=== PATIENT | female | born 1995 | race Two or more races ===

== ENCOUNTER 2019-12-04 23:23 | Emergency (ER) | payer OTHER, SELFPAY ==
[2019-12-04 23:42] VITALS: BP 140/97; PULSE 87; RESP 20; TEMP 36.8; O2SAT 100; BMI 32.0
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
[2019-12-05] VITALS (7 sets, daily range): BP systolic 114–131; BP diastolic 64–85; PULSE 74–105; RESP 14–21; TEMP 36.8; O2SAT 99–100
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
[2019-12-05 00:02] LABS: Basophils Percent Auto 0.3 % (0-2); MANUAL DIFF FLAG SCAN; SCAN SMEAR FLAG 1
[2019-12-05 00:04] LABS: Eosinophils Absolute Auto 0.1 X10*3/uL (0.0-0.4); Eosinophils Percent Auto 1.2 % (0-4); Hemoglobin 13.1 g/dl (12.0-16.0); Imm Gran Abs Auto 0.03 X10*3/uL (0.00-0.03); Imm Gran Pct Auto 0.5 % (0.0-0.4); Lymphocytes Absolute Auto 1.6 X10*3/uL (1.2-4.9); Mean Corpuscular HGB Conc 35.4 g/dl (31.0-35.0); Mean Corpuscular Hemoglobin 29.4 pg (27.0-33.0); Mean Corpuscular Volume 83.1 fL (80-98); Monocytes Absolute Auto 0.5 X10*3/uL (0.1-1.2); Monocytes Percent Auto 7.5 % (2-11); Neutrophils Absolute Auto 4.4 X10*3/uL (2.0-8.3); Neutrophils Percent Auto 66.5 % (45-73); Red Blood Count 4.45 X10*6/uL (4.20-5.50); Red Cell Distribution Width 12.1 % (11.0-16.0); White Blood Count 6.6 X10*3/uL (4.8-10.8)
[2019-12-05] MEDS: HYDROmorphone HCl 0.5 MG/0.5 ML SYRINGE 0.25 MG IVPUSH (00:19)
[2019-12-05 00:32] LABS: Ethanol < 10 mg/dL
[2019-12-05 00:34] LABS: PLT ABN DIST 1; Platelet Count 33 X10*3/uL (160-400)
[2019-12-05 00:36] LABS: Alanine Aminotransferase 22 U/L (0-31); Albumin Level 3.7 g/dL (3.5-5.0); Alkaline Phosphatase 52 U/L (39-117); Anion Gap 12 (12-20); Aspartate Amino Transferase 21 U/L (5-31); Bilirubin Total 0.6 mg/dL (0.0-1.0); Blood Urea Nitrogen 20 mg/dL (9-16); Calcium 8.6 mg/dL (8.4-10.2); Carbon Dioxide 20 mmol/L (22-29); Chloride 109 mmol/L (96-108); Creatinine Clr Calc Pharmacy 71.6; Estimated Glomerular Filt Rate > 60; Glucose Random 114 mg/dL (60-115); Lipase 51 U/L (8-78); Potassium 3.2 mmol/l (3.3-5.1); SLIDE REVIEW VERIFIED; Sodium 138 mmol/L (135-145); Total Protein 6.5 g/dL (6.5-8.0)
[2019-12-05] MEDS: iohexoL 350 MG/ML 100 ML INFUS..BTL 85 ML IV (00:36)
[2019-12-05 00:51] LABS: INTERNATIONAL NORM RATIO 1.1 (0.9-1.1); Prothrombin Time 12.9 SEC (10.8-13.0)
[2019-12-05 01:42] LABS: Partial Thromboplastin Time 29.1 SEC (24.1-38.0)
[2019-12-05] MEDS: Lidocaine 4 % Patch ADH..PATCH 1 PATCH TRANSDERMA (04:12)
[2019-12-05] MEDS: Acetaminophen 325 MG TABLET 975 MG PO (04:12)
== END 2019-12-05 04:31 | disposition home or self-care (01) ==
PROVIDERS: Emergency Provider Student in an Organized Health Care Education/Training Program
DX: S90.812A Abrasion, left foot, initial encounter (principal); S90.811A Abrasion, right foot, initial encounter; S80.02XA Contusion of left knee, initial encounter; V43.52XA Car driver injured in collision with other type car in traffic accident, initial encounter; M62.838 Other muscle spasm; C81.90 Hodgkin lymphoma, unspecified, unspecified site; Y93.89 Activity, other specified; Y92.414 Local residential or business street as the place of occurrence of the external cause; Y99.9 Unspecified external cause status; Z86.711 Personal history of pulmonary embolism; Z79.899 Other long term (current) drug therapy
CPT/HCPCS: 36415; 70450; 71260; 72125; 73090; 73564; 73630; 74177; 80053; 80320; 83690; 85025; 85610; 85730; 86850; 86900; 86901; 93005; 96374; 99285; J1170

== ENCOUNTER → 2020-06-25 09:08 | Outpatient (BNVA) | payer OTHER, SELFPAY | PROVIDERS: PCP Physician Assistant; Visit Provider Advanced Practice Midwife ==

== ENCOUNTER 2020-06-26 00:18 | Emergency (ER) | payer OTHER, SELFPAY ==
[2020-06-26 00:29] VITALS: BP 152/99; PULSE 86; RESP 16; TEMP 36.4; O2SAT 99; BMI 30.2
--- NOTE | 2020-06-26 02:42 | ED_ITS ---
HPI - Headache General Chief Complaint: Headache Stated Complaint: Migraine Time Seen by Provider: 06/26/20 02:05 Source: patient Mode of arrival: ambulatory Limitations: no limitations History of Present Illness HPI Narrative: Pain history of migraine with recurrent headaches almost weekly basis complaining of headache this time on the right side started few hours prior to arrival sensitive to light and noise nausea no vomiting no fever no neck pain Related Data Home Medications Medication Instructions Recorded Confirmed apixaban [Eliquis] 1 tab PO BID 12/02/19 12/04/19 prednisone 5 mg PO DAILY 12/02/19 12/04/19 ondansetron 4 mg PO Q6H PRN 12/25/19 12/25/19 Previous Rx's Medication Instructions Recorded [id number]-vjsftvavfilcy-gdis 1 cap PO Q6H PRN #20 cap 06/26/20 [Fioricet] sumatriptan succinate [Imitrex] 50 mg PO Q2H PRN #10 tab 06/26/20 Allergies Allergy/AdvReac Type Severity Reaction Status Date / Time latex [LATEX] Allergy Severe RASH Verified 06/26/20 00:29 Penicillins [PENICILLINS] Allergy Intermediate RASH Verified 06/26/20 00:29 Review of Systems Review of Systems: Yes all other systems are reviewed and are negative [facility] Past Medical History Medical History Chronic ITP (idiopathic thrombocytopenia) Hodgkin lymphoma Pulmonary embolism Family History Family History Unknown Breast cancer Paternal Grandfather Prostate cancer Father HTN (hypertension) Social History Social History Alcohol intake: never Smoking Status: Former smoker Advance Directives: No Advance Directives Information Provided: No Gender identity: female Physical Exam Vital Signs: Vital Signs: Last Vital Signs Temp 97.6 F 06/26/20 00:29 Pulse 86 06/26/20 00:29 Resp 16 06/26/20 00:29 BP 152/99 H 06/26/20 00:29 Pulse Ox 99 06/26/20 00:29 Body Mass Index 30.2 Const: General: comfortable, well developed and acute distress Orientat ion/consciousness: patient oriented x3 HENMT: Other: Photosensitive Head: Yes normal to inspection Ears: hearing grossly normal bilaterally General nose exam: Normal external nose present Mouth: Normal oral and palatal mucosa present Teeth and gingiva: dentition normal Throat: Yes posterior oropharynx normal Eyes: General: appearance normal, both eyes and all related structures Neck: Neck: Yes normal visual inspection, Yes no lymphadenopathy and Yes no meningeal signs Resp: Effort & Inspection: normal respiratory effort Auscultation: clear to auscultation bilaterally Cardio: Rate: regular rate Rhythm: regular rhythm Heart sounds: S1 normal heart sound present and S2 normal heart sound present GI: Inspection: Yes normal to inspection Palpation (GI): Soft to palpation and nontender : General: Yes no CVA tenderness Back/Spine/Pelvis: Back: no CVA tenderness Thoracic/Lumbar Spine: thoracic and lumbar spine normal to inspection Neuro: General: patient oriented x3, no meningeal signs and no focal motor d eficits MDM - Headache MDM Narrative Medical decision making narrative: Patient feeling better after Imitrex and Fioricet will discharge patient home Differential Diagnosis Differential diagnosis: Likely migraine Discharge Plan Discharge Clinical Impression: Migraine Patient Disposition: Home, Self-Care Instructions: Migraine Headache (ED) Additional Instructions: Rest at home. Take medication as prescribed Prescriptions: New wjfqsnnzjm-dngitxxwpikkx-cbqu [Fioricet] 50-300-40 mg capsule 1 cap PO Q6H PRN (Reason: Headache) Qty: 20 RF: 0 sumatriptan succinate [Imitrex] 50 mg tablet 50 mg PO Q2H PRN (Reason: Headache) Qty: 10 RF: 0 No Action Eliquis 5 mg tablet 1 tab PO BID RF: 0 prednisone 5 mg Tablet 5 mg PO DAILY RF: 0 ondansetron 4 mg Film 4 mg PO Q6H PRN (Reason: Nausea) RF: 0
[2020-06-26] MEDS: Butalb/Acetamin/Caff 50/325/40 TABLET 1 TAB PO (03:14)
--- NOTE | 2020-06-26 03:31 | PC.NURSE ---
PT STILL C/O HEADACHE TO FRONTAL PART OF HEAD. MD AWARE AND ORDERED
== END 2020-06-26 05:36 | disposition home or self-care (01) ==
PROVIDERS: Emergency Provider Internal Medicine; PCP Physician Assistant
DX: G43.909 Migraine, unspecified, not intractable, without status migrainosus (principal); Z79.01 Long term (current) use of anticoagulants; Z79.899 Other long term (current) drug therapy
CPT/HCPCS: 96372; 99283; J3030

== ENCOUNTER 2020-07-01 08:28 | Outpatient (REF) | payer OTHER, SELFPAY ==
--- NOTE | ~2020-07-01 | XR_ITS ---
EXAMINATION: XR CHEST CLINICAL INFORMATION: Cough COMPARISON: Previous chest x-ray April [address] November 2019 TECHNIQUE: 2 views of the chest were obtained. FINDINGS: No significant abnormality is noted involving the heart, lungs, mediastinum, bony thorax or soft tissues. XR/XR chest 2V IMPRESSION: Unremarkable examination.
[2020-07-01 10:53] LABS: Alanine Aminotransferase 25 U/L (0-31); Albumin Level 3.8 g/dL (3.5-5.0); Alkaline Phosphatase 64 U/L (39-117); Anion Gap 11 (12-20); Aspartate Amino Transferase 19 U/L (5-31); Bilirubin Total 0.6 mg/dL (0.0-1.0); Blood Urea Nitrogen 15 mg/dL (9-16); Calcium 8.8 mg/dL (8.4-10.2); Carbon Dioxide 26 mmol/L (22-29); Chloride 106 mmol/L (96-108); Estimated Glomerular Filt Rate > 60; Glucose Fasting 72 mg/dL (60-99); Potassium 4.1 mmol/L (3.3-5.1); Sodium 139 mmol/L (135-145); Total Protein 6.8 g/dL (6.5-8.0)
[2020-07-01 11:45] LABS: Estimated Average Glucose 91 mg/dL; Hemoglobin A1c % 4.8 %
[2020-07-01 12:43] LABS: TSH reflex Free T4 1.26 uIU/mL (0.32-4.0)
== END 2020-07-01 08:29 | disposition home or self-care (01) ==
LOC: HO.LAB 08:28
PROVIDERS: PCP Physician Assistant; Visit Provider Physician Assistant
DX: R05 Cough (principal); Z13.1 Encounter for screening for diabetes mellitus; Z13.29 Encounter for screening for other suspected endocrine disorder
CPT/HCPCS: 36415; 71046; 80053; 83036; 84443

== ENCOUNTER → 2020-10-02 11:37 | Outpatient (BNVA) | payer OTHER, SELFPAY | PROVIDERS: PCP Physician Assistant; Visit Provider Advanced Practice Midwife ==

== ENCOUNTER 2020-10-11 16:00 | Emergency (ER) | payer OTHER, SELFPAY ==
[2020-10-11 16:19] VITALS: BP 138/79; PULSE 92; RESP 18; TEMP 36.7; O2SAT 100; BMI 29.9
--- NOTE | 2020-10-11 18:26 | ED.GENADULT ---
HPI - General Adult General Chief complaint: General Medical Stated complaint: Rash Time Seen by Provider: 10/11/20 18:20 Source: patient Mode of arrival: ambulatory Limitations: no limitations History of Present Illness HPI narrative: 25 y/o female presenting with itchy red rash on her hand and face that started yesterday. She reports getting blood work taken and she thinks they used a tape with latex in it. She slept on her right hand and woke up with a red, itchy red patch on her right cheek. It is painful and slightly raised. No fever, chills, SOB or wheezing. No facial or oral swelling. She has a history of similar reactions to latex in the past. MD complaint: allergic reaction Onset (ago): day(s) Location: face, right and upper extremity Radiation: non-radiation Severity: moderate Severity scale (1-10): 6 Quality: burning Pain Consistency: constant Relieving factors: cold therapy Exacerbating factors: none Associated symptoms: denies other symptoms Treatments prior to arrival: none Related Data Home Medications Medication Instructions Recorded Confirmed apixaban 5 mg tablet (Eliquis) 1 tab PO BID 12/02/19 06/29/20 prednisone 5 mg tablet 5 mg PO DAILY 12/02/19 06/29/20 ondansetron 4 mg oral soluble film 4 mg PO Q6H PRN 12/25/19 06/29/20 Previous Rx's Medication Instructions Recorded [id number]-[id number]-bfagckvu 1 cap PO Q6H PRN #20 cap 06/26/20 50 mg-300 mg-40 mg capsule (Fioricet) sumatriptan succinate 50 mg tablet 50 mg PO Q2H PRN #10 tab 06/26/20 (Imitrex) diphenhydramine HCl 25 mg tablet 50 mg PO Q6H PRN #14 tab 10/11/20 (Benadryl Allergy) prednisone 20 mg tablet 40 mg PO DAILY #10 tab 10/11/20 Allergies Allergy/AdvReac Type Severity Reaction Status Date / Time latex [LATEX] Allergy Severe RASH Verified 10/11/20 16:19 Penicillins [PENICILLINS] Allergy Intermediate RASH Verified 10/11/20 16:19 Review of Systems Review of Systems: Constitutional: No Fever, No Chills ENT/Mouth: No sore throat, No Rhinorrhea, No Swallowing Difficulty Eyes: No Eye Pain, No Swelling, No Redness Cardiovascular: No Chest Pain, No SOB Respiratory: No Cough, No Sputum, No Wheezing, No dyspnea Gastrointestinal: No Nausea, No Vomiting, No Diarrhea, No abdominal Pain Musculoskeletal: No joint pain, No Myalgias Skin: No Skin Lesions, + rash Neuro: No Weakness, No Numbness, No Dizziness, No Headache Heme/Lymph: No Bruising, No Lymphadenopathy PMFSH Past Medical History Medical History (Updated 10/11/20 @ 19:07 by JEFFERY Dominique) Chronic ITP (idiopathic thrombocytopenia) Hodgkin lymphoma MDS (myelodysplastic syndrome) Pulmonary embolism Family History Family History Unknown Breast cancer Paternal Grandfather Prostate cancer Father HTN (hypertension) Social History Social History (Updated 06/29/20 @ 13:26 by Michelet Witt PA-C) Alcohol intake: never Advance Directives: No Advance Directives Information Provided: Yes Patient : No Current occupational status: employed Current occupation: [employer] Gender identity: Female Physical Exam Vital Signs: Vital Signs: Last Vital Signs Temp 98.1 F 10/11/20 18:32 Pulse 67 10/11/20 18:32 Resp 16 10/11/20 18:32 BP 121/78 10/11/20 18:32 Pulse Ox 99 10/11/20 18:32 Body Mass Index 29.9 Appearance: Alert. Oriented X3. No acute distress. HEENT: right cheek with large area of erythema and warmth, well demarcated, slightly raised. no oral swelling CVS: Normal heart rate and rhythm. Pulses normal. Respiratory: No respiratory distress. Lungs CTAB. Skin: Skin warm and dry. Normal skin color. Normal skin turgor. No rashes. Extremities: left dorsal hand with red raised lesions along hand and wrist. NV intact distally. Neuro: Oriented X 3. No motor deficit. No sensory deficit. Course Course Course Narrative: 25 y/o female presenting with allergic reaction to latex involving her hand and face. Will treat with benadryl and prednisone. Reevaluation(s) Reevaluation #1: Observed in the ED with no worsening of symptoms. No evidence of angioedema or anaphylaxis. Stable for d/c home with continuation of prednisone and benadryl. Critical Care Time Critical Care Time Critical Care Time: No Discharge Plan Discharge Clinical Impression: Allergic reaction Qualifiers: Encounter type: initial encounter Qualified Code(s): T78.40XA - Allergy, unspecified, initial encounter Patient Disposition: Home, Self-Care Instructions: General Allergic Reaction (ED) Additional Instructions: Take Benadryl 50 mg every 6 hours as needed for rash and itching. Take the prescribed steroid medication starting tomorrow, you were given 1st dose in the ER today. If you develop new or worsening symptoms call 911 or come back to the ER for further evaluation. Prescriptions: New prednisone 20 mg tablet 40 mg PO DAILY Qty: 10 RF: 0 diphenhydramine HCl [Benadryl Allergy] 25 mg tablet 50 mg PO Q6H PRN (Reason: allergic reaction) Qty: 14 RF: 0 No Action cxpvoygnkq-esswichnnpymp-udbe [Fioricet] 50-300-40 mg capsule 1 cap PO Q6H PRN (Reason: Headache) Qty: 20 RF: 0 sumatriptan succinate [Imitrex] 50 mg tablet 50 mg PO Q2H PRN (Reason: Headache) Qty: 10 RF: 0 Eliquis 5 mg tablet 1 tab PO BID RF: 0 prednisone 5 mg Tablet 5 mg PO DAILY RF: 0 ondansetron 4 mg Film 4 mg PO Q6H PRN (Reason: Nausea) RF: 0
[2020-10-11 18:32] VITALS: BP 121/78; PULSE 67; RESP 16; TEMP 36.7; O2SAT 99
[2020-10-11] MEDS: predniSONE 10 MG TABLET 50 MG PO (18:38)
[2020-10-11] MEDS: diphenhydrAMINE HCL 25 MG TABLET 50 MG PO (18:39)
== END 2020-10-11 19:47 | disposition home or self-care (01) ==
PROVIDERS: Emergency Provider Internal Medicine; PCP Physician Assistant
DX: L50.0 Allergic urticaria (principal); Z79.899 Other long term (current) drug therapy
CPT/HCPCS: 99283; 99284; Q0163

== ENCOUNTER 2020-12-15 15:02 | Outpatient (REF) | payer OTHER, SELFPAY ==
[2020-12-16 10:09] LABS: CT PCR NOT DETECTED (Not Detect.); NG PCR NOT DETECTED (Not Detect.)
== END 2020-12-15 15:03 | disposition home or self-care (01) ==
LOC: HO.LAB 15:02
PROVIDERS: PCP Physician Assistant; Visit Provider Advanced Practice Midwife
DX: Z30.432 Encounter for removal of intrauterine contraceptive device (principal); Z20.2 Contact with and (suspected) exposure to infections with a predominantly sexual mode of transmission
CPT/HCPCS: 58301; 87491; 87591

== ENCOUNTER → 2020-12-24 10:29 | Outpatient (BNVA) | payer OTHER, SELFPAY | PROVIDERS: PCP Physician Assistant; Visit Provider Advanced Practice Midwife | DX: Z30.430 Encounter for insertion of intrauterine contraceptive device (principal) | CPT/HCPCS: 58300 ==

== ENCOUNTER → 2021-01-21 09:16 | Outpatient (BNVA) | payer OTHER, SELFPAY | PROVIDERS: PCP Physician Assistant; Visit Provider Advanced Practice Midwife ==

== ENCOUNTER 2021-04-29 14:52 | Outpatient (REF) | payer OTHER, SELFPAY ==
--- NOTE | ~2021-04-29 | XR_ITS ---
EXAMINATION: XR CHEST CLINICAL INFORMATION: Screening for respiratory tuberculosis COMPARISON: None TECHNIQUE: 2 views of the chest were obtained. FINDINGS: No significant abnormality is noted involving the heart, lungs, mediastinum, bony thorax or soft tissues. XR/XR chest 2V IMPRESSION: Unremarkable chest examination.
== END 2021-04-29 14:53 | disposition home or self-care (01) ==
LOC: HO.XRAY 14:52
PROVIDERS: PCP Physician Assistant; Visit Provider Physician Assistant
DX: Z11.1 Encounter for screening for respiratory tuberculosis (principal)
CPT/HCPCS: 71046

== ENCOUNTER 2021-05-04 15:29 | Outpatient (REF) | payer OTHER, SELFPAY ==
[2021-05-05 08:18] LABS: HBS Num1 4.81 mIU/mL (0-7.99); ~Hepatitis B Surface Antibody NONREACTIVE (Nonreactive)
[2021-05-05 21:07] LABS: Rubeola IgG (Measles) >300.00 AU/mL; Varicella IgG Antibody <135.00 index
== END 2021-05-04 15:30 | disposition home or self-care (01) ==
LOC: HO.LAB 15:29
PROVIDERS: PCP Physician Assistant; Visit Provider Physician Assistant
DX: Z01.84 Encounter for antibody response examination (principal); Z13.29 Encounter for screening for other suspected endocrine disorder
CPT/HCPCS: 36415; 84443; 86706; 86735; 86762; 86765; 86787

== ENCOUNTER 2021-06-02 05:56 | Emergency (ER) | payer OTHER, SELFPAY ==
--- NOTE | 2021-06-02 | ECG_ITS ---
Test Reason : sob/chest pain Blood Pressure : / mmHG Vent. Rate : 064 BPM Atrial Rate : 064 BPM P-R Int : 142 ms QRS Dur : 080 ms QT Int : 364 ms P-R-T Axes : 017 057 021 degrees QTc Int : 375 ms Normal sinus rhythm with sinus arrhythmia Normal ECG When compared with ECG of 05-DEC-2019 00:21, Vent. rate has decreased BY 39 BPM QT has shortened Referred By: Generic ED Physician Electronically Signed By:COY VIVEROS MD
--- NOTE | ~2021-06-02 | CT_ITS ---
EXAMINATION: CT ANGIOGRAM OF THE CHEST WITH AND WITHOUT CONTRAST (CT PULMONARY ANGIOGRAM FOR PE) CLINICAL INFORMATION: Reason for Exam CP h/o PE pos D dimer COMPARISON: 07/13/2019 and 12/05/2019 TECHNIQUE: Prior to contrast administration, noncontrast localization images were obtained. Subsequently, multidetector volumetric imaging was performed from the thoracic inlet to below the diaphragms following the administration of 57 mL Omnipaque 350 intravenous contrast. No contrast reaction reported Sagittal, coronal, and MIP oblique sagittal reformatted images were obtained on the CT workstation, uploaded to PACS, and reviewed. This CT examination was performed using dose optimization techniques as appropriate, variously including the following: *Automated exposure control *Adjustment of mA and/or kV according to patient size (this includes techniques or standardized protocols for targeted exams where dose is matched to indication/reason for exam; i.e. extremities or head) *Use of iterative reconstruction technique Total exam dose-length product 257 mGy-cm FINDINGS: QUALITY OF STUDY/CONTRAST BOLUS: Satisfactory. PULMONARY ARTERIES: No central or segmental pulmonary emboli. THORACIC AORTA: No aneurysm or dissection. LUNG: No focal consolidation, nodules or masses. PLEURA: No pleural effusion or pneumothorax. MEDIASTINUM: Normal heart size. No pericardial effusion. No hilar or mediastinal lymphadenopathy. No evidence of septal bowing or right heart strain. CHEST WALL/AXILLA: No axillary or internal mammary lymphadenopathy. OSSEOUS STRUCTURES: No acute or suspicious osseous abnormality. UPPER ABDOMEN: Unremarkable. CT/CT angio chest PE protocol IMPRESSION: No pulmonary embolism. No acute pneumonitis or parenchymal consolidation VTE:
[2021-06-02 06:15] VITALS: BP 126/78; PULSE 74; RESP 28; TEMP 36.7; O2SAT 100; BMI 27.3
[2021-06-02 06:22] LABS: Hematocrit 42.3 % (37.0-47.0); Hemoglobin 14.4 g/dl (12.0-16.0); Mean Corpuscular Hemoglobin 28.5 pg (27.0-33.0); Mean Corpuscular Volume 83.8 fL (80.0-98.0); Mean Platelet Volume 12.8 fL (9.4-12.3); Platelet Count 140 X10*3/uL (160-400); Red Blood Count 5.05 X10*6/uL (4.20-5.50); Red Cell Distribution Width 13.2 % (11.0-16.0); White Blood Count 4.6 X10*3/uL (4.8-10.8)
[2021-06-02 06:37] LABS: COVID-19 Test Negative (Negative); IDNOW Serial# 55D5AD1C
[2021-06-02 06:44] LABS: Alanine Aminotransferase 33 U/L (0-31); Albumin Level 3.7 g/dL (3.5-5.0); Alkaline Phosphatase 66 U/L (39-117); Anion Gap 13 (12-20); Aspartate Amino Transferase 26 U/L (5-31); Bilirubin Total 0.9 mg/dL (0.0-1.0); Blood Urea Nitrogen 19 mg/dL (9-16); Carbon Dioxide 20 mmol/L (22-29); Chloride 109 mmol/L (96-108); Creatinine Clr Calc Pharmacy 70.7; Estimated Glomerular Filt Rate > 60; Glucose Random 87 mg/dL (60-115); Potassium 4.1 mmol/L (3.3-5.1); Sodium 138 mmol/L (135-145); Total Protein 6.8 g/dL (6.5-8.0)
[2021-06-02 06:49] LABS: Influenza A Negative (Negative); Influenza B2 Negative (Negative)
[2021-06-02 06:52] LABS: Troponin-I High Sensitivity < 3.5 ng/L (<3.5-17.0)
--- NOTE | 2021-06-02 06:52 | ED.CHESTPAIN ---
HPI - Chest Pain General Chief Complaint: Chest Pain Stated Complaint: SoB, chest tightness Time Seen by Provider: 06/02/21 06:46 Related Data Allergies Allergy/AdvReac Type Severity Reaction Status Date / Time latex [LATEX] Allergy Severe RASH Verified 04/27/21 13:34 Penicillins [PENICILLINS] Allergy Intermediate RASH Verified 04/27/21 13:34 [facility] Past Medical History Medical History Chronic ITP (idiopathic thrombocytopenia) Hodgkin lymphoma MDS (myelodysplastic syndrome) Pulmonary embolism Family History Family History Unknown Breast cancer Paternal Grandfather Prostate cancer Father HTN (hypertension) Paternal Aunt Breast cancer Social History Social History (System 04/27/21 @ 13:34 by Marisabel Polk) Household Members: Family Housing: House Are you a primary child care nurse to a significant other at home: No Do you presently have visiting nurse or other home services: No Alcohol intake: never Patient Tobacco Use Status: Never used Tobacco e-Cigarette/Vaping Use: Never Used Second Hand Smoke Exposure: No Advance Directives: No Advance Directives Information Provided: Yes service: No Current occupational status: employed Current occupation: [employer] Gender identity: Female Physical Exam Vital Signs: Vital Signs: Last Vital Signs Temp 98.1 F 06/02/21 06:15 Pulse 74 06/02/21 06:15 Resp 28 H 06/02/21 06:15 BP 126/78 06/02/21 06:15 Pulse Ox 100 06/02/21 06:15 BMI result Body Mass Index 27.3 MDM - Chest Pain Lab Data Result diagrams: 06/02/21 06:14 06/02/21 06:14 Labs: Lab Results 06/02/21 06/02/21 06/02/21 Range/Units 06:13 06:13 06:14 WBC 4.6 L (4.8-10.8) X10*3/uL RBC 5.05 (4.20-5.50) X10*6/uL Hgb 14.4 (12.0-16.0) g/dl Hct 42.3 (37.0-47.0) % MCV 83.8 (80.0-98.0) fL MCH 28.5 (27.0-33.0) pg MCHC 34.0 (31.0-35.0) g/dl RDW 13.2 (11.0-16.0) % Plt Count 140 L (160-400) X10*3/uL MPV 12.8 H (9.4-12.3) fL Absolute Nucleated RBC 0.000 (0.0-0.012) X10*3/uL Nucleated RBC % (auto) 0.0 (0.0-0.2) /100WBC Sodium (135-145) mmol/L Potassium (3.3-5.1) mmol/L Chloride (96-108) mmol/L Carbon Dioxide (22-29) mmol/L Anion Gap (12-20) BUN (9-16) mg/dL Creatinine (0.5-1.4) mg/dL Estim Creat Clear Calc Estimated GFR Random Glucose (60-115) mg/dL Calcium (8.4-10.2) mg/dL Total Bilirubin (0.0-1.0) mg/dL AST (5-31) U/L ALT (0-31) U/L Alkaline Phosphatase (39-117) U/L Total Protein (6.5-8.0) g/dL Albumin (3.5-5.0) g/dL COVID-19 ([facility]) Negative (Negative) COVID-19 Clin Com See Note Influenza Type A (MARK) Negative (Negative) Influenza Type B (MARK) Negative (Negative) Influenza A & B Note See Note 06/02/21 Range/Units 06:14 WBC (4.8-10.8) X10*3/uL RBC (4.20-5.50) X10*6/uL Hgb (12.0-16.0) g/dl Hct (37.0-47.0) % MCV (80.0-98.0) fL MCH (27.0-33.0) pg MCHC (31.0-35.0) g/dl RDW (11.0-16.0) % Plt Count (160-400) X10*3/uL MPV (9.4-12.3) fL Absolute Nucleated RBC (0.0-0.012) X10*3/uL Nucleated RBC % (auto) (0.0-0.2) /100WBC Sodium 138 (135-145) mmol/L Potassium 4.1 (3.3-5.1) mmol/L Chloride 109 H (96-108) mmol/L Carbon Dioxide 20 L (22-29) mmol/L Anion Gap 13 (12-20) BUN 19 H (9-16) mg/dL Creatinine 1.02 (0.5-1.4) mg/dL Estim Creat Clear Calc 70.7 Estimated GFR > 60 Random Glucose 87 (60-115) mg/dL Calcium 9.0 (8.4-10.2) mg/dL Total Bilirubin 0.9 (0.0-1.0) mg/dL AST 26 (5-31) U/L ALT 33 H (0-31) U/L Alkaline Phosphatase 66 (39-117) U/L Total Protein 6.8 (6.5-8.0) g/dL Albumin 3.7 (3.5-5.0) g/dL COVID-19 ([facility]) (Negative) COVID-19 Clin Com Influenza Type A (MARK) (Negative) Influenza Type B (MARK) (Negative) Influenza A & B Note
--- NOTE | 2021-06-02 06:53 | ED_ITS ---
HPI - Chest Pain General Chief Complaint: Chest Pain Stated Complaint: SoB, chest tightness Time Seen by Provider: 06/02/21 06:46 Source: patient Limitations: no limitations History of Present Illness HPI narrative: This is a 26-year-old female who woke up around 05:00 o'clock in the morning with left-sided chest pain, shortness of breath, and a few episodes of vomiting. Patient feels somewhat better now. She relates that she previously a few years ago had had a pulmonary embolism when she was on control pills, and had felt similarly. Patient is no longer control pills. She does not use tobacco. She denies any cough or fever. She denies any pain upon taking a deep breath. She denies any pain or swelling in her legs. Does have history of TTP as well as Hodgkin's lymphoma 8 years ago which is in remission Related Data Allergies Allergy/AdvReac Type Severity Reaction Status Date / Time latex [LATEX] Allergy Severe RASH Verified 04/27/21 13:34 Penicillins [PENICILLINS] Allergy Intermediate RASH Verified 04/27/21 13:34 Review of Systems Review of Systems: Yes all other systems are reviewed and are negative Constitutional: Constitutional: Denies fever(s) Eyes: Eyes: Reports no additional eye complaints ENT: Reports system reviewed and no additional complaints, except as documented Cardiovascular: Cardiovascular: Reports as per HPI Respiratory: Respiratory: Reports as per HPI and Denies cough Gastrointestinal: Gastrointestinal: Denies abdominal pain, Reports nausea and Reports vomiting Musculoskeletal: Musculoskeletal: Reports no additional musculoskeletal complaints Integumentary/Breasts: Skin/Breast: Reports system reviewed and no additional complaints, except as docu PMFSH Past Medical History Medical History Chronic ITP (idiopathic thrombocytopenia) Hodgkin lymphoma MDS (myelodysplastic syndrome) Pulmonary embolism Family History Family History Unknown Breast cancer Paternal Grandfather Prostate cancer Father HTN (hypertension) Paternal Aunt Breast cancer Social History Social History (System 04/27/21 @ 13:34 by Marisabel Polk) Household Members: Family Housing: House Are you a primary acute care certified nursing assistant to a significant other at home: No Do you presently have visiting nurse or other home services: No Alcohol intake: never Patient Tobacco Use Status: Never used Tobacco e-Cigarette/Vaping Use: Never Used Second Hand Smoke Exposure: No Advance Directives: No Advance Directives Information Provided: Yes service: No Current occupational status: employed 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 Gender identity: Female Physical Exam Vital Signs: Vital Signs: Last Vital Signs Temp 98.1 F 06/02/21 08:22 Pulse 77 06/02/21 09:51 Resp 16 06/02/21 09:51 BP 117/76 06/02/21 09:51 Pulse Ox 97 06/02/21 09:51 BMI result Body Mass Index 27.3 Const: General: cooperative and no acute distress Nutritional Appearance: average body habitus Orientation/consciousness: oriented to person, oriented to place and oriented to time Limitations: no limitations HEENT: Head: Yes normal to inspection General nose exam: Normal external nose present Throat: Yes posterior oropharynx normal Eyes: General: appearance normal, both eyes and all related structures Resp: Effort & Inspection: normal respiratory effort Auscultation: clear to auscultation bilaterally Cardio: Rate: regular rate Rhythm: regular rhythm Heart sounds: S1 normal heart sound present, S2 normal heart sound present, no gallops, no murmurs and no rubs GI: Palpation (GI): Soft to palpation and nontender Skin: General skin exam: no rashes or lesions noted Neuro: General: oriented to person, oriented to place and oriented to time MDM - Chest Pain MDM Narrative Medical decision making narrative: Patient with left-sided chest pain and nausea, and symptoms that felt similar to when she had a pulmonary embolism few years ago when she was on control pills. D-dimer was mildly elevated, though her pulse oximetry and EKG were unremarkable. CTA was done and did rule out pulmonary embolism. Lab Data Attestation: I reviewed the patient's lab results. Result diagrams: 06/02/21 06:14 06/02/21 06:14 Labs: Lab Results 06/02/21 06/02/21 06/02/21 Range/Units 06:13 06:13 06:14 WBC 4.6 L (4.8-10.8) X10*3/uL RBC 5.05 (4.20-5.50) X10*6/uL Hgb 14.4 (12.0-16.0) g/dl Hct 42.3 (37.0-47.0) % MCV 83.8 (80.0-98.0) fL MCH 28.5 (27.0-33.0) pg MCHC 34.0 (31.0-35.0) g/dl RDW 13.2 (11.0-16.0) % Plt Count 140 L (160-400) X10*3/uL MPV 12.8 H (9.4-12.3) fL Absolute Nucleated RBC 0.000 (0.0-0.012) X10*3/uL Nucleated RBC % (auto) 0.0 (0.0-0.2) /100WBC D-Dimer High Sensitivty NG/ML Sodium (135-145) mmol/L Potassium (3.3-5.1) mmol/L Chloride (96-108) mmol/L Carbon Dioxide (22-29) mmol/L Anion Gap (12-20) BUN (9-16) mg/dL Creatinine (0.5-1.4) mg/dL Estim Creat Clear Calc Estimated GFR Random Glucose (60-115) mg/dL Calcium (8.4-10.2) mg/dL Total Bilirubin (0.0-1.0) mg/dL AST (5-31) U/L ALT (0-31) U/L Alkaline Phosphatase (39-117) U/L Troponin I High Sens (<3.5-17.0) ng/L Total Protein (6.5-8.0) g/dL Albumin (3.5-5.0) g/dL Beta HCG, Quant mIU/mL COVID-19 ([facility]) Negative (Negative) COVID-19 Clin Com See Note Influenza Type A (MARK) Negative (Negative) Influenza Type B (MARK) Negative (Negative) Influenza A & B Note See Note 06/02/21 06/02/21 06/02/21 Range/Units 06:14 06:15 07:18 WBC (4.8-10.8) X10*3/uL RBC (4.20-5.50) X10*6/uL Hgb (12.0-16.0) g/dl Hct (37.0-47.0) % MCV (80.0-98.0) fL MCH (27.0-33.0) pg MCHC (31.0-35.0) g/dl RDW (11.0-16.0) % Plt Count (160-400) X10*3/uL MPV (9.4-12.3) fL Absolute Nucleated RBC (0.0-0.012) X10*3/uL Nucleated RBC % (auto) (0.0-0.2) /100WBC D-Dimer High Sensitivty 311 NG/ML Sodium 138 (135-145) mmol/L Potassium 4.1 (3.3-5.1) mmol/L Chloride 109 H (96-108) mmol/L Carbon Dioxide 20 L (22-29) mmol/L Anion Gap 13 (12-20) BUN 19 H (9-16) mg/dL Creatinine 1.02 (0.5-1.4) mg/dL Estim Creat Clear Calc 70.7 Estimated GFR > 60 Random Glucose 87 (60-115) mg/dL Calcium 9.0 (8.4-10.2) mg/dL Total Bilirubin 0.9 (0.0-1.0) mg/dL AST 26 (5-31) U/L ALT 33 H (0-31) U/L Alkaline Phosphatase 66 (39-117) U/L Troponin I High Sens < 3.5 (<3.5-17.0) ng/L Total Protein 6.8 (6.5-8.0) g/dL Albumin 3.7 (3.5-5.0) g/dL Beta HCG, Quant < 2 mIU/mL COVID-19 ([facility]) (Negative) COVID-19 Clin Com Influenza Type A (MARK) (Negative) Influenza Type B (MARK) (Negative) Influenza A & B Note Imaging Data CTA of the chest: Radiologist's impression: IMPRESSION: No pulmonary embolism. No acute pneumonitis or parenchymal consolidation ECG Data ECG #1: Attestation: I personally reviewed and interpreted this ECG as follows: ECG interpretation date: 06/02/21 ECG interpretation time: 07:01 Interpretation: Sinus rhythm with a rate of 64. Sinus arrhythmia. No ST elevation or depression. Normal QRS axis. Discharge Plan Discharge Clinical Impression: Atypical chest pain, Vomiting Patient Disposition: Home, Self-Care Instructions: Chest Pain (ED) Additional Instructions: Use acetaminophen or ibuprofen for pain. Follow-up with primary care physician as needed. Return for any new or worsened symptoms. Interventions: ED Discharge Assessment Last Done: 06/02/21 09:55 Discharge Date/Time: 06/02/21 09:56
--- NOTE | 2021-06-02 07:21 | PC.NURSE ---
Sabrina sent to the lab.
[2021-06-02 07:34] LABS: D Dimer High Sensitivity 311 NG/ML
[2021-06-02 08:22] VITALS: BP 110/74; PULSE 64; RESP 15; TEMP 36.7; O2SAT 100
[2021-06-02 08:43] LABS: HCG Quantitative < 2 mIU/mL
[2021-06-02] MEDS: iohexoL 350 MG/ML 100 ML INFUS..BTL IV (09:09)
[2021-06-02 09:51] VITALS: BP 117/76; PULSE 77; RESP 16; O2SAT 97
== END 2021-06-02 09:56 | disposition home or self-care (01) ==
PROVIDERS: Physician Assistant Medical; Emergency Provider Emergency Medicine
DX: R07.89 Other chest pain (principal); R11.10 Vomiting, unspecified; D69.3 Immune thrombocytopenic purpura; Z86.711 Personal history of pulmonary embolism; Z85.71 Personal history of Hodgkin lymphoma; Z20.822 Contact with and (suspected) exposure to COVID-19
CPT/HCPCS: 36415; 71275; 80053; 84484; 84702; 85027; 85379; 87502; 87635; 93005; 99284; Q9967

== ENCOUNTER 2021-07-16 13:33 | Emergency (ER) | payer OTHER, SELFPAY ==
--- NOTE | ~2021-07-16 | XR_ITS ---
EXAMINATION: XR CHEST CLINICAL INFORMATION: Shortness breath COMPARISON: April 29, 2021 TECHNIQUE: PA view of the chest was obtained. FINDINGS: No significant abnormality is noted involving the heart, lungs, mediastinum, bony thorax or soft tissues. XR/XR chest 1V IMPRESSION: No acute disease.
--- NOTE | 2021-07-16 13:45 | ECG_ITS ---
Test Reason : SOB Blood Pressure : / mmHG Vent. Rate : 083 BPM Atrial Rate : 083 BPM P-R Int : 130 ms QRS Dur : 084 ms QT Int : 348 ms P-R-T Axes : 041 026 013 degrees QTc Int : 408 ms Normal sinus rhythm with sinus arrhythmia Normal ECG When compared with ECG of 02-JUN-2021 06:05, No significant change was found Referred By: Generic ED Physician Electronically Signed By:COY VIVEROS MD
[2021-07-16 13:47] VITALS: BP 134/69; PULSE 88; TEMP 36.6; O2SAT 99; BMI 28.7
[2021-07-16 14:02] LABS: MANUAL DIFF FLAG NO
[2021-07-16 14:09] LABS: Basophils Percent Auto 0.3 % (0-2); Eosinophils Absolute Auto 0.1 X10*3/uL (0.0-0.4); Hematocrit 39.8 % (37.0-47.0); Imm Gran Abs Auto 0.02 X10*3/uL (0.00-0.03); Imm Gran Pct Auto 0.3 % (0.0-0.4); Lymphocytes Percent Auto 14.2 % (20-40); Mean Corpuscular HGB Conc 35.2 g/dl (31.0-35.0); Mean Corpuscular Volume 82.4 fL (80.0-98.0); Mean Platelet Volume 12.4 fL (9.4-12.3); Monocytes Absolute Auto 0.4 X10*3/uL (0.1-1.2); Monocytes Percent Auto 5.6 % (2-11); Neutrophils Absolute Auto 5.3 x10*3/uL (2.0-8.3); Neutrophils Percent Auto 78.6 % (45-73); Platelet Count 131 X10*3/uL (160-400); Red Blood Count 4.83 X10*6/uL (4.20-5.50); Red Cell Distribution Width 12.5 % (11.0-16.0); White Blood Count 6.8 X10*3/uL (4.8-10.8)
[2021-07-16 14:16] LABS: Prothrombin Time 11.6 SEC (9.9-13.0)
[2021-07-16 14:18] LABS: Anion Gap 11 (12-20); Blood Urea Nitrogen 15 mg/dL (9-16); Calcium 9.5 mg/dL (8.4-10.2); Carbon Dioxide 22 mmol/L (22-29); Chloride 108 mmol/L (96-108); Creatinine Clr Calc Pharmacy 67.2; Estimated Glomerular Filt Rate > 60; Glucose Random 94 mg/dL (60-115); Partial Thromboplastin Time 29.7 SEC (24.1-38.0); Potassium 3.7 mmol/L (3.3-5.1); Sodium 137 mmol/L (135-145)
[2021-07-16 14:25] LABS: Troponin-I High Sensitivity < 3.5 ng/L (<3.5-17.0)
--- NOTE | 2021-07-16 15:14 | ED_ITS ---
HPI - General Adult General Chief complaint: General Medical Stated complaint: shortness of breath Time Seen by Provider: 07/16/21 13:35 Source: patient and family Mode of arrival: EMS History of Present Illness HPI narrative: 26-year-old female with history of Hodgkin's lymphoma, ITP, prior PE with 4th time experiencing acute onset of left upper chest wall pain after coughing that is sharp in nature and causes her to be short of breath. Otherwise she denies any fevers, palpitations, calf swelling, recent travel, or use of estrogen. She reports that her prior PE was considered provoked by her control and follows up with Dr. Rowley for history of Hodgkin's lymphoma and ITP. She states she has not seen Dr. Rowley for 3 months. Related Data Previous Rx's Medication Instructions Recorded albuterol sulfate 90 mcg/actuation 1 inh INHALATION QID PRN #6.7 g 07/09/21 aerosol inhaler Allergies Allergy/AdvReac Type Severity Reaction Status Date / Time latex [LATEX] Allergy Severe RASH Verified 07/09/21 13:13 Penicillins [PENICILLINS] Allergy Intermediate RASH Verified 07/09/21 13:13 Review of Systems Review of Systems: Pertinent positives and negatives as stated in HPI 10 point review of systems is otherwise negative. [facility] Past Medical History Source: nursing notes reviewed Medical History Chronic ITP (idiopathic thrombocytopenia) Hodgkin lymphoma MDS (myelodysplastic syndrome) Pulmonary embolism Family History Family History Unknown Breast cancer Paternal Grandfather Prostate cancer Father HTN (hypertension) Paternal Aunt Breast cancer Social History Social History Household Members: Family Housing: House Are you a primary critical care physician assistant to a significant other at home: No Do you presently have visiting nurse or other home services: No Alcohol intake: never Patient Tobacco Use Status: Never used Tobacco e-Cigarette/Vaping Use: Never Used Second Hand Smoke Exposure: No Use of substances other than those prescribed or required for medical reasons: No Advance Directives: No Advance Directives Information Provided: No Patient : No service: No Current occupational status: employed Current occupation: [employer] Gender identity: Female Physical Exam ED Vital Signs: Vital Signs - 24 hr 07/16/21 13:47 07/16/21 16:02 Temperature 97.9 F 98.3 F Pulse Rate 88 66 Respiratory Rate 16 Blood Pressure 134/69 136/79 Pulse Oximetry 99 100 BMI result Body Mass Index 28.7 VITAL SIGNS: Reviewed. GENERAL: Well developed, well nourished, in no acute distress. HEAD: Normocephalic/atraumatic EYES: PERRLA, EOMI EARS: Ext canals without abnormality OROPHARYNX: no oral lesions noted, posterior pharynx clear LUNGS: Normal breath sounds. No adventitious sounds or accessory muscle use. SpO2<99>;CHEST WALL: There is reproducible pain on palpation over left upper chest wall without crepitus or deformity. CARDIOVASCULAR: Regular rate and rhythm without noted murmurs, no JVD or lower extremity edema. ABDOMEN: Soft, non-tender, non-distended with bowel sounds. MUSCULOSKELETAL: No tenderness, deformities, or effusions noted on gross inspection. EXTREMITIES: No cyanosis, clubbing or edema. SKIN: Inspection of the skin reveals no rashes NEUROLOGIC: Alert and oriented x 4. Strength and sensation to light touch were grossly intact x 4. Course Course Course Narrative: 26-year-old female with history and clinical presentation consistent with cough, anterior chest wall pain that is low likelihood for cardiopulmonary in etiology. However given patient's history will address the possibility although low likelihood PE and/or COVID, possible recurrent, but suspect this is costochondritis. Review of all investigations without acute findings and D-dimer is noted to be lower prior in May. Symptoms are inconsistent PE. Patient was provided with combination analgesics and is otherwise doing much better and will be discharged home in stable condition with strict instructions to follow-up with Dr. Rowley as well as primary care provider for further evaluation. Medical Decision Making Lab Data Result diagrams: 07/16/21 13:55 07/16/21 13:55 Labs: Lab Results 07/16/21 07/16/21 07/16/21 Range/Units 13:55 13:55 13:55 WBC 6.8 (4.8-10.8) X10*3/uL RBC 4.83 (4.20-5.50) X10*6/uL Hgb 14.0 (12.0-16.0) g/dl Hct 39.8 (37.0-47.0) % MCV 82.4 (80.0-98.0) fL MCH 29.0 (27.0-33.0) pg MCHC 35.2 H (31.0-35.0) g/dl RDW 12.5 (11.0-16.0) % Plt Count 131 L (160-400) X10*3/uL MPV 12.4 H (9.4-12.3) fL Immature Gran % (Auto) 0.3 (0.0-0.4) % Neut % (Auto) 78.6 H (45-73) % Lymph % (Auto) 14.2 L (20-40) % [place] % (Auto) 5.6 (2-11) % Eos % (Auto) 1.0 (0-4) % Baso % (Auto) 0.3 (0-2) % Lymph # (Auto) 1.0 L (1.2-4.9) X10*3/uL [place] # (Auto) 0.4 (0.1-1.2) X10*3/uL Eos # (Auto) 0.1 (0.0-0.4) X10*3/uL Baso # (Auto) 0.0 (0.0-0.2) X10*3/uL Abs Immat Gran (auto) 0.02 (0.00-0.03) X10*3/uL Absolute Neuts (auto) 5.3 (2.0-8.3) x10*3/uL Absolute Nucleated RBC 0.000 (0.0-0.012) X10*3/uL Nucleated RBC % (auto) 0.0 (0.0-0.2) /100WBC PT (9.9-13.0) SEC INR (0.9-1.1) APTT (24.1-38.0) SEC D-Dimer High Sensitivty NG/ML Sodium 137 (135-145) mmol/L Potassium 3.7 (3.3-5.1) mmol/L Chloride 108 (96-108) mmol/L Carbon Dioxide 22 (22-29) mmol/L Anion Gap 11 L (12-20) BUN 15 (9-16) mg/dL Creatinine 1.10 (0.5-1.4) mg/dL Estim Creat Clear Calc 67.2 Estimated GFR > 60 Random Glucose 94 (60-115) mg/dL Calcium 9.5 (8.4-10.2) mg/dL Troponin I High Sens < 3.5 (<3.5-17.0) ng/L Urine Color Urine Appearance Urine pH (5.0-8.0) Ur Specific [place] (1.005-1.025) Urine Protein (NEG-TRACE) MG/DL Urine Glucose (UA) (NEG) MG/DL Urine Ketones (NEG) MG/DL Urine Blood (NEG) Urine Nitrite (NEG) Ur Leukocyte Esterase (NEG) Urine RBC (0) /HPF Urine WBC (0-4) /HPF Ur Squamous Epith Cells /LPF Urine Bacteria /LPF Urine Test (NEGATIVE) COVID-19 ([facility]) (Negative) COVID-19 Clin Com 07/16/21 07/16/21 07/16/21 Range/Units 13:55 15:13 15:54 WBC (4.8-10.8) X10*3/uL RBC (4.20-5.50) X10*6/uL Hgb (12.0-16.0) g/dl Hct (37.0-47.0) % MCV (80.0-98.0) fL MCH (27.0-33.0) pg MCHC (31.0-35.0) g/dl RDW (11.0-16.0) % Plt Count (160-400) X10*3/uL MPV (9.4-12.3) fL Immature Gran % (Auto) (0.0-0.4) % Neut % (Auto) (45-73) % Lymph % (Auto) (20-40) % [place] % (Auto) (2-11) % Eos % (Auto) (0-4) % Baso % (Auto) (0-2) % Lymph # (Auto) (1.2-4.9) X10*3/uL [place] # (Auto) (0.1-1.2) X10*3/uL Eos # (Auto) (0.0-0.4) X10*3/uL Baso # (Auto) (0.0-0.2) X10*3/uL Abs Immat Gran (auto) (0.00-0.03) X10*3/uL Absolute Neuts (auto) (2.0-8.3) x10*3/uL Absolute Nucleated RBC (0.0-0.012) X10*3/uL Nucleated RBC % (auto) (0.0-0.2) /100WBC PT 11.6 (9.9-13.0) SEC INR 1.0 (0.9-1.1) APTT 29.7 (24.1-38.0) SEC D-Dimer High Sensitivty 224 NG/ML Sodium (135-145) mmol/L Potassium (3.3-5.1) mmol/L Chloride (96-108) mmol/L Carbon Dioxide (22-29) mmol/L Anion Gap (12-20) BUN (9-16) mg/dL Creatinine (0.5-1.4) mg/dL Estim Creat Clear Calc Estimated GFR Random Glucose (60-115) mg/dL Calcium (8.4-10.2) mg/dL Troponin I High Sens (<3.5-17.0) ng/L Urine Color YELLOW Urine Appearance CLEAR Urine pH 6.0 (5.0-8.0) Ur Specific [place] >= 1.030 H (1.005-1.025) Urine Protein 2+ H (NEG-TRACE) MG/DL Urine Glucose (UA) NEG (NEG) MG/DL Urine Ketones 5 (NEG) MG/DL Urine Blood NEG (NEG) Urine Nitrite NEG (NEG) Ur Leukocyte Esterase NEG (NEG) Urine RBC 0 (0) /HPF Urine WBC 0 (0-4) /HPF Ur Squamous Epith Cells TRACE /LPF Urine Bacteria TRACE /LPF Urine Test (NEGATIVE) COVID-19 ([facility]) Negative (Negative) COVID-19 Clin Com See Note 07/16/21 Range/Units 15:55 WBC (4.8-10.8) X10*3/uL RBC (4.20-5.50) X10*6/uL Hgb (12.0-16.0) g/dl Hct (37.0-47.0) % MCV (80.0-98.0) fL MCH (27.0-33.0) pg MCHC (31.0-35.0) g/dl RDW (11.0-16.0) % Plt Count (160-400) X10*3/uL MPV (9.4-12.3) fL Immature Gran % (Auto) (0.0-0.4) % Neut % (Auto) (45-73) % Lymph % (Auto) (20-40) % [place] % (Auto) (2-11) % Eos % (Auto) (0-4) % Baso % (Auto) (0-2) % Lymph # (Auto) (1.2-4.9) X10*3/uL [place] # (Auto) (0.1-1.2) X10*3/uL Eos # (Auto) (0.0-0.4) X10*3/uL Baso # (Auto) (0.0-0.2) X10*3/uL Abs Immat Gran (auto) (0.00-0.03) X10*3/uL Absolute Neuts (auto) (2.0-8.3) x10*3/uL Absolute Nucleated RBC (0.0-0.012) X10*3/uL Nucleated RBC % (auto) (0.0-0.2) /100WBC PT (9.9-13.0) SEC INR (0.9-1.1) APTT (24.1-38.0) SEC D-Dimer High Sensitivty NG/ML Sodium (135-145) mmol/L Potassium (3.3-5.1) mmol/L Chloride (96-108) mmol/L Carbon Dioxide (22-29) mmol/L Anion Gap (12-20) BUN (9-16) mg/dL Creatinine (0.5-1.4) mg/dL Estim Creat Clear Calc Estimated GFR Random Glucose (60-115) mg/dL Calcium (8.4-10.2) mg/dL Troponin I High Sens (<3.5-17.0) ng/L Urine Color Urine Appearance Urine pH (5.0-8.0) Ur Specific [place] (1.005-1.025) Urine Protein (NEG-TRACE) MG/DL Urine Glucose (UA) (NEG) MG/DL Urine Ketones (NEG) MG/DL Urine Blood (NEG) Urine Nitrite (NEG) Ur Leukocyte Esterase (NEG) Urine RBC (0) /HPF Urine WBC (0-4) /HPF Ur Squamous Epith Cells /LPF Urine Bacteria /LPF Urine Test NEGATIVE (NEGATIVE) COVID-19 ([facility]) (Negative) COVID-19 Clin Com Discharge Plan Discharge Clinical Impression: Atypical chest pain, Anterior chest wall pain, Costochondritis Patient Disposition: Home, Self-Care Instructions: Costochondritis (ED), Chest Wall Pain (ED) Additional Instructions: 1. Recommend [id number] Tylenol as directed on the outside packaging for pain, and use [id number] lidocaine patch for additional symptom relief. 2. Follow-up with Dr. Rowley for re-evaluation and further outpatient management. 3. Follow-up with your primary care doctor for re-evaluation as well. Return to the ER for worsening symptoms. Prescriptions: No Action albuterol sulfate 90 mcg/actuation HFA aerosol inhaler 1 inh inhalation QID PRN (Reason: shortness of breath or wheezing) Qty: 6.7 1RF Referrals: Michelet Witt PA-C [Primary Care Provider] - Rosalia Rowley MD [Physician] -
[2021-07-16 15:38] LABS: COVID-19 Test Negative (Negative); IDNOW Serial# 55D5AD1C
[2021-07-16 15:49] LABS: D Dimer High Sensitivity 224 NG/ML
[2021-07-16 16:02] VITALS: BP 136/79; PULSE 66; RESP 16; TEMP 36.8; O2SAT 100
[2021-07-16 16:13] LABS: Appearance Urine CLEAR; Color Urine YELLOW; Glucose Urine UA NEG (NEG); Leukocyte Esterase Urine NEG (NEG); Nitrite Urine NEG (NEG); Specific Gravity - Urine >= 1.030 (1.005-1.025); UACC Culture Trigger NO; Urine Blood NEG (NEG); Urine Ketones 5 MG/DL (NEG); Urine Protein 2+ MG/DL (NEG-TRACE)
[2021-07-16 16:15] LABS: UPreg QC Valid YES; Urine Pregnancy NEGATIVE (NEGATIVE)
[2021-07-16] MEDS: Lidocaine 4 % Patch ADH..PATCH 1 PATCH TRANSDERMA (16:20)
[2021-07-16 16:21] LABS: Bacteria Urine TRACE /LPF; RBC Urine 0 /HPF (0); Squamous Epithelial Cell Urine TRACE /LPF; WBC Urine 0 /HPF (0-4)
[2021-07-16] MEDS: Acetaminophen 325 MG TABLET 975 MG PO (16:21)
[2021-07-16] MEDS: Ibuprofen 400 MG TABLET PO (16:21)
== END 2021-07-16 17:03 | disposition home or self-care (01) ==
PROVIDERS: Emergency Provider Student in an Organized Health Care Education/Training Program; PCP Physician Assistant
DX: M94.0 Chondrocostal junction syndrome [Tietze] (principal); R07.89 Other chest pain; D69.3 Immune thrombocytopenic purpura; Z86.711 Personal history of pulmonary embolism; Z85.71 Personal history of Hodgkin lymphoma; Z20.822 Contact with and (suspected) exposure to COVID-19
CPT/HCPCS: 36415; 71045; 80048; 81001; 81025; 84484; 85025; 85379; 85610; 85730; 87635; 93005; 99283; 99284

== ENCOUNTER 2021-08-09 06:44 | Emergency (ER) | payer OTHER, SELFPAY ==
[2021-08-09] VITALS (7 sets, daily range): BP systolic 100–130; BP diastolic 58–92; PULSE 52–80; RESP 14–18; TEMP 36.4; O2SAT 98–100; BMI 28.7
--- NOTE | ~2021-08-09 | US_ITS ---
EXAM: Pelvic Ultrasound CLINICAL INDICATION: Pelvic pain. Left ovarian cyst. Rule out torsion. COMPARISON: CT abdomen pelvis earlier today and pelvic ultrasound 05/15/2018 TECHNIQUE: The pelvis was evaluated using transabdominal and transvaginal imaging. Color Doppler imaging and spectral analysis of the bilateral ovaries was also performed. FINDINGS: The uterus measures 8.5 x 3.7 x 6.1 cm in longitudinal by AP by transverse dimension. The endometrial stripe is not thickened and measures 0.6 cm. IUD appears properly positioned within the endometrium. The left ovary measures approximately 4.7 x 3.2 x 4.5 cm. Within the left ovary there is an approximately 3.3 x 2.6 x 3.0 cm heterogeneous structure which demonstrates some peripheral color flow, possibly corpus luteum. The right ovary measures approximately 2.9 x 2.0 x 2.0 cm and is normal. Spectral analysis reveals normal arterial and venous waveforms in the bilateral ovaries. Moderate amount of free pelvic fluid. US/US pelvic and transvaginal IMPRESSION: -IUD in expected orientation. -Normal arterial and venous waveforms identified within the bilateral ovaries. -3.3 cm left ovarian lesion, possibly corpus luteum. Follow-up imaging may be warranted to ensure resolution. -Moderate amount of free pelvic fluid, nonspecific.
--- NOTE | ~2021-08-09 | CT_ITS ---
EXAMINATION: CT ABDOMEN AND PELVIS WITHOUT CONTRAST CLINICAL INFORMATION: Lower abdominal pain. IUD. COMPARISON: CT abdomen pelvis 12/05/2019 TECHNIQUE: Multidetector volumetric imaging was performed from the superior aspect of the liver through the pubic symphysis. Sagittal and coronal reformatted images were obtained on the technologist's workstation. This CT examination was performed using dose optimization techniques as appropriate, variously including the following: *Automated exposure control *Adjustment of mA and/or kV according to patient size (this includes techniques or standardized protocols for targeted exams where dose is matched to indication/reason for exam; i.e. extremities or head) *Use of iterative reconstruction technique DLP: 481 mGy-cm FINDINGS: Visualized lung bases are well aerated. The liver demonstrates normal size, contour and attenuation. The gallbladder is normal in appearance. The pancreas, spleen and adrenal glands are unremarkable. Symmetrically sized kidneys. No renal calculi or hydronephrosis bilaterally. The stomach is decompressed. Normal caliber loops of small and large bowel. Mild colonic diverticulosis without CT evidence to suggest active diverticulitis. Normal appendix. Small fat-containing umbilical hernia. Normal caliber abdominal aorta. No retroperitoneal lymphadenopathy. The bladder is decompressed. IUD. Properly positioned within an anteverted uterus. 3.2 cm left adnexal cystic structure with some adjacent free fluid. There is a moderate amount of free fluid also again noted dependently within the pelvis. No inguinal lymphadenopathy. No acute osseous abnormality. CT/CT abdomen pelvis wo con IMPRESSION: 3.2 cm left adnexal cystic structure is noted with some adjacent free fluid. There is also a moderate amount of free pelvic fluid present. Findings are somewhat similar to CT imaging from November 2019. Clinical correlation is recommended. Dedicated pelvic ultrasound may be obtained as clinically indicated. Fleischner guidelines were followed.
--- NOTE | ~2021-08-09 | US_ITS ---
EXAM: Pelvic Ultrasound CLINICAL INDICATION: Pelvic pain. Left ovarian cyst. Rule out torsion. COMPARISON: CT abdomen pelvis earlier today and pelvic ultrasound 05/15/2018 TECHNIQUE: The pelvis was evaluated using transabdominal and transvaginal imaging. Color Doppler imaging and spectral analysis of the bilateral ovaries was also performed. FINDINGS: The uterus measures 8.5 x 3.7 x 6.1 cm in longitudinal by AP by transverse dimension. The endometrial stripe is not thickened and measures 0.6 cm. IUD appears properly positioned within the endometrium. The left ovary measures approximately 4.7 x 3.2 x 4.5 cm. Within the left ovary there is an approximately 3.3 x 2.6 x 3.0 cm heterogeneous structure which demonstrates some peripheral color flow, possibly corpus luteum. The right ovary measures approximately 2.9 x 2.0 x 2.0 cm and is normal. Spectral analysis reveals normal arterial and venous waveforms in the bilateral ovaries. Moderate amount of free pelvic fluid. US/US pelvic ovarian doppler IMPRESSION: -IUD in expected orientation. -Normal arterial and venous waveforms identified within the bilateral ovaries. -3.3 cm left ovarian lesion, possibly corpus luteum. Follow-up imaging may be warranted to ensure resolution. -Moderate amount of free pelvic fluid, nonspecific.
--- NOTE | 2021-08-09 07:36 | ED_ITS ---
HPI - Abdominal Pain General Chief Complaint: Abdominal Pain Stated Complaint: IUD out of place? Time Seen by Provider: 08/09/21 06:52 Source: patient Mode of arrival: ambulatory Limitations: no limitations History of Present Illness HPI narrative: 26-year-old female who presents emergency department for evaluation of lower abdominal pain x3 days. She states that the pain started suddenly 3 days prior. She points to her suprapubic and pelvic area when asked to localize the pain. She states that the pain initially was an intermittent pressure-like pain and was 10/10. She states the pain is now become constant. The patient states she had similar pain in the past secondary to her IUD which had to be removed. She was concerned that the IUD is out of place and therefore she came to the emergency department for evaluation. She denied any vaginal bleeding or vaginal discharge. She states she has noticed urinary frequency with some dysuria. She denied fever, chills, rhinorrhea, sore throat, cough, chest pain, shortness of breath, nausea vomiting diarrhea. MD elicited complaint: abdominal pain Pertinent past history: other (Similar pain in the past secondary to IUD) Onset (ago): day(s) (3) Pain Consistency: constant Location: suprapubic and pelvis Severity: severe Pain scale (0-10): 10 Quality: other (Pressure) Radiation: none Migration to: no migration Exacerbating factors: movement Relieving factors: nothing Associated symptoms: denies other symptoms Treatments prior to arrival: NSAIDs Related Data Previous Rx's Medication Instructions Recorded albuterol sulfate 90 mcg/actuation 1 inh inhalation QID PRN shortness 07/09/21 aerosol inhaler of breath or wheezing #6.7 grams diclofenac sodium 1 % topical gel 2 g topical QID PRN pain #100 grams 07/22/21 (Arthritis Pain (diclofenac)) prednisone 20 mg tablet 40 mg PO DAILY 5 days #10 tabs 07/22/21 doxycycline hyclate 100 mg tablet 100 mg PO Q12H 14 days #28 tabs 08/09/21 metronidazole 500 mg tablet 500 mg PO BID 14 days #28 tabs 08/09/21 oxycodone 5 mg tablet 5 mg PO Q4H PRN pain #14 tabs 08/09/21 Allergies Allergy/AdvReac Type Severity Reaction Status Date / Time latex [LATEX] Allergy Severe RASH Verified 07/22/21 12:00 Penicillins [PENICILLINS] Allergy Intermediate RASH Verified 07/22/21 12:00 Review of Systems Review of Systems Yes all other systems are reviewed and are negative [facility] Past Medical History [facility] Narrative: Past medical history: Costochondritis, myelodysplastic syndrome, pulmonary embolism, Hodgkin's lymphoma. Social history: She denies tobacco, alcohol and drug use. Medical History Hodgkin lymphoma Pulmonary embolism Family History Family History Unknown Breast cancer Paternal Grandfather Prostate cancer Father HTN (hypertension) Paternal Aunt Breast cancer Social History Social History Household Members: Family Housing: House Are you a primary healthcare prof to a significant other at home: No Do you presently have visiting nurse or other home services: No Alcohol intake: never Patient Tobacco Use Status: Never used Tobacco e-Cigarette/Vaping Use: Never Used Second Hand Smoke Exposure: No Advance Directives: No Advance Directives Information Provided: Yes service: No Current occupational status: employed Current occupation: [employer] Gender identity: Female Cognitive needs: No Hearing needs: No Vision needs: No Physical Exam ED Vital Signs: Vital Signs - 24 hr 08/09/21 07:11 08/09/21 08:14 08/09/21 08:42 Temperature 97.5 F Pulse Rate 77 57 80 Respiratory Rate 16 14 16 Blood Pressure 123/92 H 113/58 L 124/71 Pulse Oximetry 99 100 98 Oxygen Delivery Method Room Air Room Air 08/09/21 11:21 08/09/21 13:26 08/09/21 14:32 Temperature Pulse Rate 52 66 57 Respiratory Rate 18 14 18 Blood Pressure 124/78 100/62 117/82 Pulse Oximetry 100 100 100 Oxygen Delivery Method Room Air Room Air Room Air BMI result Body Mass Index 28.7 Const Other: Uncomfortable appearing female patient, pleasant cooperative in distress secondary to her pain HENMT Head: Yes normal to inspection, Yes normocephalic and Yes atraumatic Ears: external ears normal General nose exam: Normal external nose present Face and sinus: Yes normal facial exam Mouth: Normal oral and palatal mucosa present Throat: Yes posterior oropharynx normal Eyes General: appearance normal, both eyes and all related structures Pupils: Equal, round and reactive pupils present Neck Neck: Yes normal visual inspection, Yes no lymphadenopathy, Yes trachea midline and Yes supple Chest Chest palpation & inspection: normal inspection of the chest and normal palpation of entire chest wall Resp Effort & Inspection: normal respiratory effort and able to speak in complete sentences Auscultation: clear to auscultation bilaterally Cardio Rate: regular rate Rhythm: regular rhythm Heart sounds: S1 normal heart sound present, S2 normal heart sound present and no murmurs GI Other: Abdomen is nondistended, she does have moderate to severe suprapubic and mid pelvic tenderness, no rebound, no voluntary or involuntary guarding General: Yes no CVA tenderness External Female Exam: normal external appearance Speculum Exam - Vagina: normal appearance of the vagina Speculum Exam - Cervix: Cervical os closed, Abnormal cervical discharge present (Profuse, thick, whitish discharge) and Cervical tenderness present (Severe) Bimanual exam- vagina & uterus: Cervical tenderness present (Severe) and cervical motion tenderness (Severe) Bimanual Exam- Adnexa, other: tender (Moderate, by last) Back/Spine/Pelvis Back: no CVA tenderness Skin General skin exam: no rashes or lesions noted Neuro Cranial nerves: Yes CN's II-XII intact bilaterally and Yes Equal, round and reactive pupils present Cognition (Neuro): normal cognition Motor exam (neuro): 5/5 motor strength present throughout Extrem General: Yes normal to inspection Psych Appearance: grossly normal Speech and movement: Normal speech and movement present Affect: normal affect Attitude: cooperative Thought process: Normal thought process present Thought content: Normal thought content present Course Course Course Narrative: 26-year-old female who presents emergency department for evaluation of sudden onset of suprapubic and pelvic abdominal pain 3 days prior, the pain is 10 out of 10 on onset and was intermittent but is now constant. The patient has an IUD and she was concerned that the IUD was displaced that she has had similar pain in the past secondary to her IUD. She has had no vaginal discharge. Vital signs were normal. Examination did reveal moderate to severe tenderness palpation of the suprapubic and pelvic area. Differential includes was not limited to uterine rupture, displaced IUD, ruptured ovarian cyst, PID, , kidney stone, appendicitis. I ordered CBC, CMP, lipase, serum quantitative beta-hCG, CT scan of the abdomen pelvis without contrast. Pattie ent's pain was treated with Toradol 30 mg IV and morphine 4 mg IV. She was also given Zofran 4 mg IV normal saline x1 L. 1352: Laboratory evaluation: CBC was normal except for low platelet count of a 426099 which is chronic. BUN elevated 19, AST and ALT elevated 35 and 52, quantitative beta hCG was below detectable limits, urinalysis was negative Radiology evaluation: CT scan radiology readin.2 cm left adnexal cystic structure is noted with some adjacent free fluid. There is also a moderate amount of free pelvic fluid present. Findings are somewhat similar to CT imaging from November 2019. Clinical correlation is recommended. Dedicated pelvic ultrasound may be obtained as clinically indicated. Ultrasound radiology interpreted:-IUD in expected orientation.-Normal arterial and venous waveforms identified within the bilateralovaries.-3.3 cm left ovarian lesion, possibly corpus luteum. Followup imagingmay be warranted to ensure resolution.-Moderate amount of free pelvic fluid, nonspecific 1507: Given the patient's pelvic examination, I suspect the patient has pelvic inflammatory disease. The patient was given ceftriaxone 500 mg IM mixed with lidocaine. Was given prescription for doxycycline 100 mg twice a day for 14 days and Flagyl 500 mg twice a day for 14 days . She was advised to take ibuprofen and Tylenol for pain and she was given a prescription for oxycodone for breakthrough pain. MDM - Abdominal Pain Lab Data Result diagrams: 08/09/21 08:01 08/09/21 08:01 Labs: Lab Results 08/09/21 08/09/21 08/09/21 Range/Units 07:59 08:01 08:01 WBC 8.1 (4.8-10.8) X10*3/uL RBC 5.39 (4.20-5.50) X10*6/uL Hgb 15.5 (12.0-16.0) g/dl Hct 45.6 (37.0-47.0) % MCV 84.6 (80.0-98.0) fL MCH 28.8 (27.0-33.0) pg MCHC 34.0 (31.0-35.0) g/dl RDW 12.8 (11.0-16.0) % Plt Count 122 L (160-400) X10*3/uL MPV 13.7 H (9.4-12.3) fL Immature Gran % (Auto) 0.5 H (0.0-0.4) % Neut % (Auto) 76.8 H (45-73) % Lymph % (Auto) 12.4 L (20-40) % [place] % (Auto) 8.1 (2-11) % Eos % (Auto) 1.8 (0-4) % Baso % (Auto) 0.4 (0-2) % Lymph # (Auto) 1.0 L (1.2-4.9) X10*3/uL [place] # (Auto) 0.7 (0.1-1.2) X10*3/uL Eos # (Auto) 0.2 (0.0-0.4) X10*3/uL Baso # (Auto) 0.0 (0.0-0.2) X10*3/uL Abs Immat Gran (auto) 0.04 H (0.00-0.03) X10*3/uL Absolute Neuts (auto) 6.2 (2.0-8.3) x10*3/uL Absolute Nucleated RBC 0.000 (0.0-0.012) X10*3/uL Nucleated RBC % (auto) 0.0 (0.0-0.2) /100WBC Sodium 139 (135-145) mmol/L Potassium 4.3 (3.3-5.1) mmol/L Chloride 108 (96-108) mmol/L Carbon Dioxide 23 (22-29) mmol/L Anion Gap 12 (12-20) BUN 19 H (9-16) mg/dL Creatinine 1.08 (0.5-1.4) mg/dL Estim Creat Clear Calc 68.4 Estimated GFR > 60 Random Glucose 74 (60-115) mg/dL Calcium 9.2 (8.4-10.2) mg/dL Total Bilirubin 0.6 (0.0-1.0) mg/dL AST 35 H (5-31) U/L ALT 52 H (0-31) U/L Alkaline Phosphatase 82 D (39-117) U/L Total Protein 7.6 (6.5-8.0) g/dL Albumin 4.0 (3.5-5.0) g/dL Lipase 53 (8-78) U/L Beta HCG, Quant mIU/mL Urine Color YELLOW Urine Appearance CLEAR Urine pH 5.5 (5.0-8.0) Ur Specific [place] >= 1.030 H (1.005-1.025) Urine Protein TRACE (NEG-TRACE) MG/DL Urine Glucose (UA) NEG (NEG) MG/DL Urine Ketones NEG (NEG) MG/DL Urine Blood NEG (NEG) Urine Nitrite NEG (NEG) Ur Leukocyte Esterase NEG (NEG) 08/09/21 Range/Units 08:01 WBC (4.8-10.8) X10*3/uL RBC (4.20-5.50) X10*6/uL Hgb (12.0-16.0) g/dl Hct (37.0-47.0) % MCV (80.0-98.0) fL MCH (27.0-33.0) pg MCHC (31.0-35.0) g/dl RDW (11.0-16.0) % Plt Count (160-400) X10*3/uL MPV (9.4-12.3) fL Immature Gran % (Auto) (0.0-0.4) % Neut % (Auto) (45-73) % Lymph % (Auto) (20-40) % [place] % (Auto) (2-11) % Eos % (Auto) (0-4) % Baso % (Auto) (0-2) % Lymph # (Auto) (1.2-4.9) X10*3/uL [place] # (Auto) (0.1-1.2) X10*3/uL Eos # (Auto) (0.0-0.4) X10*3/uL Baso # (Auto) (0.0-0.2) X10*3/uL Abs Immat Gran (auto) (0.00-0.03) X10*3/uL Absolute Neuts (auto) (2.0-8.3) x10*3/uL Absolute Nucleated RBC (0.0-0.012) X10*3/uL Nucleated RBC % (auto) (0.0-0.2) /100WBC Sodium (135-145) mmol/L Potassium (3.3-5.1) mmol/L Chloride (96-108) mmol/L Carbon Dioxide (22-29) mmol/L Anion Gap (12-20) BUN (9-16) mg/dL Creatinine (0.5-1.4) mg/dL Estim Creat Clear Calc Estimated GFR Random Glucose (60-115) mg/dL Calcium (8.4-10.2) mg/dL Total Bilirubin (0.0-1.0) mg/dL AST (5-31) U/L ALT (0-31) U/L Alkaline Phosphatase (39-117) U/L Total Protein (6.5-8.0) g/dL Albumin (3.5-5.0) g/dL Lipase (8-78) U/L Beta HCG, Quant < 2 mIU/mL Urine Color Urine Appearance Urine pH (5.0-8.0) Ur Specific [place] (1.005-1.025) Urine Protein (NEG-TRACE) MG/DL Urine Glucose (UA) (NEG) MG/DL Urine Ketones (NEG) MG/DL Urine Blood (NEG) Urine Nitrite (NEG) Ur Leukocyte Esterase (NEG) Discharge Plan Discharge Clinical Impression: Acute pelvic inflammatory disease, Ovarian cyst Patient Disposition: Home, Self-Care Instructions: Ovarian Cyst (ED) Additional Instructions: Both her CT scan and your pelvic ultrasound revealed a 3.0 cm cyst on your left ovary, this is probably not the cause of your pain but you should follow-up with her mutuel teller to get repeat ultrasounds in 3-6 months. Pelvic inflammatory disease instructions: Your presentation and physical findings are consistent with pelvic inflammatory disease (PID). Approximately 30% of the time, pelvic inflammatory disease is caused by sexually transmitted diseases such as Trichomonas, gonorrhea or chlamydia. Approximately 70% of the time, pelvic inflammatory disease is caused by abnormal bacteria (anaerobic bacteria) in your vagina that can cause an infection Medications You received ceftriaxone 500 mg intramuscularly here in the emergency department Take doxycycline 100 mg, 1 pill twice a day for 14 days. Take metronidazole 500 mg, 1 pill twice a day for 14 days. These 3 antibiotics treat sexually transmitted diseases such as gonorrhea, chlamydia and Trichomonas as well as anaerobic bacteria that can cause pelvic inflammatory disease. Take ibuprofen 200 mg pills, 3 pills every 6 hours as needed for pain. Take Tylenol (acetaminophen) 500 mg pills, 2 pills every 4 to 6 hours as needed for pain. Follow-Up Follow-up with your gynecology in 10-14 days. Pending laboratory tests: The doctor that follows up will need to review the following results with you: Bacterial vaginosis testing Gonorrhea and chlamydia (urine test) Trichomonas testing You can also check these results on the patient portal. Return precautions: Please return to the emergency department if your symptoms get worse if your pain does not go away in 24-48 hours or if you develop any symptoms that are concerning to you. Prescriptions: New metronidazole 500 mg tablet 500 mg PO BID 14 Days Qty: 28 0RF doxycycline hyclate 100 mg tablet 100 mg PO Q12H 14 Days Qty: 28 0RF oxycodone 5 mg tablet 5 mg PO Q4H PRN (Reason: pain) Qty: 14 0RF Rx Instructions: Patient may request partial fill; Partial Fill upon patient request. No Action prednisone 20 mg tablet 40 mg PO DAILY 5 Days Qty: 10 0RF diclofenac sodium [Arthritis Pain (diclofenac)] 1 % gel 2 g topical QID PRN (Reason: pain) Qty: 100 0RF Rx Instructions: apply to single elbow, wrist or hand; for hand includes palm/fingers/back of hand albuterol sulfate 90 mcg/actuation HFA aerosol inhaler 1 inh inhalation QID PRN (Reason: shortness of breath or wheezing) Qty: 6.7 1RF
[2021-08-09 08:06] LABS: MANUAL DIFF FLAG NO
[2021-08-09] MEDS: Morphine Sulfate 4 MG/ML CARTRIDGE IVPUSH ×2 (08:15→11:20)
[2021-08-09] MEDS: 0.9 % Sodium Chloride 1,000 ML 999 ML IV (08:17)
[2021-08-09] MEDS: ondansetron HCL 4 MG/2 ML VIAL IVPUSH (08:20)
[2021-08-09 08:26] LABS: Appearance Urine CLEAR; Color Urine YELLOW; Glucose Urine UA NEG (NEG); Leukocyte Esterase Urine NEG (NEG); Nitrite Urine NEG (NEG); PH 5.5 (5.0-8.0); Specific Gravity - Urine >= 1.030 (1.005-1.025); Urine Blood NEG (NEG); Urine Ketones NEG (NEG); Urine Protein TRACE MG/DL (NEG-TRACE)
[2021-08-09] MEDS: Ketorolac Tromethamine 15 MG/ML VIAL 30 MG IVPUSH (08:26)
[2021-08-09 08:28] LABS: Alanine Aminotransferase 52 U/L (0-31); Alkaline Phosphatase 82 U/L (39-117); Anion Gap 12 (12-20); Aspartate Amino Transferase 35 U/L (5-31); Bilirubin Total 0.6 mg/dL (0.0-1.0); Blood Urea Nitrogen 19 mg/dL (9-16); Calcium 9.2 mg/dL (8.4-10.2); Carbon Dioxide 23 mmol/L (22-29); Chloride 108 mmol/L (96-108); Creatinine Clr Calc Pharmacy 68.4; Estimated Glomerular Filt Rate > 60; Glucose Random 74 mg/dL (60-115); Lipase 53 U/L (8-78); Potassium 4.3 mmol/L (3.3-5.1); Sodium 139 mmol/L (135-145); Total Protein 7.6 g/dL (6.5-8.0)
[2021-08-09 08:35] LABS: HCG Quantitative < 2 mIU/mL
[2021-08-09 08:45] LABS: Basophils Percent Auto 0.4 % (0-2); Eosinophils Absolute Auto 0.2 X10*3/uL (0.0-0.4); Eosinophils Percent Auto 1.8 % (0-4); Hematocrit 45.6 % (37.0-47.0); Hemoglobin 15.5 g/dl (12.0-16.0); Imm Gran Abs Auto 0.04 X10*3/uL (0.00-0.03); Imm Gran Pct Auto 0.5 % (0.0-0.4); Lymphocytes Percent Auto 12.4 % (20-40); Mean Corpuscular Hemoglobin 28.8 pg (27.0-33.0); Mean Corpuscular Volume 84.6 fL (80.0-98.0); Mean Platelet Volume 13.7 fL (9.4-12.3); Monocytes Absolute Auto 0.7 X10*3/uL (0.1-1.2); Monocytes Percent Auto 8.1 % (2-11); Neutrophils Absolute Auto 6.2 x10*3/uL (2.0-8.3); Neutrophils Percent Auto 76.8 % (45-73); Platelet Count 122 X10*3/uL (160-400); Red Blood Count 5.39 X10*6/uL (4.20-5.50); Red Cell Distribution Width 12.8 % (11.0-16.0); White Blood Count 8.1 X10*3/uL (4.8-10.8)
[2021-08-09] MEDS: cefTRIAXone sodium 500 MG, Lidocaine HCl 1 % MPF 1 ML IM (15:32)
[2021-08-09 16:46] LABS: CT PCR NOT DETECTED (Not Detect.); NG PCR NOT DETECTED (Not Detect.)
[2021-08-10 09:23] LABS: BV Int Neg Control Negative (Negative); BV Int Pos Control Positive (Positive)
== END 2021-08-09 15:41 | disposition home or self-care (01) ==
PROVIDERS: Emergency Provider Emergency Medicine Emergency Medical Services; PCP Physician Assistant
DX: N83.202 Unspecified ovarian cyst, left side (principal); N73.0 Acute parametritis and pelvic cellulitis; R10.2 Pelvic and perineal pain; Z79.899 Other long term (current) drug therapy
CPT/HCPCS: 36415; 74176; 76830; 76856; 80053; 81003; 83690; 84702; 85025; 87480; 87491; 87510; 87591; 87660; 93975; 96365; 96375; 96376; 99284; J0696; J1885; J2270; J2405

== ENCOUNTER 2021-08-19 15:20 | Outpatient (REF) | payer OTHER, SELFPAY ==
[2021-08-19 15:36] LABS: MANUAL DIFF FLAG NO
[2021-08-19 16:12] LABS: Basophils Percent Auto 0.5 % (0-2); Eosinophils Absolute Auto 0.1 X10*3/uL (0.0-0.4); Eosinophils Percent Auto 1.4 % (0-4); Hematocrit 38.6 % (37.0-47.0); Hemoglobin 13.2 g/dl (12.0-16.0); Imm Gran Abs Auto 0.03 X10*3/uL (0.00-0.03); Imm Gran Pct Auto 0.5 % (0.0-0.4); Lymphocytes Percent Auto 17.9 % (20-40); Mean Corpuscular HGB Conc 34.2 g/dl (31.0-35.0); Mean Corpuscular Hemoglobin 28.7 pg (27.0-33.0); Mean Corpuscular Volume 83.9 fL (80.0-98.0); Mean Platelet Volume 12.9 fL (9.4-12.3); Monocytes Absolute Auto 0.6 X10*3/uL (0.1-1.2); Monocytes Percent Auto 9.8 % (2-11); Neutrophils Percent Auto 69.9 % (45-73); Platelet Count 134 X10*3/uL (160-400); Red Cell Distribution Width 12.6 % (11.0-16.0); White Blood Count 5.7 X10*3/uL (4.8-10.8)
[2021-08-19 16:59] LABS: Erythrocyte Sedimentation Rate 9 MM/HR (0-20)
[2021-08-23 21:42] LABS: Anti DNA DS Antibody 14 IU/mL
[2021-08-24 18:26] LABS: Anti Nuclear Antibody Pattern Nuclear, Homogeneous; Anti Nuclear Antibody Screen POSITIVE (NEGATIVE)
[2021-08-26 17:31] LABS: Asperg fumigatus Precip Abs NEGATIVE (NEGATIVE); Micropoly faeni Abs NEGATIVE (NEGATIVE); Pigeon serum Abs NEGATIVE (NEGATIVE); Saccharo pora viridis Abs NEGATIVE (NEGATIVE); Thermo candidus Abs NEGATIVE (NEGATIVE); Thermoa vulgaris #1 NEGATIVE (NEGATIVE)
== END 2021-08-19 15:21 | disposition home or self-care (01) ==
LOC: HO.LAB 15:20
PROVIDERS: PCP Physician Assistant; Visit Provider Hospitalist
DX: R06.00 Dyspnea, unspecified (principal); R91.8 Other nonspecific abnormal finding of lung field; J45.909 Unspecified asthma, uncomplicated
CPT/HCPCS: 36415; 82785; 85025; 85652; 86003; 86038; 86039; 86225; 86331; 86606; 86609

== ENCOUNTER 2021-09-06 11:36 | Outpatient (REF) | payer OTHER, SELFPAY ==
[2021-09-07 09:09] LABS: BV Int Neg Control Negative (Negative); BV Int Pos Control Positive (Positive)
== END 2021-09-06 11:37 | disposition home or self-care (01) ==
LOC: HO.LAB 11:36
PROVIDERS: PCP Physician Assistant; Visit Provider Obstetrics & Gynecology
DX: Z32.02 Encounter for pregnancy test, result negative (principal); N83.299 Other ovarian cyst, unspecified side; N73.0 Acute parametritis and pelvic cellulitis
CPT/HCPCS: 81025; 87480; 87510; 87660

== ENCOUNTER 2021-09-14 12:57 | Outpatient (REF) | payer OTHER, SELFPAY ==
--- NOTE | 2021-09-14 17:30 | PFT_ITS ---
Forced vital capacity 91%, FEV1 90%, FEV1/FVC ratio is 86. [id number] 91% and MVV is 93%. Post bronchodilator therapy, no significant change. Total lung capacity is 77%. Residual volume 48%. Diffusion capacity 106% CONCLUSION: Normal pulmonary function test except for possible mild restrictive disorder. Clinical correlation recommended. MD FLAVIO Pena/JODI / [id number]
== END 2021-09-14 12:58 | disposition home or self-care (01) ==
LOC: HO.RESP 12:57
PROVIDERS: PCP Physician Assistant; Visit Provider Hospitalist
DX: R06.00 Dyspnea, unspecified (principal)
CPT/HCPCS: 94060; 94727; 94729

== ENCOUNTER 2021-11-15 12:13 | Emergency (ER) | payer OTHER, SELFPAY ==
--- NOTE | 2021-11-15 | ECG_ITS ---
Test Reason : CHEST PAIN Blood Pressure : / mmHG Vent. Rate : 057 BPM Atrial Rate : 138 BPM P-R Int : 126 ms QRS Dur : 084 ms QT Int : 438 ms P-R-T Axes : 025 064 017 degrees QTc Int : 426 ms Sinus bradycardia with 2nd degree A-V block (Mobitz II) Abnormal ECG When compared with ECG of 16-JUL-2021 13:41, Sinus bradycardia is now with 2nd degree A-V block (Mobitz II) Referred By: Generic ED Physician Electronically Signed By:ALIS SOLER
--- NOTE | ~2021-11-15 | XR_ITS ---
EXAMINATION: XR chest 1V CLINICAL INFORMATION: Reason for Exam chest pain COMPARISON: Chest radiograph 07/16/2021 TECHNIQUE: One view of the chest FINDINGS: Clear lungs. No pneumothorax or pleural effusion. Normal cardiomediastinal silhouette. XR/XR chest 1V Impression: * Clear lungs.
[2021-11-15 12:22] VITALS: BP 141/85; PULSE 84; RESP 16; TEMP 37.2; O2SAT 98; BMI 28.3
[2021-11-15] MEDS: Ondansetron ODT 4 MG TAB.RAPDIS TRANSLINGU (16:56)
[2021-11-15 17:25] LABS: Basophils Percent Auto 0.2 % (0-2); Neutrophils Percent Auto 94.1 % (45-73); PLT CLUMP 1; SCAN SMEAR FLAG 1
[2021-11-15 17:27] LABS: Hematocrit 45.9 % (37.0-47.0); Hemoglobin 15.7 g/dl (12.0-16.0); Imm Gran Abs Auto 0.11 X10*3/uL (0.00-0.03); Imm Gran Pct Auto 0.6 % (0.0-0.4); Lymphocytes Absolute Auto 0.6 X10*3/uL (1.2-4.9); Lymphocytes Percent Auto 2.9 % (20-40); MANUAL DIFF FLAG SCAN; Mean Corpuscular HGB Conc 34.2 g/dl (31.0-35.0); Mean Corpuscular Hemoglobin 28.6 pg (27.0-33.0); Mean Corpuscular Volume 83.8 fL (80.0-98.0); Mean Platelet Volume 13.2 fL (9.4-12.3); Monocytes Absolute Auto 0.4 X10*3/uL (0.1-1.2); Monocytes Percent Auto 2.2 % (2-11); Neutrophils Absolute Auto 18.8 x10*3/uL (2.0-8.3); Red Blood Count 5.48 X10*6/uL (4.20-5.50)
[2021-11-15 17:28] LABS: PLT ABN DIST 1
[2021-11-15 17:42] LABS: Anion Gap 22 (12-20); Blood Urea Nitrogen 12 mg/dL (9-16); Calcium 9.7 mg/dL (8.4-10.2); Carbon Dioxide 22 mmol/L (22-29); Chloride 105 mmol/L (96-108); Creatinine Clr Calc Pharmacy 67.9; Estimated Glomerular Filt Rate > 60; Glucose Random 97 mg/dL (60-115); Potassium 3.8 mmol/L (3.3-5.1); Sodium 145 mmol/L (135-145)
[2021-11-15 17:43] LABS: Platelet Count 127 X10*3/uL (160-400); SLIDE REVIEW VERIFIED; White Blood Count 19.9 X10*3/uL (4.8-10.8)
[2021-11-15 17:48] LABS: Troponin-I High Sensitivity < 3.5 ng/L (<3.5-17.0)
--- OUTSIDE RECORDS SUMMARY | 2021-11-15 22:31 | XMS_ITS | Continuity of Care Document ---
:1995 Author Organization [facility] Address [address] [place] [address]- Care Team Providers Name Role Phone Hermelinda Clinton Primary Care Physician [place] [facility] [place]19 [place] 10[place]25/19 [facility] [address] [place] [address]- [facility] Attending Physician: Cecilio Ashley Admitting Physician: Cecilio Ashley Referring Physician: Cecilio Ashley Allergies, Adverse Reactions, Alerts Substance Reaction Severity Status penicillins Active Latex Active Immunizations Given and Recorded Vaccine Date Status Refusal Reason tetanus/diphtheria/pertussis, acel(Tdap) 03/12/15 Given influenza virus vaccine, inactivated 01/02/15 Given Medications Patient's Own Meds Maintenance, 04/09/19 12:30:00 EST Start Date: 04/09/19 Status: Ordered Problem List Condition Effective Dates Status Health Status Informant Chronic daily headache(Confirmed) Active Chronic migraine without Active aura(Confirmed) S/p chemotherapy, time since greater Active than 12 weeks(Confirmed) Chlamydia contact, treated(Confirmed) 12/31/14 Active Status post radiation therapy greater Active than twelve weeks ago(Confirmed) Hodgkin lymphoma(Confirmed) Active ITP (idiopathic thrombocytopenic Active purpura)- NOTIFY PEDS AT DELIVERY, GET CORD BLOOD FOR PLT(Confirmed) Breast pain, left(Confirmed) Active PFO (patent foramen ovale)- FILTERS ON Active ALL IVs(Confirmed) Weight loss(Confirmed) Active Social History Social History Type Response Smoking Status Never smoker; Tobacco user i n household: No entered on: 09/29/14 Sex
--- OUTSIDE RECORDS SUMMARY | 2021-11-15 22:31 | XMS_ITS | Continuity of Care Document ---
:1995 Author Organization [facility] Address [address] [place] [address]- Care Team Providers Name Role Phone Hermelinda Clinton Primary Care Physician Encounter [facility] [place] Date(s): 07/17/19 - 08/16/19 [facility] [address] [address]- [facility] Attending Physician: Cecilio Ashley Admitting Physician: Cecilio Ashley Referring Physician: AdmtrCecilio Allergies, Adverse Reactions, Alerts Substance Reaction Severity [...]
--- OUTSIDE RECORDS SUMMARY | 2021-11-15 22:31 | XMS_ITS | Continuity of Care Document ---
:1995 Author Organization [facility] Address [address] [place] [address]- Care Team Providers Name Role Phone Hermelinda Clinton Primary Care Physician [place] [facility] [place] 12/04/[address] [id number] Attending Physician: Not on Staff, Attending MD Allergies, Adverse Reactions, Alerts Substance Reaction Severity Status penicillins Active Latex Active Immunizations Given and Recorded Vaccine Date Status Refusal Reason tetanus/diphtheria/pertussis, acel(Tdap) 03/12/15 Given influenza virus vaccine, inactivated 01/02/15 Given Medications Eliquis 5 mg oral tablet 1 tablet = 5 mg, By Mouth, 2 times a day, # 60 tablet, 0 Refills, Maintenance, 10/09/20 9:21:00 EDT,Tablet, Partial fill upon patient request if the prescription is for a schedule II opioid drug. Start Date: 10/09/20 Status: OrderedLiletta 52 mg intrauterine device 1 each = 52 mg, Vaginally, Once, # 1 each, 0 Refills, Soft Stop, 10/08/20 15:04:00 EDT, [facility], Partial fill upon patient request if the prescription is for a schedule II opioid drug., 153.4, cm, 10/08/20 10:07:00 EDT, Height, 62.8,... Start Date: 10/08/20 Status: OrderedPatient's Own Meds Maintenance, 04/09/19 12:30:00 EST Start Date: 04/09/19 Status: OrderedpredniSONE 5 mg oral delayed release tablet 1 tablet = 5 mg, By Mouth, Daily, # 30 tablet, 0 Refills, Maintenance, 10/09/20 9:21:00 EDT, CR Tablet, Partial fill upon patient request if the prescription is for a schedule II opioid drug. Start Date: 10/09/20 Status: Ordered Problem List Condition Effective Dates [...]
--- OUTSIDE RECORDS SUMMARY | 2021-11-15 22:32 | XMS_ITS | Continuity of Care Document ---
:1995 Author Organization [facility] ic Address [address] [place] [phone]- Care Team Providers Name Role Phone Hermelinda Clinton Primary Care Physician [place] [facility] [place] 10/05/20 - 11/04/[address] [id number] Allergies, Adverse Reactions, Alerts Substance Reaction Severity [...] 0 Refills, Soft Stop, 10/08/20 15:04:00 EDT, [facility], Partial fill upon patient [...]
--- OUTSIDE RECORDS SUMMARY | 2021-11-15 22:32 | XMS_ITS | Continuity of Care Document ---
:1995 Author Organization [facility] Address [address] [place] [address]- Care Team Providers Name Role Phone Hermelinda Clinton Primary Care Physician En[place] [facility] [place](s): 09/25/19 - 02/27/20 [facility] [address] [place] [address]- Discharge Disposition: A-D/C Home Attending Physician: Christine Almonte MD Admitting Physician: Christine Almonte MD Referring Physician: Hermelinda Clinton Allergies, Adverse Reactions, Alerts Substance Reaction Severity [...]
--- OUTSIDE RECORDS SUMMARY | 2021-11-15 22:32 | XMS_ITS | Continuity of Care Document ---
:1995 Author Organization [facility] ic Address [address] [place] [address]- Care Team Providers Name Role Phone Hermelinda Clinton Primary Care Physician [place] [facility] [place] Date(s): 10/21/20 - 11/20/[address] [id number] Attending Physician: Cecilio Ashley Admitting Physician: AdmCecilio upton Referring Physician: AdmtrCecilio Allergies, Adverse Reactions, Alerts [...] 0 Refills, Soft Stop, 10/08/20 15:04:00 EDT, [facility], Partial fill upon patient request [...]
--- OUTSIDE RECORDS SUMMARY | 2021-11-15 22:32 | XMS_ITS | Continuity of Care Document ---
:1995 Author Organization [facility] Address [address] [place] [address]- Care Team Providers Name Role Phone Hermelinda Clinton Primary Care Physician [place] [facility] [place] - 10/09/[address] [address] Discharge Disposition: A-D/C Home Attending Physician: Dorys Henao MD Admitting Physician: Dorys Henao MD Referring Physician: Dorys Henao MD Allergies, Adverse Reactions, Alerts Substance Reaction [...] 0 Refills, Soft Stop, 10/08/20 15:04:00 EDT, [facility], Partial fill upon patient request [...] ON Active ALL IVs(Confirmed) Weight loss(Confirmed) Active Vital Signs Most recent to oldest 1 2 3 [Reference Range]: Oxygen Saturation [94-100 %] 100 % 100 % 100 % (10/09/20 12:30 PM) (10/09/20 12:00 PM) (10/09/20 1 1:45 AM) Pulse Rate [55-90 bpm] 68 bpm (10/09/20 9:41 AM) Blood Pressure [90-138/55-84 105/83 mm Hg 116/80 mm Hg 119 /73 mm Hg mm Hg] (10/09/20 12:00 PM) (10/09/20 11:45 AM) (10/09/20 1 1:30 AM) Respiratory Rate [16-30 11 br/min 12 br/min 14 br/mi n br/min] *L* *L* *L* (10/09/20 12:00 PM) (10/09/20 11:45 AM) (10/09/20 1 1:30 AM) Temperature [96.8-100.4 97.0 DegF 98.4 DegF 99.4 Deg F DegF] (10/09/20 12:00 PM) (10/09/20 10:45 AM) (10/09/20 9 :41 AM) Mode of Delivery (Oxygen) Room air Room air Room a ir (10/09/20 12:30 PM) (10/09/20 12:00 PM) (8/27/21 1 1:45 AM) Blood pressure sites Arm, right Arm, right Arm, right (10/09/20 12:00 PM) (10/09/20 11:45 AM) (10/09/20 1 1:30 AM) Temperature Route Temporal Temporal Temporal (10/09/20 12:00 PM) (10/09/20 10:45 AM) (10/09/20 9 :41 AM) Dry Weight 69.4 kg (10/09/20 9:41 AM) Dry Weight Obtained Via Standing scale (10/09/20 9:41 AM) Social History Social History Type Response Smoking Status Never smoker; Tobacco user i n household: No entered on: 09/29/14 Sex
--- OUTSIDE RECORDS SUMMARY | 2021-11-15 22:32 | XMS_ITS | Continuity of Care Document ---
:1995 Author Organization [facility] ic Address [address] [place] [phone]- Care Team Providers Name Role Phone Hermelinda Clinton Primary Care Physician En[place] [facility] [place] Date(s): 10/05/20 - 11/20/[address] [id number] Attending Physician: Not on Staff, Attending MD Referring Physician: Hermelinda Clinton Allergies, Adverse [...] 0 Refills, Soft Stop, 10/08/20 15:04:00 EDT, [facility], Partial fill upon patient request [...]
--- OUTSIDE RECORDS SUMMARY | 2021-11-15 22:32 | XMS_ITS | Continuity of Care Document ---
:1995 Author Organization [facility] re Address [address] [place] [address]- Care Team Providers Name Role Phone Hermelinda Clinton Primary Care Physician [place] [facility] [place] 06/25/19 [facility] [address] [place] [address] [facility] Discharge Disposition: A-D/C Home Attending Physician: Christine [...] to oldest 1 2 3 [Reference Range]: Height 153.4 cm 153.4 cm 153.4 cm (04/24/19 10:40 AM) (04/09/19 10:53 AM) (03/27/19 9 :56 AM) Weight 59.9 kg 59.9 kg 60.1 kg (04/24/19 10:40 AM) (04/09/19 10:53 AM) (03/27/19 9 :56 AM) Pulse Rate [55-90 bpm] 79 bpm 71 bpm 77 bpm (04/24/19 10:40 AM) (04/09/19 10:53 AM) (03/27/19 9 :56 AM) Body Mass Index [18.5-24.99] 25.46 25.46 25. 54 *H* *H* *H* (04/24/19 10:40 AM) (04/09/19 10:53 AM) (03/27/19 9 :56 AM) Blood Pressure [90-138/55-84 138/76 mm Hg 102/72 mm Hg 131 /79 mm Hg mm Hg] (04/24/19 10:40 AM) (04/09/19 10:53 AM) (03/27/19 9 :56 AM) Temperature [96.8-100.4 DegF] 98.6 DegF 97.3 DegF 97 .6 DegF (04/24/19 10:40 AM) (04/09/19 10:53 AM) (03/27/19 9 :56 AM) Blood pressure sites Arm, right Arm, right Arm, left (04/24/19 10:40 AM) (04/09/19 10:53 AM) (03/27/19 9 :56 AM) Temperature Route Tympanic Temporal Temporal (04/24/19 10:40 AM) (04/09/19 10:53 AM) (03/27/19 9 :56 AM) Dry Weight 59.9 kg 59.9 kg 60.1 kg (04/24/19 10:40 AM) (04/09/19 10:53 AM) (03/27/19 9 :56 AM) Weight Obtained Via Standing scale Standing scale Standing sca le (04/24/19 10:40 AM) (04/09/19 10:53 AM) (03/27/19 9 :56 AM) Dry Weight Obtained Via Standing scale Standing scale Standing scale (04/24/19 10:40 AM) (04/09/19 10:53 AM) (03/27/19 9 :56 AM) Social History Social History Type Response Smoking Status Never smoker; Tobacco user i n household: No entered on: 09/29/14 Sex
--- OUTSIDE RECORDS SUMMARY | 2021-11-15 22:32 | XMS_ITS | Continuity of Care Document ---
:1995 Author Organization [facility] Address [address] [place] [address]- Care Team Providers Name Role Phone Hermelinda Clinton Primary Care Physician Encounter [facility] Date(s): 03/27/19 - 03/27/[address] [address]- [facility] Attending Physician: Christine Almonte MD Allergies, Adverse Reactions, Alerts Substance Reaction Severity Status penicillins Active Latex Active Immunizations Given and Recorded Vaccine Date Status Refusal Reason tetanus/diphtheria/pertussis, acel(Tdap) 03/12/15 Given influenza virus vaccine, inactivated 01/02/15 Given Problem List Condition Effective Dates Status Health [...]
--- OUTSIDE RECORDS SUMMARY | 2021-11-15 22:32 | XMS_ITS | Continuity of Care Document ---
:1995 Author Organization [facility] Address [address] [place] [address]- Care Team Providers Name Role Phone Hermelinda Clinton Primary Care Physician [place] [facility] [place] 07/17/19 - 09/21/19 [facility] [address] [place] [address]- [facility] Discharge Disposition: A-D/C Home Attending Physician: Christine [...] Active Vital Signs Most recent to oldest [Reference Range]: 1 Height 153.4 cm (07/22/19 9:30 AM) Weight 62.8 kg (07/22/19 9:30 AM) Pulse Rate [55-90 bpm] 81 bpm (07/22/19 9:30 AM) Body Mass Index [18.5-24.99] 26.69 *H* (07/22/19 9:30 AM) Blood Pressure [90-138/55-84 mm Hg] 138/98 mm Hg (07/22/19 9:30 AM) Temperature [96.8-100.4 DegF] 97.7 DegF (07/22/19 9:30 AM) Temperature Route Temporal (07/22/19 9:30 AM) Dry Weight 62.8 kg (07/22/19 9:30 AM) Weight Obtained Via Standing scale (07/22/19 9:30 AM) Dry Weight Obtained Via Standing scale (07/22/19 9:30 AM) Social History Social History Type Response Smoking Status Never smoker; Tobacco user i n household: No entered on: 09/29/14 Sex
--- OUTSIDE RECORDS SUMMARY | 2021-11-15 22:32 | XMS_ITS | Continuity of Care Document ---
:1995 Author Organization [facility] ic Address [address] [place] [address]- Care Team Providers Name Role Phone Hermelinda Clinton Primary Care Physician [place] [facility] [place] 09/28/20 - 10/28/[address] [address] Allergies, Adverse Reactions, Alerts Substance [...] 0 Refills, Soft Stop, 10/08/20 15:04:00 EDT, [facility], Partial fill upon patient request [...]
--- OUTSIDE RECORDS SUMMARY | 2021-11-15 22:32 | XMS_ITS | Continuity of Care Document ---
:1995 Author Organization [facility] Address [address] [place] [address]- Care Team Providers Name Role Phone Hermelinda Clinton Primary Care Physician [place] [facility] [place] - 03/19/[address] [address] Attending Physician: Christine Almonte MD Allergies, Adverse Reactions, Alerts Substance Reaction Severity Status penicillins Active Latex Active Immunizations Given and Recorded Vaccine Date Status Refusal Reason tetanus/diphtheria/pertussis, acel(Tdap) 03/12/15 Given influenza virus vaccine, inactivated 01/02/15 Given Medications ibuprofen 600 mg oral tablet 600 mg, 1, tablet, By Mouth, Every 6 hours, # 40 tablet, Refills 0, Tot. Refills 0, Maintenance, 03/13/17 5:11:25, Print Requisition Start Date: 03/13/17 Status: OrderedLiletta 52 mg intrauteral device 1 each = 52 mg, Once, 0 Refills, Maintenance, 01/27/16 9:43:49 Start Date: 01/27/16 Status: OrderedMirena 52 mg intrauteral device 1 each = 52 mg, Vaginally, Once, # 1 each, 0 Refills, Soft Stop, 07/27/17 17:23:01 EDT Start Date: 07/27/17 Status: OrderedZithromax 500 mg oral tablet 2 tablet = 1,000 mg, By Mouth, Once, # 2 tablet, 0 Refills, Soft Stop, 07/31/17 10:18:00 EDT, Tablet Start Date: 07/31/17 Status: Ordered Problem List Condition Effective Dates [...]
== END 2021-11-15 22:34 | disposition left against medical advice (07) ==
PROVIDERS: Emergency Provider Emergency Medicine
DX: R07.9 Chest pain, unspecified (principal); M32.9 Systemic lupus erythematosus, unspecified
CPT/HCPCS: 36415; 71045; 80048; 84484; 85025; 93005; 99283

== ENCOUNTER 2021-11-16 01:24 | Emergency (ER) | payer OTHER, SELFPAY ==
--- NOTE | 2021-11-15 10:15 | ECG_ITS ---
Test Reason : cp Blood Pressure : / mmHG Vent. Rate : 051 BPM Atrial Rate : 051 BPM P-R Int : 132 ms QRS Dur : 092 ms QT Int : 426 ms P-R-T Axes : 031 067 022 degrees QTc Int : 392 ms Sinus bradycardia with junctional escape complexes Otherwise normal ECG When compared with ECG of 16-JUL-2021 13:41, Vent. rate has decreased BY 32 BPM Referred By: Asmita Sweet Electronically Signed By:ALIS SOLER
--- NOTE | ~2021-11-16 | XR_ITS ---
EXAMINATION: XR CHEST CLINICAL INFORMATION: Chest pain after vomiting, rule out free air in the chest COMPARISON: 07/16/2021 TECHNIQUE: 2 views of the chest were obtained. FINDINGS: The lungs are clear with no focal consolidation. No evidence of pneumothorax, pulmonary edema, or pleural effusions. The cardiomediastinal silhouette is unremarkable. No evidence of pneumomediastinum. No acute osseous findings. XR/XR chest 2V IMPRESSION: No acute cardiopulmonary findings.
[2021-11-16 01:52] VITALS: BP 113/68; PULSE 79; RESP 14; TEMP 36.6; O2SAT 99; BMI 28.3
[2021-11-16 03:30] LABS: COVID-19 Test Negative (Negative)
--- NOTE | 2021-11-16 03:34 | ED.NAVMDI ---
HPI - Nausea/Vomiting/Diarrhea General Chief complaint: Nausea/Vomiting/Diarrhea Stated complaint: chest pain, was here earlier for same thing Time Seen by Provider: 11/16/21 03:32 Source: patient Mode of arrival: ambulatory Limitations: no limitations History of Present Illness HPI Narrative: 26-year-old female came in for evaluation of vomiting. Patient woke up this morning with vomiting had multiple vomiting since this morning, after patient vomited started to have left-sided chest pain. Patient declined abdominal pain, no fever, no diarrhea. Last vomiting was in the emergency department waiting room, no bloody vomiting. Decline exposure to a sick contact, no recent travel, no recent use of antibiotics, no sick contact. Related Data Home Medications Medication Instructions Recorded Confirmed levonorgestrel 17.5 mcg/24 hrs intrauterine 09/06/21 (5yrs) 19.5mg intrauterine device (Kyleena) Previous Rx's Medication Instructions Recorded albuterol sulfate 90 mcg/actuation 1 inh inhalation QID PRN shortness 07/09/21 aerosol inhaler of breath or wheezing #6.7 grams fluticasone propionate 110 2 puff inhalation DAILY #12 grams 08/19/21 mcg/actuation HFA aerosol inhaler (Flovent HFA) metronidazole 500 mg tablet 500 mg PO BID 7 days #14 tabs 09/07/21 hydroxychloroquine 200 mg tablet 200 mg PO DAILY 30 days #30 tabs 09/26/21 (Plaquenil) Allergies Allergy/AdvReac Type Severity Reaction Status Date / Time latex [LATEX] Allergy Severe RASH Verified 09/24/21 14:25 Penicillins [PENICILLINS] Allergy Intermediate RASH Verified 09/24/21 14:25 Review of Systems Review of Systems: All other systems are reviewed and are negative Constitutional: Reports as per HPI and Reports no additional constitutional complaints Eyes: Reports as per HPI and Reports no additional eye complaints Reports system reviewed and no additional complaints, except as documented Cardiovascular: Reports as per HPI and Reports no additional cardiovascular complaints Respiratory: Reports as per HPI and Reports no additional respiratory complaints Gastrointestinal: Reports as per HPI and Reports no additional gastrointestinal complaints Genitourinary: Reports no additional female genitourinary complaints Musculoskeletal: Reports no additional musculoskeletal complaints Skin/Breast: Reports system reviewed and no additional complaints, except as docu Psychiatric: Reports no additional psychiatric complaints Endocrine: Reports no additional endocrine complaints Hematologic/Lymphatic: Reports no additional hematologic/lymphatic complaints Allergic/Immunologic: Reports no additional allergic/immunologic complaints Reports system reviewed and no additional complaints, except as documented and Reports Abnormal speech present [facility] Past Medical History Medical History Chronic ITP (idiopathic thrombocytopenia) Hodgkin lymphoma MDS (myelodysplastic syndrome) Pulmonary embolism Systemic lupus erythematosus Family History Family History Unknown Breast cancer Paternal Grandfather Prostate cancer Father HTN (hypertension) Paternal Aunt Breast cancer Social History Social History Household Members: Family Housing: House Are you a primary progressive care unit registered nurse to a significant other at home: No Do you presently have visiting nurse or other home services: No Alcohol intake: never Patient Tobacco Use Status: Never used Tobacco e-Cigarette/Vaping Use: Never Used Second Hand Smoke Exposure: No Advance Directives: No Advance Directives Information Provided: Yes service: No Current occupational status: employed 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 Blood pressure normal. Heart rate normal. Respiration rate normal. Temperature normal. Oxygen saturation normal. Appearance: Alert. Oriented X3. No acute distress. Head: Normal external exam. Normocephalic. Atraumatic. No Valerio signs noted. No raccoon eyes noted Eyes: PERRLA. EOMI. Conjunctiva and sclera normal. Eyelids normal. ENT: TM's Normal. Pharynx normal. Uvula midline. Moist mucous membranes. No trismus noted. No drooling noted. No muffled voice noted. Neck: Normal inspection. Neck supple. FROM. No adenopathy. Thyroid Normal. No meningeal signs. No neck mass noted. CVS: Normal heart rate and rhythm. Heart sound normal. No murmurs noted. Pulses normal throughout. Respiratory: No respiratory distress. Painless inspiration. Breath sounds normal. No wheezes/rales/rhonchi noted. Chest nontender. No accessory muscle usage noted or decreased air movement noted. Abdomen: Soft and nontender. Bowel sounds normal in all 4 quadrants. No distention noted. No organomegaly noted. No visible injury noted. Back: No CVA tenderness. Full range of motion noted. Skin: Skin warm and dry. Normal skin color. Normal skin turgor. No rashes/lesions/lacerations noted. Extremities: No lower extremity edema. Extremities exhibit normal range of motion. Extremities nontender. Neuro: Oriented X 3. Cranial nerve exam: II-XII are grossly intact No motor deficit. No sensory deficit. Reflexes normal. Course Course Course Narrative: 26-year-old female came in for vomiting and left-sided chest pain after vomiting. Patient required IV hydration, Zofran, ppi patient now is feeling better able to tolerate p.o. intake with complete subsiding and left-sided chest pain. Patient also is showing improvement of the leukocytosis which thought to be reactionary to stress and vomiting. Chest x-ray showing no new mediastinum to indicate esophageal injury while vomiting. MDM - Nausea/Vomiting/Diarrhea Lab Data Attestation: I reviewed the patient's lab results. Result diagrams: 11/16/21 03:59 11/16/21 03:59 Labs: Lab Results 11/16/21 11/16/21 11/16/21 Range/Units 03:11 03:59 03:59 WBC 13.1 H (4.8-10.8) X10*3/uL RBC 5.50 (4.20-5.50) X10*6/uL Hgb 16.0 (12.0-16.0) g/dl Hct 45.6 (37.0-47.0) % MCV 82.9 (80.0-98.0) fL MCH 29.1 (27.0-33.0) pg MCHC 35.1 H (31.0-35.0) g/dl RDW 12.8 (11.0-16.0) % Plt Count 147 L (160-400) X10*3/uL MPV 12.9 H (9.4-12.3) fL Immature Gran % (Auto) 0.3 (0.0-0.4) % Neut % (Auto) 88.9 H (45-73) % Lymph % (Auto) 6.2 L (20-40) % Berrien % (Auto) 4.5 (2-11) % Eos % (Auto) 0.0 (0-4) % Baso % (Auto) 0.1 (0-2) % Lymph # (Auto) 0.8 L (1.2-4.9) X10*3/uL Berrien # (Auto) 0.6 (0.1-1.2) X10*3/uL Eos # (Auto) 0.0 (0.0-0.4) X10*3/uL Baso # (Auto) 0.0 (0.0-0.2) X10*3/uL Abs Immat Gran (auto) 0.04 H (0.00-0.03) X10*3/uL Absolute Neuts (auto) 11.7 H (2.0-8.3) x10*3/uL Absolute Nucleated RBC 0.000 (0.0-0.012) X10*3/uL Nucleated RBC % (auto) 0.0 (0.0-0.2) /100WBC Sodium 143 (135-145) mmol/L Potassium 4.1 (3.3-5.1) mmol/L Chloride 101 (96-108) mmol/L Carbon Dioxide 25 (22-29) mmol/L Anion Gap 21 H (12-20) BUN 18 H (9-16) mg/dL Creatinine 1.34 (0.5-1.4) mg/dL Estim Creat Clear Calc 54.7 Estimated GFR 49 Random Glucose 115 (60-115) mg/dL Calcium 9.9 (8.4-10.2) mg/dL Total Bilirubin 1.0 (0.0-1.0) mg/dL Direct Bilirubin 0.4 (0.0-0.5) mg/dL AST 20 D (5-31) U/L ALT 20 (0-31) U/L Alkaline Phosphatase 74 (39-117) U/L Troponin I High Sens (<3.5-17.0) ng/L Total Protein 8.7 H (6.5-8.0) g/dL Albumin 4.9 D (3.5-5.0) g/dL Lipase 23 (8-78) U/L Urine Test (NEGATIVE) COVID-19 ([facility]I) Negative (Negative) COVID-19 Clin Com See Note 11/16/21 11/16/21 Range/Units 03:59 04:05 WBC (4.8-10.8) X10*3/uL RBC (4.20-5.50) X10*6/uL Hgb (12.0-16.0) g/dl Hct (37.0-47.0) % MCV (80.0-98.0) fL MCH (27.0-33.0) pg MCHC (31.0-35.0) g/dl RDW (11.0-16.0) % Plt Count (160-400) X10*3/uL MPV (9.4-12.3) fL Immature Gran % (Auto) (0.0-0.4) % Neut % (Auto) (45-73) % Lymph % (Auto) (20-40) % Berrien % (Auto) (2-11) % Eos % (Auto) (0-4) % Baso % (Auto) (0-2) % Lymph # (Auto) (1.2-4.9) X10*3/uL Berrien # (Auto) (0.1-1.2) X10*3/uL Eos # (Auto) (0.0-0.4) X10*3/uL Baso # (Auto) (0.0-0.2) X10*3/uL Abs Immat Gran (auto) (0.00-0.03) X10*3/uL Absolute Neuts (auto) (2.0-8.3) x10*3/uL Absolute Nucleated RBC (0.0-0.012) X10*3/uL Nucleated RBC % (auto) (0.0-0.2) /100WBC Sodium (135-145) mmol/L Potassium (3.3-5.1) mmol/L Chloride (96-108) mmol/L Carbon Dioxide (22-29) mmol/L Anion Gap (12-20) BUN (9-16) mg/dL Creatinine (0.5-1.4) mg/dL Estim Creat Clear Calc Estimated GFR Random Glucose (60-115) mg/dL Calcium (8.4-10.2) mg/dL Total Bilirubin (0.0-1.0) mg/dL Direct Bilirubin (0.0-0.5) mg/dL AST (5-31) U/L ALT (0-31) U/L Alkaline Phosphatase (39-117) U/L Troponin I High Sens 6.0 D (<3.5-17.0) ng/L Total Protein (6.5-8.0) g/dL Albumin (3.5-5.0) g/dL Lipase (8-78) U/L Urine Test NEGATIVE (NEGATIVE) COVID-19 ([facility]I) (Negative) COVID-19 Clin Com Imaging Data Chest x-ray: Attestation: I personally reviewed and interpreted this imaging study as follows: Radiologist's impression: No acute cardiopulmonary findings Discharge Plan Discharge Clinical Impression: Chest pain, Vomiting Patient Disposition: Home, Self-Care Instructions: Acute Nausea and Vomiting (ED) Prescriptions: No Action metronidazole 500 mg tablet 500 mg PO BID 7 Days Qty: 14 0RF albuterol sulfate 90 mcg/actuation HFA aerosol inhaler 1 inh inhalation QID PRN (Reason: shortness of breath or wheezing) Qty: 6.7 1RF fluticasone propionate [Flovent HFA] 110 mcg/actuation HFA aerosol inhaler 2 puff inhalation DAILY Qty: 12 6RF Kyleena 17.5 mcg/24 hrs (5 yrs) 19.5 mg intrauterine device intrauterine hydroxychloroquine [Plaquenil] 200 mg tablet 200 mg PO DAILY 30 Days Qty: 30 6RF Referrals: Physician,Unknown J [Primary Care Provider] -
[2021-11-16] MEDS: ondansetron HCL 4 MG/2 ML VIAL IVPUSH (04:03)
[2021-11-16] MEDS: 0.9 % Sodium Chloride 1,000 ML 999 ML IV (04:03)
[2021-11-16 04:04] LABS: Lymphocytes Absolute Auto 0.8 X10*3/uL (1.2-4.9); Lymphocytes Percent Auto 6.2 % (20-40); PLT ABN DIST 1; SCAN SMEAR FLAG 1
[2021-11-16] MEDS: Famotidine/PF 20 MG/2 ML VIAL IVPUSH (04:04)
[2021-11-16 04:05] LABS: Basophils Percent Auto 0.1 % (0-2); Hematocrit 45.6 % (37.0-47.0); Imm Gran Abs Auto 0.04 X10*3/uL (0.00-0.03); Imm Gran Pct Auto 0.3 % (0.0-0.4); Mean Corpuscular HGB Conc 35.1 g/dl (31.0-35.0); Mean Corpuscular Hemoglobin 29.1 pg (27.0-33.0); Mean Corpuscular Volume 82.9 fL (80.0-98.0); Mean Platelet Volume 12.9 fL (9.4-12.3); Monocytes Absolute Auto 0.6 X10*3/uL (0.1-1.2); Monocytes Percent Auto 4.5 % (2-11); Neutrophils Absolute Auto 11.7 x10*3/uL (2.0-8.3); Neutrophils Percent Auto 88.9 % (45-73); Platelet Count 147 X10*3/uL (160-400); Red Cell Distribution Width 12.8 % (11.0-16.0); White Blood Count 13.1 X10*3/uL (4.8-10.8)
[2021-11-16 04:06] LABS: MANUAL DIFF FLAG NO
[2021-11-16 04:12] LABS: UPreg QC Valid YES; Urine Pregnancy NEGATIVE (NEGATIVE)
[2021-11-16 04:25] LABS: Alanine Aminotransferase 20 U/L (0-31); Albumin Level 4.9 g/dL (3.5-5.0); Alkaline Phosphatase 74 U/L (39-117); Anion Gap 21 (12-20); Aspartate Amino Transferase 20 U/L (5-31); Bilirubin Direct 0.4 mg/dL (0.0-0.5); Blood Urea Nitrogen 18 mg/dL (9-16); Calcium 9.9 mg/dL (8.4-10.2); Carbon Dioxide 25 mmol/L (22-29); Chloride 101 mmol/L (96-108); Creatinine Clr Calc Pharmacy 54.7; Estimated Glomerular Filt Rate 49; Glucose Random 115 mg/dL (60-115); Lipase 23 U/L (8-78); Potassium 4.1 mmol/L (3.3-5.1); Sodium 143 mmol/L (135-145); Total Protein 8.7 g/dL (6.5-8.0)
[2021-11-16 06:00] VITALS: BP 107/57; PULSE 68; RESP 17; TEMP 36.9; O2SAT 98
== END 2021-11-16 06:49 | disposition home or self-care (01) ==
PROVIDERS: Emergency Provider Emergency Medicine
DX: R07.89 Other chest pain (principal); R11.2 Nausea with vomiting, unspecified; Z20.822 Contact with and (suspected) exposure to COVID-19; Z79.899 Other long term (current) drug therapy
CPT/HCPCS: 36415; 71046; 80048; 80076; 81025; 83690; 84484; 85025; 87635; 93005; 96361; 96374; 96375; 99284; J2405

== ENCOUNTER 2021-12-21 16:05 | Outpatient (REF) | payer OTHER, SELFPAY ==
[2021-12-22 05:44] LABS: Syphilis Screen Nonreactive (Nonreactive)
[2021-12-22 05:49] LABS: HBc Num1 0.09 S/CO (0.00-0.79); HIV AB/AG Nonreactive (Nonreactive); Hepatitis B Core Antibody Nonreactive (Nonreactive); ~HepC Num1 0.12 S/CO (0.00-0.79); ~Hepatitis C Antibody Nonreactive (Nonreactive)
== END 2021-12-21 16:06 | disposition home or self-care (01) ==
LOC: HO.LAB 16:05
PROVIDERS: PCP Physician Assistant; Visit Provider Advanced Practice Midwife
DX: Z01.419 Encounter for gynecological examination (general) (routine) without abnormal findings (principal); Z20.2 Contact with and (suspected) exposure to infections with a predominantly sexual mode of transmission
CPT/HCPCS: 36415; 86704; 86780; 86803; 87389

== ENCOUNTER 2021-12-21 16:16 | Outpatient (REF) | payer OTHER, SELFPAY ==
[2021-12-21 18:45] LABS: CT PCR NOT DETECTED (Not Detect.); NG PCR NOT DETECTED (Not Detect.)
== END 2021-12-21 16:17 | disposition home or self-care (01) ==
LOC: HO.LNP 16:16
PROVIDERS: Visit Provider Advanced Practice Midwife
DX: Z20.2 Contact with and (suspected) exposure to infections with a predominantly sexual mode of transmission (principal)
CPT/HCPCS: 87491; 87591

== ENCOUNTER 2022-01-18 13:46 | Outpatient (REF) | payer OTHER, SELFPAY ==
--- NOTE | ~2022-01-18 | US_ITS ---
EXAMINATION: US PELVIS TRANSVAGINAL CLINICAL INFORMATION: Ovarian cyst. COMPARISON: 08/09/2021 TECHNIQUE: Transcutaneous and transvaginal pelvic ultrasound. Transvaginal scanning was performed after voiding to better evaluate the endometrium and adnexa. FINDINGS: The uterus measures 8.3 x 4.0 x 4.5 cm. The uterus is anteverted. No suspicious abnormalities region of the cervix. The uterine contour is smooth. An IUD is seen in place within the endometrium. No focal abnormalities within the myometrium. The right ovary measures approximately 2.8 x 2.2 x 2.2 cm. The calculated right ovarian volume is approximately 7.1 mL. Normal vascular flow is present. No suspicious adnexal findings. The left ovary measures 2.5 x 2.3 x 2.4 cm. The calculated left ovarian volume is approximately 7.2 mL. No suspicious left adnexal findings. Normal vascular flow. 1.4 cm follicular cyst present. No significant free pelvic fluid. US/US pelvic and transvaginal IMPRESSION: No significant pelvic abnormality appreciated. No suspicious cyst seen.
== END 2022-01-18 13:47 | disposition home or self-care (01) ==
LOC: HO.US 13:46
PROVIDERS: Visit Provider Obstetrics & Gynecology
DX: N83.299 Other ovarian cyst, unspecified side (principal)
CPT/HCPCS: 76830; 76856

== ENCOUNTER → 2022-03-04 12:53 | Outpatient (BNVA) | payer OTHER, SELFPAY | PROVIDERS: PCP Physician Assistant; Visit Provider Student in an Organized Health Care Education/Training Program | DX: Z13.89 Encounter for screening for other disorder (principal) ==

== ENCOUNTER 2022-03-08 11:59 | Outpatient (REF) | payer OTHER, SELFPAY ==
[2022-03-08 12:23] LABS: MANUAL DIFF FLAG NO
[2022-03-08 12:32] LABS: Basophils Percent Auto 0.4 % (0-2); Eosinophils Absolute Auto 0.1 X10*3/uL (0.0-0.4); Eosinophils Percent Auto 1.1 % (0-4); Hematocrit 40.1 % (37.0-47.0); Hemoglobin 13.8 g/dl (12.0-16.0); Imm Gran Abs Auto 0.03 X10*3/uL (0.00-0.03); Imm Gran Pct Auto 0.4 % (0.0-0.4); Lymphocytes Absolute Auto 1.4 X10*3/uL (1.2-4.9); Lymphocytes Percent Auto 17.2 % (20-40); Mean Corpuscular HGB Conc 34.4 g/dl (31.0-35.0); Mean Corpuscular Hemoglobin 29.1 pg (27.0-33.0); Mean Corpuscular Volume 84.6 fL (80.0-98.0); Mean Platelet Volume 12.6 fL (9.4-12.3); Monocytes Absolute Auto 0.5 X10*3/uL (0.1-1.2); Monocytes Percent Auto 6.6 % (2-11); Neutrophils Absolute Auto 6.1 x10*3/uL (2.0-8.3); Neutrophils Percent Auto 74.3 % (45-73); Platelet Count 153 X10*3/uL (160-400); Red Blood Count 4.74 X10*6/uL (4.20-5.50); Red Cell Distribution Width 12.4 % (11.0-16.0); White Blood Count 8.2 X10*3/uL (4.8-10.8)
[2022-03-08 13:18] LABS: Erythrocyte Sedimentation Rate 44 MM/HR (0-20)
[2022-03-08 13:31] LABS: Appearance Urine Clear; Color Urine Yellow; Glucose Urine UA Negative (Negative); Leukocyte Esterase Urine Trace (Negative); Nitrite Urine Negative (Negative); PH 5.5 (5.0-9.0); Specific Gravity - Urine 1.025 (1.005-1.025); UMIC TRIGGER UA YES; Urine Blood Negative (Negative); Urine Ketones Negative (Negative); Urine Protein 100 (2+) mg/dL (Neg-Trace)
[2022-03-08 13:34] LABS: Bacteria Urine Trace (None Seen); Hyaline Casts Urine 0-2 /LPF (0-2); RBC Urine 0-2 /HPF (0-2); WBC Urine 0-5 /HPF (0-5)
[2022-03-08 13:47] LABS: Alanine Aminotransferase 14 U/L (0-31); Albumin Level 3.8 g/dL (3.5-5.0); Alkaline Phosphatase 77 U/L (39-117); Anion Gap 13 (12-20); Aspartate Amino Transferase 13 U/L (5-31); Blood Urea Nitrogen 13 mg/dL (9-16); C Reactive Protein 2.92 mg/dL (< or = 0.50); Calcium 9.3 mg/dL (8.4-10.2); Carbon Dioxide 25 mmol/L (22-29); Chloride 107 mmol/L (96-108); Estimated Glomerular Filt Rate > 60; Glucose Random 77 mg/dL (60-115); Potassium 4.2 mmol/L (3.3-5.1); Rheumatoid Factor < 13.0 IU/mL (<15.0); Sodium 141 mmol/L (135-145); Total Protein 7.2 g/dL (6.5-8.0)
[2022-03-08 14:17] LABS: Creatinine Urine 268.44 mg/dL; Protein/Creatinine Ratio, Ur 0.19 (<0.2); Total Protein Urine Random 51 mg/dL (<12)
[2022-03-09 07:43] LABS: Syphilis Screen Nonreactive (Nonreactive)
[2022-03-09 08:20] LABS: HIV AB/AG Nonreactive (Nonreactive); HIV Num 1 0.06 S/CO (0.00-0.99); Hepatitis B Surface Antigen Negative (Negative); ~Hepatitis C Antibody Nonreactive (Nonreactive)
[2022-03-09 08:25] LABS: HBS Num1 4.61 mIU/mL (0-7.99); HBsAGNum1 0.34 S/CO (0.00-0.99); Hepatitis A Antibody IgM 0.18 Index (0-0.79); Hepatitis B Core Antibody Nonreactive (Nonreactive); Hepatitis B Surface Antigen Negative (Negative); ~HepC Num1 0.12 S/CO (0.00-0.79); ~Hepatitis A Antibody IgM Nonreactive (Nonreactive); ~Hepatitis B Surface Antibody NONREACTIVE (Nonreactive); ~Hepatitis C Antibody Nonreactive (Nonreactive)
[2022-03-09 09:18] LABS: Complement C3 124 mg/dL (83-193)
[2022-03-09 13:14] LABS: Anti Nuclear Antibody Screen NEGATIVE (NEGATIVE)
[2022-03-09 14:53] LABS: Prot Elec - Albumin 3.7 g/dL (3.8-4.8); Prot Elec - Alpha1 0.4 g/dL (0.2-0.3); Prot Elec - Beta 1 0.4 g/dL (0.4-0.6); Prot Elec - Beta 2 0.5 g/dL (0.2-0.5); Prot Elec - Gamma 1.6 g/dL (0.8-1.7); Prot Elec - Total Protein 7.6 g/dL (6.1-8.1)
[2022-03-09 15:19] LABS: Cardiolipin IgG Ab <2.0 GPL-U/mL; Cardiolipin IgM Ab <2.0 MPL-U/mL
[2022-03-09 17:08] LABS: Anti-Centromere B Antibodies <1.0 NEG AI (<1.0 NEG)
[2022-03-10 14:53] LABS: IgA 417 mg/dL (47-310); IgG 1705 mg/dL (600-1640); IgM 159 mg/dL (50-300)
[2022-03-10 21:29] LABS: TS Negative Control Passed; TS Panel A 0; TS Panel B 0; TS Positive Control Passed; TSpotTB Negative (Negative)
[2022-03-11 22:29] LABS: DNAds, Crithidia Antibody Negative (Negative)
[2022-03-12 14:13] LABS: Anti DNA DS Antibody 12 IU/mL; Antibody to SS-A Antigen <1.0 NEG AI (<1.0 NEG); Antibody to SS-B Antigen <1.0 NEG AI (<1.0 NEG); SM/Ribonucleoprotein Ab <1.0 NEG AI (<1.0 NEG); Scleroderma 70 Antibody <1.0 NEG AI (<1.0 NEG); Smith Protein <1.0 NEG AI (<1.0 NEG)
[2022-03-12 14:48] LABS: PTT (LAC) Screen 35 sec (<=40)
[2022-03-13 14:59] LABS: Beta-2 Glycoprotein IgA <2.0 U/mL (<20.0); Beta-2 Glycoprotein IgG <2.0 U/mL (<20.0); Beta-2 Glycoprotein IgM <2.0 U/mL (<20.0)
[2022-03-14 13:13] LABS: Cyclic Citrullinated Peptide <16 UNITS
[2022-03-18 20:18] LABS: TPMT Activity 16
== END 2022-03-08 12:00 | disposition home or self-care (01) ==
LOC: HO.LAB 11:59
PROVIDERS: Obstetrics & Gynecology; PCP Physician Assistant; Visit Provider Student in an Organized Health Care Education/Training Program
DX: Z11.4 Encounter for screening for human immunodeficiency virus [HIV] (principal); Z11.1 Encounter for screening for respiratory tuberculosis; D68.61 Antiphospholipid syndrome; M32.9 Systemic lupus erythematosus, unspecified; M34.9 Systemic sclerosis, unspecified; N73.0 Acute parametritis and pelvic cellulitis; Z79.624 Long term (current) use of inhibitors of nucleotide synthesis
CPT/HCPCS: 36415; 80053; 81001; 82657; 82784; 84156; 84165; 85025; 85597; 85613; 85652; 85730; 86038; 86039; 86140; 86146; 86147; 86160; 86200; 86225; 86235; 86255; 86334; 86431; 86481; 86704; 86706; 86709; 86780; 86803; 87340; 87389

== ENCOUNTER 2022-03-22 13:25 | Outpatient (REF) | payer OTHER, SELFPAY ==
--- NOTE | ~2022-03-22 | XR_ITS ---
EXAMINATION: XR HAND/WRIST, RIGHT XR HAND/WRIST, LEFT CLINICAL INFORMATION: Systemic lupus erythematosus. Bilateral hand pain. COMPARISON: None TECHNIQUE: PA, oblique, and lateral views of the right and left hand and wrist. FINDINGS: Right hand and wrist: No fracture or dislocation. Normal carpal alignment. No significant joint space narrowing or marginal osteophytes. No osseous erosion. No periarticular osteopenia. No abnormal soft tissue calcification. Left hand and wrist: No fracture or dislocation. Normal carpal alignment. No significant joint space narrowing or marginal osteophytes. No osseous erosion. No periarticular osteopenia. No abnormal soft tissue calcification. XR/XR hand wrist LT IMPRESSION: Unremarkable examinations.
--- NOTE | ~2022-03-22 | XR_ITS ---
EXAMINATION: XR ANKLE, RIGHT XR ANKLE, LEFT XR FOOT, RIGHT XR FOOT, LEFT CLINICAL INFORMATION: Systemic lupus erythematosus. Bilateral foot and ankle pain. COMPARISON: Left foot radiographs dated 12/05/2019. Bilateral ankle radiographs dated 01/17/2019. TECHNIQUE: AP, oblique, and lateral views of the right and left foot and ankles. FINDINGS: RIGHT ANKLE: No acute fracture or dislocation. The ankle mortise is maintained. No joint space narrowing or marginal osteophytes. No osseous erosion. No abnormal soft tissue calcification. No significant joint effusion. LEFT ANKLE: No acute fracture or dislocation. The ankle mortise is maintained. No joint space narrowing or marginal osteophytes. No osseous erosion. No abnormal soft tissue calcification. No significant joint effusion. RIGHT FOOT: No acute fracture or dislocation. No joint space narrowing or marginal osteophytes. No osseous erosion. No abnormal soft tissue calcification. LEFT FOOT: No acute fracture or dislocation. No joint space narrowing or marginal osteophytes. No osseous erosion. No abnormal soft tissue calcification. XR/XR ankle RT min 3V IMPRESSION: RIGHT ANKLE: Unremarkable examination. LEFT ANKLE: Unremarkable examination. RIGHT FOOT: Unremarkable examination. LEFT FOOT: Unremarkable examination.
--- NOTE | ~2022-03-22 | XR_ITS ---
EXAMINATION: XR ANKLE, RIGHT XR ANKLE, LEFT XR FOOT, RIGHT XR FOOT, LEFT CLINICAL INFORMATION: Systemic lupus erythematosus. Bilateral foot and ankle pain. COMPARISON: Left foot radiographs dated 12/05/2019. Bilateral ankle radiographs dated 01/17/2019. TECHNIQUE: AP, oblique, and lateral views of the right and left foot and ankles. FINDINGS: RIGHT ANKLE: No acute fracture or dislocation. The ankle mortise is maintained. No joint space narrowing or marginal osteophytes. No osseous erosion. No abnormal soft tissue calcification. No significant joint effusion. LEFT ANKLE: No acute fracture or dislocation. The ankle mortise is maintained. No joint space narrowing or marginal osteophytes. No osseous erosion. No abnormal soft tissue calcification. No significant joint effusion. RIGHT FOOT: No acute fracture or dislocation. No joint space narrowing or marginal osteophytes. No osseous erosion. No abnormal soft tissue calcification. LEFT FOOT: No acute fracture or dislocation. No joint space narrowing or marginal osteophytes. No osseous erosion. No abnormal soft tissue calcification. XR/XR foot RT min 3V IMPRESSION: RIGHT ANKLE: Unremarkable examination. LEFT ANKLE: Unremarkable examination. RIGHT FOOT: Unremarkable examination. LEFT FOOT: Unremarkable examination.
--- NOTE | ~2022-03-22 | XR_ITS ---
EXAMINATION: XR HAND/WRIST, RIGHT XR HAND/WRIST, LEFT CLINICAL INFORMATION: Systemic lupus erythematosus. Bilateral hand pain. COMPARISON: None TECHNIQUE: PA, oblique, and lateral views of the right and left hand and wrist. FINDINGS: Right hand and wrist: No fracture or dislocation. Normal carpal alignment. No significant joint space narrowing or marginal osteophytes. No osseous erosion. No periarticular osteopenia. No abnormal soft tissue calcification. Left hand and wrist: No fracture or dislocation. Normal carpal alignment. No significant joint space narrowing or marginal osteophytes. No osseous erosion. No periarticular osteopenia. No abnormal soft tissue calcification. XR/XR hand wrist RT IMPRESSION: Unremarkable examinations.
--- NOTE | ~2022-03-22 | XR_ITS ---
EXAMINATION: XR ANKLE, RIGHT XR ANKLE, LEFT XR FOOT, RIGHT XR FOOT, LEFT CLINICAL INFORMATION: Systemic lupus erythematosus. Bilateral foot and ankle pain. COMPARISON: Left foot radiographs dated 12/05/2019. Bilateral ankle radiographs dated 01/17/2019. TECHNIQUE: AP, oblique, and lateral views of the right and left foot and ankles. FINDINGS: RIGHT ANKLE: No acute fracture or dislocation. The ankle mortise is maintained. No joint space narrowing or marginal osteophytes. No osseous erosion. No abnormal soft tissue calcification. No significant joint effusion. LEFT ANKLE: No acute fracture or dislocation. The ankle mortise is maintained. No joint space narrowing or marginal osteophytes. No osseous erosion. No abnormal soft tissue calcification. No significant joint effusion. RIGHT FOOT: No acute fracture or dislocation. No joint space narrowing or marginal osteophytes. No osseous erosion. No abnormal soft tissue calcification. LEFT FOOT: No acute fracture or dislocation. No joint space narrowing or marginal osteophytes. No osseous erosion. No abnormal soft tissue calcification. XR/XR ankle LT min 3V IMPRESSION: RIGHT ANKLE: Unremarkable examination. LEFT ANKLE: Unremarkable examination. RIGHT FOOT: Unremarkable examination. LEFT FOOT: Unremarkable examination.
--- NOTE | ~2022-03-22 | XR_ITS ---
EXAMINATION: XR ANKLE, RIGHT XR ANKLE, LEFT XR FOOT, RIGHT XR FOOT, LEFT CLINICAL INFORMATION: Systemic lupus erythematosus. Bilateral foot and ankle pain. COMPARISON: Left foot radiographs dated 12/05/2019. Bilateral ankle radiographs dated 01/17/2019. TECHNIQUE: AP, oblique, and lateral views of the right and left foot and ankles. FINDINGS: RIGHT ANKLE: No acute fracture or dislocation. The ankle mortise is maintained. No joint space narrowing or marginal osteophytes. No osseous erosion. No abnormal soft tissue calcification. No significant joint effusion. LEFT ANKLE: No acute fracture or dislocation. The ankle mortise is maintained. No joint space narrowing or marginal osteophytes. No osseous erosion. No abnormal soft tissue calcification. No significant joint effusion. RIGHT FOOT: No acute fracture or dislocation. No joint space narrowing or marginal osteophytes. No osseous erosion. No abnormal soft tissue calcification. LEFT FOOT: No acute fracture or dislocation. No joint space narrowing or marginal osteophytes. No osseous erosion. No abnormal soft tissue calcification. XR/XR foot LT min 3V IMPRESSION: RIGHT ANKLE: Unremarkable examination. LEFT ANKLE: Unremarkable examination. RIGHT FOOT: Unremarkable examination. LEFT FOOT: Unremarkable examination.
== END 2022-03-22 13:26 | disposition home or self-care (01) ==
LOC: HO.XRAY 13:25
PROVIDERS: PCP Physician Assistant; Visit Provider Student in an Organized Health Care Education/Training Program
DX: M32.9 Systemic lupus erythematosus, unspecified (principal)
CPT/HCPCS: 73110; 73130; 73610; 73630

== ENCOUNTER 2022-03-31 19:19 | Emergency (ER) | payer OTHER, MEDICAID, SELFPAY ==
--- NOTE | ~2022-03-31 | CT_ITS ---
EXAMINATION: CT ABDOMEN AND PELVIS WITHOUT CONTRAST CLINICAL INFORMATION: Left upper quadrant/left lower quadrant abdominal pain with nausea, vomiting and diarrhea. COMPARISON: CT abdomen/pelvis 08/09/2021. TECHNIQUE: Multidetector volumetric imaging was performed from the superior aspect of the liver through the pubic symphysis. Sagittal and coronal reformatted images were obtained on the technologist's workstation. This CT examination was performed using dose optimization techniques as appropriate, variously including the following: *Automated exposure control *Adjustment of mA and/or kV according to patient size (this includes techniques or standardized protocols for targeted exams where dose is matched to indication/reason for exam; i.e. extremities or head) *Use of iterative reconstruction technique DLP: 407 mGy-cm FINDINGS: The lack of intravenous contrast limits evaluation of the solid visceral organs including the liver, spleen, pancreas, and kidneys. LUNG BASES: The visualized lung bases are unremarkable. LIVER, GALLBLADDER, AND BILIARY TREE: The liver is normal in size, shape, and attenuation. No focal hepatic lesion or biliary ductal dilatation is present. The gallbladder is unremarkable with no evidence of radiopaque gallstones, gallbladder wall thickening, or obvious pericholecystic inflammatory changes. PANCREAS: Unremarkable. SPLEEN: Unremarkable. ADRENAL GLANDS: Unremarkable. KIDNEYS AND URETERS: The kidneys are normal in size, shape, and attenuation. No hydronephrosis, hydroureter, or calculi seen. No perinephric stranding. BLADDER: Unremarkable. GASTROINTESTINAL TRACT: The stomach and the small bowel are nondilated. Normal appendix. No pericolonic inflammatory changes. No evidence of bowel obstruction. ABDOMINAL WALL: No significant hernia is appreciated. LYMPH NODES: No pathologically enlarged lymph nodes. VASCULAR: Limited noncontrast examination. Normal caliber of the abdominal aorta. PELVIC VISCERA: IUD centered in the endometrial canal. Dominant left-sided follicle. Small volume of free fluid in the cul-de-sac. OSSEOUS STRUCTURES: Right superior parasymphyseal pubic rami fracture with mild displacement. The pubic symphysis is congruent. Nondisplaced fracture of the posterior right iliac crest, adjacent to the SI joint. These fractures are new compared to CT from 08/09/2021. CT/CT abdomen pelvis wo IV con IMPRESSION: 1. Right superior parasymphyseal pubic rami fracture with mild displacement. Nondisplaced fracture of the posterior right iliac crest, adjacent to the SI joint. These fractures are new compared to 08/09/2021. 2. No other acute abnormalities in the abdomen or pelvis to explain the patient's symptoms. This result was discussed with Dr. Jj at 03/31/2022 9:46 PM and it was ascertained that the content of the report was understood at the time of direct communication.
[2022-03-31 19:47] VITALS: BP 122/91; PULSE 81; RESP 18; TEMP 36.7; O2SAT 100; BMI 27.3
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
[2022-03-31 20:12] LABS: Basophils Absolute Auto 0.1 X10*3/uL (0.0-0.2); Basophils Percent Auto 0.3 % (0-2); Eosinophils Percent Auto 0.1 % (0-4); Hematocrit 42.9 % (37.0-47.0); Hemoglobin 14.5 g/dl (12.0-16.0); Imm Gran Pct Auto 0.6 % (0.0-0.4); Lymphocytes Absolute Auto 0.8 X10*3/uL (1.2-4.9); Lymphocytes Percent Auto 4.2 % (20-40); MANUAL DIFF FLAG SCAN; Mean Corpuscular HGB Conc 33.8 g/dl (31.0-35.0); Mean Corpuscular Hemoglobin 28.9 pg (27.0-33.0); Mean Corpuscular Volume 85.6 fL (80.0-98.0); Mean Platelet Volume 12.7 fL (9.4-12.3); Monocytes Absolute Auto 0.7 X10*3/uL (0.1-1.2); Monocytes Percent Auto 3.6 % (2-11); Neutrophils Absolute Auto 16.5 x10*3/uL (2.0-8.3); Neutrophils Percent Auto 91.2 % (45-73); Platelet Count 154 X10*3/uL (160-400); Red Blood Count 5.01 X10*6/uL (4.20-5.50); Red Cell Distribution Width 12.9 % (11.0-16.0); SCAN SMEAR FLAG 1
[2022-03-31 20:19] LABS: Prothrombin Time 11.4 SEC (10.0-13.1)
[2022-03-31 20:30] LABS: SLIDE REVIEW VERIFIED
[2022-03-31 20:37] LABS: Alanine Aminotransferase 43 U/L (0-31); Albumin Level 3.9 g/dL (3.5-5.0); Alkaline Phosphatase 77 U/L (39-117); Anion Gap 13 (12-20); Aspartate Amino Transferase 26 U/L (5-31); Bilirubin Total 0.9 mg/dL (0.0-1.0); Blood Urea Nitrogen 16 mg/dL (9-16); Calcium 9.6 mg/dL (8.4-10.2); Carbon Dioxide 26 mmol/L (22-29); Chloride 107 mmol/L (96-108); Creatinine Clr Calc Pharmacy 66.8; Estimated Glomerular Filt Rate > 60; Glucose Random 90 mg/dL (60-115); Lipase 27 U/L (8-78); Magnesium 1.8 mg/dL (1.6-2.6); Potassium 4.5 mmol/L (3.3-5.1); Sodium 141 mmol/L (135-145)
[2022-03-31 20:49] LABS: HCG Quantitative < 2 mIU/mL
[2022-03-31 20:50] LABS: Influenza A PCR NEGATIVE (Negative); Influenza B PCR NEGATIVE (Negative); Resp Syncy Virus RNA Qual PCR NEGATIVE (Negative); SARS COV2 PCR INHOUSE NEGATIVE (Negative)
[2022-03-31 22:04] VITALS: BP 121/76; PULSE 77; RESP 16; TEMP 36.9; O2SAT 99
[2022-03-31 22:13] LABS: Appearance Urine Clear; Color Urine Yellow; Glucose Urine UA Negative (Negative); Leukocyte Esterase Urine Trace (Negative); Nitrite Urine Negative (Negative); Specific Gravity - Urine >= 1.030 (1.005-1.025); UMIC TRIGGER UACC YES; Urine Blood Negative (Negative); Urine Ketones Negative (Negative); Urine Protein 100 (2+) mg/dL (Neg-Trace)
[2022-03-31] MEDS: Ondansetron ODT 4 MG TAB.RAPDIS TRANSLINGU (22:24)
[2022-03-31 22:27] LABS: Bacteria Urine 1+ (None Seen); Hyaline Casts Urine 0-2 /LPF (0-2); RBC Urine 0-2 /HPF (0-2); WBC Urine 0-5 /HPF (0-5)
== END 2022-03-31 22:28 | disposition home or self-care (01) ==
PROVIDERS: Physician Assistant Medical; Emergency Provider Emergency Medicine; PCP Dentist General Practice
DX: A08.4 Viral intestinal infection, unspecified (principal); K60.2 Anal fissure, unspecified; K64.9 Unspecified hemorrhoids; Z20.822 Contact with and (suspected) exposure to COVID-19; Z20.828 Contact with and (suspected) exposure to other viral communicable diseases; Z79.899 Other long term (current) drug therapy
CPT/HCPCS: 0241U; 74176; 80053; 81001; 83690; 83735; 84702; 85025; 85610; 99283; 99284

== ENCOUNTER → 2022-05-04 13:26 | Outpatient (BNVA) | payer OTHER, MEDICAID, SELFPAY | PROVIDERS: PCP Physician Assistant; Visit Provider Student in an Organized Health Care Education/Training Program | DX: Z13.89 Encounter for screening for other disorder (principal) ==

== ENCOUNTER 2022-07-06 12:01 | Emergency (ER) | payer OTHER, SELFPAY ==
[2022-07-06] VITALS (8 sets, daily range): BP systolic 108–133; BP diastolic 57–79; PULSE 45–82; RESP 16–22; TEMP 36.1–37.2; O2SAT 96–100; BMI 27.3
--- NOTE | ~2022-07-06 | XR_ITS ---
EXAMINATION: XR chest 2V CLINICAL INFORMATION: Reason for Exam epigastric pain COMPARISON: No prior chest x-ray available in our system for comparison at the time of this dictation. TECHNIQUE: XR chest 2V Lungs and Indigo: Both lungs are clear. Pleura: Normal. Costophrenic angles are sharp. No pneumothorax. Heart: The heart is normal in size. Mediastinum: The mediastinum is within normal limits.. Bones: Skeletal structures included are normal for patient's age. XR/XR chest 2V IMPRESSION: No radiographic evidence of acute cardiopulmonary disease.
--- NOTE | ~2022-07-06 | CT_ITS ---
EXAMINATION: CT ABDOMEN AND PELVIS WITHOUT CONTRAST CLINICAL INFORMATION: Left flank pain. COMPARISON: CT abdomen and pelvis 03/31/2022 TECHNIQUE: Multidetector volumetric imaging was performed from the superior aspect of the liver through the pubic symphysis. Sagittal and coronal reformatted images were obtained on the technologist's workstation. This CT examination was performed using dose optimization techniques as appropriate, variously including the following: *Automated exposure control *Adjustment of mA and/or kV according to patient size (this includes techniques or standardized protocols for targeted exams where dose is matched to indication/reason for exam; i.e. extremities or head) *Use of iterative reconstruction technique DLP: 395 mGy-cm FINDINGS: LUNG BASES: The visualized lung bases are unremarkable. LIVER, GALLBLADDER, AND BILIARY TREE: The liver is normal in size, shape, and attenuation. No focal hepatic lesion or biliary ductal dilatation is present. The gallbladder is unremarkable with no evidence of radiopaque gallstones, gallbladder wall thickening, or obvious pericholecystic inflammatory changes. PANCREAS: Unremarkable. SPLEEN: Unremarkable. ADRENAL GLANDS: Unremarkable. KIDNEYS AND URETERS: The kidneys are normal in size, shape, and attenuation. No hydronephrosis, hydroureter, or calculi seen. No perinephric stranding. Bilateral pyramids are slightly hyperdense but no radiopaque calculi suspected. No caliectasis either. BLADDER: Unremarkable. GASTROINTESTINAL TRACT: Scattered stool and gas is seen in colon without distention. The small bowel loops are normal caliber. Appendix is normal caliber. No free air or free fluid seen. ABDOMINAL WALL: No significant hernia is appreciated. LYMPH NODES: Normal. VASCULAR: Unremarkable. PELVIC VISCERA: The uterus is anteverted with an IUD well located within the endometrial canal. There is no free fluid in the pelvis. No adnexal mass. No abnormal lymph nodes OSSEOUS STRUCTURES: Old fractures right superior an inferior pubic rami and right posterior iliac crest are again noted. CT/CT abdomen pelvis wo IV con IMPRESSION: 1. No acute intra-abdominal process seen. 2. No radiopaque urolith or hydroureteronephrosis. 3. Mild constipation. 4. Fleischner guidelines were followed.
--- NOTE | 2022-07-06 12:11 | ED.ABDPAIN ---
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 patient's age. XR/XR chest 2V IMPRESSION: No radiographic evidence of acute cardiopulmonary disease. Dictated By: Malina Arias MD Signed By: <Electronically signed by Malina Arias MD in OV> 07/06/22 1753 DD/ 1652 TD/TT:? 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 Medications Administered Discontinued Medications Generic Name Dose Route Start Last Admin Trade Name Freq PRN Reason Stop Dose Admin Al Hydroxide/Mg Hydroxide 15 ml 07/06/22 15:52 07/06/22 16:01 Magnesium Hydrox/Alum Hydrox 30 Ml Oral.Susp PO 07/06/22 15:53 15 ml ONCE ONE Administration Hydromorphone HCl 0.5 mg 07/06/22 15:48 07/06/22 16:03 Hydromorphone Hcl 0.5 Mg/0.5 Ml Syringe IVPUSH 07/06/22 15:49 0.5 mg ONCE ONE Administration Protocol Sodium Chloride 1,000 mls @ 999 mls/hr 07/06/22 14:05 07/06/22 16:40 Ns IVCONT 07/06/22 15:05 Infused .Q1H1M ONE Infusion Sodium Chloride 1,000 mls @ 999 mls/hr 07/06/22 14:50 07/06/22 19:22 Ns IV 07/06/22 15:50 Infused .Q1H1M ONE Infusion Sodium Chloride 1,000 mls @ 999 mls/hr 07/06/22 19:15 07/06/22 21:02 Ns IV 07/06/22 20:15 Infused .Q1H1M STACY Infusion Morphine Sulfate 2 mg 07/06/22 14:04 07/06/22 14:46 Morphine Sulfate 2 Mg/Ml Cartridge IVPUSH 07/06/22 14:05 2 mg ONCE ONE Administration Protocol Morphine Sulfate 2 mg 07/06/22 15:04 07/06/22 15:12 Morphine Sulfate 2 Mg/Ml Cartridge IVPUSH 07/06/22 15:05 2 mg ONCE ONE Administration Protocol Morphine Sulfate 2 mg 07/06/22 20:24 07/06/22 21:04 Morphine Sulfate 2 Mg/Ml Cartridge IVPUSH 07/06/22 20:25 2 mg ONCE ONE Administration Protocol Ondansetron HCl 4 mg 07/06/22 14:04 07/06/22 14:42 Ondansetron Hcl 4 Mg/2 Ml Vial IVPUSH 07/06/22 14:05 4 mg ONCE ONE Administration Ondansetron HCl 4 mg 07/06/22 19:30 07/06/22 19:35 Ondansetron Hcl 4 Mg/2 Ml Vial IVPUSH 07/06/22 19:31 4 mg ONCE ONE Administration Critical Care Time Critical Care Time Critical Care Time: Yes Total Critical Care Time: 50 Attestation: I have personally provided critical care time exclusive of time spent on separately billable procedures. Time includes review of lab data, radiology results, discussion with consultants, and monitoring for potential decompensation. Intervention performed as documented. Discharge Plan Discharge Clinical Impression: Nausea & vomiting, Dehydration Patient Disposition: Home, Self-Care Instructions: Dehydration (ED), Liquids and Hydration for Athletes (ED), Acute Nausea and Vomiting (ED), Acute Abdominal Pain (DC) Additional Instructions: Take your medications as prescribed. If you were prescribed antibiotics today, it is important that you take your medication to their entirety, do not skip any doses, do not finish them early. Follow-up with your primary care provider this week. Return to the emergency department with new or worsening symptoms. Such as fevers, chills, chest pain, shortness of breath, nausea, vomiting, dizziness, headache, vision changes, lethargy In case of emergency call 911 Please drink plenty of fluids. Prescriptions: New ondansetron 4 mg tablet,disintegrating 4 mg PO Q6H PRN (Reason: nausea and vomiting) Qty: 14 0RF No Action valacyclovir [Valtrex] 1 gram tablet 1,000 mg PO Q8H 5 Days Qty: 15 0RF ondansetron 4 mg tablet,disintegrating 4 mg PO Q8H 4 Days Qty: 12 0RF clindamycin HCl 300 mg capsule 300 mg PO Q6H albuterol sulfate 90 mcg/actuation HFA aerosol inhaler 1 inh inhalation QID PRN (Reason: shortness of breath or wheezing) Qty: 6.7 1RF acetaminophen 325 mg tablet 650 mg PO Q4H ibuprofen 800 mg tablet 800 mg PO Q8H fluticasone propionate [Flovent HFA] 110 mcg/actuation HFA aerosol inhaler 2 puff inhalation DAILY Qty: 12 6RF Kyleena 17.5 mcg/24 hrs (5 yrs) 19.5 mg intrauterine device intrauterine hydroxychloroquine [Plaquenil] 200 mg tablet 300 mg PO DAILY 30 Days Qty: 45 3RF methotrexate sodium 2.5 mg tablet 15 mg PO QWEEK Qty: 48 0RF folic acid 1 mg tablet 1 mg PO DAILY Qty: 90 1RF Referrals: Michelet Witt PA-C [Primary Care Provider] - 2 days Stand Alone Forms: Work/School Release Interventions: ED Discharge Assessment Last Done: 07/06/22 22:06 Discharge Date/Time: 07/06/22 22:07
--- NOTE | 2022-07-06 12:12 | ECG_ITS ---
Test Reason : SIDE PAIN Blood Pressure : / mmHG Vent. Rate : 048 BPM Atrial Rate : 048 BPM P-R Int : 128 ms QRS Dur : 084 ms QT Int : 452 ms P-R-T Axes : 039 067 032 degrees QTc Int : 403 ms Artifact in tracing Sinus bradycardia with sinus arrhythmia Otherwise normal ECG When compared with ECG of 15-NOV-2021 17:11, Sinus rhythm is no longer with 2nd degree A-V block (Mobitz II) Referred By: Fabiola Mccoy Electronically Signed By:JL REYES
[2022-07-06 14:22] LABS: Basophils Percent Auto 0.2 % (0-2); Hematocrit 46.4 % (37.0-47.0); Imm Gran Abs Auto 0.17 X10*3/uL (0.00-0.03); Imm Gran Pct Auto 0.7 % (0.0-0.4); Lymphocytes Absolute Auto 0.7 X10*3/uL (1.2-4.9); Lymphocytes Percent Auto 2.8 % (20-40); MANUAL DIFF FLAG SCAN; Mean Corpuscular HGB Conc 34.5 g/dl (31.0-35.0); Mean Corpuscular Hemoglobin 29.3 pg (27.0-33.0); Mean Corpuscular Volume 84.8 fL (80.0-98.0); Mean Platelet Volume 13.4 fL (9.4-12.3); Monocytes Absolute Auto 0.7 X10*3/uL (0.1-1.2); Monocytes Percent Auto 2.7 % (2-11); Neutrophils Absolute Auto 23.5 x10*3/uL (2.0-8.3); Neutrophils Percent Auto 93.6 % (45-73); Platelet Count 175 X10*3/uL (160-400); Red Blood Count 5.47 X10*6/uL (4.20-5.50); Red Cell Distribution Width 13.7 % (11.0-16.0); SCAN SMEAR FLAG 1
[2022-07-06] MEDS: ondansetron HCL 4 MG/2 ML VIAL IVPUSH ×2 (14:42→19:35)
[2022-07-06 14:44] LABS: SLIDE REVIEW VERIFIED
[2022-07-06] MEDS: 0.9 % Sodium Chloride 1,000 ML 999 ML IVCONT (14:44)
[2022-07-06] MEDS: Morphine Sulfate 2 MG/ML CARTRIDGE IVPUSH ×3 (14:46→21:04)
[2022-07-06 14:47] LABS: Alanine Aminotransferase 22 U/L (0-31); Albumin Level 4.4 g/dL (3.5-5.0); Alkaline Phosphatase 86 U/L (39-117); Anion Gap 19 (12-20); Aspartate Amino Transferase 18 U/L (5-31); Bilirubin Direct 0.3 mg/dL (0.0-0.5); Bilirubin Total 1.3 mg/dL (0.0-1.0); Blood Urea Nitrogen 15 mg/dL (9-16); Calcium 9.9 mg/dL (8.4-10.2); Carbon Dioxide 20 mmol/L (22-29); Chloride 111 mmol/L (96-108); Creatinine Clr Calc Pharmacy 66.8; Estimated Glomerular Filt Rate > 60; Glucose Random 117 mg/dL (60-115); Lipase 11 U/L (8-78); Magnesium 1.6 mg/dL (1.6-2.6); Potassium 4.3 mmol/L (3.3-5.1); Sodium 146 mmol/L (135-145); Total Protein 8.1 g/dL (6.5-8.0)
[2022-07-06 14:51] LABS: HCG Quantitative < 2 mIU/mL
[2022-07-06] MEDS: Magnesium Hydrox/Alum Hydrox 30 ML ORAL.SUSP 15 ML PO (16:01)
[2022-07-06] MEDS: HYDROmorphone HCl 0.5 MG/0.5 ML SYRINGE IVPUSH (16:03)
[2022-07-06] MEDS: 0.9 % Sodium Chloride 1,000 ML 999 ML IV ×2 (16:40→19:23)
[2022-07-06 17:34] LABS: Appearance Urine Clear; Color Urine Yellow; Glucose Urine UA Negative (Negative); Leukocyte Esterase Urine Negative (Negative); Nitrite Urine Negative (Negative); Specific Gravity - Urine >= 1.030 (1.005-1.025); UMIC TRIGGER UACC YES; Urine Blood Trace (Negative); Urine Ketones 15 mg/dL (Negative); Urine Protein 300 (3+) mg/dL (Neg-Trace)
[2022-07-06 17:39] LABS: Bacteria Urine None Seen (None Seen); Hyaline Casts Urine 0-2 /LPF (0-2); RBC Urine 0-2 /HPF (0-2); Squamous Epithelial Cell Urine 0-2 /HPF (0-2); WBC Urine 0-5 /HPF (0-5)
[2022-07-06 18:56] LABS: COVID-19 Test Negative (Negative); IDNOW Serial# 08D9AD1C
[2022-07-06 18:57] LABS: IDNOW Serial# BCCEAD1C; Influenza A Negative (Negative); Influenza B2 Negative (Negative)
[2022-07-06 18:59] LABS: Basophils Percent Auto 0.1 % (0-2); Imm Gran Abs Auto 0.07 X10*3/uL (0.00-0.03); Imm Gran Pct Auto 0.4 % (0.0-0.4); Lymphocytes Percent Auto 4.2 % (20-40); MANUAL DIFF FLAG SCAN; Mean Corpuscular Hemoglobin 29.4 pg (27.0-33.0); Red Cell Distribution Width 13.8 % (11.0-16.0); SCAN SMEAR FLAG 1
[2022-07-06 19:01] LABS: Hematocrit 41.2 % (37.0-47.0); Lymphocytes Absolute Auto 0.7 X10*3/uL (1.2-4.9); Mean Corpuscular Volume 86.4 fL (80.0-98.0); Mean Platelet Volume 14.1 fL (9.4-12.3); Monocytes Absolute Auto 0.3 X10*3/uL (0.1-1.2); Monocytes Percent Auto 1.5 % (2-11); Neutrophils Absolute Auto 15.2 x10*3/uL (2.0-8.3); Neutrophils Percent Auto 93.8 % (45-73); Platelet Count 130 X10*3/uL (160-400); Red Blood Count 4.77 X10*6/uL (4.20-5.50); White Blood Count 16.2 X10*3/uL (4.8-10.8)
[2022-07-06 19:05] LABS: Lactic Acid 4.4 mmol/L (0.5-2.0)
--- NOTE | 2022-07-06 19:26 | PC.NURSE ---
Pt aox4. Reports new symptom of headache, 09/22, that she did not have earlier. Pt states left flank pain is increasing along with feeling nauseas. Second liter of fluid started. MLP notified. Verbal order received for Zofran 4mg. Pt aware of plan of care.
[2022-07-06 19:37] LABS: Amphetamine Screen Urine Not Detected (Not Detect); Barbiturates, Urine Not Detected (Not Detect); Benzodiazepines Screen Urine Not Detected (Not Detect); Cannabinoid Screen Urine POSITIVE (Not Detect); Cocaine Screen Urine Not Detected (Not Detect); Fentanyl, urine Not Detected (Not Detect); Opiate Screen Urine POSITIVE (Not Detect); Phencyclidine Screen Urine Not Detected (Not Detect)
[2022-07-06 19:52] LABS: PLT ABN DIST 1
[2022-07-06 19:58] LABS: Acetaminophen LAB < 17 mcg/mL (<30); Salicylate < 5.0 mg/dL (15-30)
[2022-07-06 20:16] LABS: Reflex Lactate? Lactic Acid Added
[2022-07-06 21:43] LABS: ~Lactic Acid-LAB USE ONLY 2.5 mmol/L (0.5-2.0)
--- NOTE | 2022-07-06 22:05 | PC.NURSE ---
Pt aox4 resting at the bedside. IV line removed with no complications. Pt tolerated well. Discharge instructions reviewed with pt. Pt verbalizes understanding. Ambulatory with steady gait at discharge.
[2022-07-06 22:57] LABS: Reflex Lactate? 2 Y
== END 2022-07-06 22:07 | disposition home or self-care (01) ==
PROVIDERS: Physician Assistant; Physician Assistant Medical; Emergency Provider Emergency Medicine Emergency Medical Services; PCP Physician Assistant
DX: R11.2 Nausea with vomiting, unspecified (principal); E86.0 Dehydration; R10.9 Unspecified abdominal pain; Z20.822 Contact with and (suspected) exposure to COVID-19; F12.90 Cannabis use, unspecified, uncomplicated; Z79.899 Other long term (current) drug therapy
CPT/HCPCS: 36415; 71046; 74176; 80048; 80076; 80143; 80179; 80307; 81001; 83605; 83690; 83735; 84702; 85025; 85610; 87040; 87502; 87635; 93005; 96361; 96374; 96375; 96376; 99285; J1170; J2270; J2405

== ENCOUNTER 2022-09-06 14:41 | Outpatient (AMB) | payer OTHER, SELFPAY ==
[2022-09-06 14:54] VITALS: BP 112/66; PULSE 80; TEMP 36.8; O2SAT 99; BMI 24.6
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
== END 2022-09-06 15:13 | disposition home or self-care (01) ==
LOC: HO.RHE 14:41
PROVIDERS: PCP Physician Assistant; Visit Provider Student in an Organized Health Care Education/Training Program
DX: M32.9 Systemic lupus erythematosus, unspecified (principal); Z79.899 Other long term (current) drug therapy; Z79.631 Long term (current) use of antimetabolite agent
CPT/HCPCS: 99214

== ENCOUNTER 2022-09-06 14:41 | Outpatient (REF) | payer OTHER, SELFPAY ==
[2022-09-06 15:40] LABS: MANUAL DIFF FLAG NO
[2022-09-06 17:18] LABS: Appearance Urine Clear; Color Urine Yellow; Glucose Urine UA Negative (Negative); Leukocyte Esterase Urine Trace (Negative); Nitrite Urine Negative (Negative); PH 5.5 (5.0-9.0); Specific Gravity - Urine >= 1.030 (1.005-1.025); UMIC TRIGGER UA YES; Urine Blood Negative (Negative); Urine Ketones Trace mg/dL (Negative); Urine Protein 100 (2+) mg/dL (Neg-Trace)
[2022-09-06 17:21] LABS: Basophils Percent Auto 0.4 % (0-2); Eosinophils Absolute Auto 0.1 X10*3/uL (0.0-0.4); Eosinophils Percent Auto 0.7 % (0-4); Hematocrit 45.1 % (37.0-47.0); Imm Gran Abs Auto 0.03 X10*3/uL (0.00-0.03); Imm Gran Pct Auto 0.3 % (0.0-0.4); Lymphocytes Absolute Auto 2.5 X10*3/uL (1.2-4.9); Lymphocytes Percent Auto 24.2 % (20-40); Mean Corpuscular HGB Conc 33.3 g/dl (31.0-35.0); Mean Corpuscular Hemoglobin 29.2 pg (27.0-33.0); Mean Corpuscular Volume 87.7 fL (80.0-98.0); Mean Platelet Volume 14.1 fL (9.4-12.3); Monocytes Absolute Auto 0.6 X10*3/uL (0.1-1.2); Neutrophils Absolute Auto 6.9 x10*3/uL (2.0-8.3); Neutrophils Percent Auto 68.4 % (45-73); Platelet Count 133 X10*3/uL (160-400); Red Blood Count 5.14 X10*6/uL (4.20-5.50); White Blood Count 10.1 X10*3/uL (4.8-10.8)
[2022-09-06 17:23] LABS: Bacteria Urine 2+ (None Seen); Hyaline Casts Urine 0-2 /LPF (0-2); RBC Urine 0-2 /HPF (0-2)
[2022-09-06 18:15] LABS: Erythrocyte Sedimentation Rate 2 MM/HR (0-20)
[2022-09-06 19:19] LABS: Alanine Aminotransferase 14 U/L (0-31); Albumin Level 3.9 g/dL (3.5-5.0); Alkaline Phosphatase 64 U/L (39-117); Anion Gap 11 (12-20); Aspartate Amino Transferase 13 U/L (5-31); Bilirubin Total 0.8 mg/dL (0.0-1.0); Blood Urea Nitrogen 14 mg/dL (9-16); C Reactive Protein < 0.10 mg/dL (< or = 0.50); Calcium 9.1 mg/dL (8.4-10.2); Carbon Dioxide 28 mmol/L (22-29); Chloride 107 mmol/L (96-108); Estimated Glomerular Filt Rate > 60; Glucose Random 69 mg/dL (60-115); Potassium 3.8 mmol/L (3.3-5.1); Sodium 142 mmol/L (135-145); Total Protein 7.2 g/dL (6.5-8.0)
[2022-09-06 20:10] LABS: Creatinine Urine 343.31 mg/dL; Protein/Creatinine Ratio, Ur 0.15 (<0.2); Total Protein Urine Random 52 mg/dL (<12)
[2022-09-08 12:58] LABS: Complement C3 99 mg/dL (83-193)
[2022-09-08 15:28] LABS: Anti DNA DS Antibody 13 IU/mL
== END 2022-09-06 14:42 | disposition home or self-care (01) ==
LOC: HO.LAB 14:41
PROVIDERS: PCP Physician Assistant; Visit Provider Student in an Organized Health Care Education/Training Program
DX: M32.9 Systemic lupus erythematosus, unspecified (principal); Z79.899 Other long term (current) drug therapy; Z79.631 Long term (current) use of antimetabolite agent
CPT/HCPCS: 36415; 80053; 81001; 84156; 85025; 85652; 86140; 86160; 86225; 99212

== ENCOUNTER 2022-09-17 15:59 | Observation (INO) | payer OTHER, SELFPAY ==
--- NOTE | ~2022-09-17 | CT_ITS ---
EXAMINATION: CT ANGIOGRAM CHEST, PE PROTOCOL CT ABDOMEN AND PELVIS WITH CONTRAST CLINICAL INFORMATION: Left-sided chest pain; abdominal pain, vomiting, epigastric pain COMPARISON: CT angiogram chest 06/02/2021 TECHNIQUE: Multidetector CT pulmonary angiography of the thorax was performed according to the pulmonary embolism protocol after intravenous administration of 100 mL Omnipaque 350. Additionally, images of the abdomen and pelvis were acquired. Reformatted coronal and sagittal imaging was performed. 3-D MIP images performed at a dedicated separate workstation. This CT examination was performed using dose optimization techniques as appropriate, variously including the following: *Automated exposure control *Adjustment of mA and/or kV according to patient size (this includes techniques or standardized protocols for targeted exams where dose is matched to indication/reason for exam; i.e. extremities or head) *Use of iterative reconstruction technique DLP: 450 mGy-cm QUALITY: Overall Exam Quality: Satisfactory. Pulmonary Arterial Enhancement: Adequate. Breath Hold: Suboptimal. Artifacts Impacting Image Quality: Motion. FINDINGS: VASCULAR: Cardiac: Heart normal in size without pericardial effusion. No coronary calcifications. Aorta: No aneurysm or dissection. Pulmonary Artery: No filling defect is identified in the central, lobar, or segmental pulmonary arterial branches to suggest pulmonary embolus. NONVASCULAR: THORAX: Thyroid Gland: The visualized thyroid gland is normal. Lymph Nodes: No supraclavicular, axillary, mediastinal or hilar lymphadenopathy is identified. Airways: The trachea and central bronchi are normal. Bronchial wall thickening. Lungs: No airspace consolidation. No suspicious nodules or masses. 8 mm left upper lobe nodule (8; 118), likely inflammatory Pleura: No pleural effusion. No pneumothorax. ABDOMEN/PELVIS: Liver: Homogeneous in attenuation. Normal in size. Gallbladder: Noninflamed. Biliary System: No intrahepatic or extrahepatic biliary dilation. Pancreas: Homogeneous in attenuation. Spleen: Normal in size. Genitourinary: Bilateral kidneys demonstrate symmetric enhancement. No perinephric fluid collection. No renal calculi. No hydroureteronephrosis. Urinary bladder is fluid-filled without focal wall thickening. Adrenal Glands: Unremarkable. Reproductive: Uterus and and bilateral adnexa are unremarkable. Gastrointestinal: The visualized alimentary tract is normal in course. No evidence of obstruction. Appendix: The appendix is seen in its entirety and is unremarkable. Peritoneum: There is a large free fluid within the posterior cul-de-sac. No pneumoperitoneum. Lymph Nodes: No pathologically enlarged abdominal or pelvic lymph nodes. Soft Tissues/Musculoskeletal: There is no acute fracture or significant focal osseous lesion. CT/CT abdomen pelvis w IV con IMPRESSION: 1. No acute pulmonary embolus. 2. Bronchial wall thickening suggestive of bronchitis. 3. No acute abdominal or pelvic pathology. Fleischner guidelines were followed.
[2022-09-17 16:30] VITALS: BP 98/67; PULSE 62; RESP 18; TEMP 35.9; O2SAT 100; BMI 27.9
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
--- NOTE | 2022-09-17 16:32 | ECG_ITS ---
Test Reason : CHEST PAIN Blood Pressure : / mmHG Vent. Rate : 055 BPM Atrial Rate : 055 BPM P-R Int : 118 ms QRS Dur : 080 ms QT Int : 432 ms P-R-T Axes : 039 063 008 degrees QTc Int : 413 ms Sinus bradycardia with sinus arrhythmia Otherwise normal ECG When compared with ECG of 06-JUL-2022 12:52, No significant change was found Referred By: Malu Dupree Electronically Signed By:JL REYES
[2022-09-17 18:01] LABS: Alanine Aminotransferase 31 U/L (0-31); Albumin Level 4.4 g/dL (3.5-5.0); Alkaline Phosphatase 72 U/L (39-117); Anion Gap 18 (12-20); Aspartate Amino Transferase 18 U/L (5-31); Bilirubin Total 1.2 mg/dL (0.0-1.0); Blood Urea Nitrogen 15 mg/dL (9-16); COVID-19 Test Negative (Negative); Carbon Dioxide 21 mmol/L (22-29); Chloride 107 mmol/L (96-108); Creatinine Clr Calc Pharmacy 64.5; Estimated Glomerular Filt Rate 59; Glucose Random 108 mg/dL (60-115); IDNOW Serial# 08D9AD1C; Lipase 13 U/L (8-78); Potassium 4.3 mmol/L (3.3-5.1); Sodium 142 mmol/L (135-145)
[2022-09-17 18:16] LABS: Hematocrit 45.8 % (37.0-47.0); Hemoglobin 15.5 g/dl (12.0-16.0); Mean Corpuscular HGB Conc 33.8 g/dl (31.0-35.0); Mean Corpuscular Hemoglobin 29.3 pg (27.0-33.0); Mean Corpuscular Volume 86.6 fL (80.0-98.0); Mean Platelet Volume 12.5 fL (9.4-12.3); Platelet Count 199 X10*3/uL (160-400); Red Blood Count 5.29 X10*6/uL (4.20-5.50); Red Cell Distribution Width 12.1 % (11.0-16.0)
[2022-09-17 18:21] LABS: Troponin-I High Sensitivity < 2.7 ng/L (<3.5-17.0)
[2022-09-17 18:43] LABS: WBC ABN SCTR FOR CBC 1
[2022-09-17 18:46] LABS: Lymphocytes Percent Manual 3 % (20-40); Monocytes Percent Manual 5 % (2-11); Neutrophils Percent Manual 92 % (45-73)
[2022-09-17 18:47] LABS: Platelet Estimate NORMAL (NORMAL); Platelet Morphology Comment NORMAL; RBC Morphology NORMAL
[2022-09-17 18:49] LABS: HCG Quantitative < 2 mIU/mL; Lymphocytes Absolute Manual 0.9 X10*3/uL (1.2-4.9); Monocytes Absolute Manual 1.5 X10*3/uL (0.1-1.2); White Blood Count 30.9 X10*3/uL (4.8-10.8)
[2022-09-17 18:50] LABS: Band Neutrophils Percent 0 % (3-5); Neutrophils Absolute Manual 28.4 X10*3/uL (2.0-8.3)
[2022-09-17] MEDS: HYDROmorphone HCl 1 MG/ML SYRINGE IVPUSH (19:40)
[2022-09-17] MEDS: ondansetron HCL 4 MG/2 ML VIAL IVPUSH (19:40)
[2022-09-17] MEDS: 0.9 % Sodium Chloride 1,000 ML 999 ML IV ×2 (19:41→20:32)
[2022-09-17] MEDS: iohexoL 350 MG/ML 100 ML INFUS..BTL IV (19:58)
[2022-09-17 20:22] LABS: Lactic Acid 4.9 mmol/L (0.5-2.0)
[2022-09-17 20:27] VITALS: BP 103/55; PULSE 83; RESP 17; TEMP 37.1; O2SAT 100
[2022-09-17] MEDS: cefTRIAXone sodium 2 GM in 0.9 % Sodium Chloride 50 ML IV (20:44)
[2022-09-17 21:02] VITALS: PULSE 61
[2022-09-17 21:41] LABS: Reflex Lactate? Lactic Acid Added
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
[2022-09-17 22:43] LABS: UPreg QC Valid YES; Urine Pregnancy NEGATIVE (NEGATIVE)
[2022-09-17 22:45] LABS: Appearance Urine Clear; Color Urine Yellow; Glucose Urine UA Negative (Negative); Leukocyte Esterase Urine Negative (Negative); Nitrite Urine Negative (Negative); PH 7.5 (5.0-9.0); Specific Gravity - Urine >= 1.030 (1.005-1.025); UMIC TRIGGER UACC YES; Urine Blood Negative (Negative); Urine Ketones Trace mg/dL (Negative); Urine Protein 100 (2+) mg/dL (Neg-Trace)
[2022-09-17 22:50] LABS: Bacteria Urine Trace (None Seen); Hyaline Casts Urine 0-2 /LPF (0-2); RBC Urine 0-2 /HPF (0-2); WBC Urine 0-5 /HPF (0-5)
[2022-09-17 22:56] LABS: Amphetamine Screen Urine Not Detected (Not Detect); Barbiturates, Urine Not Detected (Not Detect); Benzodiazepines Screen Urine Not Detected (Not Detect); Cannabinoid Screen Urine POSITIVE (Not Detect); Cocaine Screen Urine Not Detected (Not Detect); Fentanyl, urine Not Detected (Not Detect); Opiate Screen Urine Not Detected (Not Detect); Phencyclidine Screen Urine Not Detected (Not Detect)
[2022-09-17] MEDS: Pantoprazole Sodium 40 MG/10 ML VIAL IVPUSH (22:56)
[2022-09-17 23:04] LABS: Lactic Acid 3.7 mmol/L (0.5-2.0)
[2022-09-18] VITALS (7 sets, daily range): BP systolic 99–124; BP diastolic 48–80; PULSE 66–81; RESP 14–20; TEMP 36.4–37.4; O2SAT 98–100
[2022-09-18 00:32] LABS: Reflex Lactate? Lactic Acid Added
[2022-09-18 00:55] LABS: ~Lactic Acid-LAB USE ONLY 1.9 mmol/L (0.5-2.0)
[2022-09-18] MEDS: Lactated Ringers 1,000 ML 80 ML IVCONT ×2 (01:52→13:57)
[2022-09-18 05:17] LABS: MANUAL DIFF FLAG NO
[2022-09-18 05:21] LABS: Basophils Percent Auto 0.2 % (0-2); Eosinophils Percent Auto 0.1 % (0-4); Hematocrit 40.4 % (37.0-47.0); Hemoglobin 13.8 g/dl (12.0-16.0); Imm Gran Abs Auto 0.08 X10*3/uL (0.00-0.03); Imm Gran Pct Auto 0.4 % (0.0-0.4); Lymphocytes Absolute Auto 1.6 X10*3/uL (1.2-4.9); Lymphocytes Percent Auto 8.3 % (20-40); Mean Corpuscular HGB Conc 34.2 g/dl (31.0-35.0); Mean Corpuscular Hemoglobin 29.9 pg (27.0-33.0); Mean Corpuscular Volume 87.6 fL (80.0-98.0); Mean Platelet Volume 12.4 fL (9.4-12.3); Monocytes Percent Auto 5.2 % (2-11); Neutrophils Absolute Auto 16.7 x10*3/uL (2.0-8.3); Neutrophils Percent Auto 85.8 % (45-73); Platelet Count 132 X10*3/uL (160-400); Red Blood Count 4.61 X10*6/uL (4.20-5.50); White Blood Count 19.5 X10*3/uL (4.8-10.8)
[2022-09-18] MEDS: ondansetron HCL 4 MG/2 ML VIAL IVPUSH ×2 (05:21→13:55)
[2022-09-18 05:38] LABS: Anion Gap 16 (12-20); Blood Urea Nitrogen 11 mg/dL (9-16); Calcium 8.8 mg/dL (8.4-10.2); Carbon Dioxide 20 mmol/L (22-29); Chloride 107 mmol/L (96-108); Creatinine Clr Calc Pharmacy 73.7; Estimated Glomerular Filt Rate > 60; Glucose Random 91 mg/dL (60-115); Potassium 4.4 mmol/L (3.3-5.1); Sodium 139 mmol/L (135-145)
[2022-09-18] MEDS: Morphine Sulfate 2 MG/ML CARTRIDGE IVPUSH (06:35)
[2022-09-18] MEDS: Omeprazole 40 MG CAPSULE.DR PO (06:36)
--- NOTE | 2022-09-18 06:47 | PC.NURSE ---
Pt states LLQ ABD coming back, intermittent, 7/10 pain, with nausea, Pt medicated per APR.
[2022-09-18] MEDS: Folic Acid 1 MG TABLET PO (09:37)
[2022-09-18] MEDS: Hydroxychloroquine Sulfate 200 MG TABLET 300 MG PO (09:37)
--- NOTE | 2022-09-18 10:26 | HO.PM.IMPN ---
Subjective Subjective Date of Service: 09/18/22 Interval History: N/V/abd pain improved no dyspnea or cough Review of Systems Review of Systems: Yes all other systems are reviewed and are negative Physical Exam Vital Signs: Vital Signs: Last Vital Signs Temp 98.7 F 09/18/22 08:22 Pulse 79 09/18/22 08:22 Resp 16 09/18/22 08:22 BP 116/66 09/18/22 08:22 Pulse Ox 100 09/18/22 08:22 O2 Del Method Room Air 09/18/22 08:22 BMI result Body Mass Index 27.9 Gen: in no acute distress HEENT: sclera anicteric, moist mucus membranes Neck: supple Lungs: clear to auscultation bilaterally Heart: regular rate and rhythm, no murmurs Abd: soft, non-tender, non-distended Ext: no edema Skin: warm/well-perfused Neuro: alert and oriented x3, no focal findings Psych: appropriate affect Objective Data Active Medications Albuterol Sulfate (Albuterol Sulfate 90 Mcg 8 Gm Inhaler) 1 puff INHALE QID PRN PRN Reason: shortness of breath or wheezing Fluticasone Propionate (Fluticasone Propionate 100 Mcg Blst.W.Dev) 2 puff INHALE RDAILY [facility] Folic Acid (Folic Acid 1 Mg Tablet) 1 mg PO DAILY [facility] [place] Last Admin: 09/18/22 09:37 Dose: 1 mg Documented By: DOROTEO Hydroxychloroquine Sulfate (Hydroxychloroquine Sulfate 200 Mg Tablet) 300 mg PO DAILY [facility] [place] Last Admin: 09/18/22 09:37 Dose: 300 mg Documented By: DOROTEO Lactated Ringer's (Lr) 1,000 mls @ 80 mls/hr IVCONT .[id number] [facility] [place] Last Admin: 09/18/22 01:52 Dose: 80 mls/hr Documented By: SERRANX Methotrexate (Methotrexate Sodium 2.5 Mg Tablet) 15 mg PO [facility] Metoclopramide HCl (Metoclopramide Hcl 10 Mg/2 Ml Vial) 5 mg IVPUSH Q6H PRN PRN Reason: N/V refractory to Zofran Morphine Sulfate (Morphine Sulfate 2 Mg/Ml Cartridge) 2 mg IVPUSH Q6H PRN; Protocol PRN Reason: Pain, Severe (Pain Scale 7-10) Last Admin: 09/18/22 06:35 Dose: 2 mg Documented By: KRISTA Omeprazole (Omeprazole 40 Mg Capsule.Dr) 40 mg PO DAILY@0630 [facility] [place] Last Admin: 09/18/22 06:36 Dose: 40 mg Documented By: KRISTA Ondansetron HCl (Ondansetron Hcl 4 Mg/2 Ml Vial) 4 mg IVPUSH Q8H PRN PRN Reason: Nausea and Vomiting Last Admin: 09/18/22 05:21 Dose: 4 mg Documented By: KRISTA Oxycodone HCl (Oxycodone Hcl Immed Release 5 Mg Tablet) 5 mg PO Q6H PRN PRN Reason: Pain, Moderate(Pain Scale 4-6) Pharmacy Consult (Consult Rx Perform Med Rec) 1 each MISCELLANE ONCE PRN PRN Reason: Consult order Sodium Chloride (0.9 % Sodium Chloride Flush 3 Ml Syringe) 3 ml IVFLUSH QSHIFT [facility] [place] Last Admin: 09/18/22 07:49 Dose: Not Given Documented By: DOROTEO Non-Admin Reason: IV Running Labs 09/18/22 05:14 09/18/22 05:14 Labs: Laboratory Results - last 24 hr 09/17/22 09/17/22 09/17/22 17:38 17:38 17:38 MCV 86.6 MCH 29.3 MCHC 33.8 RDW 12.1 Plt Count 199 D MPV 12.5 H Immature Gran % (Auto) Cancelled Neut % (Auto) Cancelled Lymph % (Auto) Cancelled [place] % (Auto) Cancelled Eos % (Auto) Cancelled Baso % (Auto) Cancelled Lymph # (Auto) Cancelled [place] # (Auto) Cancelled Eos # (Auto) Cancelled Baso # (Auto) Cancelled Abs Immat Gran (auto) Cancelled Absolute Neuts (auto) Cancelled Absolute Nucleated RBC 0.000 Nucleated RBC % (auto) 0.0 Neutrophils % (Manual) 92 H Band Neutrophils % 0 L Lymphocytes % (Manual) 3 L Monocytes % (Manual) 5 Abs Neuts (Manual) 28.4 H Lymphocytes # (Manual) 0.9 L Monocytes # (Manual) 1.5 H Platelet Estimate NORMAL Plt Morphology Comment NORMAL RBC Morphology NORMAL Anion Gap 18 Estim Creat Clear Calc 64.5 Estimated GFR 59 Random Glucose 108 Lactic Acid Lactic Acid F/U @ 2Hr Calcium 10.0 D Total Bilirubin 1.2 H AST 18 ALT 31 Alkaline Phosphatase 72 Total Protein 8.0 Albumin 4.4 Lipase 13 Beta HCG, Quant < 2 Urine Color Urine Appearance Urine pH Ur Specific [place] Urine Protein Urine Glucose (UA) Urine Ketones Urine Blood Urine Nitrite Ur Leukocyte Esterase Urine RBC Urine WBC Ur Squamous Epith Cells Urine Bacteria Hyaline Casts Urine Test Urine Opiates Screen Urine Fentanyl Screen Ur Barbiturates Screen Ur Phencyclidine Scrn Ur Amphetamines Screen U Benzodiazepines Scrn Urine Cocaine Screen U Marijuana (THC) Screen COVID-19 ([facility]) Negative COVID-19 Clin Com See Note 09/17/22 09/17/22 09/17/22 19:38 22:21 22:21 MCV MCH MCHC RDW Plt Count MPV Immature Gran % (Auto) Neut % (Auto) Lymph % (Auto) [place] % (Auto) Eos % (Auto) Baso % (Auto) Lymph # (Auto) [place] # (Auto) Eos # (Auto) Baso # (Auto) Abs Immat Gran (auto) Absolute Neuts (auto) Absolute Nucleated RBC Nucleated RBC % (auto) Neutrophils % (Manual) Band Neutrophils % Lymphocytes % (Manual) Monocytes % (Manual) Abs Neuts (Manual) Lymphocytes # (Manual) Monocytes # (Manual) Platelet Estimate Plt Morphology Comment RBC Morphology Anion Gap Estim Creat Clear Calc Estimated GFR Random Glucose Lactic Acid 4.9 H* Lactic Acid F/U @ 2Hr Calcium Total Bilirubin AST ALT Alkaline Phosphatase Total Protein Albumin Lipase Beta HCG, Quant Urine Color Yellow Urine Appearance Clear Urine pH 7.5 Ur Specific [place] >= 1.030 H Urine Protein 100 (2+) H Urine Glucose (UA) Negative Urine Ketones Trace Urine Blood Negative Urine Nitrite Negative Ur Leukocyte Esterase Negative Urine RBC 0-2 Urine WBC 0-5 Ur Squamous Epith Cells 3-5 Urine Bacteria Trace Hyaline Casts 0-2 Urine Test NEGATIVE Urine Opiates Screen Urine Fentanyl Screen Ur Barbiturates Screen Ur Phencyclidine Scrn Ur Amphetamines Screen U Benzodiazepines Scrn Urine Cocaine Screen U Marijuana (THC) Screen COVID-19 ([facility]) COVID-19 Clin Com 09/17/22 09/17/22 09/18/22 22:21 22:29 00:41 MCV MCH MCHC RDW Plt Count MPV Immature Gran % (Auto) Neut % (Auto) Lymph % (Auto) [place] % (Auto) Eos % (Auto) Baso % (Auto) Lymph # (Auto) [place] # (Auto) Eos # (Auto) Baso # (Auto) Abs Immat Gran (auto) Absolute Neuts (auto) Absolute Nucleated RBC Nucleated RBC % (auto) Neutrophils % (Manual) Band Neutrophils % Lymphocytes % (Manual) Monocytes % (Manual) Abs Neuts (Manual) Lymphocytes # (Manual) Monocytes # (Manual) Platelet Estimate Plt Morphology Comment RBC Morphology Anion Gap Estim Creat Clear Calc Estimated GFR Random Glucose Lactic Acid 3.7 H* Lactic Acid F/U @ 2Hr 1.9 Calcium Total Bilirubin AST ALT Alkaline Phosphatase Total Protein Albumin Lipase Beta HCG, Quant Urine Color Urine Appearance Urine pH Ur Specific [place] Urine Protein Urine Glucose (UA) Urine Ketones Urine Blood Urine Nitrite Ur Leukocyte Esterase Urine RBC Urine WBC Ur Squamous Epith Cells Urine Bacteria Hyaline Casts Urine Test Urine Opiates Screen Not Detected Urine Fentanyl Screen Not Detected Ur Barbiturates Screen Not Detected Ur Phencyclidine Scrn Not Detected Ur Amphetamines Screen Not Detected U Benzodiazepines Scrn Not Detected Urine Cocaine Screen Not Detected U Marijuana (THC) Screen POSITIVE H COVID-19 ([facility]) COVID-19 Clin Com 09/18/22 09/18/22 05:14 05:14 MCV 87.6 MCH 29.9 MCHC 34.2 RDW 12.0 Plt Count 132 L D MPV 12.4 H Immature Gran % (Auto) 0.4 Neut % (Auto) 85.8 H Lymph % (Auto) 8.3 L [place] % (Auto) 5.2 Eos % (Auto) 0.1 Baso % (Auto) 0.2 Lymph # (Auto) 1.6 [place] # (Auto) 1.0 Eos # (Auto) 0.0 Baso # (Auto) 0.0 Abs Immat Gran (auto) 0.08 H Absolute Neuts (auto) 16.7 H Absolute Nucleated RBC 0.000 Nucleated RBC % (auto) 0.0 Neutrophils % (Manual) Band Neutrophils % Lymphocytes % (Manual) Monocytes % (Manual) Abs Neuts (Manual) Lymphocytes # (Manual) Monocytes # (Manual) Platelet Estimate Plt Morphology Comment RBC Morphology Anion Gap 16 Estim Creat Clear Calc 73.7 Estimated GFR > 60 Random Glucose 91 Lactic Acid Lactic Acid F/U @ 2Hr Calcium 8.8 D Total Bilirubin AST ALT Alkaline Phosphatase Total Protein Albumin Lipase Beta HCG, Quant Urine Color Urine Appearance Urine pH Ur Specific [place] Urine Protein Urine Glucose (UA) Urine Ketones Urine Blood Urine Nitrite Ur Leukocyte Esterase Urine RBC Urine WBC Ur Squamous Epith Cells Urine Bacteria Hyaline Casts Urine Test Urine Opiates Screen Urine Fentanyl Screen Ur Barbiturates Screen Ur Phencyclidine Scrn Ur Amphetamines Screen U Benzodiazepines Scrn Urine Cocaine Screen U Marijuana (THC) Screen COVID-19 ([facility]) COVID-19 Clin Com Impressions Abdomen/Pelvis CT 09/17/22 20:06 IMPRESSION: 1. No acute pulmonary embolus. 2. Bronchial wall thickening suggestive of bronchitis. 3. No acute abdominal or pelvic pathology. Fleischner guidelines were followed. Chest CTA 09/17/22 20:07 IMPRESSION: 1. No acute pulmonary embolus. 2. Bronchial wall thickening suggestive of bronchitis. 3. No acute abdominal or pelvic pathology. Fleischner guidelines were followed. Assessment and Plan (1) Intractable nausea and vomiting: Status: Acute Plan d2 27yo F with SLE on prednisone, MTX, and hydroxychloroquine; mild persistent asthma; hx PE s/p completion of AC, hx Hodgkin disease in remission, myelodysplasia, hx PID, hx pelvic fracture presenting with N/V/abd pain/PO intolerance intractable N/V/abd pain - likely cannabinoid hyperemesis vs viral AGE - advance to solids, IV ondansetron + metoclopramide, PO PPI, counseled against THC use lactic acidosis - due to dehydration - resolved s/p IV fluid hydration leucocytosis - suspect reactive or due to prednisone - low suspicion for bacterial infection but did get 2g IV ceftriaxone in ED; hold further ABX for now; repeat CBC in AM SLE - continue MTX, hydroxychloroquine, and prednisone mild persistent asthma without acute exacerbation - continue ICS + prn albuterol VTE ppx - SCDs, early ambulation dispo - anticipate home tomorrow In my clinical judgment, the patient requires continued inpatient hospitalization for the following reasons: IV hydration, leucocytosis Time Spent With Patient Time: Total time managing care of this patient today __35__ minutes. Quality Stroke Does the patient have a stroke diagnosis?: No VTE Prior VTE?: Yes VTE Risk Level:: Medical - moderate - high VTE Device Contraindication: N/A - Device Ordered VTE Drug Contraindication: Treatment Not Indicated
--- NOTE | 2022-09-18 10:28 | MHC.CM.PN ---
PT REPORTS SHE LIVES AT HOME WITH HER PARENT AND IS INDEPENDENT WITH CARE SHE HAS A NEBULIZER AND NO OTHER DME PT DENIES HAVING ANY HOME/COMMUNITY SERVICES SHE SAYS SHE HAS A HCP NAMING HER MOTHER AND SISTER HER AGENTS PCP: [facility] ASSESSMENT COMPLETED, PT DENIES CONCERNS DCP: HOME NO SERVICES VIA FAMILY TRANSPORT
[2022-09-18 11:42] LABS: Adenovirus PCR Not Detected (Not Detect.); Bordetella parapertussis PCR Not Detected (Not Detect.); Bordetella pertussis PCR Not Detected (Not Detect.); Chlamydia pneumoniae PCR Not Detected (Not Detect.); Coronavirus 229E PCR Not Detected (Not Detect.); Coronavirus HKU1 PCR Not Detected (Not Detect.); Coronavirus NL63 PCR Not Detected (Not Detect.); Coronavirus OC43 PCR Not Detected (Not Detect.); Human metapneumovirus PCR Not Detected (Not Detect.); Influenza A PCR Not Detected (Not Detect.); Influenza B PCR Not Detected (Not Detect.); Mycoplasma pneumoniae PCR Not Detected (Not Detect.); Parainfluenza 1 PCR Not Detected (Not Detect.); Parainfluenza 2 PCR Not Detected (Not Detect.); Parainfluenza 3 PCR Not Detected (Not Detect.); Parainfluenza 4 PCR Not Detected (Not Detect.); RSV PCR Not Detected (Not Detect.); Rhino/Enterovirus PCR Not Detected (Not Detect.); SARS-CoV-2 PCR Not Detected (Not Detect.)
[2022-09-18] MEDS: predniSONE 10 MG TABLET PO (12:14)
--- NOTE | 2022-09-18 13:56 | PC.NURSE ---
pt reporting increased pain and nausea after eating lunch
[2022-09-19] MEDS: Lactated Ringers 1,000 ML 80 ML IVCONT (02:21)
[2022-09-19 04:00] VITALS: BP 120/81; PULSE 81; RESP 16; TEMP 36.4; O2SAT 99
[2022-09-19 05:54] LABS: Mean Corpuscular Volume 88.7 fL (80.0-98.0); Mean Platelet Volume 13.1 fL (9.4-12.3); PLT ABN DIST 1
[2022-09-19 05:56] LABS: Hematocrit 37.6 % (37.0-47.0); Hemoglobin 12.6 g/dl (12.0-16.0); Mean Corpuscular HGB Conc 33.5 g/dl (31.0-35.0); Mean Corpuscular Hemoglobin 29.7 pg (27.0-33.0); Platelet Count 113 X10*3/uL (160-400); Red Blood Count 4.24 X10*6/uL (4.20-5.50); White Blood Count 13.4 X10*3/uL (4.8-10.8)
[2022-09-19] MEDS: Omeprazole 40 MG CAPSULE.DR PO (05:57)
[2022-09-19 06:12] LABS: Anion Gap 13 (12-20); Blood Urea Nitrogen 13 mg/dL (9-16); Calcium 8.8 mg/dL (8.4-10.2); Carbon Dioxide 24 mmol/L (22-29); Chloride 108 mmol/L (96-108); Creatinine Clr Calc Pharmacy 66.3; Estimated Glomerular Filt Rate > 60; Glucose Random 78 mg/dL (60-115); Potassium 3.7 mmol/L (3.3-5.1); Sodium 141 mmol/L (135-145)
[2022-09-19 07:26] VITALS: BP 122/77; PULSE 60; RESP 16; TEMP 36.2; O2SAT 100
[2022-09-19] MEDS: predniSONE 10 MG TABLET PO (08:13)
[2022-09-19] MEDS: Hydroxychloroquine Sulfate 200 MG TABLET 300 MG PO (08:13)
[2022-09-19] MEDS: Folic Acid 1 MG TABLET PO (08:13)
[2022-09-19] MEDS: ondansetron HCL 4 MG/2 ML VIAL IVPUSH (08:51)
[2022-09-19] MEDS: Fluticasone Propionate 100 MCG BLST.W.DEV 2 PUFF INHALE (09:29)
[2022-09-19 09:31] VITALS: PULSE 73; RESP 16; O2SAT 100
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
== END 2022-09-19 11:57 | disposition home or self-care (01) ==
LOC: HO.ED 21:52 → HO.EDOVER 22:37 → HO.S3 09-18 17:41
PROVIDERS: Family Medicine; Nurse Practitioner Family; Admitting Provider Physician Assistant; Emergency Provider Emergency Medicine; PCP Physician Assistant; Visit Provider Hospitalist
DX: E87.20 Acidosis, unspecified (principal); R10.13 Epigastric pain; R11.2 Nausea with vomiting, unspecified; R07.9 Chest pain, unspecified; R00.1 Bradycardia, unspecified; R10.9 Unspecified abdominal pain; M32.9 Systemic lupus erythematosus, unspecified; Z86.711 Personal history of pulmonary embolism; J45.30 Mild persistent asthma, uncomplicated; Z20.822 Contact with and (suspected) exposure to COVID-19; Z79.899 Other long term (current) drug therapy; Z85.71 Personal history of Hodgkin lymphoma
CPT/HCPCS: 36415; 71275; 74177; 80048; 80053; 80307; 81001; 81025; 83605; 83690; 84484; 84702; 85007; 85025; 85027; 87040; 87633; 87635; 93005; 94640; 94664; 96361; 96365; 96375; 96376; 99221; 99285; J0696; J1170; J2270; J2405; Q9967

== ENCOUNTER → 2022-09-17 16:32 | Outpatient (BNV) | payer OTHER, SELFPAY | PROVIDERS: Admitting Provider Physician Assistant; Emergency Provider Emergency Medicine; PCP Physician Assistant; Visit Provider Internal Medicine | DX: R00.1 Bradycardia, unspecified (principal) | CPT/HCPCS: 93010 ==

== ENCOUNTER → 2022-09-17 22:06 | Outpatient (BNV) | payer OTHER, SELFPAY | PROVIDERS: Admitting Provider Physician Assistant; Emergency Provider Emergency Medicine; PCP Physician Assistant; Visit Provider Physician Assistant | DX: R11.2 Nausea with vomiting, unspecified (principal) | CPT/HCPCS: 99222; 99232; 99239 ==

== ENCOUNTER 2022-09-21 10:51 | Outpatient (AMB) | payer OTHER, SELFPAY ==
[2022-09-21 11:08] VITALS: BP 118/70; PULSE 67; O2SAT 98; BMI 28.0
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
== END 2022-09-21 11:31 | disposition home or self-care (01) ==
PROVIDERS: PCP Physician Assistant; Visit Provider Hospitalist
DX: R06.00 Dyspnea, unspecified (principal); J45.909 Unspecified asthma, uncomplicated
CPT/HCPCS: 99214

== ENCOUNTER → 2022-09-21 10:51 | Outpatient (BNVA) | payer OTHER, SELFPAY | PROVIDERS: PCP Physician Assistant; Visit Provider Hospitalist | DX: J45.909 Unspecified asthma, uncomplicated (principal); R06.00 Dyspnea, unspecified | CPT/HCPCS: 99212 ==

== ENCOUNTER → 2022-10-05 14:37 | Outpatient (REF) | payer OTHER, SELFPAY ==
--- NOTE | 2022-10-05 14:40 | CA_ITS ---
Transthoracic Echocardiogram Patient (Last, First, Middle): Johnna Langford M Gender: Female Date of : 1995 Age: 27 Procedure Date: 10/05/2022 Procedure Type: Transthoracic Echocardiogram Location: OP Height: 152.4 cm Weight: 64.86 kg BSA: 1.62 m2 Heart Rate: 71 bpm BP: 105 / 90 mmHg Test Puller: HELGA Referring MD: Shari Alcantara MD Symptoms: R07.9 - Chest pain, unspecified Study Quality: Fair ECG Rhythm: Sinus Conclusions: - The left ventricular systolic function is mildly decreased. The calculated ejection fraction is 49% by biplane method. - No obvious valvular pathology seen on this study. - There is no evidence of pulmonary hypertension. - There is no evidence of pericardial effusion. Findings Left Ventricle Normal left ventricular cavity size. There is normal left ventricular wall thickness. The left ventricular systolic function is mildly decreased. The calculated ejection fraction is 49% by biplane method. There is mild global hypokinesis. Diastolic function is normal for age. Normal left ventricular filling pressures. Right Ventricle Normal right ventricular cavity size. There is low normal right ventricular systolic function. Atria Both atria are normal in size. Aortic Valve There is a normal trileaflet aortic valve. There is no aortic valve stenosis. There is no aortic valve regurgitation. Mitral Valve The mitral valve appears normal. There is trace mitral valve regurgitation. There is no mitral valve stenosis. Pulmonic Valve The pulmonic valve is likely normal. Tricuspid Valve Normal tricuspid valve structure. There is trace tricuspid valve regurgitation. There is no evidence of pulmonary hypertension. Great Vessels The asc aorta is normal in size. Venous The inferior vena cava is normal in size and collapses greater than 50% with inspiration. Pericardium/Pleural There is no evidence of pericardial effusion. Prior Study Comparison Changes noted compared to prior study dated: 02/16/2016. Slight decrease in LVEF. Recommendations, Care & Conclusions No obvious valvular pathology seen on this study. Measurements 2D Linear Measurements IVSd: 0.73 0.6-0.9/0.6-1.0 cm LVIDd: 4.13 3.9-5.3/4.2-5.9 cm LVIDd Index: 2.55 2.4-3.2/2.2-3.1 cm/m2 LVIDs: 2.83 2.0-3.6 cm LVPWd: 0.86 0.7-1.1 cm LA Diam: 2.20 2.7-3.8/3.0-4.0 cm LAIDs Index: 1.36 1.5-2.3 cm/m2 LV Mass: 121.88 67-162/88-224 g LV Mass Index: 75.24 43-95/49-115 g/m2 LVOT Diam: 1.90 3.0+(-)1.3 cm 2D Systolic Function EF 4C: 46.10 >55% EF 2C: 52.50 >55% EF BiP: 48.80 >55% Mitral Valve MV Pk E: 0.74 MV PK A: 0.49 MV Decel Time: 226.00 E/A: 1.50 E'Lateral: 13.80 E'Medial: 9.90 E/E' Med: 7.50 E/E' Lat: 5.40 PHT: 66.00 MVA PHT: 3.33 Decel Tripp: 3.28 Aortic Valve AoV Pk Norm: 0.98 AoV Mn Norm: 0.76 AoV VTI: 0.21 AoV Pk Grad: 4.00 Aov Mn Grad: 3.00 BRENDAN Cont.VTI: 2.04 LVOT LVOT Pk Norm: 0.77 LVOT Mn Norm: 0.60 LVOT VTI: 0.15 LVOT Pk Grad: 2.00 LVOT Mn Grad: 2.00 LVOT Diam: 1.90 LVOT Area: 2.84 Diastolic Function MV Pk E: 0.74 MV Pk A: 0.49 E/A: 1.50 E'Medial: 9.90 E/E' Med: 7.50 E' Laterial: 13.80 E/E' Lat: 5.40 Right Ventricle TAPSE (mm): 17.50 TVS' Norm: 10.70 Tricuspid Valve TR Pk Norm: 1.53 TR Pk Grad: 9.00 RA Press: 3.00 RVSP: 12.00 Great Vessels Aorta Sinus of Valsalva: 2.80 2.0-3.5 cm Ao Asc: 2.50 2.1-3.4 cm Pulmonary Valve PV Pk Norm: 1.06 Peak PV Grad: 4.00 Updated in Other Vendor System with Status of Final Chace Velazco MD electronically signed on 10/06/2022 3:45:26 PM with status of Final
== END ==
LOC: HO.CARD 14:37
PROVIDERS: PCP Physician Assistant; Visit Provider Student in an Organized Health Care Education/Training Program
DX: R07.9 Chest pain, unspecified (principal)
CPT/HCPCS: 93306

== ENCOUNTER → 2022-10-05 14:40 | Outpatient (BNV) | payer OTHER, SELFPAY | PROVIDERS: PCP Physician Assistant; Visit Provider Internal Medicine | DX: R07.9 Chest pain, unspecified (principal) | CPT/HCPCS: 93306 ==

== ENCOUNTER 2022-10-28 09:58 | Outpatient (REF) | payer OTHER, SELFPAY ==
[2022-10-28 11:05] LABS: Appearance Urine Clear; Color Urine Yellow; Glucose Urine UA Negative (Negative); Leukocyte Esterase Urine Trace (Negative); Nitrite Urine Negative (Negative); PH 5.5 (5.0-9.0); UMIC TRIGGER UA YES; Urine Blood Negative (Negative); Urine Ketones Negative (Negative); Urine Protein 30 (1+) mg/dL (Neg-Trace)
[2022-10-28 11:10] LABS: Bacteria Urine 1+ (None Seen); Hyaline Casts Urine 0-2 /LPF (0-2); RBC Urine 0-2 /HPF (0-2)
[2022-10-28 11:46] LABS: Erythrocyte Sedimentation Rate 5 MM/HR (0-20)
[2022-10-28 12:05] LABS: Alanine Aminotransferase 16 U/L (0-31); Alkaline Phosphatase 65 U/L (39-117); Anion Gap 12 (12-20); Aspartate Amino Transferase 17 U/L (5-31); Bilirubin Total 0.4 mg/dL (0.0-1.0); Blood Urea Nitrogen 15 mg/dL (9-16); C Reactive Protein < 0.10 mg/dL (< or = 0.50); Calcium 9.1 mg/dL (8.4-10.2); Carbon Dioxide 24 mmol/L (22-29); Chloride 109 mmol/L (96-108); Estimated Glomerular Filt Rate > 60; Glucose Random 82 mg/dL (60-115); Potassium 4.1 mmol/L (3.3-5.1); Sodium 141 mmol/L (135-145); Total Protein 7.2 g/dL (6.5-8.0)
[2022-10-28 13:04] LABS: Creatinine Urine 173.45 mg/dL; Protein/Creatinine Ratio, Ur 0.18 (<0.2); Total Protein Urine Random 31 mg/dL (<12)
[2022-10-31 13:33] LABS: Complement C3 107 mg/dL (83-193)
[2022-10-31 18:58] LABS: Anti DNA DS Antibody 11 IU/mL
== END 2022-10-28 09:59 | disposition home or self-care (01) ==
LOC: HO.LAB 09:58
PROVIDERS: PCP Physician Assistant; Visit Provider Student in an Organized Health Care Education/Training Program
DX: M32.9 Systemic lupus erythematosus, unspecified (principal)
CPT/HCPCS: 36415; 80053; 81001; 82570; 84156; 85652; 86140; 86160; 86225

== ENCOUNTER 2022-11-01 11:22 | Outpatient (AMB) | payer OTHER, SELFPAY ==
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
== END 2022-11-01 13:58 | disposition home or self-care (01) ==
PROVIDERS: PCP Physician Assistant; Visit Provider Internal Medicine
DX: L30.9 Dermatitis, unspecified (principal)
CPT/HCPCS: 99213

== ENCOUNTER 2022-11-22 13:29 | Outpatient (AMB) | payer OTHER, SELFPAY ==
[2022-11-22 13:31] VITALS: BP 110/74; PULSE 88; RESP 17; O2SAT 98; BMI 28.2
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
== END 2022-11-22 14:01 | disposition home or self-care (01) ==
PROVIDERS: PCP Physician Assistant; Visit Provider Physician Assistant
DX: Z23 Encounter for immunization (principal)
CPT/HCPCS: 90471; 90686; 99395

== ENCOUNTER 2022-12-09 10:02 | Outpatient (AMB) | payer OTHER, SELFPAY ==
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
[2022-12-09 10:04] VITALS: BP 110/70; PULSE 84; RESP 84; O2SAT 99; BMI 28.1
== END 2022-12-09 10:29 | disposition home or self-care (01) ==
PROVIDERS: PCP Physician Assistant; Visit Provider Student in an Organized Health Care Education/Training Program
DX: M32.9 Systemic lupus erythematosus, unspecified (principal); Z79.899 Other long term (current) drug therapy; Z79.631 Long term (current) use of antimetabolite agent; R94.30 Abnormal result of cardiovascular function study, unspecified
CPT/HCPCS: 99214

== ENCOUNTER → 2022-12-09 10:02 | Outpatient (BNVA) | payer OTHER, SELFPAY | PROVIDERS: PCP Physician Assistant; Visit Provider Student in an Organized Health Care Education/Training Program | DX: M32.9 Systemic lupus erythematosus, unspecified (principal); R94.30 Abnormal result of cardiovascular function study, unspecified; Z79.899 Other long term (current) drug therapy; Z79.631 Long term (current) use of antimetabolite agent | CPT/HCPCS: 99212 ==

== ENCOUNTER 2022-12-09 10:42 | Outpatient (REF) | payer OTHER, SELFPAY ==
[2022-12-09 13:13] LABS: Appearance Urine Clear; Color Urine Yellow; Glucose Urine UA Negative (Negative); Leukocyte Esterase Urine Trace (Negative); Nitrite Urine Negative (Negative); PH 5.5 (5.0-9.0); UMIC TRIGGER UA YES; Urine Blood Negative (Negative); Urine Ketones Negative (Negative); Urine Protein 30 (1+) mg/dL (Neg-Trace)
[2022-12-09 13:15] LABS: Bacteria Urine 1+ (None Seen); Hyaline Casts Urine 0-2 /LPF (0-2); RBC Urine 0-2 /HPF (0-2); WBC Urine 0-5 /HPF (0-5)
[2022-12-09 14:00] LABS: Basophils Percent Auto 0.4 % (0-2); Eosinophils Absolute Auto 0.1 X10*3/uL (0.0-0.4); Eosinophils Percent Auto 1.6 % (0-4); Hematocrit 42.6 % (37.0-47.0); Hemoglobin 14.7 g/dl (12.0-16.0); Imm Gran Abs Auto 0.04 X10*3/uL (0.00-0.03); Imm Gran Pct Auto 0.6 % (0.0-0.4); Lymphocytes Absolute Auto 1.2 X10*3/uL (1.2-4.9); Lymphocytes Percent Auto 17.2 % (20-40); MANUAL DIFF FLAG SCAN; Mean Corpuscular HGB Conc 34.5 g/dl (31.0-35.0); Mean Corpuscular Hemoglobin 29.7 pg (27.0-33.0); Mean Corpuscular Volume 86.1 fL (80.0-98.0); Monocytes Absolute Auto 0.5 X10*3/uL (0.1-1.2); Monocytes Percent Auto 6.9 % (2-11); Neutrophils Percent Auto 73.3 % (45-73); PLT CLUMP 1; Red Blood Count 4.95 X10*6/uL (4.20-5.50); Red Cell Distribution Width 12.7 % (11.0-16.0); SCAN SMEAR FLAG 1
[2022-12-09 14:06] LABS: Alanine Aminotransferase 39 U/L (0-31); Alkaline Phosphatase 58 U/L (39-117); Anion Gap 12 (12-20); Aspartate Amino Transferase 25 U/L (5-31); Bilirubin Total 0.6 mg/dL (0.0-1.0); Blood Urea Nitrogen 12 mg/dL (9-16); C Reactive Protein < 0.10 mg/dL (< or = 0.50); Calcium 9.1 mg/dL (8.4-10.2); Carbon Dioxide 22 mmol/L (22-29); Chloride 109 mmol/L (96-108); Estimated Glomerular Filt Rate > 60; Glucose Random 81 mg/dL (60-115); Potassium 4.5 mmol/L (3.3-5.1); Sodium 138 mmol/L (135-145); Total Protein 7.2 g/dL (6.5-8.0)
[2022-12-09 14:18] LABS: Platelet Count 122 X10*3/uL (160-400); White Blood Count 6.8 X10*3/uL (4.8-10.8)
[2022-12-09 14:19] LABS: SLIDE REVIEW VERIFIED
[2022-12-09 14:23] LABS: Protein/Creatinine Ratio, Ur 0.14 (<0.2); Total Protein Urine Random 26 mg/dL (<12)
[2022-12-09 14:31] LABS: Erythrocyte Sedimentation Rate 5 MM/HR (0-20)
[2022-12-12 19:08] LABS: Anti DNA DS Antibody 12 IU/mL
[2022-12-13 00:28] LABS: Complement C3 106 mg/dL (83-193)
== END 2022-12-09 10:43 | disposition home or self-care (01) ==
LOC: HO.10HDL 10:42
PROVIDERS: Visit Provider Student in an Organized Health Care Education/Training Program
DX: Z79.631 Long term (current) use of antimetabolite agent (principal)
CPT/HCPCS: 36415; 80053; 81001; 82570; 84156; 85025; 85652; 86140; 86160; 86225

== ENCOUNTER 2023-01-19 11:13 | Outpatient (REF) | payer OTHER, SELFPAY ==
[2023-01-19 11:30] LABS: MANUAL DIFF FLAG NO
[2023-01-19 12:34] LABS: Basophils Percent Auto 0.5 % (0-2); Eosinophils Absolute Auto 0.1 X10*3/uL (0.0-0.4); Eosinophils Percent Auto 2.3 % (0-4); Hematocrit 44.3 % (37.0-47.0); Hemoglobin 14.8 g/dl (12.0-16.0); Imm Gran Abs Auto 0.02 X10*3/uL (0.00-0.03); Imm Gran Pct Auto 0.4 % (0.0-0.4); Lymphocytes Absolute Auto 1.2 X10*3/uL (1.2-4.9); Lymphocytes Percent Auto 21.4 % (20-40); Mean Corpuscular HGB Conc 33.4 g/dl (31.0-35.0); Mean Corpuscular Volume 86.9 fL (80.0-98.0); Mean Platelet Volume 13.2 fL (9.4-12.3); Monocytes Absolute Auto 0.4 X10*3/uL (0.1-1.2); Monocytes Percent Auto 6.3 % (2-11); Neutrophils Absolute Auto 3.9 x10*3/uL (2.0-8.3); Neutrophils Percent Auto 69.1 % (45-73); Platelet Count 125 X10*3/uL (160-400); Red Cell Distribution Width 12.2 % (11.0-16.0); White Blood Count 5.6 X10*3/uL (4.8-10.8)
[2023-01-19 12:59] LABS: Alanine Aminotransferase 107 U/L (0-31); Albumin Level 4.1 g/dL (3.5-5.0); Alkaline Phosphatase 73 U/L (39-117); Anion Gap 9 (12-20); Aspartate Amino Transferase 49 U/L (5-31); Bilirubin Total 0.8 mg/dL (0.0-1.0); Blood Urea Nitrogen 14 mg/dL (9-16); C Reactive Protein 0.12 mg/dL (< or = 0.50); Calcium 9.5 mg/dL (8.4-10.2); Carbon Dioxide 30 mmol/L (22-29); Chloride 106 mmol/L (96-108); Estimated Glomerular Filt Rate > 60; Glucose Random 76 mg/dL (60-115); Potassium 4.3 mmol/L (3.3-5.1); Sodium 141 mmol/L (135-145); Total Protein 7.4 g/dL (6.5-8.0)
[2023-01-19 13:15] LABS: Erythrocyte Sedimentation Rate 5 MM/HR (0-20)
[2023-01-19 13:25] LABS: Appearance Urine Clear; Color Urine Yellow; Glucose Urine UA Negative (Negative); Urine Blood Negative (Negative)
[2023-01-19 13:26] LABS: Leukocyte Esterase Urine Negative (Negative); Nitrite Urine Negative (Negative); Urine Ketones Negative (Negative); Urine Protein Trace mg/dL (Neg-Trace)
[2023-01-19 13:28] LABS: Bacteria Urine Trace (None Seen); Hyaline Casts Urine 0-2 /LPF (0-2); RBC Urine 0-2 /HPF (0-2); Squamous Epithelial Cell Urine 0-2 /HPF (0-2); WBC Urine 0-5 /HPF (0-5)
[2023-01-19 13:54] LABS: Creatinine Urine 152.78 mg/dL; Protein/Creatinine Ratio, Ur 0.15 (<0.2); Total Protein Urine Random 23 mg/dL (<12)
[2023-01-24 18:35] LABS: Anti DNA DS Antibody 11 IU/mL
[2023-01-24 19:24] LABS: Complement C3 110 mg/dL (83-193)
== END 2023-01-19 11:14 | disposition home or self-care (01) ==
LOC: HO.LAB 11:13
PROVIDERS: Student in an Organized Health Care Education/Training Program; PCP Physician Assistant; Visit Provider Physician Assistant
DX: Z79.631 Long term (current) use of antimetabolite agent (principal)
CPT/HCPCS: 36415; 80053; 81001; 82570; 84156; 85025; 85652; 86140; 86160; 86225

== ENCOUNTER 2023-01-24 13:50 | Outpatient (AMB) | payer OTHER, SELFPAY ==
[2023-01-24 13:53] VITALS: BP 112/74; PULSE 70; BMI 28.0
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
== END 2023-01-24 14:35 | disposition home or self-care (01) ==
PROVIDERS: PCP Physician Assistant; Visit Provider Internal Medicine Cardiovascular Disease
DX: I42.9 Cardiomyopathy, unspecified (principal)
CPT/HCPCS: 99214

== ENCOUNTER → 2023-01-24 13:50 | Outpatient (BNVA) | payer OTHER, SELFPAY | PROVIDERS: PCP Physician Assistant; Visit Provider Internal Medicine Cardiovascular Disease | DX: I42.9 Cardiomyopathy, unspecified (principal) | CPT/HCPCS: 99212 ==

== ENCOUNTER 2023-01-25 14:24 | Outpatient (REF) | payer OTHER, SELFPAY ==
--- NOTE | 2023-01-25 14:26 | EMG_ITS ---
Chief complaint: History of lupus, hand numbness Reason for referral: Evaluate for Carpal Tunnel Syndrome Referred by: Dr. Alcatnara Procedure done: Bilateral upper extremities NCS/EMG Precautions and/or limitations: None The limb temperature was monitored continuously and remained between 32-36 degrees C during the performance of the NCS. Conduction Studies Anti Sensory Summary Table ?Stim Site NR Onset (ms) Norm Onset (ms) Peak (ms) Norm Peak (ms) O-P Amp (?V) Norm O-P Amp Site1 Site2 Delta-0 (ms) Dist (cm) Norm (m/s) Norm Norm (m/s) Left Median Anti Sensory (2nd Digit) Wrist ? 2.7 3.5 <3.6 45.9 >10 Wrist 2nd Digit 2.7 14.0 52 Right Median Anti Sensory (2nd Digit) Wrist ? 2.5 3.3 <3.6 55.0 >10 Wrist 2nd Digit 2.5 14.0 56 Left Ulnar Anti Sensory (5th Digit) Wrist ? 2.3 3.3 <3.7 32.4 >15.0 Wrist 5th Digit 2.3 14.0 61 Right Ulnar Anti Sensory (5th Digit) Wrist ? 2.6 3.4 <3.7 38.6 >15.0 Wrist 5th Digit 2.6 14.0 54 Motor Summary Table ?Stim Site NR Onset (ms) Norm Onset (ms) O-P Amp (mV) Norm O-P Amp iAmp (mV) Amp (1st) (%) Site1 Site2 Delta-0 (ms) Dist (cm) Norm (m/s) Norm Norm (m/s) Left Median Motor (Abd Poll Brev) Wrist ? 3.1 <3.9 18.6 >4.5 20.9 100.0 Elbow Wrist 3.8 21.0 55 >45 Elbow ? 6.9 18.8 20.9 101.1 Right Median Motor (Abd Poll Brev) Wrist ? 3.2 <3.9 16.6 >4.5 19.2 100.0 Elbow Wrist 3.8 19.0 50 >45 Elbow ? 7.0 16.7 19.4 100.6 Left Ulnar Motor (Abd Dig Minimi) Wrist ? 2.7 <3.0 10.5 >5 14.3 100.0 B Elbow Wrist 3.1 16.0 52 >45 B Elbow ? 5.8 10.4 14.3 99.0 A Elbow B Elbow 1.4 10.0 71 >45 A Elbow ? 7.2 10.5 14.5 100.0 Right Ulnar Motor (Abd Dig Minimi) Wrist ? 2.9 <3.0 13.1 >5 17.5 100.0 B Elbow Wrist 3.3 17.0 52 >45 B Elbow ? 6.2 12.6 16.5 96.2 A Elbow B Elbow 1.2 10.0 83 >45 A Elbow ? 7.4 12.4 16.4 94.7 Comparison Summary Table ?Stim Site NR Peak (ms) Norm Peak (ms) P-T Amp (?V) Site1 Site2 Delta-P (ms) Norm Delta (ms) Right Median/Radial Dig I Comparison (Digit 1 - 10cm) Median ? 2.6 <2.9 53.1 Median Radial -0.3 Radial ? 2.9 <2.8 34.4 EMG ?Side Muscle Nerve Root Ins Act Fibs Psw Amp Dur Poly Recrt Int Pat Comment Right 1stDorInt Ulnar C8-T1 Nml Nml Nml Nml Nml 0 Nml Complete Right FlexCarRad Median C6-7 Nml Nml Nml Nml Nml 0 Nml Complete Right Biceps Musculocut C5-6 Nml Nml Nml Nml Nml 0 Nml Complete Right Triceps Radial C6-7-8 Nml Nml Nml Nml Nml 0 Nml Complete Right Deltoid Axillary C5-6 Nml Nml Nml Nml Nml 0 Nml Complete Left 1stDorInt Ulnar C8-T1 Nml Nml Nml Nml Nml 0 Nml Complete Left FlexCarRad Median C6-7 Nml Nml Nml Nml Nml 0 Nml Complete Left Biceps Musculocut C5-6 Nml Nml Nml Nml Nml 0 Nml Complete Left Triceps Radial C6-7-8 Nml Nml Nml Nml Nml 0 Nml Complete Left Deltoid Axillary C5-6 Nml Nml Nml Nml Nml 0 Nml Complete FINDINGS: All motor and sensory nerves tested showed normal latencies, amplitudes and conduction velocities. Concentric needle EMG was performed in selected muscles of the bilateral upper extremities. Study did not reveal signs of electric abnormalities as shown in the table below. IMPRESSION: 1. This is a normal study. 2. There is no electrodiagnostic evidence for median neuropathy, ulnar neuropathy, brachial plexopathy, or cervical radiculopathy. Thank you for your kind referral. Maye Minor MD, MILLER Board Certified, [place] [employer] and [employer] (ABPMR) Board Certified, [place] [employer] Electrodiagnostic [employer] (ABEM) CODIN [id number] x2 MTDD
== END 2023-01-25 14:25 | disposition home or self-care (01) ==
LOC: HO.NEURO 14:24
PROVIDERS: PCP Physician Assistant; Visit Provider Student in an Organized Health Care Education/Training Program
DX: G56.03 Carpal tunnel syndrome, bilateral upper limbs (principal)
CPT/HCPCS: 95886; 95909

== ENCOUNTER → 2023-01-25 14:26 | Outpatient (BNV) | payer OTHER, SELFPAY | PROVIDERS: PCP Physician Assistant; Visit Provider Physical Medicine & Rehabilitation | DX: R20.2 Paresthesia of skin (principal) | CPT/HCPCS: 95886; 95911 ==

== ENCOUNTER 2023-02-03 10:25 | Outpatient (AMB) | payer OTHER, SELFPAY ==
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
[2023-02-03 10:28] VITALS: BP 110/84; PULSE 91; TEMP 36.1; O2SAT 100; BMI 28.3
== END 2023-02-03 11:01 | disposition home or self-care (01) ==
PROVIDERS: PCP Physician Assistant; Visit Provider Student in an Organized Health Care Education/Training Program
DX: M32.9 Systemic lupus erythematosus, unspecified (principal); Z79.899 Other long term (current) drug therapy; R94.30 Abnormal result of cardiovascular function study, unspecified; R74.01 Elevation of levels of liver transaminase levels
CPT/HCPCS: 99214

== ENCOUNTER → 2023-02-03 10:25 | Outpatient (BNVA) | payer OTHER, SELFPAY | PROVIDERS: PCP Physician Assistant; Visit Provider Student in an Organized Health Care Education/Training Program | DX: M32.9 Systemic lupus erythematosus, unspecified (principal); R94.30 Abnormal result of cardiovascular function study, unspecified; R74.01 Elevation of levels of liver transaminase levels; Z79.899 Other long term (current) drug therapy | CPT/HCPCS: 99212 ==

== ENCOUNTER 2023-03-06 15:33 | Outpatient (AMB) | payer OTHER, SELFPAY ==
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
[2023-03-06 15:37] VITALS: BP 120/60; PULSE 94; BMI 28.7
== END 2023-03-06 15:51 | disposition home or self-care (01) ==
PROVIDERS: PCP Physician Assistant; Visit Provider Internal Medicine Cardiovascular Disease
DX: I42.9 Cardiomyopathy, unspecified (principal)
CPT/HCPCS: 99214

== ENCOUNTER → 2023-03-06 15:33 | Outpatient (BNVA) | payer OTHER, SELFPAY | PROVIDERS: PCP Physician Assistant; Visit Provider Internal Medicine Cardiovascular Disease | DX: I42.9 Cardiomyopathy, unspecified (principal) | CPT/HCPCS: 99212 ==

== ENCOUNTER 2023-03-24 11:14 | Outpatient (AMB) | payer OTHER, SELFPAY ==
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
[2023-03-24 11:32] VITALS: PULSE 60; O2SAT 100; BMI 28.3
== END 2023-03-24 12:55 | disposition home or self-care (01) ==
PROVIDERS: PCP Physician Assistant; Visit Provider Hospitalist
DX: J45.40 Moderate persistent asthma, uncomplicated (principal); R06.09 Other forms of dyspnea; M32.9 Systemic lupus erythematosus, unspecified
CPT/HCPCS: 99214

== ENCOUNTER → 2023-03-24 11:14 | Outpatient (BNVA) | payer OTHER, SELFPAY | PROVIDERS: PCP Physician Assistant; Visit Provider Hospitalist | DX: J45.40 Moderate persistent asthma, uncomplicated (principal); R06.09 Other forms of dyspnea; M32.9 Systemic lupus erythematosus, unspecified | CPT/HCPCS: 99212 ==

== ENCOUNTER 2023-05-06 07:17 | Outpatient (REF) | payer OTHER, SELFPAY ==
[2023-05-06 07:45] LABS: MANUAL DIFF FLAG NO
[2023-05-06 07:51] LABS: Basophils Percent Auto 0.4 % (0-2); Eosinophils Absolute Auto 0.2 X10*3/uL (0.0-0.4); Eosinophils Percent Auto 2.4 % (0-4); Hematocrit 43.8 % (37.0-47.0); Hemoglobin 14.9 g/dl (12.0-16.0); Imm Gran Abs Auto 0.02 X10*3/uL (0.00-0.03); Imm Gran Pct Auto 0.3 % (0.0-0.4); Lymphocytes Absolute Auto 1.2 X10*3/uL (1.2-4.9); Lymphocytes Percent Auto 16.5 % (20-40); Mean Corpuscular Hemoglobin 29.6 pg (27.0-33.0); Mean Corpuscular Volume 87.1 fL (80.0-98.0); Mean Platelet Volume 13.1 fL (9.4-12.3); Monocytes Absolute Auto 0.6 X10*3/uL (0.1-1.2); Monocytes Percent Auto 8.3 % (2-11); Neutrophils Percent Auto 72.1 % (45-73); Platelet Count 134 X10*3/uL (160-400); Red Blood Count 5.03 X10*6/uL (4.20-5.50); Red Cell Distribution Width 12.8 % (11.0-16.0)
[2023-05-06 08:08] LABS: B Type Natriuretic Peptide < 10 pg/mL (<100)
[2023-05-06 08:11] LABS: Alanine Aminotransferase 43 U/L (0-31); Albumin Level 3.9 g/dL (3.5-5.0); Alkaline Phosphatase 67 U/L (39-117); Anion Gap 11 (12-20); Aspartate Amino Transferase 24 U/L (5-31); Bilirubin Total 0.7 mg/dL (0.0-1.0); Blood Urea Nitrogen 14 mg/dL (9-16); C Reactive Protein 0.14 mg/dL (< or = 0.50); Calcium 9.2 mg/dL (8.4-10.2); Carbon Dioxide 26 mmol/L (22-29); Chloride 109 mmol/L (96-108); Estimated Glomerular Filt Rate > 60; Glucose Random 85 mg/dL (60-115); Iron 92 mcg/dL (30-160); Percent Iron Saturation 39 % (15-50); Potassium 4.3 mmol/L (3.3-5.1); Sodium 142 mmol/L (135-145); Total Iron Binding Capacity 234 mcg/dL (228-428); Total Protein 7.1 g/dL (6.5-8.0); Unsaturated Iron Binding 142 ug/dL
[2023-05-06 08:27] LABS: Erythrocyte Sedimentation Rate 3 MM/HR (0-20)
[2023-05-06 08:48] LABS: Appearance Urine Clear; Color Urine Yellow; Glucose Urine UA Negative (Negative); Leukocyte Esterase Urine Negative (Negative); Nitrite Urine Negative (Negative); PH 5.5 (5.0-9.0); Specific Gravity - Urine >= 1.030 (1.005-1.025); UMIC TRIGGER UA YES; Urine Blood Negative (Negative); Urine Ketones Negative (Negative); Urine Protein 100 (2+) mg/dL (Neg-Trace)
[2023-05-06 08:50] LABS: UPreg QC Valid YES; Urine Pregnancy NEGATIVE (NEGATIVE)
[2023-05-06 08:54] LABS: Bacteria Urine Trace (None Seen); Hyaline Casts Urine 0-2 /LPF (0-2); RBC Urine 0-2 /HPF (0-2); WBC Urine 0-5 /HPF (0-5)
[2023-05-08 04:37] LABS: HIV Num 1 3.53 S/CO (0.00-0.99)
[2023-05-08 05:34] LABS: HIV AB/AG Nonreactive (Nonreactive); HIV Num 2 0.05 S/CO; HIV Num 3 0.05 S/CO
[2023-05-08 10:28] LABS: Complement C3 110 mg/dL (83-193)
[2023-05-08 22:24] LABS: Anti DNA DS Antibody 9 IU/mL
== END 2023-05-06 07:18 | disposition home or self-care (01) ==
LOC: HO.LAB 07:17
PROVIDERS: Internal Medicine Cardiovascular Disease; PCP Physician Assistant; Visit Provider Student in an Organized Health Care Education/Training Program
DX: D69.3 Immune thrombocytopenic purpura (principal); D50.9 Iron deficiency anemia, unspecified; I42.9 Cardiomyopathy, unspecified; M32.9 Systemic lupus erythematosus, unspecified
CPT/HCPCS: 36415; 80053; 81001; 81025; 83540; 83880; 85025; 85027; 85652; 86140; 86160; 86225; 87389

== ENCOUNTER 2023-05-08 09:31 | Outpatient (AMB) | payer OTHER, SELFPAY ==
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
[2023-05-08 09:34] VITALS: BP 102/64; PULSE 88; O2SAT 98; BMI 28.8
== END 2023-05-08 09:47 | disposition home or self-care (01) ==
PROVIDERS: PCP Physician Assistant; Visit Provider Student in an Organized Health Care Education/Training Program
DX: M32.9 Systemic lupus erythematosus, unspecified (principal); Z79.899 Other long term (current) drug therapy; R94.30 Abnormal result of cardiovascular function study, unspecified; R74.01 Elevation of levels of liver transaminase levels
CPT/HCPCS: 99214

== ENCOUNTER → 2023-05-08 09:31 | Outpatient (BNVA) | payer OTHER, SELFPAY | PROVIDERS: PCP Physician Assistant; Visit Provider Student in an Organized Health Care Education/Training Program | DX: M32.9 Systemic lupus erythematosus, unspecified (principal); R94.30 Abnormal result of cardiovascular function study, unspecified; R74.01 Elevation of levels of liver transaminase levels; Z79.899 Other long term (current) drug therapy | CPT/HCPCS: 99212 ==

== ENCOUNTER 2023-05-26 06:01 | Emergency (ER) | payer OTHER, SELFPAY ==
[2023-05-26 06:07] VITALS: BP 133/88; PULSE 104; RESP 14; TEMP 37; O2SAT 100
[2023-05-26 06:09] VITALS: BP 133/88; PULSE 100; RESP 10; TEMP 37; O2SAT 100; BMI 29.1
[2023-05-26] MEDS: Famotidine 20 MG TABLET 40 MG PO (06:14)
[2023-05-26] MEDS: diphenhydrAMINE HCL 25 MG CAPSULE PO (06:14)
[2023-05-26] MEDS: Loratadine 10 MG TABLET PO (06:14)
[2023-05-26 06:15] VITALS: BP 133/88; PULSE 108
[2023-05-26] MEDS: EPINEPHrine 1 MG/ML VIAL 0.3 MG IM (06:15)
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
[2023-05-26] MEDS: methylPREDNISolone Sod Succ 125 MG/2 ML VIAL IVPUSH (07:44)
[2023-05-26] MEDS: diphenhydrAMINE HCL 50 MG/ML VIAL 25 MG IVPUSH (07:44)
--- NOTE | 2023-05-26 07:53 | PC.NURSE ---
Resumed care of patient at 0700, she is resting quietly, red/swollen face continues, pt denies airway involvement. IV placed and IV medications given per mar
[2023-05-26 08:07] VITALS: BP 100/60; PULSE 68; RESP 20; TEMP 36.9; O2SAT 100
[2023-05-26 10:33] VITALS: BP 106/76; PULSE 84; RESP 16; TEMP 36.6; O2SAT 98
== END 2023-05-26 10:35 | disposition home or self-care (01) ==
PROVIDERS: Emergency Provider Emergency Medicine Emergency Medical Services; PCP Physician Assistant
DX: T78.40XA Allergy, unspecified, initial encounter (principal); X58.XXXA Exposure to other specified factors, initial encounter; Z91.040 Latex allergy status; Z88.0 Allergy status to penicillin
CPT/HCPCS: 96372; 96374; 96375; 99284; J0171; J1200; J2919; J2930

== ENCOUNTER → 2023-06-05 09:58 | Outpatient (REF) | payer OTHER, SELFPAY ==
--- NOTE | 2023-06-05 10:01 | CA_ITS ---
Transthoracic Echocardiogram Patient (Last, First, Middle): Johnna Langford M Gender: Female Date of : 1995 Age: 28 Procedure Date: 06/05/2023 Procedure Type: Transthoracic Echocardiogram Location: OP Height: 152.4 cm Weight: 67.13 kg BSA: 1.64 m2 Heart Rate: bpm BP: 122 / 60 mmHg Medical Administrator: Referring MD: Munir Salinas MD Symptoms: I42.9 - Cardiomyopathy, unspecified Study Quality: Fair ECG Rhythm: Sinus Conclusions: - Low normal LVEF of 50-55% Findings Procedure Information Contrast agent, definity, is being given per protocol without apparent complications. Left Ventricle Normal left ventricular cavity size. There is normal left ventricular wall thickness. The left ventricular systolic function is low normal. The visually estimated ejection fraction is between 50-55%. Spectral Doppler is indicative of a normal filling pattern. Prior Study Comparison Changes noted compared to prior study dated: 10/05/2022. Marginal improvement in LV ejection fraction at 50-55% Measurements 2D Linear Measurements IVSd: 0.73 0.6-0.9/0.6-1.0 cm LVIDd: 4.46 3.9-5.3/4.2-5.9 cm LVIDd Index: 2.72 2.4-3.2/2.2-3.1 cm/m2 LVIDs: 2.99 2.0-3.6 cm LVPWd: 0.73 0.7-1.1 cm LV Mass: 123.07 67-162/88-224 g LV Mass Index: 75.04 43-95/49-115 g/m2 2D Systolic Function EF 4C: 59.90 >55% EF 2C: 47.60 >55% EF BiP: 52.30 >55% Updated in Other Vendor System with Status of Final Munir Salinas MD electronically signed on 06/06/2023 10:48:28 AM with status of Final
== END ==
LOC: HO.CARD 09:58
PROVIDERS: PCP Physician Assistant; Visit Provider Internal Medicine Cardiovascular Disease
DX: I42.9 Cardiomyopathy, unspecified (principal)
CPT/HCPCS: 93308; Q9957

== ENCOUNTER → 2023-06-05 10:01 | Outpatient (BNV) | payer OTHER, SELFPAY | PROVIDERS: PCP Physician Assistant; Visit Provider Internal Medicine Cardiovascular Disease | DX: I42.9 Cardiomyopathy, unspecified (principal) | CPT/HCPCS: 93308; 93321 ==

== ENCOUNTER 2023-06-06 14:41 | Outpatient (REF) | payer OTHER, SELFPAY ==
--- NOTE | ~2023-06-06 | XR_ITS ---
EXAMINATION: XR BILATERAL KNEES CLINICAL INFORMATION: Pain in right knee. Bilateral anterior knee pain since yesterday, no injury. COMPARISON: December 05, 2019. TECHNIQUE: 4 views of each knee. FINDINGS: LEFT KNEE: Moderate joint effusion. Mild narrowing of the medial compartment with tiny medial marginal osteophytes. RIGHT KNEE: No significant joint effusion. Mild narrowing of the medial compartment. XR/XR knee RT 3V IMPRESSION: 1. Moderate left knee joint effusion. 2. Mild degenerative changes in the bilateral knees.
--- NOTE | ~2023-06-06 | XR_ITS ---
EXAMINATION: XR BILATERAL KNEES CLINICAL INFORMATION: Pain in right knee. Bilateral anterior knee pain since yesterday, no injury. COMPARISON: December 05, 2019. TECHNIQUE: 4 views of each knee. FINDINGS: LEFT KNEE: Moderate joint effusion. Mild narrowing of the medial compartment with tiny medial marginal osteophytes. RIGHT KNEE: No significant joint effusion. Mild narrowing of the medial compartment. XR/XR knee LT 3V IMPRESSION: 1. Moderate left knee joint effusion. 2. Mild degenerative changes in the bilateral knees.
== END 2023-06-06 14:42 | disposition home or self-care (01) ==
LOC: HO.XRAY 14:41
PROVIDERS: PCP Physician Assistant; Visit Provider Physician Assistant
DX: M25.561 Pain in right knee (principal); M25.562 Pain in left knee
CPT/HCPCS: 73562

== ENCOUNTER 2023-07-06 11:03 | Outpatient (AMB) | payer OTHER, SELFPAY ==
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
[2023-07-06 11:27] VITALS: BMI 29.1
== END 2023-07-06 11:53 | disposition home or self-care (01) ==
PROVIDERS: PCP Physician Assistant; Visit Provider Physician Assistant
DX: M22.2X1 Patellofemoral disorders, right knee (principal); M22.2X2 Patellofemoral disorders, left knee
CPT/HCPCS: 99203

== ENCOUNTER → 2023-07-06 11:03 | Outpatient (BNVA) | payer OTHER, SELFPAY | PROVIDERS: PCP Physician Assistant; Visit Provider Physician Assistant | DX: M22.2X1 Patellofemoral disorders, right knee (principal); M22.2X2 Patellofemoral disorders, left knee | CPT/HCPCS: 99202 ==

== ENCOUNTER 2023-08-08 10:46 | Outpatient (REF) | payer OTHER, SELFPAY ==
[2023-08-08 23:10] LABS: CT PCR NOT DETECTED (Not Detect.); NG PCR NOT DETECTED (Not Detect.)
[2023-08-09 11:01] LABS: Bacterial Vaginosis PCR POSITIVE (Negative); Candida Group PCR NOT DETECTED (Not Detect); Candida glab krusei PCR NOT DETECTED (Not Detect); Trichomonas vaginalis PCR NOT DETECTED (Not Detect)
== END 2023-08-08 10:47 | disposition home or self-care (01) ==
LOC: HO.LAB 10:46
PROVIDERS: PCP Physician Assistant; Visit Provider Advanced Practice Midwife
DX: N89.8 Other specified noninflammatory disorders of vagina (principal); R10.2 Pelvic and perineal pain; Z20.2 Contact with and (suspected) exposure to infections with a predominantly sexual mode of transmission; Z97.5 Presence of (intrauterine) contraceptive device
CPT/HCPCS: 0352U; 0353U; 99212

== ENCOUNTER 2023-08-08 10:46 | Outpatient (AMB) | payer OTHER, SELFPAY ==
[2023-08-08 11:10] VITALS: BP 110/60; BMI 28.9
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
== END 2023-08-08 11:52 | disposition home or self-care (01) ==
LOC: HO.HWSM 10:46
PROVIDERS: PCP Physician Assistant; Visit Provider Advanced Practice Midwife
DX: R10.2 Pelvic and perineal pain (principal); Z97.5 Presence of (intrauterine) contraceptive device; Z11.3 Encounter for screening for infections with a predominantly sexual mode of transmission; N89.8 Other specified noninflammatory disorders of vagina
CPT/HCPCS: 99213

== ENCOUNTER 2023-08-10 13:44 | Outpatient (REF) | payer OTHER, SELFPAY ==
--- NOTE | ~2023-08-10 | US_ITS ---
EXAMINATION: ULTRASOUND PELVIC, COMPLETE CLINICAL INFORMATION: Additional Notes/Special Instructions Pain started around day 10 of cycle patient has Kyleena IUD : COMPARISON: None. TECHNIQUE: Pelvic ultrasound was performed using transvaginal and transabdominal technique without spectral doppler. FINDINGS: The uterus appears normal measuring 7.5 x 4.2 x 4.8 cm. There is an IUD which appears appropriately positioned. The right ovary appears normal measuring 2.7 x 1.3 x 1.3 cm. The left ovary appears normal measuring 3.4 x 2.0 x 2.3 cm. No free fluid. US/US pelvic and transvaginal IMPRESSION: The IUD appears appropriately positioned.
== END 2023-08-10 13:45 | disposition home or self-care (01) ==
LOC: HO.US 13:44
PROVIDERS: PCP Physician Assistant; Visit Provider Nurse Practitioner Family
DX: R10.2 Pelvic and perineal pain (principal); N89.8 Other specified noninflammatory disorders of vagina; Z97.5 Presence of (intrauterine) contraceptive device
CPT/HCPCS: 76830; 76856

== ENCOUNTER 2023-08-24 14:10 | Outpatient (AMB) | payer OTHER, SELFPAY ==
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
== END 2023-08-24 14:47 | disposition home or self-care (01) ==
LOC: HO.HWSM 14:10
PROVIDERS: PCP Physician Assistant; Visit Provider Advanced Practice Midwife
DX: Z97.5 Presence of (intrauterine) contraceptive device (principal); R10.2 Pelvic and perineal pain
CPT/HCPCS: 99213

== ENCOUNTER → 2023-08-24 14:10 | Outpatient (BNVA) | payer OTHER, SELFPAY | PROVIDERS: PCP Physician Assistant; Visit Provider Advanced Practice Midwife ==

== ENCOUNTER 2023-09-14 14:52 | Outpatient (AMB) | payer OTHER, SELFPAY ==
[2023-09-14 15:46] VITALS: BP 116/68; PULSE 67; BMI 28.7
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
== END 2023-09-14 16:15 | disposition home or self-care (01) ==
PROVIDERS: PCP Physician Assistant; Visit Provider Nurse Practitioner
DX: I42.9 Cardiomyopathy, unspecified (principal); R93.1 Abnormal findings on diagnostic imaging of heart and coronary circulation
CPT/HCPCS: 93010; 99213

== ENCOUNTER 2023-09-14 14:52 | Outpatient (REF) | payer OTHER, SELFPAY ==
[2023-09-14 16:26] LABS: MANUAL DIFF FLAG NO
[2023-09-14 17:17] LABS: Appearance Urine Cloudy; Color Urine Dark Yellow; Glucose Urine UA Negative (Negative); Leukocyte Esterase Urine Trace (Negative); Nitrite Urine Negative (Negative); PH 5.5 (5.0-9.0); Specific Gravity - Urine >= 1.030 (1.005-1.025); UMIC TRIGGER UA YES; Urine Blood Negative (Negative); Urine Ketones Negative (Negative); Urine Protein 100 (2+) mg/dL (Neg-Trace)
[2023-09-14 17:21] LABS: Bacteria Urine 2+ (None Seen); Hyaline Casts Urine 0-2 /LPF (0-2); RBC Urine 0-2 /HPF (0-2)
[2023-09-14 17:37] LABS: Alanine Aminotransferase 42 U/L (0-31); Albumin Level 4.2 g/dL (3.5-5.0); Alkaline Phosphatase 61 U/L (39-117); Anion Gap 11 (12-20); Aspartate Amino Transferase 24 U/L (5-31); Bilirubin Total 1.3 mg/dL (0.0-1.0); Blood Urea Nitrogen 13 mg/dL (9-16); C Reactive Protein 0.37 mg/dL (< or = 0.50); Calcium 9.2 mg/dL (8.4-10.2); Carbon Dioxide 24 mmol/L (22-29); Chloride 109 mmol/L (96-108); Estimated Glomerular Filt Rate > 60; Glucose Random 76 mg/dL (60-115); Potassium 3.8 mmol/L (3.3-5.1); Sodium 140 mmol/L (135-145); Total Protein 7.3 g/dL (6.5-8.0)
[2023-09-14 18:03] LABS: Erythrocyte Sedimentation Rate 3 MM/HR (0-20)
[2023-09-14 18:18] LABS: Protein/Creatinine Ratio, Ur 0.19 (<0.2); Total Protein Urine Random 58 mg/dL (<12)
[2023-09-14 18:20] LABS: Basophils Percent Auto 0.4 % (0-2); Eosinophils Absolute Auto 0.2 X10*3/uL (0.0-0.4); Eosinophils Percent Auto 2.6 % (0-4); Hematocrit 43.8 % (37.0-47.0); Hemoglobin 15.2 g/dl (12.0-16.0); Imm Gran Abs Auto 0.03 X10*3/uL (0.00-0.03); Imm Gran Pct Auto 0.4 % (0.0-0.4); Lymphocytes Absolute Auto 1.3 X10*3/uL (1.2-4.9); Lymphocytes Percent Auto 16.1 % (20-40); Mean Corpuscular HGB Conc 34.7 g/dl (31.0-35.0); Mean Corpuscular Hemoglobin 29.7 pg (27.0-33.0); Mean Corpuscular Volume 85.7 fL (80.0-98.0); Mean Platelet Volume 14.1 fL (9.4-12.3); Monocytes Absolute Auto 0.6 X10*3/uL (0.1-1.2); Monocytes Percent Auto 6.9 % (2-11); Neutrophils Percent Auto 73.6 % (45-73); Platelet Count 127 X10*3/uL (160-400); Red Blood Count 5.11 X10*6/uL (4.20-5.50); Red Cell Distribution Width 12.4 % (11.0-16.0); White Blood Count 8.2 X10*3/uL (4.8-10.8)
[2023-09-15 14:33] LABS: Complement C3 119 mg/dL (83-193)
[2023-09-18 17:28] LABS: Anti DNA DS Antibody 9 IU/mL
== END 2023-09-14 14:53 | disposition home or self-care (01) ==
LOC: HO.LAB 14:52
PROVIDERS: Absent Provider Student in an Organized Health Care Education/Training Program; PCP Physician Assistant; Referring Provider Physician Assistant; Visit Provider Nurse Practitioner
DX: M32.9 Systemic lupus erythematosus, unspecified (principal); I42.9 Cardiomyopathy, unspecified
CPT/HCPCS: 36415; 80053; 81001; 82570; 84156; 85025; 85652; 86140; 86160; 86225; 93005; 99212

== ENCOUNTER 2023-11-14 14:34 | Outpatient (AMB) | payer OTHER, SELFPAY ==
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
[2023-11-14 14:43] VITALS: BP 100/62; BMI 29.5
== END 2023-11-14 15:06 | disposition home or self-care (01) ==
PROVIDERS: PCP Physician Assistant; Visit Provider Advanced Practice Midwife
DX: Z01.419 Encounter for gynecological examination (general) (routine) without abnormal findings (principal)
CPT/HCPCS: 99395

== ENCOUNTER 2023-11-14 14:34 | Outpatient (REF) | payer OTHER, SELFPAY ==
[2023-11-15 03:21] LABS: CT PCR NOT DETECTED (Not Detect.); NG PCR NOT DETECTED (Not Detect.)
== END 2023-11-14 14:35 | disposition home or self-care (01) ==
LOC: HO.LNP 14:34
PROVIDERS: PCP Physician Assistant; Visit Provider Advanced Practice Midwife
DX: Z01.419 Encounter for gynecological examination (general) (routine) without abnormal findings (principal); Z20.2 Contact with and (suspected) exposure to infections with a predominantly sexual mode of transmission
CPT/HCPCS: 87491; 87591; 87625; 88175; 99395

== ENCOUNTER 2024-02-12 10:24 | Outpatient (AMB) | payer OTHER, SELFPAY ==
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
[2024-02-12 10:46] VITALS: BP 112/60; PULSE 74; O2SAT 98; BMI 29.3
== END 2024-02-12 11:10 | disposition home or self-care (01) ==
PROVIDERS: PCP Physician Assistant; Visit Provider Student in an Organized Health Care Education/Training Program
DX: M32.9 Systemic lupus erythematosus, unspecified (principal); Z79.899 Other long term (current) drug therapy; R94.30 Abnormal result of cardiovascular function study, unspecified; G43.909 Migraine, unspecified, not intractable, without status migrainosus
CPT/HCPCS: 99214; G2211

== ENCOUNTER → 2024-02-12 10:24 | Outpatient (BNVA) | payer OTHER, SELFPAY | PROVIDERS: PCP Physician Assistant; Visit Provider Student in an Organized Health Care Education/Training Program | DX: M32.9 Systemic lupus erythematosus, unspecified (principal); G43.909 Migraine, unspecified, not intractable, without status migrainosus; R94.30 Abnormal result of cardiovascular function study, unspecified; Z79.899 Other long term (current) drug therapy | CPT/HCPCS: 99212 ==

== ENCOUNTER 2024-02-27 13:49 | Outpatient (REF) | payer OTHER, SELFPAY ==
[2024-02-27 14:02] LABS: MANUAL DIFF FLAG NO
[2024-02-27 14:56] LABS: Basophils Absolute Auto 0.1 X10*3/uL (0.0-0.2); Basophils Percent Auto 0.5 % (0-2); Eosinophils Absolute Auto 0.1 X10*3/uL (0.0-0.4); Eosinophils Percent Auto 1.5 % (0-4); Hematocrit 39.7 % (37.0-47.0); Hemoglobin 13.8 g/dl (12.0-16.0); Imm Gran Abs Auto 0.03 X10*3/uL (0.00-0.03); Imm Gran Pct Auto 0.3 % (0.0-0.4); Lymphocytes Absolute Auto 1.5 X10*3/uL (1.2-4.9); Lymphocytes Percent Auto 16.3 % (20-40); Mean Corpuscular HGB Conc 34.8 g/dl (31.0-35.0); Mean Corpuscular Hemoglobin 29.4 pg (27.0-33.0); Mean Corpuscular Volume 84.6 fL (80.0-98.0); Mean Platelet Volume 13.6 fL (9.4-12.3); Monocytes Absolute Auto 0.7 X10*3/uL (0.1-1.2); Monocytes Percent Auto 7.3 % (2-11); Neutrophils Absolute Auto 6.8 x10*3/uL (2.0-8.3); Neutrophils Percent Auto 74.1 % (45-73); Platelet Count 134 X10*3/uL (160-400); Red Blood Count 4.69 X10*6/uL (4.20-5.50); Red Cell Distribution Width 12.3 % (11.0-16.0); White Blood Count 9.2 X10*3/uL (4.8-10.8)
[2024-02-27 15:01] LABS: Appearance Urine Cloudy; Color Urine Yellow; Glucose Urine UA Negative (Negative); Leukocyte Esterase Urine Negative (Negative); Nitrite Urine Negative (Negative); Specific Gravity - Urine 1.025 (1.005-1.025); UMIC TRIGGER UA YES; Urine Blood Negative (Negative); Urine Ketones Negative (Negative); Urine Protein 30 (1+) mg/dL (Neg-Trace)
[2024-02-27 15:35] LABS: Bacteria Urine None Seen (None Seen); Hyaline Casts Urine 0-2 /LPF (0-2); RBC Urine 0-2 /HPF (0-2); Squamous Epithelial Cell Urine 0-2 /HPF (0-2); WBC Urine 0-5 /HPF (0-5)
[2024-02-27 15:37] LABS: Erythrocyte Sedimentation Rate 5 MM/HR (0-20)
[2024-02-27 15:53] LABS: Creatinine Urine 195.96 mg/dL; Protein/Creatinine Ratio, Ur 0.19 (<0.2); Total Protein Urine Random 37 mg/dL (<12)
[2024-02-27 16:36] LABS: Alanine Aminotransferase 73 U/L (0-31); Albumin Level 3.8 g/dL (3.5-5.0); Alkaline Phosphatase 68 U/L (39-117); Anion Gap 8 (12-20); Aspartate Amino Transferase 49 U/L (5-31); Bilirubin Total 0.4 mg/dL (0.0-1.0); Blood Urea Nitrogen 13 mg/dL (9-16); C Reactive Protein 0.12 mg/dL (< or = 0.50); Calcium 8.8 mg/dL (8.4-10.2); Carbon Dioxide 29 mmol/L (22-29); Chloride 109 mmol/L (96-108); Estimated Glomerular Filt Rate 59; Glucose Random 82 mg/dL (60-115); Potassium 3.8 mmol/L (3.3-5.1); Sodium 142 mmol/L (135-145); Total Protein 6.6 g/dL (6.5-8.0)
[2024-02-28 10:39] LABS: Complement C3 105 mg/dL (83-193)
[2024-02-28 15:08] LABS: Anti DNA DS Antibody 9 IU/mL
== END 2024-02-27 13:50 | disposition home or self-care (01) ==
LOC: HO.LAB 13:49
PROVIDERS: PCP Physician Assistant; Visit Provider Student in an Organized Health Care Education/Training Program
DX: M32.9 Systemic lupus erythematosus, unspecified (principal)
CPT/HCPCS: 36415; 80053; 81001; 82570; 84156; 85025; 85652; 86140; 86160; 86225

== ENCOUNTER 2024-05-14 11:18 | Outpatient (AMB) | payer OTHER, SELFPAY ==
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
[2024-05-14 11:23] VITALS: BP 118/70; PULSE 78; BMI 28.8
--- OUTSIDE RECORDS SUMMARY | 2024-05-14 13:40 | XMS_ITS | Encounter Summary ---
Author Organization [facility] Address [address] [place] [address] Phone Care Team Providers Care Assembly Line Worker Name Role Phone Gladis Moura DO Primary Care Provider [phone] Encounter Details Date Type Department Care Team (Late st Contact Info) Description 06/20/2013 Documentation EM Family Medicine [address] [place] [address] Family Medicine, Physician [address] [place], [place] [phone] Social History Tobacco Use Types Packs/Day Years Used Date Smoking Tobacco: Never Assessed Comments Unknown Sex and Gender Information Value Date Recorded Sex Assigned at Not on file Legal Sex Female 5:06 PM EDT Gender Identity Not on file Sexual Orientation Not on file documented as of this encounter Plan of Treatment Not on file documented as of this encounter Visit Diagnoses Not on filedocumented in this encounter Care Teams Assembly Line Worker Relationship Specialty Start Date End Date Gladis Moura DO [address] [place] [address] PCP - General 09/23/16 05/15/22 documented as of this encounter
--- OUTSIDE RECORDS SUMMARY | 2024-05-14 13:40 | XMS_ITS | Encounter Summary ---
Author Organization [facility] Address [address] [place] [address] Phone Care Team Providers Care Heavy Rail Train Operator Name Role Phone Gladis Moura DO Primary Care Provider [phone] Encounter Details Date Type Department Care Team (Late st Contact Info) Description 09/29/2016 Conversion Encounter [facility] [address] [place] [address] Social History Tobacco Use Types Packs/Day Years Used Date Smoking Tobacco: Never Comments:Never smoker Comments Unknown Sex and Gender Information Value Date Recorded Sex Assigned at Not on file Legal Sex Female 5:06 PM EDT Gender Identity Not on file Sexual Orientation Not on file documented as of this encounter Plan of Treatment Not on file documented as of this encounter Visit Diagnoses Not on filedocumented in this encounter Care Teams Heavy Rail Train Operator Relationship Specialty Start Date End Date Gladis Moura DO [address] [place] [address] PCP - General 09/23/16 05/15/22 documented as of this encounter
--- OUTSIDE RECORDS SUMMARY | 2024-05-14 13:40 | XMS_ITS | Encounter Summary ---
Author Organization [facility] Address [address] [place] [address] Phone Care Team Providers Care Light Rail Train Operator Name Role Phone Gladis Moura DO Primary Care Provider [phone] Encounter Details Date Type Department Care Team (Late st Contact Info) Description 08/20/2013 Documentation EM Family Medicine [address] [place] [address] Family Medicine, Physician [address] [place], [place] [phone] Social History Tobacco Use Types Packs/Day Years [...] on filedocumented in this encounter Care Teams Light Rail Train Operator Relationship Specialty Start Date End Date Gladis Moura DO [address] [facility] [place] [address] PCP - General 09/23/16 05/15/22 documented as of this encounter
--- OUTSIDE RECORDS SUMMARY | 2024-05-14 13:40 | XMS_ITS | Encounter Summary ---
Author Organization [facility] Address [address] [place] [address] Phone Care Team Providers Care Cable Operator Name Role Phone Gladis Moura DO Primary Care Provider [phone] Encounter Details Date Type Department Care Team (Late st Contact Info) Description 08/20/2010 Documentation EM Family Medicine [address] [place] [address] Family Medicine, Physician [address] [place] [address] Social History Tobacco Use Types Packs/Day Years [...] on filedocumented in this encounter Care Teams Cable Operator Relationship Specialty Start Date End Date Gladis Moura DO [address] [facility] [place] [address] PCP - General 09/23/16 05/15/22 documented as of this encounter
--- OUTSIDE RECORDS SUMMARY | 2024-05-14 13:40 | XMS_ITS | Encounter Summary ---
Author Organization [facility] Address [address] [place] [address] Phone Care Team Providers Care Specification Consultant Name Role Phone Gladis Moura DO Primary Care Provider [phone] Encounter Details Date Type Department Care Team (Late st Contact Info) Description 02/23/2016 Documentation [facility] Family Medicine [address] [place] [address] Family Medicine, Physician [address] [place], [place] [phone] Social History Tobacco Use Types Packs/Day Years [...] on filedocumented in this encounter Care Teams Specification Consultant Relationship Specialty Start Date End Date Gladis Moura DO [address] [place] [address] PCP - General 09/23/16 05/15/22 documented as of this encounter
--- OUTSIDE RECORDS SUMMARY | 2024-05-14 13:40 | XMS_ITS | Encounter Summary ---
Author Organization [facility] Address [address] [place] [address] Phone Care Team Providers Care Surface Logging Systems Logger Name Role Phone Gladis Morua DO Primary Care Provider [phone] Encounter Details Date Type Department Care Team (Late st Contact Info) Description 10/07/2013 Documentation EM Family Medicine [address] [place] [address] Family Medicine, Physician [address] [place], [place] [phone] Social History Tobacco Use Types Packs/Day Years [...] on filedocumented in this encounter Care Teams Surface Logging Systems Logger Relationship Specialty Start Date End Date Gladis Moura DO [address] [place] [address] PCP - General 09/23/16 05/15/22 documented as of this encounter
--- OUTSIDE RECORDS SUMMARY | 2024-05-14 13:40 | XMS_ITS | Encounter Summary ---
Author Organization [facility] Address [address] [place] [address] Phone Care Team Providers Care Handy Man Name Role Phone Gladis Moura DO Primary Care Provider [phone] Encounter Details Date Type Department Care Team (Late st Contact Info) Description 03/28/2011 Documentation EM Family Medicine [address] [place] [address] Family Medicine, Physician [address] [place], [place] [phone] Social History Tobacco Use Types Packs/Day Years [...] on filedocumented in this encounter Care Teams Handy Man Relationship Specialty Start Date End Date Gladis Moura DO [address] [facility] [place] [address] PCP - General 09/23/16 05/15/22 documented as of this encounter
--- OUTSIDE RECORDS SUMMARY | 2024-05-14 13:40 | XMS_ITS | Encounter Summary ---
Author Organization [facility] Address [address] [place] [address] Phone Care Team Providers Care Biology Specimen Technician Name Role Phone Gladis Moura DO Primary Care Provider Encounter Details Date Type Department Care Team (Late st Contact Info) Description 05/25/2011 Documentation EM Family Medicine [address] [place] [address] Family Medicine, Physician [address] [place] [address] Social History Tobacco Use Types [...] on filedocumented in this encounter Care Teams Biology Specimen Technician Relationship Specialty Start Date End Date Gladis Moura DO [address] [facility] [place] [address] PCP - General 09/23/16 05/15/22 documented as of this encounter
--- OUTSIDE RECORDS SUMMARY | 2024-05-14 13:40 | XMS_ITS | Encounter Summary ---
Author Organization [facility] Address [address] [place] [address] Phone Care Team Providers Care Supplemental Manager Name Role Phone Glaids Moura DO Primary Care Provider [phone] Encounter Details Date Type Department Care Team (Late st Contact Info) Description 03/17/2011 Documentation [facility] [address] [place] [address] Family Medicine, Physician [address] [place], [place] [id number] Social History Tobacco Use Types Packs/Day Years [...] on filedocumented in this encounter Care Teams Supplemental Manager Relationship Specialty Start Date End Date Gladis Moura DO 150 [facility] [place] [address] PCP - General 09/23/16 05/15/22 documented as of this encounter
--- OUTSIDE RECORDS SUMMARY | 2024-05-14 13:40 | XMS_ITS | Encounter Summary ---
Author Organization [facility] Address [address] [place] [address] Phone Care Team Providers Care Game Bird Farmer Name Role Phone Gladis Moura DO Primary Care Provider [phone] Encounter Details Date Type Department Care Team (Late st Contact Info) Description 02/22/2010 Documentation [facility] Family Medicine [address] [place] [address] Family Medicine, Physician [address] [place] [address] Social History Tobacco Use Types [...] on filedocumented in this encounter Care Teams Game Bird Farmer Relationship Specialty Start Date End Date Gladis Moura DO 150 [facility] [place] [address] PCP - General 09/23/16 05/15/22 documented as of this encounter
--- OUTSIDE RECORDS SUMMARY | 2024-05-14 13:40 | XMS_ITS | Encounter Summary ---
Author Organization [facility] Address [address] [place] [address] Phone Care Team Providers Care Site Technician Name Role Phone Gladis Moura DO Primary Care Provider [phone] Encounter Details Date Type Department Care Team (Late st Contact Info) Description 01/04/2011 Documentation [facility] Family Medicine [address] [place] [address] Family Medicine, Physician [address] [place] [address] Social History Tobacco Use Types [...] on filedocumented in this encounter Care Teams Site Technician Relationship Specialty Start Date End Date Gladis Moura DO 150 [facility] [place] [address] PCP - General 09/23/16 05/15/22 documented as of this encounter
--- OUTSIDE RECORDS SUMMARY | 2024-05-14 13:40 | XMS_ITS | Encounter Summary ---
Author Organization [facility] Address [address] [place] [address] Phone Care Team Providers Care Health Insurance Adjuster Name Role Phone Gladis Moura DO Primary Care Provider [phone] Encounter Details Date Type Department Care Team (Late st Contact Info) Description 08/30/2013 Documentation EM Family Medicine [address] [place] [address] Family Medicine, Physician [address] [place], [place] [phone] Social History Tobacco Use Types Packs/Day Years [...] on filedocumented in this encounter Care Teams Health Insurance Adjuster Relationship Specialty Start Date End Date Gladis Moura DO 150 [facility] [place] [address] PCP - General 09/23/16 05/15/22 documented as of this encounter
--- OUTSIDE RECORDS SUMMARY | 2024-05-14 13:40 | XMS_ITS | Encounter Summary ---
Author Organization [facility] Address [address] [place] [address] Phone Care Team Providers Care Six Sigma Black Belt Engineer Name Role Phone Gladis Moura DO Primary Care Provider [phone] Encounter Details Date Type Department Care Team (Late st Contact Info) Description 06/05/2014 Documentation [facility] Family Medicine [address] [place] [address] Family Medicine, Physician [address] [place], [place] [phone] Social History Tobacco Use Types Packs/Day Years [...] on filedocumented in this encounter Care Teams Six Sigma Black Belt Engineer Relationship Specialty Start Date End Date Gladis Moura DO 150 [place] [address] PCP - General 09/23/16 05/15/22 documented as of this encounter
--- OUTSIDE RECORDS SUMMARY | 2024-05-14 13:40 | XMS_ITS | Encounter Summary ---
Author Organization [facility] Address [address] [place] [address] Phone Care Team Providers Care Hide Inspector And Sorter Name Role Phone Gladis Moura DO Primary Care Provider [phone] Encounter Details Date Type Department Care Team (Late st Contact Info) Description 07/14/2016 Documentation [facility] [address] [place] [address] Family Medicine, Physician [address] [place], [place] [phone] Social History Tobacco Use Types Packs/Day Years [...] on filedocumented in this encounter Care Teams Hide Inspector And Sorter Relationship Specialty Start Date End Date Gladis Moura DO 150 [place] [address] PCP - General 09/23/16 05/15/22 documented as of this encounter
--- OUTSIDE RECORDS SUMMARY | 2024-05-14 13:40 | XMS_ITS | Encounter Summary ---
Author Organization [facility] Address [address] [place] [address] Phone Care Team Providers Care Metallurgical Specialist Name Role Phone Gladis Moura DO Primary Care Provider [phone] Encounter Details Date Type Department Care Team (Late st Contact Info) Description 03/17/2011 Documentation EM Family Medicine [address] [place] [address] Family Medicine, Physician [address] [place], [place] [phone] Social History Tobacco Use Types Packs/Day Years [...] on filedocumented in this encounter Care Teams Metallurgical Specialist Relationship Specialty Start Date End Date Gladis Moura DO 150 [facility] [place] [address] PCP - General 09/23/16 05/15/22 documented as of this encounter
--- OUTSIDE RECORDS SUMMARY | 2024-05-14 13:40 | XMS_ITS | Encounter Summary ---
Author Organization [facility] Address [address] [place] [address] Phone Care Team Providers Care Court Recorder Name Role Phone Gladis Moura DO Primary Care Provider [phone] Encounter Details Date Type Department Care Team (Late st Contact Info) Description 01/03/2013 Documentation EM Family Medicine [address] [place] [address] Family Medicine, Physician [address] [place], [place] [phone] Social History Tobacco Use Types Packs/Day Years [...] on filedocumented in this encounter Care Teams Court Recorder Relationship Specialty Start Date End Date Gladis Moura DO 150 [facility] [place] [address] PCP - General 09/23/16 05/15/22 documented as of this encounter
--- OUTSIDE RECORDS SUMMARY | 2024-05-14 13:40 | XMS_ITS | Clinical Summary ---
Author Organization [facility] Address [address] [place] [address] Phone Care Team Providers Care Security Systems Technician Name Role Phone Unavailable Primary Care Provider Unavailabl e Immunizations Immunization Administration Dates Next Due DTaP 5 05/16/2001, 0,1997,07/09,1997 HPV, Quadrivalent 04/07/2008,12/03/2007,10/02/19 08 Hep B, ped/adol 1997,1997,1997 Hib (PRP-T) 06/10/1998, 8,1997,05/07 IPV 05/16/2001, 0,1997,05/07 Influenza Split 12/26/2011,12/03/2009 Influenza, injectable, quadrivalent 03/04/2015 Influenza, injectable, quadr ivalent, preservative free 12/21/2015,11/26/2013,01/02/2013 Influenza, intranasal, trivalent 11/03/2010 MMR 05/16/2001,03/25/1998 Meningococcal Conj (Menactra) MCV4P 08/18/2014,1 03/01/2008 Tdap 12/30/2008 Varicella 07/31/2007,06/10/1998 Family History Relation Name Status Comments Father Father: Colleen lee, Alive and well Mother Alive Mother: Alive a nd well Other No family histo ry of Deafness, Family history of Obesity, No family history of Strabismus, No family history of Seizure disorder, Family history of Asthma, No family history of *Heart Disease, Family history of Migraines, Family history of Elevated cholesterol, Family history of Hyperlipidemia, No family history of *CVA/Stroke, Family history of *Thrombophilia, No family history of *Sudden /SC under 55, Family history of Lymphoma, No family history of Developmental dislocation of hip, No family history of ADD/ADHD, Family history of Diabetes mellitus Sister 1 Alive Sister: Alive a nd well, Alive and well Sister 2 Alive Sister: Alive a nd well, Alive and well Social History Tobacco Use Types Packs/Day Years Used Date Smoking Tobacco: Never Comments:Never smoker Comments Unknown Sex and Gender Information Value Date Recorded Sex Assigned at Not on file Legal Sex Female 5:06 PM EDT Gender Identity Not on file Sexual Orientation Not on file Last Filed Vital Signs Vital Sign Reading Time Taken Comments Blood Pressure 120/69 03/09/2015 12:00 AM EST Pulse 108 03/09/2015 12:00 AM EST Temperature 36.6 ??C (97.8 ??F) 03/09/2015 1 2:00 AM EST Respiratory Rate - - Oxygen Saturation 99% 03/06/2015 12: 00 AM EST Inhaled Oxygen Concentration - - Weight 80.6 kg (177 lb 12.8 oz) 016 12:00 AM EST Height 154.3 cm (5' 0.75 ) 03/09/2015 1 2:00 AM EST Body Mass Index 33.87 03/09/2015 12:00 AM EST Plan of Treatment Health Maintenance Due Date Last Done Comments DTaP,Tdap,and Td Vaccines (7 - Td or Tdap) 12/30/2018 12/30/2008, 05/16/2001, 07/02/1999, Additional history exists Influenza Vaccines (#1) 2023 12/21/19 16, 03/04/2015, 11/26/2013, Additional history exists COVID-19 Vaccine ( season) 2023 Hepatitis B Vaccines Completed 1997, 1997, 1997 HIB Vaccines Completed 06/10/1998, 08/14, 1997, Additional history exists IPV Vaccines Completed 05/16/2001, 06/13, 1997, Additional history exists MMR Vaccines Completed 05/16/2001, 03/25/1998 Varicella Vaccines Completed 07/31/2007, 06/10/1998 HPV Vaccines Completed 04/07/2008, 11/14, 10/02/2007 Meningococcal Vaccine Completed 08/18/2014, 009 Hepatitis A Vaccines Aged Out No long er eligible based on patient's age to complete this topic Men B Vaccine Aged Out No longer elig ible based on patient's age to complete this topic Pneumococcal Vaccine Aged Out No long er eligible based on patient's age to complete this topic
--- OUTSIDE RECORDS SUMMARY | 2024-05-14 13:40 | XMS_ITS | Encounter Summary ---
Author Organization [facility] Address [address] [place] [address] Phone Care Team Providers Care Activities Attendant Name Role Phone Gladis Moura DO Primary Care Provider [phone] Encounter Details Date Type Department Care Team (Late st Contact Info) Description 01/10/2011 Documentation EM Family Medicine [address] [place] [address] Family Medicine, Physician [address] [place], [place] [phone] Social History Tobacco Use Types Packs/Day Years [...] on filedocumented in this encounter Care Teams Activities Attendant Relationship Specialty Start Date End Date Gladis Moura DO 150 [facility] [place] [address] PCP - General 09/23/16 05/15/22 documented as of this encounter
--- OUTSIDE RECORDS SUMMARY | 2024-05-14 13:40 | XMS_ITS | Encounter Summary ---
Author Organization [facility] Address [address] [place] [address] Phone Care Team Providers Care Developer Programmer Name Role Phone Gladis Moura DO Primary Care Provider [phone] Encounter Details Date Type Department Care Team (Late st Contact Info) Description 03/28/2013 Documentation [facility] [place] [facility] [address] [place] [address] Family Medicine, Physician [address] [place], [place] [phone] Social History Tobacco Use Types Packs/Day Years [...] on filedocumented in this encounter Care Teams Developer Programmer Relationship Specialty Start Date End Date Gladis Moura DO 150 [facility] [place] [address] PCP - General 09/23/16 05/15/22 documented as of this encounter
--- OUTSIDE RECORDS SUMMARY | 2024-05-14 13:40 | XMS_ITS | Encounter Summary ---
Author Organization [facility] Address [address] [place] [address] Phone Care Team Providers Care Volunteer Firefighter Name Role Phone Gladis Moura DO Primary Care Provider [phone] Encounter Details Date Type Department Care Team (Late st Contact Info) Description 04/08/2011 Documentation EM Family Medicine [address] [place] [address] Family Medicine, Physician [address] [place], [place] [phone] Social History Tobacco Use Types Packs/Day Years [...] on filedocumented in this encounter Care Teams Volunteer Firefighter Relationship Specialty Start Date End Date Gladis Moura DO 150 [facility] [place] [address] PCP - General 09/23/16 05/15/22 documented as of this encounter
--- OUTSIDE RECORDS SUMMARY | 2024-05-14 13:40 | XMS_ITS | Encounter Summary ---
Author Organization [facility] Address [address] [place] [address] Phone Care Team Providers Care Ranch Manager Name Role Phone Gladis Moura DO Primary Care Provider [phone] Encounter Details Date Type Department Care Team (Late st Contact Info) Description 10/31/2011 Documentation [facility] Family Medicine [address] [place] [address] Family Medicine, Physician [address] [place], [place] [phone] Social History Tobacco Use Types Packs/Day Years [...] on filedocumented in this encounter Care Teams Ranch Manager Relationship Specialty Start Date End Date Gladis Moura DO 150 [facility] [place] [address] PCP - General 09/23/16 05/15/22 documented as of this encounter
--- OUTSIDE RECORDS SUMMARY | 2024-05-14 13:40 | XMS_ITS | Encounter Summary ---
Author Organization [facility] Address [address] [place] [address] Phone Care Team Providers Care Lsat Instructor Name Role Phone Gladis Moura DO Primary Care Provider [phone] Encounter Details Date Type Department Care Team (Late st Contact Info) Description 07/02/2013 Documentation EM Family Medicine [address] [place] [address] Family Medicine, Physician [address] [place], [place] [phone] Social History Tobacco Use Types Packs/Day Years [...] on filedocumented in this encounter Care Teams Lsat Instructor Relationship Specialty Start Date End Date Gladis Moura DO 150 [facility] [place] [address] PCP - General 09/23/16 05/15/22 documented as of this encounter
== END 2024-05-14 11:37 | disposition home or self-care (01) ==
LOC: HO.HCS 11:19
PROVIDERS: PCP Physician Assistant; Visit Provider Internal Medicine Cardiovascular Disease
DX: I42.9 Cardiomyopathy, unspecified (principal)
CPT/HCPCS: 99214; G2211

== ENCOUNTER → 2024-05-14 11:18 | Outpatient (BNVA) | payer OTHER, SELFPAY | PROVIDERS: PCP Physician Assistant; Visit Provider Internal Medicine Cardiovascular Disease | DX: I42.9 Cardiomyopathy, unspecified (principal) | CPT/HCPCS: 99212 ==

== ENCOUNTER 2024-05-15 13:32 | Outpatient (AMB) | payer OTHER, SELFPAY ==
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
[2024-05-15 13:38] VITALS: BP 132/108; PULSE 87; TEMP 36.3; O2SAT 98; BMI 28.6
--- OUTSIDE RECORDS SUMMARY | 2024-05-15 16:16 | XMS_ITS | Encounter Summary ---
Author Organization [facility] Address [address] [place] [address] Phone Care Team Providers Care Paraprofessional Aide Name Role Phone Gladis Moura DO Primary Care Provider [phone] Encounter Details Date Type Department Care Team (Late st Contact Info) Description 10/31/2011 Documentation [facility] [place] [facility] [address] [place] [address] Family Medicine, Physician [address] [place], [place] [phone] Social History Tobacco Use Types Packs/Day Years [...] on filedocumented in this encounter Care Teams Paraprofessional Aide Relationship Specialty Start Date End Date Gladis Moura DO [address] [facility] [place] [address] PCP - General 09/23/16 05/15/22 documented as of this encounter
--- OUTSIDE RECORDS SUMMARY | 2024-05-15 16:16 | XMS_ITS | Encounter Summary ---
Author Organization [facility] Address [address] [place] [address] Phone Care Team Providers Care Superintendent Sanitation Name Role Phone Gladis Moura DO Primary Care Provider [phone] Encounter Details Date Type Department Care Team (Late st Contact Info) Description 02/23/[address] [facility] [place] Family Medicine [address] [place] [address] Family Medicine, Physician [address] [place], [place] [phone] Social History Tobacco Use Types Packs/Day Years [...] on filedocumented in this encounter Care Teams Superintendent Sanitation Relationship Specialty Start Date End Date Gladis Moura DO [address] [place] [address] PCP - General 09/23/16 05/15/22 documented as of this encounter
--- OUTSIDE RECORDS SUMMARY | 2024-05-15 16:16 | XMS_ITS | Encounter Summary ---
Author Organization [facility] Address [address] [place] [address] Phone Care Team Providers Care Client Success Manager Name Role Phone Gladis Moura DO Primary Care Provider [phone] Encounter Details Date Type Department Care Team (Late st Contact Info) Description 01/03/2013 Documentation [facility] [address] [place] [address] Family Medicine, Physician [address] [place], [place] [phone] Social History Tobacco Use Types Packs/Day Years [...] on filedocumented in this encounter Care Teams Client Success Manager Relationship Specialty Start Date End Date Gladis Moura DO [address] [facility] [place] [address] PCP - General 09/23/16 05/15/22 documented as of this encounter
--- OUTSIDE RECORDS SUMMARY | 2024-05-15 16:16 | XMS_ITS | Encounter Summary ---
Author Organization [facility] Address [address] [place] [address] Phone Care Team Providers Care Wheel Inspector Name Role Phone Gladis Moura DO Primary Care Provider [phone] Encounter Details Date Type Department Care Team (Late st Contact Info) Description 07/02/2013 Documentation [facility] [address] [place] [address] Family Medicine, Physician [address] [place], [place] [phone] Social History Tobacco Use Types Packs/Day Years [...] on filedocumented in this encounter Care Teams Wheel Inspector Relationship Specialty Start Date End Date Gladis Moura DO [address] [place] [address] PCP - General 09/23/16 05/15/22 documented as of this encounter
--- OUTSIDE RECORDS SUMMARY | 2024-05-15 16:16 | XMS_ITS | Encounter Summary ---
Author Organization [facility] Address [address] [place] [address] Phone Care Team Providers Care Concrete Floater Name Role Phone Gladis Moura DO Primary Care Provider [phone] Encounter Details Date Type Department Care Team (Late st Contact Info) Description 04/08/2011 Documentation [facility] [address] [place] [address] Family Medicine, Physician [address] [place], [place] [phone] Social History Tobacco Use Types Packs/Day Years [...] on filedocumented in this encounter Care Teams Concrete Floater Relationship Specialty Start Date End Date Gladis Moura DO [address] [place] [address] PCP - General 09/23/16 05/15/22 documented as of this encounter
--- OUTSIDE RECORDS SUMMARY | 2024-05-15 16:16 | XMS_ITS | Encounter Summary ---
Author Organization [facility] Address [address] [place] [address] Phone Care Team Providers Care Junior Graphic Designer Name Role Phone Gladis Moura DO Primary Care Provider [phone] Encounter Details Date Type Department Care Team (Late st Contact Info) Description 06/20/2013 Documentation [facility] [address] [place] [address] Family Medicine, Physician [address] [place], [place] [phone] Social History Tobacco Use Types Packs/Day Years [...] on filedocumented in this encounter Care Teams Junior Graphic Designer Relationship Specialty Start Date End Date Gladis Moura DO [address] [facility] [place] [address] PCP - General 09/23/16 05/15/22 documented as of this encounter
--- OUTSIDE RECORDS SUMMARY | 2024-05-15 16:16 | XMS_ITS | Encounter Summary ---
Author Organization [facility] Address [address] [place] [address] Phone Care Team Providers Care Recycling Collections Driver Name Role Phone Gladis Moura DO Primary Care Provider [phone] Encounter Details Date Type Department Care Team (Late st Contact Info) Description 05/25/2011 Documentation [facility] [address] [place] [address] Family Medicine, Physician [address] [place] [address] Social History Tobacco Use Types [...] on filedocumented in this encounter Care Teams Recycling Collections Driver Relationship Specialty Start Date End Date Gladis Moura DO [address] [facility] [place] [address] PCP - General 09/23/16 05/15/22 documented as of this encounter
--- OUTSIDE RECORDS SUMMARY | 2024-05-15 16:16 | XMS_ITS | Encounter Summary ---
Author Organization [facility] Address [address] [place] [address] Phone Care Team Providers Care Cement And Concrete Plant Worker Name Role Phone Gladis Moura DO Primary Care Provider Encounter Details Date Type Department Care Team (Late st Contact Info) Description 03/28/2013 Documentation [facility] [place] [address] [place] [address] Family Medicine, Physician [address] [place], [place] [phone] Social History Tobacco Use Types Packs/Day Years [...] on filedocumented in this encounter Care Teams Cement And Concrete Plant Worker Relationship Specialty Start Date End Date Gladis Moura DO [address] [facility] [place] [address] PCP - General 09/23/16 05/15/22 documented as of this encounter
--- OUTSIDE RECORDS SUMMARY | 2024-05-15 16:16 | XMS_ITS | Encounter Summary ---
Author Organization [facility] Address [address] [place] [address] Phone Care Team Providers Care Finisher [employer] Name Role Phone Gladis Moura DO Primary Care Provider [phone] Encounter Details Date Type Department Care Team (Late st Contact Info) Description 08/20/2013 Documentation [facility] [address] [place] [address] Family Medicine, Physician [address] [place], [place] [phone] Social History Tobacco Use Types Packs/Day Years [...] on filedocumented in this encounter Care Teams Finisher [employer] Relationship Specialty Start Date End Date Gladis Moura DO [address] [place] [address] PCP - General 09/23/16 05/15/22 documented as of this encounter
--- OUTSIDE RECORDS SUMMARY | 2024-05-15 16:16 | XMS_ITS | Encounter Summary ---
Author Organization [facility] Address [address] [place] [address] Phone Care Team Providers Care Senior Analytic Consultant Name Role Phone Gladis Moura DO Primary Care Provider [phone] Encounter Details Date Type Department Care Team (Late st Contact Info) Description 10/07/2013 Documentation [facility] Family [facility] [address] [place] [address] Family Medicine, Physician [address] [place], [place] [phone] Social History Tobacco Use Types Packs/Day Years [...] on filedocumented in this encounter Care Teams Senior Analytic Consultant Relationship Specialty Start Date End Date Gladis Moura DO 150 [facility] [place] [address] PCP - General 09/23/16 05/15/22 documented as of this encounter
--- OUTSIDE RECORDS SUMMARY | 2024-05-15 16:16 | XMS_ITS | Encounter Summary ---
Author Organization [facility] Address [address] [place] [address] Phone Care Team Providers Care Preanalytics Team Lead Name Role Phone Gladis Moura DO Primary Care Provider [phone] Encounter Details Date Type Department Care Team (Late st Contact Info) Description 08/20/2010 Documentation EM Family Medicine [address] [place] [address] Family Medicine, Physician [address] [place] [address] Social History Tobacco Use Types [...] on filedocumented in this encounter Care Teams Preanalytics Team Lead Relationship Specialty Start Date End Date Gladis Moura DO 150 [facility] [place] [address] PCP - General 09/23/16 05/15/22 documented as of this encounter
--- OUTSIDE RECORDS SUMMARY | 2024-05-15 16:16 | XMS_ITS | Encounter Summary ---
Author Organization [facility] Address [address] [place] [address] Phone Care Team Providers Care Home Staging Specialist Name Role Phone Gladis Moura DO Primary Care Provider [phone] Encounter Details Date Type Department Care Team (Late st Contact Info) Description 03/17/2011 Documentation EM Family Medicine [address] [place] [address] Family Medicine, Physician [address] [place], [place] [phone] Social History Tobacco Use Types Packs/Day Years [...] on filedocumented in this encounter Care Teams Home Staging Specialist Relationship Specialty Start Date End Date Gladis Moura DO 150 [facility] [place] [address] PCP - General 09/23/16 05/15/22 documented as of this encounter
--- OUTSIDE RECORDS SUMMARY | 2024-05-15 16:16 | XMS_ITS | Encounter Summary ---
Author Organization [facility] Address [address] [place] [address] Phone Care Team Providers Care Director Geophysical Laboratory Name Role Phone Gladis Moura DO Primary Care Provider [phone] Encounter Details Date Type Department Care Team (Late st Contact Info) Description 03/28/2011 Documentation EM Family Medicine [address] [place] [address] Family Medicine, Physician [address] [place], [place] [phone] Social History Tobacco Use Types Packs/Day Years [...] on filedocumented in this encounter Care Teams Director Geophysical Laboratory Relationship Specialty Start Date End Date Gladis Moura DO 150 [facility] [place] [address] PCP - General 09/23/16 05/15/22 documented as of this encounter
--- OUTSIDE RECORDS SUMMARY | 2024-05-15 16:16 | XMS_ITS | Encounter Summary ---
Author Organization [facility] Address [address] [place] [address] Phone Care Team Providers Care Guide Dog Mobility Instructor Name Role Phone Gladis Moura DO Primary Care Provider [phone] Encounter Details Date Type Department Care Team (Late st Contact Info) Description 07/14/2016 Documentation [facility] [address] [place] [address] Family Medicine, Physician [address] [place], [place] [phone] Social History Tobacco Use Types Packs/Day Years [...] on filedocumented in this encounter Care Teams Guide Dog Mobility Instructor Relationship Specialty Start Date End Date Gladis Moura DO 150 [facility] [place] [address] PCP - General 09/23/16 05/15/22 documented as of this encounter
--- OUTSIDE RECORDS SUMMARY | 2024-05-15 16:16 | XMS_ITS | Encounter Summary ---
Author Organization [facility] Address [address] [place] [address] Phone Care Team Providers Care Abalone Processor Name Role Phone Gladis Moura DO Primary Care Provider Encounter Details Date Type Department Care Team (Late st Contact Info) Description 03/17/2011 Documentation EM Family Medicine [address] [place] [address] Family Medicine, Physician [address] [place], [place] [phone] Social History Tobacco Use Types Packs/Day Years [...] on filedocumented in this encounter Care Teams Abalone Processor Relationship Specialty Start Date End Date Gladis Moura DO 150 [facility] [place] [address] PCP - General 09/23/16 05/15/22 documented as of this encounter
--- OUTSIDE RECORDS SUMMARY | 2024-05-15 16:16 | XMS_ITS | Encounter Summary ---
Author Organization [facility] Address [address] [place] [address] Phone Care Team Providers Care Switchman Supervisor Name Role Phone Gladis Moura DO Primary Care Provider [phone] Encounter Details Date Type Department Care Team (Late st Contact Info) Description 09/29/2016 Conversion Encounter [facility] [address] [place] [address] Social History Tobacco Use Types Packs/Day Years [...] on filedocumented in this encounter Care Teams Switchman Supervisor Relationship Specialty Start Date End Date Gladis Moura DO 150 [place] [address] PCP - General 09/23/16 05/15/22 documented as of this encounter
--- OUTSIDE RECORDS SUMMARY | 2024-05-15 16:16 | XMS_ITS | Encounter Summary ---
Author Organization [facility] Address [address] [place] [address] Phone Care Team Providers Care Mounter Name Role Phone Gladis Moura DO Primary Care Provider [phone] Encounter Details Date Type Department Care Team (Late st Contact Info) Description 02/22/2010 Documentation EM Family Medicine [address] [place] [address] Family Medicine, Physician [address] [place] [address] Social History Tobacco Use Types [...] on filedocumented in this encounter Care Teams Mounter Relationship Specialty Start Date End Date Gladis Moura DO 150 [facility] [place] [address] PCP - General 09/23/16 05/15/22 documented as of this encounter
--- OUTSIDE RECORDS SUMMARY | 2024-05-15 16:16 | XMS_ITS | Encounter Summary ---
Author Organization [facility] Address [address] [place] [address] Phone Care Team Providers Care Soft Sugar Cutter Name Role Phone Gladis Moura DO Primary Care Provider [phone] Encounter Details Date Type Department Care Team (Late st Contact Info) Description 01/10/2011 Documentation EM Family Medicine [address] [place] [address] Family Medicine, Physician [address] [place], [place] [phone] Social History Tobacco Use Types Packs/Day Years [...] on filedocumented in this encounter Care Teams Soft Sugar Cutter Relationship Specialty Start Date End Date Gladis Moura DO 150 [place] [address] PCP - General 09/23/16 05/15/22 documented as of this encounter
--- OUTSIDE RECORDS SUMMARY | 2024-05-15 16:16 | XMS_ITS | Encounter Summary ---
Author Organization [facility] Address [address] [place] [address] Phone Care Team Providers Care Cognos Bi Developer Name Role Phone Gladis Moura DO Primary Care Provider [phone] Encounter Details Date Type Department Care Team (Late st Contact Info) Description 01/04/2011 Documentation EM Family Medicine [address] [place] [address] Family Medicine, Physician [address] [place] [address] Social History Tobacco Use Types [...] on filedocumented in this encounter Care Teams Cognos Bi Developer Relationship Specialty Start Date End Date Gladis Moura DO 150 [facility] [place] [address] PCP - General 09/23/16 05/15/22 documented as of this encounter
--- OUTSIDE RECORDS SUMMARY | 2024-05-15 16:16 | XMS_ITS | Encounter Summary ---
Author Organization [facility] Address [address] [place] [address] Phone Care Team Providers Care Coding Assistant Name Role Phone Gladis Moura DO Primary Care Provider [phone] Encounter Details Date Type Department Care Team (Late st Contact Info) Description 06/05/2014 Documentation EM Family Medicine [address] [place] [address] Family Medicine, Physician [address] [place], [place] [phone] Social History Tobacco Use Types Packs/Day Years [...] on filedocumented in this encounter Care Teams Coding Assistant Relationship Specialty Start Date End Date Gladis Moura DO 150 [facility] [place] [address] PCP - General 09/23/16 05/15/22 documented as of this encounter
--- OUTSIDE RECORDS SUMMARY | 2024-05-15 16:16 | XMS_ITS | Clinical Summary ---
Author Organization [facility] Address [address] [place] [address] Phone Care Team Providers Care Riverboat Master Name Role Phone Unavailable Primary Care Provider [...] of *Thrombophilia, No family history of *Sudden /ND under 55, Family history of Lymphoma, No [...]
--- OUTSIDE RECORDS SUMMARY | 2024-05-15 16:16 | XMS_ITS | Encounter Summary ---
Author Organization [facility] Address [address] [place] [address] Phone Care Team Providers Care Air Filler Name Role Phone Gladis Moura DO Primary Care Provider [phone] Encounter Details Date Type Department Care Team (Late st Contact Info) Description 08/30/2013 Documentation EM Family Medicine [address] [place] [address] Family Medicine, Physician [address] [place], [place] [phone] Social History Tobacco Use Types Packs/Day Years [...] on filedocumented in this encounter Care Teams Air Filler Relationship Specialty Start Date End Date Gladis Moura DO 150 [place] [address] PCP - General 09/23/16 05/15/22 documented as of this encounter
== END 2024-05-15 14:08 | disposition home or self-care (01) ==
LOC: HO.HMCH 13:33
PROVIDERS: PCP Physician Assistant; Visit Provider Physician Assistant
DX: Z00.00 Encounter for general adult medical examination without abnormal findings (principal); L84 Corns and callosities; C81.90 Hodgkin lymphoma, unspecified, unspecified site; M32.9 Systemic lupus erythematosus, unspecified; D69.3 Immune thrombocytopenic purpura

== ENCOUNTER → 2024-05-15 13:32 | Outpatient (BNVA) | payer OTHER, SELFPAY | PROVIDERS: PCP Physician Assistant; Visit Provider Physician Assistant | DX: Z00.00 Encounter for general adult medical examination without abnormal findings (principal); L84 Corns and callosities; C81.90 Hodgkin lymphoma, unspecified, unspecified site; M32.9 Systemic lupus erythematosus, unspecified; D69.3 Immune thrombocytopenic purpura | CPT/HCPCS: 96127; 99395 ==

== ENCOUNTER → 2024-06-06 09:47 | Outpatient (REF) | payer OTHER, SELFPAY ==
--- NOTE | 2024-06-06 09:49 | CA_ITS ---
Transthoracic Echocardiogram Patient (Last, First, Middle): Johnna Langford M Gender: Female Date of : 1995 Age: 29 Procedure Date: 06/06/2024 Procedure Type: Transthoracic Echocardiogram Location: OP Height: 152.4 cm Weight: 67.13 kg BSA: 1.64 m2 Heart Rate: 49 bpm BP: 108 / 80 mmHg Diploma Dental Assistant: TO Referring MD: Munir Salinas MD Symptoms: I42.9 - Cardiomyopathy, unspecified Study Quality: Adequate w contrast ECG Rhythm: Bradycardia Conclusions: - The left ventricular systolic function is low normal. The calculated ejection fraction is 53% by biplane method. - No obvious valvular pathology seen on this study. Findings Procedure Information Contrast agent, definity, is being given per protocol without apparent complications. Left Ventricle Normal left ventricular cavity size. There is normal left ventricular wall thickness. The left ventricular systolic function is low normal. The calculated ejection fraction is 53% by biplane method. There is no evidence of regional wall motion abnormalities. Diastolic function is normal for age. Right Ventricle Normal right ventricular cavity size. There is low normal right ventricular systolic function. Atria Both atria are normal in size. Aortic Valve There is a normal trileaflet aortic valve. There is no aortic valve stenosis. There is no aortic valve regurgitation. Mitral Valve The mitral valve appears normal. There is trace mitral valve regurgitation. There is no mitral valve stenosis. Pulmonic Valve The pulmonic valve is likely normal. Tricuspid Valve There is mild tricuspid valve regurgitation. There is no evidence of pulmonary hypertension. Great Vessels The asc aorta is normal in size. Venous The inferior vena cava is mildly dilated and collapses less than 50% with inspiration. Pericardium/Pleural There is no evidence of pericardial effusion. Prior Study Comparison No significant change compared to prior study dated: 06/05/2023. Recommendations, Care & Conclusions No obvious valvular pathology seen on this study. Measurements 2D Linear Measurements IVSd: 0.65 0.6-0.9/0.6-1.0 cm LVIDd: 4.48 3.9-5.3/4.2-5.9 cm LVIDd Index: 2.73 2.4-3.2/2.2-3.1 cm/m2 LVIDs: 2.89 2.0-3.6 cm LVPWd: 0.59 0.7-1.1 cm LA Diam: 2.50 2.7-3.8/3.0-4.0 cm LAIDs Index: 1.52 1.5-2.3 cm/m2 LV Mass: 100.51 67-162/88-224 g LV Mass Index: 61.29 43-95/49-115 g/m2 LVOT Diam: 2.20 3.0+(-)1.3 cm 2D Systolic Function EF 4C: 53.60 >55% EF 2C: 54.70 >55% EF BiP: 52.70 >55% Mitral Valve MV Pk E: 0.93 MV PK A: 0.27 MV Decel Time: 186.00 E/A: 3.40 E'Lateral: 13.50 E'Medial: 9.14 E/E' Med: 10.20 E/E' Lat: 6.90 PHT: 54.00 MVA PHT: 4.07 Decel Alpine: 5.03 Aortic Valve AoV Pk Norm: 1.06 AoV Mn Norm: 0.75 AoV VTI: 0.23 AoV Pk Grad: 4.00 Aov Mn Grad: 3.00 RBENDAN Cont.VTI: 2.39 LVOT LVOT Pk Onrm: 0.73 LVOT Mn Norm: 0.50 LVOT VTI: 0.15 LVOT Pk Grad: 2.00 LVOT Mn Grad: 1.00 LVOT Diam: 2.20 LVOT Area: 3.80 Diastolic Function MV Pk E: 0.93 MV Pk A: 0.27 E/A: 3.40 E'Medial: 9.14 E/E' Med: 10.20 E' Laterial: 13.50 E/E' Lat: 6.90 Right Ventricle TAPSE (mm): 18.30 TVS' Norm: 10.00 Tricuspid Valve TR Pk Norm: 1.79 TR Pk Grad: 13.00 RA Press: 8.00 RVSP: 21.00 Great Vessels Aorta Sinus of Valsalva: 2.59 2.0-3.5 cm Ao Asc: 1.50 2.1-3.4 cm Updated in Other Vendor System with Status of Final Chace Velazco MD electronically signed on 06/07/2024 4:32:55 PM with status of Final
--- OUTSIDE RECORDS SUMMARY | 2024-06-06 10:55 | XMS_ITS | Encounter Summary ---
Author Organization [facility] Address [address] [place] [address] Phone Care Team Providers Care Body Designer Name Role Phone Gladis Moura DO Primary Care Provider [phone] Encounter Details Date Type Department Care Team (Late st Contact Info) Description 02/22/2010 Documentation EM Family Medicine [address] [place] [address] Family Medicine, Physician [address] [place] [address] Social History Tobacco Use Types [...] on filedocumented in this encounter Care Teams Body Designer Relationship Specialty Start Date End Date Gladis Moura DO 150 [facility] [place] [address] PCP - General 09/23/16 05/15/22 documented as of this encounter
--- OUTSIDE RECORDS SUMMARY | 2024-06-06 10:55 | XMS_ITS | Encounter Summary ---
Author Organization [facility] Address [address] [place] [place] [address] Phone Care Team Providers Care Exhibitions Curator Name Role Phone Gladis Moura DO Primary Care Provider [phone] Encounter Details Date Type Department Care Team (Late st Contact Info) Description 09/29/2016 Conversion Encounter [facility] [place] 150 [place] [address] Social History Tobacco Use Types Packs/Day Years [...] on filedocumented in this encounter Care Teams Exhibitions Curator Relationship Specialty Start Date End Date Gladis Moura DO 150 [place] [address] PCP - General 09/23/16 05/15/22 documented as of this encounter
--- OUTSIDE RECORDS SUMMARY | 2024-06-06 10:55 | XMS_ITS | Encounter Summary ---
Author Organization [facility] Address [address] [place] [address] Phone Care Team Providers Care Harness Racing Handicapper Name Role Phone Gladis Moura DO Primary Care Provider [phone] Encounter Details Date Type Department Care Team (Late st Contact Info) Description 06/05/2014 Documentation EM Family Medicine [address] [place] [address] Family Medicine, Physician [address] [place], [place] [phone] Social History Tobacco Use Types Packs/Day Years [...] on filedocumented in this encounter Care Teams Harness Racing Handicapper Relationship Specialty Start Date End Date Gladis Moura DO 150 [facility] [place] [address] PCP - General 09/23/16 05/15/22 documented as of this encounter
--- OUTSIDE RECORDS SUMMARY | 2024-06-06 10:55 | XMS_ITS | Encounter Summary ---
Author Organization [facility] Address [address] [place] [address] Phone Care Team Providers Care Microarray Operations Vice President Name Role Phone Gladis Moura DO Primary Care Provider [phone] Encounter Details Date Type Department Care Team (Late st Contact Info) Description 10/07/2013 Documentation EM Family Medicine [address] [place] [address] Family Medicine, Physician [address] [place], [place] [phone] Social History Tobacco Use Types Packs/Day Years [...] on filedocumented in this encounter Care Teams Microarray Operations Vice President Relationship Specialty Start Date End Date Gladis Moura DO 150 [facility] [place] [address] PCP - General 09/23/16 05/15/22 documented as of this encounter
--- OUTSIDE RECORDS SUMMARY | 2024-06-06 10:55 | XMS_ITS | Encounter Summary ---
Author Organization [facility] Address [address] [place] [address] Phone Care Team Providers Care Survey Project Manager Name Role Phone Gladis Moura DO Primary Care Provider [phone] Encounter Details Date Type Department Care Team (Late st Contact Info) Description 04/08/2011 Documentation EM Family Medicine [address] [place] [address] Family Medicine, Physician [address] [place], [place] [phone] Social History Tobacco Use Types Packs/Day Years [...] on filedocumented in this encounter Care Teams Survey Project Manager Relationship Specialty Start Date End Date Gladis Moura DO 150 [facility] [place] [address] PCP - General 09/23/16 05/15/22 documented as of this encounter
--- OUTSIDE RECORDS SUMMARY | 2024-06-06 10:55 | XMS_ITS | Encounter Summary ---
Author Organization [facility] Address [address] [place] [address] Phone Care Team Providers Care Marine Services Technician Name Role Phone Gladis Moura DO Primary Care Provider [phone] Encounter Details Date Type Department Care Team (Late st Contact Info) Description 03/28/2011 Documentation EM Family Medicine [address] [place] [address] Family Medicine, Physician [address] [place], [place] [phone] Social History Tobacco Use Types Packs/Day Years [...] on filedocumented in this encounter Care Teams Marine Services Technician Relationship Specialty Start Date End Date Gladis Moura DO 150 [facility] [place] [address] PCP - General 09/23/16 05/15/22 documented as of this encounter
--- OUTSIDE RECORDS SUMMARY | 2024-06-06 10:55 | XMS_ITS | Encounter Summary ---
Author Organization [facility] Address [address] [place] [address] Phone Care Team Providers Care Food And Beverage Attendant Name Role Phone Gladis Moura DO Primary Care Provider [phone] Encounter Details Date Type Department Care Team (Late st Contact Info) Description 01/03/2013 Documentation EM Family Medicine [address] [place] [address] Family Medicine, Physician [address] [place], [place] [phone] Social History Tobacco Use Types Packs/Day Years [...] on filedocumented in this encounter Care Teams Food And Beverage Attendant Relationship Specialty Start Date End Date Gladis Moura DO 150 [facility] [place] [address] PCP - General 09/23/16 05/15/22 documented as of this encounter
--- OUTSIDE RECORDS SUMMARY | 2024-06-06 10:55 | XMS_ITS | Encounter Summary ---
Author Organization [facility] Address [address] [place] [address] Phone Care Team Providers Care Spring Upholsterer Name Role Phone Gladis Moura DO Primary Care Provider [phone] Encounter Details Date Type Department Care Team (Late st Contact Info) Description 08/30/2013 Documentation EM Family Medicine [address] [place] [address] Family Medicine, Physician [address] [place], [place] [phone] Social History Tobacco Use Types Packs/Day Years [...] on filedocumented in this encounter Care Teams Spring Upholsterer Relationship Specialty Start Date End Date Gladis Moura DO 150 [facility] [place] [address] PCP - General 09/23/16 05/15/22 documented as of this encounter
--- OUTSIDE RECORDS SUMMARY | 2024-06-06 10:55 | XMS_ITS | Encounter Summary ---
Author Organization [facility] Address [address] [place] [address] Phone Care Team Providers Care Team Truck Driver Name Role Phone Gladis Moura DO Primary Care Provider [phone] Encounter Details Date Type Department Care Team (Late st Contact Info) Description 07/02/2013 Documentation EM Family Medicine [address] [place] [address] Family Medicine, Physician [address] [place], [place] [phone] Social History Tobacco Use Types Packs/Day Years [...] on filedocumented in this encounter Care Teams Team Truck Driver Relationship Specialty Start Date End Date Gladis Moura DO 150 [facility] [place] [address] PCP - General 09/23/16 05/15/22 documented as of this encounter
--- OUTSIDE RECORDS SUMMARY | 2024-06-06 10:55 | XMS_ITS | Encounter Summary ---
Author Organization [facility] Address [address] [place] [address] Phone Care Team Providers Care Bowling Floor Desk Clerk Name Role Phone Gladis Moura DO Primary Care Provider [phone] Encounter Details Date Type Department Care Team (Late st Contact Info) Description 10/31/2011 Documentation [facility] [address] [place] [address] Family Medicine, Physician [address] [place], [place] [phone] Social History Tobacco Use Types Packs/Day Years [...] on filedocumented in this encounter Care Teams Bowling Floor Desk Clerk Relationship Specialty Start Date End Date Gladis Moura DO 150 [facility] [place] [address] PCP - General 09/23/16 05/15/22 documented as of this encounter
--- OUTSIDE RECORDS SUMMARY | 2024-06-06 10:55 | XMS_ITS | Encounter Summary ---
Author Organization [facility] Address [address] [place] [address] Phone Care Team Providers Care Microfilm Operator Name Role Phone Gladis Moura DO Primary Care Provider [phone] Encounter Details Date Type Department Care Team (Late st Contact Info) Description 08/20/2010 Documentation EM Family Medicine [address] [place] [address] Family Medicine, Physician [address] [place] [address] Social History Tobacco Use Types [...] on filedocumented in this encounter Care Teams Microfilm Operator Relationship Specialty Start Date End Date Gladis Moura DO 150 [facility] [place] [address] PCP - General 09/23/16 05/15/22 documented as of this encounter
--- OUTSIDE RECORDS SUMMARY | 2024-06-06 10:55 | XMS_ITS | Clinical Summary ---
Author Organization [facility] Address [address] [place] [address] Phone Care Team Providers Care Jig Filler Name Role Phone Unavailable Primary Care Provider [...] of *Thrombophilia, No family history of *Sudden /PR under 55, Family history of Lymphoma, No [...]
--- OUTSIDE RECORDS SUMMARY | 2024-06-06 10:55 | XMS_ITS | Encounter Summary ---
Author Organization [facility] Address [address] [place] [address] Phone Care Team Providers Care Software Support Specialist Name Role Phone Gladis Moura DO Primary Care Provider [phone] Encounter Details Date Type Department Care Team (Late st Contact Info) Description 03/28/2013 Documentation EM Family Medicine [address] [place] [address] Family Medicine, Physician [address] [place], [place] [phone] Social History Tobacco Use Types Packs/Day Years [...] on filedocumented in this encounter Care Teams Software Support Specialist Relationship Specialty Start Date End Date Gladis Moura DO 150 [facility] [place] [place] [address] PCP - General 09/23/16 05/15/22 documented as of this encounter
--- OUTSIDE RECORDS SUMMARY | 2024-06-06 10:55 | XMS_ITS | Encounter Summary ---
Author Organization [facility] Address [address] [place] [address] Phone Care Team Providers Care Senior Production Planner Name Role Phone Gladis Moura DO Primary Care Provider [phone] Encounter Details Date Type Department Care Team (Late st Contact Info) Description 02/23/2016 Documentation [facility] [place] [address] [place] [address] Family Medicine, Physician [address] [place], [place] [phone] Social History Tobacco Use Types Packs/Day Years [...] filedocumented in this encounter Care Teams Senior Production Planner Relationship Specialty Start Date End Date Gladis Moura DO 150 [facility] [place] [address] PCP - General 09/23/16 05/15/22 documented as of this encounter
--- OUTSIDE RECORDS SUMMARY | 2024-06-06 10:55 | XMS_ITS | Encounter Summary ---
Author Organization [facility] Address [address] [place] [address] Phone Care Team Providers Care Line Mover Name Role Phone Gladis Moura DO Primary Care Provider [phone] Encounter Details Date Type Department Care Team (Late st Contact Info) Description 07/14/2016 Documentation [facility] [place] Medicine [address] [place] [address] Family Medicine, Physician [address] [place], [place] [phone] Social History Tobacco Use Types Packs/Day Years [...] on filedocumented in this encounter Care Teams Line Mover Relationship Specialty Start Date End Date Gladis Moura DO 150 [facility] [place] [address] PCP - General 09/23/16 05/15/22 documented as of this encounter
--- OUTSIDE RECORDS SUMMARY | 2024-06-06 10:55 | XMS_ITS | Encounter Summary ---
Author Organization [facility] Address [address] [place] [address] Phone Care Team Providers Care Security Test Engineer Name Role Phone Gladis Moura DO Primary Care Provider [phone] Encounter Details Date Type Department Care Team (Late st Contact Info) Description 03/17/2011 Documentation EM Family Medicine [address] [place] [address] Family Medicine, Physician [address] [place], [place] [phone] Social History Tobacco Use Types Packs/Day Years [...] on filedocumented in this encounter Care Teams Security Test Engineer Relationship Specialty Start Date End Date Gladis Moura DO 150 [facility] [place] [address] PCP - General 09/23/16 05/15/22 documented as of this encounter
--- OUTSIDE RECORDS SUMMARY | 2024-06-06 10:55 | XMS_ITS | Encounter Summary ---
Author Organization [facility] Address [address] [place] [address] Phone Care Team Providers Care Blankbook Stitching Machine Operator Name Role Phone Gladis Moura DO Primary Care Provider [phone] Encounter Details Date Type Department Care Team (Late st Contact Info) Description 05/25/2011 Documentation EM Family Medicine [address] [place] [address] Family Medicine, Physician [address] [place] [address] Social History Tobacco Use Types [...] on filedocumented in this encounter Care Teams Blankbook Stitching Machine Operator Relationship Specialty Start Date End Date Gladis Moura DO 150 [facility] [place] [address] PCP - General 09/23/16 05/15/22 documented as of this encounter
--- OUTSIDE RECORDS SUMMARY | 2024-06-06 10:55 | XMS_ITS | Encounter Summary ---
Author Organization [facility] Address [address] [place] [address] Phone Care Team Providers Care Solution Specialist Name Role Phone Gladis Moura DO Primary Care Provider [phone] Encounter Details Date Type Department Care Team (Late st Contact Info) Description 01/10/2011 Documentation EM Family Medicine [address] [place] [address] Family Medicine, Physician [address] [place], [place] [phone] Social History Tobacco Use Types Packs/Day Years [...] on filedocumented in this encounter Care Teams Solution Specialist Relationship Specialty Start Date End Date Gladis Moura DO 150 [place] [address] PCP - General 09/23/16 05/15/22 documented as of this encounter
--- OUTSIDE RECORDS SUMMARY | 2024-06-06 10:55 | XMS_ITS | Encounter Summary ---
Author Organization [facility] Address [address] [place] [address] Phone Care Team Providers Care Tire Bagger Name Role Phone Gladis Moura DO Primary Care Provider [phone] Encounter Details Date Type Department Care Team (Late st Contact Info) Description 03/17/2011 Documentation EM Family Medicine [address] [place] [address] Family Medicine, Physician [address] [place], [place] [phone] Social History Tobacco Use Types Packs/Day Years [...] on filedocumented in this encounter Care Teams Tire Bagger Relationship Specialty Start Date End Date Gladis Moura DO 150 [facility] [address] PCP - General 09/23/16 05/15/22 documented as of this encounter
--- OUTSIDE RECORDS SUMMARY | 2024-06-06 10:55 | XMS_ITS | Encounter Summary ---
Author Organization [facility] Address [address] [place] [address] Phone Care Team Providers Care Osteopathic Resident Name Role Phone Gladis Moura DO Primary Care Provider [phone] Encounter Details Date Type Department Care Team (Late st Contact Info) Description 08/20/2013 Documentation EM Family Medicine [address] [place] [address] Family Medicine, Physician [address] [place], [place] [phone] Social History Tobacco Use Types Packs/Day Years [...] on filedocumented in this encounter Care Teams Osteopathic Resident Relationship Specialty Start Date End Date Gladis Moura DO 150 [facility] [place] [address] PCP - General 09/23/16 05/15/22 documented as of this encounter
--- OUTSIDE RECORDS SUMMARY | 2024-06-06 10:55 | XMS_ITS | Encounter Summary ---
Author Organization [facility] Address [address] [place] [address] Phone Care Team Providers Care Alining Inspector Name Role Phone Gladis Moura DO Primary Care Provider [phone] Encounter Details Date Type Department Care Team (Late st Contact Info) Description 06/20/2013 Documentation EM Family Medicine [address] [place] [address] Family Medicine, Physician [address] [place], [place] [phone] Social History Tobacco Use Types Packs/Day Years [...] on filedocumented in this encounter Care Teams Alining Inspector Relationship Specialty Start Date End Date Gladis Moura DO 150 [facility] [place] [address] PCP - General 09/23/16 05/15/22 documented as of this encounter
--- OUTSIDE RECORDS SUMMARY | 2024-06-06 10:55 | XMS_ITS | Encounter Summary ---
Author Organization [facility] Address [address] [place] [address] Phone Care Team Providers Care Search Lead Name Role Phone Gladis Moura DO Primary Care Provider [phone] Encounter Details Date Type Department Care Team (Late st Contact Info) Description 01/04/2011 Documentation EM Family Medicine [address] [place] [address] Family Medicine, Physician [address] [place], [place] [phone] Social History Tobacco Use Types Packs/Day Years [...] on filedocumented in this encounter Care Teams Search Lead Relationship Specialty Start Date End Date Gladis Moura DO 150 [place] [address] PCP - General 09/23/16 05/15/22 documented as of this encounter
== END ==
LOC: HO.CARD 09:47
PROVIDERS: PCP Physician Assistant; Visit Provider Internal Medicine Cardiovascular Disease
DX: I42.9 Cardiomyopathy, unspecified (principal)
CPT/HCPCS: 93306; Q9957

== ENCOUNTER → 2024-06-06 09:49 | Outpatient (BNV) | payer OTHER, SELFPAY | PROVIDERS: PCP Physician Assistant; Visit Provider Internal Medicine | DX: I34.0 Nonrheumatic mitral (valve) insufficiency (principal); I36.1 Nonrheumatic tricuspid (valve) insufficiency | CPT/HCPCS: 93306 ==

== ENCOUNTER 2024-07-04 09:48 | Outpatient (REF) | payer OTHER, SELFPAY ==
--- OUTSIDE RECORDS SUMMARY | 2024-07-04 10:10 | XMS_ITS | Encounter Summary ---
Author Organization [facility] Address [address] [place] [address] Phone Care Team Providers Care Cone Chocolate Dipper Name Role Phone Gladis Moura DO Primary Care Provider [phone] Encounter Details Date Type Department Care Team (Late st Contact Info) Description 10/31/2011 Documentation [facility] [place] [address] [place] [address] Family Medicine, Physician [address] [place], [place] [phone] Social History Tobacco Use Types Packs/Day Years [...] on filedocumented in this encounter Care Teams Cone Chocolate Dipper Relationship Specialty Start Date End Date Gladis Moura DO 150 [facility] [place] [address] PCP - General 09/23/16 05/15/22 documented as of this encounter
--- OUTSIDE RECORDS SUMMARY | 2024-07-04 10:10 | XMS_ITS | Encounter Summary ---
Author Organization [facility] Address [address] [place] [address] Phone Care Team Providers Care Strategic Procurement Manager Name Role Phone Gladis Moura DO Primary Care Provider [phone] Encounter Details Date Type Department Care Team (Late st Contact Info) Description 06/05/2014 Documentation EM Family Medicine [address] [place] [address] Family Medicine, Physician [address] [place], [place] [phone] Social History Tobacco Use Types Packs/Day Years [...] on filedocumented in this encounter Care Teams Strategic Procurement Manager Relationship Specialty Start Date End Date Gladis Moura DO 150 [facility] [place] [address] PCP - General 09/23/16 05/15/22 documented as of this encounter
--- OUTSIDE RECORDS SUMMARY | 2024-07-04 10:10 | XMS_ITS | Encounter Summary ---
Author Organization [facility] Address [address] [place] [address] Phone Care Team Providers Care Rampman Name Role Phone Gladis Moura DO Primary Care Provider [phone] Encounter Details Date Type Department Care Team (Late st Contact Info) Description 03/17/2011 Documentation EM Family Medicine [address] [place] [address] Family Medicine, Physician [address] [place], [place] [phone] Social History Tobacco Use Types Packs/Day Years [...] on filedocumented in this encounter Care Teams Rampman Relationship Specialty Start Date End Date Gladis Moura DO 150 [facility] [place] [address] PCP - General 09/23/16 05/15/22 documented as of this encounter
--- OUTSIDE RECORDS SUMMARY | 2024-07-04 10:10 | XMS_ITS | Encounter Summary ---
Author Organization [facility] Address [address] [place] [address] Phone Care Team Providers Care Head Worker Name Role Phone Gladis Moura DO Primary Care Provider [phone] Encounter Details Date Type Department Care Team (Late st Contact Info) Description 05/25/2011 Documentation EM Family Medicine [address] [place] [address] Family Medicine, Physician [address] [place] [address] Social History Tobacco Use Types [...] on filedocumented in this encounter Care Teams Head Worker Relationship Specialty Start Date End Date Gladis Moura DO 150 [facility] [place] [address] PCP - General 09/23/16 05/15/22 documented as of this encounter
--- OUTSIDE RECORDS SUMMARY | 2024-07-04 10:10 | XMS_ITS | Encounter Summary ---
Author Organization [facility] Address [address] [place] [address] Phone Care Team Providers Care Founder And Ceo Name Role Phone Gladis Moura DO Primary Care Provider [phone] Encounter Details Date Type Department Care Team (Late st Contact Info) Description 08/30/2013 Documentation EM Family Medicine [address] [place] [address] Family Medicine, Physician [address] [place], [place] [phone] Social History Tobacco Use Types Packs/Day Years [...] on filedocumented in this encounter Care Teams Founder And Ceo Relationship Specialty Start Date End Date Gladis Moura DO 150 [facility] [place] [address] PCP - General 09/23/16 05/15/22 documented as of this encounter
--- OUTSIDE RECORDS SUMMARY | 2024-07-04 10:10 | XMS_ITS | Encounter Summary ---
Author Organization [facility] Address [address] [place] [address] Phone Care Team Providers Care Therapy Site Coordinator Name Role Phone Gladis Moura DO Primary Care Provider [phone] Encounter Details Date Type Department Care Team (Late st Contact Info) Description 09/29/2016 Conversion Encounter [facility] [place] 150 [place] [address] Social History Tobacco Use Types Packs/Day Years [...] on filedocumented in this encounter Care Teams Therapy Site Coordinator Relationship Specialty Start Date End Date Gladis Moura DO 150 [place] [address] PCP - General 09/23/16 05/15/22 documented as of this encounter
--- OUTSIDE RECORDS SUMMARY | 2024-07-04 10:10 | XMS_ITS | Encounter Summary ---
Author Organization [facility] Address [address] [place] [address] Phone Care Team Providers Care Body Designer Name Role Phone Gladis Moura DO Primary Care Provider [phone] Encounter Details Date Type Department Care Team (Late st Contact Info) Description 02/22/2010 Documentation EM Family Medicine [address] [place] [address] Family Medicine, Physician [address] [place] [address] Social History Tobacco Use Types [...] Date End Date Gladis Moura DO 150 [place] [address] PCP - General 09/23/16 05/15/22 documented as of this encounter
--- OUTSIDE RECORDS SUMMARY | 2024-07-04 10:10 | XMS_ITS | Encounter Summary ---
Author Organization [facility] Address [address] [place] [address] Phone Care Team Providers Care Lens Polisher Hand Name Role Phone Gladis Moura DO Primary Care Provider [phone] Encounter Details Date Type Department Care Team (Late st Contact Info) Description 02/23/2016 Documentation [facility] [place] Family Medicine [address] [place] [address] Family Medicine, Physician [address] [place], [place] [phone] Social History Tobacco Use Types Packs/Day Years [...] on filedocumented in this encounter Care Teams Lens Polisher Hand Relationship Specialty Start Date End Date Gladis Moura DO 150 [facility] [place] [address] PCP - General 09/23/16 05/15/22 documented as of this encounter
--- OUTSIDE RECORDS SUMMARY | 2024-07-04 10:10 | XMS_ITS | Encounter Summary ---
Author Organization [facility] Address [address] [place] [address] Phone Care Team Providers Care Med Care Manager Name Role Phone Gladis Moura DO Primary Care Provider [phone] Encounter Details Date Type Department Care Team (Late st Contact Info) Description 07/02/2013 Documentation EM Family Medicine [address] [place] [address] Family Medicine, Physician [address] [place], [place] [phone] Social History Tobacco Use Types Packs/Day Years [...] on filedocumented in this encounter Care Teams Med Care Manager Relationship Specialty Start Date End Date Gladis Moura DO 150 [facility] [place] [address] PCP - General 09/23/16 05/15/22 documented as of this encounter
--- OUTSIDE RECORDS SUMMARY | 2024-07-04 10:10 | XMS_ITS | Encounter Summary ---
Author Organization [facility] Address [address] [place] [address] Phone Care Team Providers Care Dispatcher Bus And Trolley Name Role Phone Gladis Moura DO Primary Care Provider [phone] Encounter Details Date Type Department Care Team (Late st Contact Info) Description 08/20/2010 Documentation EM Family Medicine [address] [place] [address] Family Medicine, Physician [address] [place] [address] Social History Tobacco Use Types [...] on filedocumented in this encounter Care Teams Dispatcher Bus And Trolley Relationship Specialty Start Date End Date Gladis Moura DO 150 [facility] [place] [address] PCP - General 09/23/16 05/15/22 documented as of this encounter
--- OUTSIDE RECORDS SUMMARY | 2024-07-04 10:10 | XMS_ITS | Encounter Summary ---
Author Organization [facility] Address [address] [place] [address] Phone Care Team Providers Care Foundry Worker General Name Role Phone Gladis Moura DO Primary Care Provider [phone] Encounter Details Date Type Department Care Team (Late st Contact Info) Description 04/08/2011 Documentation EM Family Medicine [address] [place] [address] Family Medicine, Physician [address] [place], [place] [phone] Social History Tobacco Use Types Packs/Day Years [...] on filedocumented in this encounter Care Teams Foundry Worker General Relationship Specialty Start Date End Date Gladis Moura DO 150 [facility] [place] [address] PCP - General 09/23/16 05/15/22 documented as of this encounter
--- OUTSIDE RECORDS SUMMARY | 2024-07-04 10:10 | XMS_ITS | Encounter Summary ---
Author Organization [facility] Address [address] [place] [address] Phone Care Team Providers Care General Ophthalmologist Name Role Phone Gladis Moura DO Primary Care Provider [phone] Encounter Details Date Type Department Care Team (Late st Contact Info) Description 01/04/2011 Documentation EM Family Medicine [address] [place] [address] Family Medicine, Physician [address] [place] [address] Social History Tobacco Use Types [...] on filedocumented in this encounter Care Teams General Ophthalmologist Relationship Specialty Start Date End Date Gladis Moura DO 150 [facility] [place] [facility] [place] [address] PCP - General 09/23/16 05/15/22 documented as of this encounter
--- OUTSIDE RECORDS SUMMARY | 2024-07-04 10:10 | XMS_ITS | Encounter Summary ---
Author Organization [facility] Address [address] [place] [address] Phone Care Team Providers Care Magnetic Prospecting Supervisor Name Role Phone Gladis Moura DO Primary Care Provider [phone] Encounter Details Date Type Department Care Team (Late st Contact Info) Description 10/07/2013 Documentation EM Family Medicine [address] [place] [address] Family Medicine, Physician [address] [place], [place] [phone] Social History Tobacco Use Types Packs/Day Years [...] on filedocumented in this encounter Care Teams Magnetic Prospecting Supervisor Relationship Specialty Start Date End Date Gladis Moura DO 150 [facility] [place] [address] PCP - General 09/23/16 05/15/22 documented as of this encounter
--- OUTSIDE RECORDS SUMMARY | 2024-07-04 10:10 | XMS_ITS | Clinical Summary ---
Author Organization [facility] Address [address] [place] [address] Phone Care Team Providers Care Plugger Man Name Role Phone Unavailable Primary Care Provider [...] of *Thrombophilia, No family history of *Sudden /[place] under 55, Family history of Lymphoma, No [...]
--- OUTSIDE RECORDS SUMMARY | 2024-07-04 10:10 | XMS_ITS | Encounter Summary ---
Author Organization [facility] Address [address] [place] [address] Phone Care Team Providers Care Scalder Name Role Phone Gladis Moura DO Primary Care Provider [phone] Encounter Details Date Type Department Care Team (Late st Contact Info) Description 01/10/2011 Documentation EM Family Medicine [address] [place] [address] Family Medicine, Physician [address] [place], [place] [phone] Social History Tobacco Use Types Packs/Day Years [...] on filedocumented in this encounter Care Teams Scalder Relationship Specialty Start Date End Date Gladis Moura DO 150 [facility] [place] [address] PCP - General 09/23/16 05/15/22 documented as of this encounter
--- OUTSIDE RECORDS SUMMARY | 2024-07-04 10:10 | XMS_ITS | Encounter Summary ---
Author Organization [facility] Address [address] [place] [address] Phone Care Team Providers Care Actuarial Clerk Name Role Phone Gladis Moura DO Primary Care Provider [phone] Encounter Details Date Type Department Care Team (Late st Contact Info) Description 01/03/2013 Documentation EM Family Medicine [address] [place] [address] Family Medicine, Physician [address] [place], [place] [phone] Social History Tobacco Use Types Packs/Day Years [...] on filedocumented in this encounter Care Teams Actuarial Clerk Relationship Specialty Start Date End Date Gladis Moura DO 150 [facility] [place] [address] PCP - General 09/23/16 05/15/22 documented as of this encounter
--- OUTSIDE RECORDS SUMMARY | 2024-07-04 10:10 | XMS_ITS | Encounter Summary ---
Author Organization [facility] Address [address] [place] [address] Phone Care Team Providers Care Silicator Name Role Phone Gladis Moura DO Primary Care Provider [phone] Encounter Details Date Type Department Care Team (Late st Contact Info) Description 07/14/2016 Documentation [facility] [place] [address] [place] [address] Family Medicine, Physician [address] [place], [place] [phone] Social History Tobacco Use Types Packs/Day Years [...] on filedocumented in this encounter Care Teams Silicator Relationship Specialty Start Date End Date Gladis Moura DO 150 [place] [address] PCP - General 09/23/16 05/15/22 documented as of this encounter
--- OUTSIDE RECORDS SUMMARY | 2024-07-04 10:10 | XMS_ITS | Encounter Summary ---
Author Organization [facility] Address [address] [place] [address] Phone Care Team Providers Care Stitcher Hand Name Role Phone Gladis Moura DO Primary Care Provider [phone] Encounter Details Date Type Department Care Team (Late st Contact Info) Description 08/20/2013 Documentation EM Family Medicine [address] [place] [address] Family Medicine, Physician [address] [place], [place] [phone] Social History Tobacco Use Types Packs/Day Years [...] on filedocumented in this encounter Care Teams Stitcher Hand Relationship Specialty Start Date End Date Gladis Moura DO 150 [place] [address] PCP - General 09/23/16 05/15/22 documented as of this encounter
--- OUTSIDE RECORDS SUMMARY | 2024-07-04 10:10 | XMS_ITS | Encounter Summary ---
Author Organization [facility] Address [address] [place] [address] Phone Care Team Providers Care Stock Mixer Name Role Phone Gladis Moura DO Primary Care Provider [phone] Encounter Details Date Type Department Care Team (Late st Contact Info) Description 03/28/2011 Documentation EM Family Medicine [address] [place] [address] Family Medicine, Physician [address] [place], [place] [phone] Social History Tobacco Use Types Packs/Day Years [...] on filedocumented in this encounter Care Teams Stock Mixer Relationship Specialty Start Date End Date Gladis Moura DO 150 [facility] [place] [address] PCP - General 09/23/16 05/15/22 documented as of this encounter
--- OUTSIDE RECORDS SUMMARY | 2024-07-04 10:10 | XMS_ITS | Encounter Summary ---
Author Organization [facility] Address [address] [place] [id number] Phone Care Team Providers Care Vice President Quality Name Role Phone Gladis Moura DO Primary Care Provider Encounter Details Date Type Department Care Team (Late st Contact Info) Description 06/20/2013 Documentation [facility] Family Medicine [address] [place] [address] Family Medicine, Physician [address] [place], [place] [phone] Social History Tobacco Use Types Packs/Day Years [...] on filedocumented in this encounter Care Teams Vice President Quality Relationship Specialty Start Date End Date Gladis Moura DO [address] [facility] [place] [address] PCP - General 09/23/16 05/15/22 documented as of this encounter
--- OUTSIDE RECORDS SUMMARY | 2024-07-04 10:10 | XMS_ITS | Encounter Summary ---
Author Organization [facility] Address [address] [place] [address] Phone Care Team Providers Care Drill Hand Name Role Phone Gladis Moura DO Primary Care Provider [phone] Encounter Details Date Type Department Care Team (Late st Contact Info) Description 03/17/2011 Documentation EM Family Medicine [address] [place] [address] Family Medicine, Physician [address] [place], [place] [phone] Social History Tobacco Use Types Packs/Day Years [...] on filedocumented in this encounter Care Teams Drill Hand Relationship Specialty Start Date End Date Gladis Moura DO [address] [facility] [address] PCP - General 09/23/16 05/15/22 documented as of this encounter
--- OUTSIDE RECORDS SUMMARY | 2024-07-04 10:10 | XMS_ITS | Encounter Summary ---
Author Organization [facility] Address [address] [place] [address] Phone Care Team Providers Care Production Sanitizer Name Role Phone Gladis Moura DO Primary Care Provider [phone] Encounter Details Date Type Department Care Team (Late st Contact Info) Description 03/28/2013 Documentation [facility] [address] [place] [address] Family Medicine, Physician [address] [place], [place] [phone] Social History Tobacco Use Types Packs/Day Years [...] on filedocumented in this encounter Care Teams Production Sanitizer Relationship Specialty Start Date End Date Gladis Moura DO [address] [facility] [place] [place] [address] PCP - General 09/23/16 05/15/22 documented as of this encounter
[2024-07-04 10:12] LABS: MANUAL DIFF FLAG NO
[2024-07-04 10:54] LABS: Basophils Percent Auto 0.4 % (0-2); Eosinophils Absolute Auto 0.2 X10*3/uL (0.0-0.4); Eosinophils Percent Auto 2.1 % (0-4); Hematocrit 44.9 % (37.0-47.0); Hemoglobin 15.3 g/dl (12.0-16.0); Imm Gran Abs Auto 0.03 X10*3/uL (0.00-0.03); Imm Gran Pct Auto 0.4 % (0.0-0.4); Lymphocytes Absolute Auto 1.1 X10*3/uL (1.2-4.9); Lymphocytes Percent Auto 14.4 % (20-40); Mean Corpuscular HGB Conc 34.1 g/dl (31.0-35.0); Mean Corpuscular Hemoglobin 29.6 pg (27.0-33.0); Mean Corpuscular Volume 86.8 fL (80.0-98.0); Mean Platelet Volume 14.7 fL (9.4-12.3); Monocytes Absolute Auto 0.6 X10*3/uL (0.1-1.2); Monocytes Percent Auto 7.6 % (2-11); Neutrophils Absolute Auto 5.7 x10*3/uL (2.0-8.3); Neutrophils Percent Auto 75.1 % (45-73); Platelet Count 118 X10*3/uL (160-400); Red Blood Count 5.17 X10*6/uL (4.20-5.50); Red Cell Distribution Width 12.5 % (11.0-16.0); White Blood Count 7.6 X10*3/uL (4.8-10.8)
[2024-07-04 11:04] LABS: Appearance Urine Cloudy; Color Urine Dark Yellow; Glucose Urine UA Negative (Negative); Leukocyte Esterase Urine Small (1+) (Negative); Nitrite Urine Negative (Negative); PH 5.5 (5.0-9.0); Specific Gravity - Urine >= 1.030 (1.005-1.025); UMIC TRIGGER UA YES; Urine Blood Trace (Negative); Urine Ketones Trace mg/dL (Negative); Urine Protein 100 (2+) mg/dL (Neg-Trace)
[2024-07-04 11:15] LABS: Bacteria Urine 4+ (None Seen); Hyaline Casts Urine 0-2 /LPF (0-2); RBC Urine 0-2 /HPF (0-2); Squamous Epithelial Cell Urine >20 /HPF (0-2)
[2024-07-04 11:30] LABS: Erythrocyte Sedimentation Rate 3 MM/HR (0-20)
[2024-07-04 11:36] LABS: Alanine Aminotransferase 68 U/L (0-31); Alkaline Phosphatase 61 U/L (39-117); Anion Gap 10 (12-20); Aspartate Amino Transferase 31 U/L (5-31); Blood Urea Nitrogen 13 mg/dL (9-16); C Reactive Protein 0.15 mg/dL (< or = 0.50); Carbon Dioxide 24 mmol/L (22-29); Chloride 110 mmol/L (96-108); Cholesterol 172 mg/dL (<200); Estimated Glomerular Filt Rate > 60; Glucose Fasting 79 mg/dL (60-99); Glucose Random 78 mg/dL (60-115); HDL Cholesterol 45 mg/dL (>40); LDL Cholesterol Calculated 117 mg/dL (<100); Potassium 4.3 mmol/L (3.3-5.1); Sodium 140 mmol/L (135-145); Total Protein 6.8 g/dL (6.5-8.0); Triglycerides 53 mg/dL (<150)
[2024-07-04 11:38] LABS: Creatinine Urine 353.91 mg/dL; Protein/Creatinine Ratio, Ur 0.17 (<0.2); Total Protein Urine Random 61 mg/dL (<12)
[2024-07-05 21:23] LABS: Anti DNA DS Antibody 10 IU/mL
[2024-07-05 21:38] LABS: Complement C3 126 mg/dL (83-193)
== END 2024-07-04 09:49 | disposition home or self-care (01) ==
LOC: HO.LAB 09:48
PROVIDERS: Absent Provider Student in an Organized Health Care Education/Training Program; PCP Physician Assistant; Visit Provider Physician Assistant
DX: C81.90 Hodgkin lymphoma, unspecified, unspecified site (principal); I42.9 Cardiomyopathy, unspecified; M32.9 Systemic lupus erythematosus, unspecified
CPT/HCPCS: 36415; 80053; 80061; 81001; 82570; 84156; 85025; 85652; 86140; 86160; 86225

== ENCOUNTER 2024-07-17 10:35 | Outpatient (AMB) | payer OTHER, SELFPAY ==
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
[2024-07-17 10:37] VITALS: BP 100/82; PULSE 105; O2SAT 98; BMI 28.2
--- OUTSIDE RECORDS SUMMARY | 2024-07-17 11:20 | XMS_ITS | Encounter Summary ---
Author Organization [facility] Address [address] [place] [address] Phone Care Team Providers Care Plasterer Journeyman Name Role Phone Gladis Moura DO Primary Care Provider [phone] Encounter Details Date Type Department Care Team (Late st Contact Info) Description 01/10/2011 Documentation EM Family Medicine [address] [place] [address] Family Medicine, Physician [address] [place], [place] [phone] Social History Tobacco Use Types Packs/Day Years [...] on filedocumented in this encounter Care Teams Plasterer Journeyman Relationship Specialty Start Date End Date Gladis Moura DO [address] [facility] [place] [address] PCP - General 09/23/16 05/15/22 documented as of this encounter
== END 2024-07-17 10:50 | disposition home or self-care (01) ==
LOC: HO.HPS 10:36
PROVIDERS: PCP Physician Assistant; Visit Provider Hospitalist
DX: J45.40 Moderate persistent asthma, uncomplicated (principal); R06.09 Other forms of dyspnea; M32.9 Systemic lupus erythematosus, unspecified
CPT/HCPCS: 99214

== ENCOUNTER → 2024-07-17 10:35 | Outpatient (BNVA) | payer OTHER, SELFPAY | PROVIDERS: PCP Physician Assistant; Visit Provider Hospitalist | DX: J45.40 Moderate persistent asthma, uncomplicated (principal); R06.09 Other forms of dyspnea; M32.9 Systemic lupus erythematosus, unspecified; Z86.711 Personal history of pulmonary embolism | CPT/HCPCS: 99212 ==

== ENCOUNTER 2024-07-22 09:47 | Outpatient (AMB) | payer OTHER, SELFPAY ==
[2024-07-22 10:04] VITALS: BP 110/64; PULSE 102; O2SAT 98; BMI 28.5
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
--- OUTSIDE RECORDS SUMMARY | 2024-07-22 10:31 | XMS_ITS | Encounter Summary ---
Author Organization [facility] Address [address] [place] [id number] Phone Care Team Providers Care Employee Benefits Specialist Name Role Phone Gladis Moura DO Primary Care Provider [phone] Encounter Details Date Type Department Care Team (Late st Contact Info) Description 01/10/2011 Documentation EM Family Medicine [address] [place] [address] Family Medicine, Physician [address] [place], [place] [phone] Social History Tobacco Use Types Packs/Day Years [...] on filedocumented in this encounter Care Teams Employee Benefits Specialist Relationship Specialty Start Date End Date Gladis Moura DO [address] [facility] [place] [address] PCP - General 09/23/16 05/15/22 documented as of this encounter
== END 2024-07-22 11:52 | disposition home or self-care (01) ==
LOC: HO.HSMS 09:48
PROVIDERS: PCP Physician Assistant; Visit Provider Nurse Practitioner Family
DX: R51.9 Headache, unspecified (principal); R06.83 Snoring; G47.19 Other hypersomnia; G43.909 Migraine, unspecified, not intractable, without status migrainosus
CPT/HCPCS: 99204

== ENCOUNTER → 2024-07-22 09:47 | Outpatient (BNVA) | payer OTHER, SELFPAY | PROVIDERS: PCP Physician Assistant; Visit Provider Nurse Practitioner Family | DX: G43.109 Migraine with aura, not intractable, without status migrainosus (principal); R06.83 Snoring; G47.19 Other hypersomnia; Z85.71 Personal history of Hodgkin lymphoma | CPT/HCPCS: 99202 ==

== ENCOUNTER 2024-07-25 14:27 | Outpatient (AMB) | payer OTHER, SELFPAY ==
[2024-07-25 14:29] VITALS: BP 112/70; PULSE 90; O2SAT 99; BMI 28.7
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
--- OUTSIDE RECORDS SUMMARY | 2024-07-25 17:02 | XMS_ITS | Encounter Summary ---
Author Organization [facility] Address [address] [place] [address] Phone Care Team Providers Care Drywall Carrier Name Role Phone Gladis Moura DO Primary Care Provider [phone] Encounter Details Date Type Department Care Team (Late st Contact Info) Description 01/10/2011 Documentation EM Family Medicine [address] [place] [address] Family Medicine, Physician [address] [place], [place] [phone] Social History Tobacco Use Types Packs/Day Years [...] on filedocumented in this encounter Care Teams Drywall Carrier Relationship Specialty Start Date End Date Gladis Moura DO [address] [place] [address] PCP - General 09/23/16 05/15/22 documented as of this encounter
== END 2024-07-25 14:56 | disposition home or self-care (01) ==
LOC: HO.RHE 14:28
PROVIDERS: PCP Physician Assistant; Visit Provider Student in an Organized Health Care Education/Training Program
DX: M32.9 Systemic lupus erythematosus, unspecified (principal); Z51.81 Encounter for therapeutic drug level monitoring; Z79.899 Other long term (current) drug therapy; Z79.620 Long term (current) use of immunosuppressive biologic
CPT/HCPCS: 99213; G2211

== ENCOUNTER → 2024-07-25 14:27 | Outpatient (BNVA) | payer OTHER, SELFPAY | PROVIDERS: PCP Physician Assistant; Visit Provider Student in an Organized Health Care Education/Training Program | DX: D69.3 Immune thrombocytopenic purpura (principal); Z51.81 Encounter for therapeutic drug level monitoring; Z79.899 Other long term (current) drug therapy; Z79.620 Long term (current) use of immunosuppressive biologic; M32.19 Other organ or system involvement in systemic lupus erythematosus | CPT/HCPCS: 99212 ==

== ENCOUNTER → 2024-08-09 08:52 | Outpatient (BNV) | payer OTHER, SELFPAY | PROVIDERS: PCP Physician Assistant; Visit Provider Radiology Diagnostic Radiology | DX: G44.52 New daily persistent headache (NDPH) (principal) | CPT/HCPCS: 70553 ==

== ENCOUNTER 2024-08-09 08:58 | Outpatient (REF) | payer OTHER, SELFPAY ==
--- NOTE | ~2024-08-09 | MR_ITS ---
EXAMINATION: MR BRAIN WITHOUT AND WITH CONTRAST CLINICAL INFORMATION: Headache, unspecified. COMPARISON: No prior MRI available. Correlation made with CT head dated 12/05/2019. TECHNIQUE: Multiplanar, multisequence MRI of the brain was obtained before and after the intravenous administration of 6.5 mL Gadavist. Examination performed on a 1.5 Hina Siemens high-field unit. FINDINGS: There is no diffusion restriction. There is no intracranial hemorrhage, acute infarction, mass effect, or edema. Ventricles, sulci, and cisterns are normal in size and configuration for patient age. No shift of midline. No abnormal hemosiderin deposition is identified. There are no significant white matter signal abnormalities. There is no abnormal intra or extra-axial contrast enhancement. Midline structures appear normally formed. The pituitary gland appears normal. Posterior fossa structures appear normal. Cerebellar tonsils are appropriately located. Major flow voids are preserved within the skull base. The globes and orbital contents demonstrate no abnormalities. Mild mucosal thickening in the dependent maxillary antra, and ethmoid sinuses. No air-fluid levels. Paranasal sinuses are otherwise clear bilaterally. The mastoids and tympanic cavities are normally aerated. Extracranial soft tissues demonstrate no abnormalities. No suspicious bone marrow changes are evident. Atlantoaxial joint is normal. MR/MR head/brain wo/w con IMPRESSION: 1. No evidence of intracranial hemorrhage, acute infarction, mass effect, or edema. No abnormal contrast enhancement. 2. No significant white matter abnormalities. 3. Mild paranasal sinus disease. Electronically signed by: Emigdio Carr MD 08/09/2024 10:06 AM EDT
--- OUTSIDE RECORDS SUMMARY | 2024-08-09 09:14 | XMS_ITS | Encounter Summary ---
Author Organization [facility] Address [address] [place] [address] Phone Care Team Providers Care Copyist Name Role Phone Gladis Moura DO Primary Care Provider [phone] Encounter Details Date Type Department Care Team (Late st Contact Info) Description 01/10/2011 Documentation EM Family Medicine [address] [place] [address] Family Medicine, Physician [address] [place], [place] [phone] Social History Tobacco Use Types Packs/Day Years [...] on filedocumented in this encounter Care Teams Copyist Relationship Specialty Start Date End Date Gladis Moura DO [address] [facility] [place] [address] PCP - General 09/23/16 05/15/22 documented as of this encounter
[2024-08-09] MEDS: gadobutroL 7.5 ML VIAL IVPUSH (09:56)
== END 2024-08-09 08:59 | disposition home or self-care (01) ==
LOC: HO.MRI 08:58
PROVIDERS: PCP Physician Assistant; Visit Provider Nurse Practitioner Family
DX: R51.9 Headache, unspecified (principal); M32.9 Systemic lupus erythematosus, unspecified; C81.90 Hodgkin lymphoma, unspecified, unspecified site; D46.9 Myelodysplastic syndrome, unspecified
CPT/HCPCS: 70553; A9585

== ENCOUNTER 2024-11-14 10:51 | Outpatient (AMB) | payer OTHER, SELFPAY ==
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
[2024-11-14 11:16] VITALS: BP 120/80; PULSE 80; TEMP 36.3; O2SAT 98; BMI 28.4
--- OUTSIDE RECORDS SUMMARY | 2024-11-14 12:46 | XMS_ITS | Encounter Summary ---
Author Organization [facility] Address [address] [place] [address] Phone Care Team Providers Care Software Administrator Name Role Phone Gladis Moura DO Primary Care Provider [phone] Encounter Details Date Type Department Care Team (Late st Contact Info) Description 03/17/2011 Documentation EM Family Medicine [address] [place] [address] Family Medicine, Physician [address] [place], [place] [phone] Social History Tobacco Use Types Packs/Day Years [...] filedocumented in this encounter Care Teams Software Administrator Relationship Specialty Start Date End Date Gladis Moura DO 150 [facility] [place] [address] PCP - General 09/23/16 05/15/22 documented as of this encounter
--- OUTSIDE RECORDS SUMMARY | 2024-11-14 12:46 | XMS_ITS | Encounter Summary ---
Author Organization [facility] Address [address] [place] [address] Phone Care Team Providers Care Sr. Unix System Administrator Name Role Phone Gladis Muora DO Primary Care Provider [phone] Encounter Details Date Type Department Care Team (Late st Contact Info) Description 09/29/2016 Conversion Encounter [facility] [address] [place] [address] Social History Tobacco Use Types Packs/Day Years [...] on filedocumented in this encounter Care Teams Sr. Unix System Administrator Relationship Specialty Start Date End Date Gladis Moura DO [address] [place] [address] PCP - General 09/23/16 05/15/22 documented as of this encounter
--- OUTSIDE RECORDS SUMMARY | 2024-11-14 12:46 | XMS_ITS | Encounter Summary ---
Author Organization [facility] Address [address] [place] [address] Phone Care Team Providers Care Lepidopterist Name Role Phone Gladis Moura DO Primary Care Provider [phone] Encounter Details Date Type Department Care Team (Late st Contact Info) Description 07/02/2013 Documentation EM Family Medicine [address] [place] [address] Family Medicine, Physician [address] [place], [place] [phone] Social History Tobacco Use Types Packs/Day Years [...] on filedocumented in this encounter Care Teams Lepidopterist Relationship Specialty Start Date End Date Gladis Moura DO 150 [facility] [place] [address] PCP - General 09/23/16 05/15/22 documented as of this encounter
--- OUTSIDE RECORDS SUMMARY | 2024-11-14 12:46 | XMS_ITS | Encounter Summary ---
Author Organization [facility] Address [address] [place] [address] Phone Care Team Providers Care Gas Appliance Repairer Name Role Phone Gladis Moura DO Primary Care Provider Encounter Details Date Type Department Care Team (Late st Contact Info) Description 02/22/2010 Documentation EM Family Medicine [address] [place] [address] Family Medicine, Physician [address] [place] [address] Social History Tobacco Use Types [...] on filedocumented in this encounter Care Teams Gas Appliance Repairer Relationship Specialty Start Date End Date Gladis Moura DO 150 [facility] [place] [address] PCP - General 09/23/16 05/15/22 documented as of this encounter
--- OUTSIDE RECORDS SUMMARY | 2024-11-14 12:46 | XMS_ITS | Encounter Summary ---
Author Organization [facility] Address [address] [place] [address] Phone Care Team Providers Care Physical Metallurgist Name Role Phone Gladis Moura DO Primary Care Provider [phone] Encounter Details Date Type Department Care Team (Late st Contact Info) Description 03/17/2011 Documentation EM Family Medicine [address] [place] [address] Family Medicine, Physician [address] [place], [place] [phone] Social History Tobacco Use Types Packs/Day Years [...] on filedocumented in this encounter Care Teams Physical Metallurgist Relationship Specialty Start Date End Date Gladis Moura DO [address] [facility] [place] [address] PCP - General 09/23/16 05/15/22 documented as of this encounter
--- OUTSIDE RECORDS SUMMARY | 2024-11-14 12:46 | XMS_ITS | Encounter Summary ---
Author Organization [facility] Address [address] [place] [address] Phone Care Team Providers Care Rotary Shear Cutter Name Role Phone Gladis Moura DO Primary Care Provider [phone] Encounter Details Date Type Department Care Team (Late st Contact Info) Description 02/23/2016 Documentation [facility] [place] Family Medicine [address] [place] [address] Family Medicine, Physician [address] [place], [place] [phone] Social History Tobacco Use Types Packs/Day Years [...] on filedocumented in this encounter Care Teams Rotary Shear Cutter Relationship Specialty Start Date End Date Gladis Moura DO 150 [facility] [place] [address] PCP - General 09/23/16 05/15/22 documented as of this encounter
--- OUTSIDE RECORDS SUMMARY | 2024-11-14 12:46 | XMS_ITS | Encounter Summary ---
Author Organization [facility] Address [address] [place] [address] Phone Care Team Providers Care Account General Manager Name Role Phone Gladis Moura DO Primary Care Provider Encounter Details Date Type Department Care Team (Late st Contact Info) Description 01/03/2013 Documentation EM Family Medicine [address] [place] [address] Family Medicine, Physician [address] [place], [place] [phone] Social History Tobacco Use Types Packs/Day Years [...] on filedocumented in this encounter Care Teams Account General Manager Relationship Specialty Start Date End Date Gladis Moura DO 150 [facility] [place] [address] PCP - General 09/23/16 05/15/22 documented as of this encounter
--- OUTSIDE RECORDS SUMMARY | 2024-11-14 12:46 | XMS_ITS | Encounter Summary ---
Author Organization [facility] Address [address] [place] [address] Phone Care Team Providers Care Coding Validator Name Role Phone Glaids Moura DO Primary Care Provider [phone] Encounter Details Date Type Department Care Team (Late st Contact Info) Description 10/31/2011 Documentation [facility] [place] [address] [place] [address] Family Medicine, Physician [address] [place], [place] [phone] Social History Tobacco Use Types Packs/Day Years [...] filedocumented in this encounter Care Teams Coding Validator Relationship Specialty Start Date End Date Gladis Moura DO 150 [place] [address] PCP - General 09/23/16 05/15/22 documented as of this encounter
--- OUTSIDE RECORDS SUMMARY | 2024-11-14 12:46 | XMS_ITS | Encounter Summary ---
Author Organization [facility] Address [address] [place] [address] Phone Care Team Providers Care Glassware Finisher Name Role Phone Gladis Moura DO Primary Care Provider [phone] Encounter Details Date Type Department Care Team (Late st Contact Info) Description 05/25/2011 Documentation EM Family Medicine [address] [place] [address] Family Medicine, Physician [address] [place] [address] Social History Tobacco Use Types [...] on filedocumented in this encounter Care Teams Glassware Finisher Relationship Specialty Start Date End Date Gladis Moura DO 150 [place] [address] PCP - General 09/23/16 05/15/22 documented as of this encounter
--- OUTSIDE RECORDS SUMMARY | 2024-11-14 12:46 | XMS_ITS | Encounter Summary ---
Author Organization [facility] Address [address] [place] [address] Phone Care Team Providers Care Rehab Specialist Name Role Phone Gladis Moura DO Primary Care Provider [phone] Encounter Details Date Type Department Care Team (Late st Contact Info) Description 04/08/2011 Documentation [facility] Family [facility] [address] [place] [address] Family Medicine, Physician [address] [place], [place] [phone] Social History Tobacco Use Types Packs/Day Years [...] on filedocumented in this encounter Care Teams Rehab Specialist Relationship Specialty Start Date End Date Gladis Moura DO [address] [facility] [place] [address] PCP - General 09/23/16 05/15/22 documented as of this encounter
--- OUTSIDE RECORDS SUMMARY | 2024-11-14 12:46 | XMS_ITS | Encounter Summary ---
Author Organization [facility] Address [address] [place] [address] Phone Care Team Providers Care Insulation Supervisor Name Role Phone Gladis Moura DO Primary Care Provider [phone] Encounter Details Date Type Department Care Team (Late st Contact Info) Description 08/30/2013 Documentation EM Family Medicine [address] [place] [address] Family Medicine, Physician [address] [place], [place] [phone] Social History Tobacco Use Types Packs/Day Years [...] on filedocumented in this encounter Care Teams Insulation Supervisor Relationship Specialty Start Date End Date Gladis Moura DO [address] [facility] [place] [place] [address] PCP - General 09/23/16 05/15/22 documented as of this encounter
--- OUTSIDE RECORDS SUMMARY | 2024-11-14 12:46 | XMS_ITS | Encounter Summary ---
Author Organization [facility] Address [address] [place] [address] Phone Care Team Providers Care Conservation Scientist Name Role Phone Gladis Moura DO Primary Care Provider [phone] Encounter Details Date Type Department Care Team (Late st Contact Info) Description 03/28/2011 Documentation EM Family Medicine [address] [place] [address] Family Medicine, Physician [address] [place], [place] [phone] Social History Tobacco Use Types Packs/Day Years [...] on filedocumented in this encounter Care Teams Conservation Scientist Relationship Specialty Start Date End Date Gladis Moura DO 150 [place] [address] PCP - General 09/23/16 05/15/22 documented as of this encounter
--- OUTSIDE RECORDS SUMMARY | 2024-11-14 12:46 | XMS_ITS | Encounter Summary ---
Author Organization [facility] Address [address] [place] [address] Phone Care Team Providers Care Patented Hogshead Assembler Name Role Phone Gladis Moura DO Primary Care Provider [phone] Encounter Details Date Type Department Care Team (Late st Contact Info) Description 03/28/2013 Documentation [facility] [place] [address] [place] [address] Family Medicine, Physician [address] [place], [place] [phone] Social History Tobacco Use Types Packs/Day Years [...] on filedocumented in this encounter Care Teams Patented Hogshead Assembler Relationship Specialty Start Date End Date Gladis Moura DO 150 [facility] [place] [address] PCP - General 09/23/16 05/15/22 documented as of this encounter
--- OUTSIDE RECORDS SUMMARY | 2024-11-14 12:46 | XMS_ITS | Encounter Summary ---
Author Organization [facility] Address [address] [place] [address] Phone Care Team Providers Care Marble Cleaner Name Role Phone Gladis Moura DO Primary Care Provider Encounter Details Date Type Department Care Team (Late st Contact Info) Description 08/20/2013 Documentation [facility] Family Medicine [address] [place] [address] Family Medicine, Physician [address] [place], [place] [phone] Social History Tobacco Use Types Packs/Day Years [...] on filedocumented in this encounter Care Teams Marble Cleaner Relationship Specialty Start Date End Date Gladis Moura DO 150 [facility] [place] [address] PCP - General 09/23/16 05/15/22 documented as of this encounter
--- OUTSIDE RECORDS SUMMARY | 2024-11-14 12:46 | XMS_ITS | Encounter Summary ---
Author Organization [facility] Address [address] [place] [address] Phone Care Team Providers Care Water Service Supervisor Name Role Phone Gladis Moura DO Primary Care Provider [phone] Encounter Details Date Type Department Care Team (Late st Contact Info) Description 01/04/2011 Documentation EM Family Medicine [address] [place] [address] Family Medicine, Physician [address] [place], [place] [phone] Social History Tobacco Use Types Packs/Day Years [...] on filedocumented in this encounter Care Teams Water Service Supervisor Relationship Specialty Start Date End Date Gladis Moura DO 150 [facility] [place] [address] PCP - General 09/23/16 05/15/22 documented as of this encounter
--- OUTSIDE RECORDS SUMMARY | 2024-11-14 12:46 | XMS_ITS | Encounter Summary ---
Author Organization [facility] Address [address] [place] [address] Phone Care Team Providers Care Recycling Or Rubbish Collector Name Role Phone Gladis Moura DO Primary Care Provider [phone] Encounter Details Date Type Department Care Team (Late st Contact Info) Description 01/10/2011 Documentation [facility] Family Medicine [address] [place] [address] Family Medicine, Physician [address] [place], [place] [phone] Social History Tobacco Use Types Packs/Day Years [...] filedocumented in this encounter Care Teams Recycling Or Rubbish Collector Relationship Specialty Start Date End Date Gladis Moura DO 150 [facility] [place] [address] PCP - General 09/23/16 05/15/22 documented as of this encounter
--- OUTSIDE RECORDS SUMMARY | 2024-11-14 12:46 | XMS_ITS | Encounter Summary ---
Author Organization [facility] Address [address] [place] [address] Phone Care Team Providers Care Asbestos Worker Helper Name Role Phone Gladis Moura DO Primary Care Provider [phone] Encounter Details Date Type Department Care Team (Late st Contact Info) Description 06/05/2014 Documentation [facility] Family Medicine [address] [place] [address] Family Medicine, Physician [address] [place], [place] [phone] Social History Tobacco Use Types Packs/Day Years [...] on filedocumented in this encounter Care Teams Asbestos Worker Helper Relationship Specialty Start Date End Date Gladis Moura DO 150 [facility] [place] [address] PCP - General 09/23/16 05/15/22 documented as of this encounter
--- OUTSIDE RECORDS SUMMARY | 2024-11-14 12:46 | XMS_ITS | Encounter Summary ---
Author Organization [facility] Address [address] [place] [address] Phone Care Team Providers Care Braided Rug Maker Name Role Phone Gladis Moura DO Primary Care Provider [phone] Encounter Details Date Type Department Care Team (Late st Contact Info) Description 08/20/2010 Documentation EM Family Medicine [address] [place] [address] Family Medicine, Physician [address] [place] [address] Social History Tobacco Use Types [...] on filedocumented in this encounter Care Teams Braided Rug Maker Relationship Specialty Start Date End Date Gladis Moura DO 150 [facility] [place] [address] PCP - General 09/23/16 05/15/22 documented as of this encounter
--- OUTSIDE RECORDS SUMMARY | 2024-11-14 12:46 | XMS_ITS | Clinical Summary ---
Author Organization [facility] Address [address] [place] [address] Phone Care Team Providers Care Medical Auditor Name Role Phone Unavailable Primary Care Provider [...] 108 03/09/2015 12:00 AM EST Temperature 36.6 C (97.8 F) 03/09/2015 12:00 AM EST Respiratory Rate - - Oxygen [...] 07/02/1999, Additional history exists Influenza Vaccines (#1) 2024 12/21/19 16, 03/04/2015, 11/26/2013, Additional history exists COVID-19 Vaccine ( season) 2024 Hepatitis B Vaccines Completed 1997, 1997, 1997 HIB Vaccines Completed 06/10/1998, 08/14, 1997, Additional history exists IPV Vaccines Completed 05/16/2001, 06/13, 1997, Additional history exists MMR Vaccines Completed 05/16/2001, 03/25/1998 Varicella Vaccines Completed 07/31/2007, 06/10/1998 HPV Vaccines Completed 04/07/2008, 11/14, 10/02/2007 Meningococcal Vaccine Completed 08/18/2014, 11/17/2 009 Hepatitis A Vaccines Aged Out No long er eligible based on patient's age to complete this topic Men B Vaccine Aged Out No longer elig ible based on patient's age to complete this topic Pneumococcal Vaccine Aged Out No long er eligible based on patient's age to complete this topic
--- OUTSIDE RECORDS SUMMARY | 2024-11-14 12:46 | XMS_ITS | Encounter Summary ---
Author Organization [facility] Address [address] [place] [address] Phone Care Team Providers Care Dry Cell Assembly Supervisor Name Role Phone Gladis Moura DO Primary Care Provider [phone] Encounter Details Date Type Department Care Team (Late st Contact Info) Description 06/20/2013 Documentation EM Family Medicine [address] [place] [address] Family Medicine, Physician [address] [place], [place] [phone] Social History Tobacco Use Types Packs/Day Years [...] on filedocumented in this encounter Care Teams Dry Cell Assembly Supervisor Relationship Specialty Start Date End Date Gladis Moura DO 150 [place] [address] PCP - General 09/23/16 05/15/22 documented as of this encounter
--- OUTSIDE RECORDS SUMMARY | 2024-11-14 12:46 | XMS_ITS | Encounter Summary ---
Author Organization [facility] Address [address] [place] [address] Phone Care Team Providers Care Match Marker Name Role Phone Gladis Moura DO Primary Care Provider [phone] Encounter Details Date Type Department Care Team (Late st Contact Info) Description 10/07/2013 Documentation [facility] [place] Family Medicine [address] [place] [address] Family Medicine, Physician [address] [place], [place] [phone] Social History Tobacco Use Types Packs/Day Years [...] on filedocumented in this encounter Care Teams Match Marker Relationship Specialty Start Date End Date Gladis Moura DO [address] [facility] [place] [address] PCP - General 09/23/16 05/15/22 documented as of this encounter
--- OUTSIDE RECORDS SUMMARY | 2024-11-14 12:46 | XMS_ITS | Encounter Summary ---
Author Organization [facility] Address [address] [place] [address] Phone Care Team Providers Care Tobacco Scrap Sifter Name Role Phone Gladis Moura DO Primary Care Provider [phone] Encounter Details Date Type Department Care Team (Late st Contact Info) Description 07/14/2016 Documentation [facility] [place] Family Medicine [address] [place] [address] Family Medicine, Physician [address] [place], [place] [phone] Social History Tobacco Use Types Packs/Day Years [...] on filedocumented in this encounter Care Teams Tobacco Scrap Sifter Relationship Specialty Start Date End Date Gladis Moura DO 150 [facility] [address] PCP - General 09/23/16 05/15/22 documented as of this encounter
== END 2024-11-14 11:48 | disposition home or self-care (01) ==
LOC: HO.HMCH 10:52
PROVIDERS: PCP Physician Assistant; Visit Provider Physician Assistant
DX: M32.9 Systemic lupus erythematosus, unspecified (principal); R20.2 Paresthesia of skin; C81.90 Hodgkin lymphoma, unspecified, unspecified site; D69.3 Immune thrombocytopenic purpura; B35.1 Tinea unguium; G43.909 Migraine, unspecified, not intractable, without status migrainosus

== ENCOUNTER → 2024-11-14 10:51 | Outpatient (BNVA) | payer OTHER, SELFPAY | PROVIDERS: PCP Physician Assistant; Visit Provider Physician Assistant | DX: M79.642 Pain in left hand (principal); C81.9A Hodgkin lymphoma, unspecified, in remission; M32.9 Systemic lupus erythematosus, unspecified; J45.909 Unspecified asthma, uncomplicated; G43.909 Migraine, unspecified, not intractable, without status migrainosus; I42.9 Cardiomyopathy, unspecified; R20.2 Paresthesia of skin; C81.90 Hodgkin lymphoma, unspecified, unspecified site; D69.3 Immune thrombocytopenic purpura; B35.1 Tinea unguium | CPT/HCPCS: 99212 ==

== ENCOUNTER 2024-11-20 12:44 | Outpatient (AMB) | payer OTHER, SELFPAY ==
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
[2024-11-20 13:01] VITALS: BP 112/68; BMI 27.7
== END 2024-11-20 13:48 | disposition home or self-care (01) ==
LOC: HO.HWS 12:44
PROVIDERS: PCP Physician Assistant; Visit Provider Advanced Practice Midwife
DX: Z01.419 Encounter for gynecological examination (general) (routine) without abnormal findings (principal); Z20.2 Contact with and (suspected) exposure to infections with a predominantly sexual mode of transmission
CPT/HCPCS: 99395; 99459

== ENCOUNTER 2024-11-20 12:44 | Outpatient (REF) | payer OTHER, SELFPAY ==
[2024-11-20 17:19] LABS: Bacterial Vaginosis PCR POSITIVE (Negative); Candida Group PCR NOT DETECTED (Not Detect); Candida glab krusei PCR NOT DETECTED (Not Detect); Trichomonas vaginalis PCR NOT DETECTED (Not Detect)
[2024-11-20 17:50] LABS: CT PCR NOT DETECTED (Not Detect.); NG PCR NOT DETECTED (Not Detect.)
== END 2024-11-20 12:45 | disposition home or self-care (01) ==
LOC: HO.LNP 12:44
PROVIDERS: PCP Physician Assistant; Visit Provider Advanced Practice Midwife
DX: Z01.419 Encounter for gynecological examination (general) (routine) without abnormal findings (principal); Z20.2 Contact with and (suspected) exposure to infections with a predominantly sexual mode of transmission; Z79.899 Other long term (current) drug therapy
CPT/HCPCS: 81515; 87491; 87591; 99395

== ENCOUNTER 2024-11-20 13:39 | Outpatient (REF) | payer OTHER, SELFPAY | END 2024-11-20 13:40 | disposition home or self-care (01) | LOC: HO.LAB 13:39 | PROVIDERS: Visit Provider Advanced Practice Midwife | DX: Z13.89 Encounter for screening for other disorder (principal) ==

== ENCOUNTER 2024-12-18 12:50 | Outpatient (AMB) | payer OTHER, SELFPAY ==
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
[2024-12-18 12:54] VITALS: BP 112/78; PULSE 90; O2SAT 98; BMI 28.6
--- OUTSIDE RECORDS SUMMARY | 2024-12-18 15:31 | XMS_ITS | Encounter Summary ---
Author Organization [facility] Address [address] [place] [address] Phone Care Team Providers Care Solderer Assembly Repair Name Role Phone Gladis Moura DO Primary Care Provider [phone] Encounter Details Date Type Department Care Team (Late st Contact Info) Description 10/31/2011 Documentation [facility] Family Medicine [address] [place] [address] Family Medicine, Physician [address] [place], [place] [phone] Social History Tobacco Use Types Packs/Day Years [...] on filedocumented in this encounter Care Teams Solderer Assembly Repair Relationship Specialty Start Date End Date Gladis Moura DO [address] [facility] [place] [address] PCP - General 09/23/16 05/15/22 documented as of this encounter
--- OUTSIDE RECORDS SUMMARY | 2024-12-18 15:31 | XMS_ITS | Encounter Summary ---
Author Organization [facility] Address [address] [place] [address] Phone Care Team Providers Care Machine Sweeper Brush Maker Name Role Phone Gladis Moura DO Primary Care Provider Encounter Details Date Type Department Care Team (Late st Contact Info) Description 03/28/2013 Documentation [facility] Family Medicine [address] [place] [address] Family Medicine, Physician [address] [place], [place] [phone] Social History Tobacco Use Types Packs/Day Years [...] on filedocumented in this encounter Care Teams Machine Sweeper Brush Maker Relationship Specialty Start Date End Date Gladis Moura DO [address] [facility] [place] [address] PCP - General 09/23/16 05/15/22 documented as of this encounter
--- OUTSIDE RECORDS SUMMARY | 2024-12-18 15:31 | XMS_ITS | Encounter Summary ---
Author Organization [facility] Address [address] [place] [address] Phone Care Team Providers Care Bar Hostess Name Role Phone Gladis Moura DO Primary Care Provider [phone] Encounter Details Date Type Department Care Team (Late st Contact Info) Description 06/20/2013 Documentation [facility] [address] [place] [address] Family Medicine, Physician [address] [place], [place] [phone] Social History Tobacco Use Types Packs/Day Years [...] on filedocumented in this encounter Care Teams Bar Hostess Relationship Specialty Start Date End Date Gladis Moura DO [address] [facility] [place] [address] PCP - General 09/23/16 05/15/22 documented as of this encounter
--- OUTSIDE RECORDS SUMMARY | 2024-12-18 15:31 | XMS_ITS | Encounter Summary ---
Author Organization [facility] Address [address] [place] [address] Phone Care Team Providers Care Sanitation Worker Cleaning Equipment Name Role Phone Gladis Moura DO Primary Care Provider [phone] Encounter Details Date Type Department Care Team (Late st Contact Info) Description 03/17/2011 Documentation [facility] [address] [place] [address] Family Medicine, Physician [address] [place], [place] [phone] Social History Tobacco Use Types Packs/Day Years [...] on filedocumented in this encounter Care Teams Sanitation Worker Cleaning Equipment Relationship Specialty Start Date End Date Gladis Moura DO 150 [facility] [place] [address] PCP - General 09/23/16 05/15/22 documented as of this encounter
--- OUTSIDE RECORDS SUMMARY | 2024-12-18 15:31 | XMS_ITS | Encounter Summary ---
Author Organization [facility] Address [address] [place] [address] Phone Care Team Providers Care Cupola Operator Name Role Phone Gladis Moura DO Primary Care Provider [phone] Encounter Details Date Type Department Care Team (Late st Contact Info) Description 08/30/2013 Documentation [facility] [address] [place] [address] Family Medicine, Physician [address] [place], [place] [phone] Social History Tobacco Use Types Packs/Day Years [...] on filedocumented in this encounter Care Teams Cupola Operator Relationship Specialty Start Date End Date Gladis Moura DO 150 [facility] [place] [address] PCP - General 09/23/16 05/15/22 documented as of this encounter
--- OUTSIDE RECORDS SUMMARY | 2024-12-18 15:31 | XMS_ITS | Encounter Summary ---
Author Organization [facility] Address [address] [place] [address] Phone Care Team Providers Care Composing Room Machinist Apprentice Name Role Phone Gladis Moura DO Primary Care Provider [phone] Encounter Details Date Type Department Care Team (Late st Contact Info) Description 01/03/2013 Documentation [facility] [address] [place] [address] Family Medicine, Physician [address] [place], [place] [phone] Social History Tobacco Use Types Packs/Day Years [...] on filedocumented in this encounter Care Teams Composing Room Machinist Apprentice Relationship Specialty Start Date End Date Gladis Moura DO 150 [place] [address] PCP - General 09/23/16 05/15/22 documented as of this encounter
--- OUTSIDE RECORDS SUMMARY | 2024-12-18 15:31 | XMS_ITS | Encounter Summary ---
Author Organization [facility] Address [address] [place] [address] Phone Care Team Providers Care Lace Roller Name Role Phone Gladis Moura DO Primary Care Provider [phone] Encounter Details Date Type Department Care Team (Late st Contact Info) Description 07/02/2013 Documentation [facility] [address] [place] [address] Family Medicine, Physician [address] [place], [place] [phone] Social History Tobacco Use Types Packs/Day Years [...] on filedocumented in this encounter Care Teams Lace Roller Relationship Specialty Start Date End Date Gladis Moura DO 150 [facility] [address] PCP - General 09/23/16 05/15/22 documented as of this encounter
--- OUTSIDE RECORDS SUMMARY | 2024-12-18 15:31 | XMS_ITS | Encounter Summary ---
Author Organization [facility] Address [address] [place] [address] Phone Care Team Providers Care Historical Guide Name Role Phone Gladis Muora DO Primary Care Provider [phone] Encounter Details Date Type Department Care Team (Late st Contact Info) Description 04/08/2011 Documentation [facility] [address] [place] [address] Family Medicine, Physician [address] [place], [place] [phone] Social History Tobacco Use Types Packs/Day Years [...] on filedocumented in this encounter Care Teams Historical Guide Relationship Specialty Start Date End Date Gladis Moura DO 150 [place] [address] PCP - General 09/23/16 05/15/22 documented as of this encounter
--- OUTSIDE RECORDS SUMMARY | 2024-12-18 15:31 | XMS_ITS | Encounter Summary ---
Author Organization [facility] Address [address] [place] [address] Phone Care Team Providers Care Polarity Tester Name Role Phone Gladis Moura DO Primary Care Provider [phone] Encounter Details Date Type Department Care Team (Late st Contact Info) Description 01/04/2011 Documentation [facility] [address] [place] [address] Family Medicine, Physician [address] [place] [address] Social History Tobacco Use Types [...] on filedocumented in this encounter Care Teams Polarity Tester Relationship Specialty Start Date End Date Gladis Moura DO 150 [facility] [place] [address] PCP - General 09/23/16 05/15/22 documented as of this encounter
--- OUTSIDE RECORDS SUMMARY | 2024-12-18 15:31 | XMS_ITS | Encounter Summary ---
Author Organization [facility] Address [address] [place] [address] Phone Care Team Providers Care User Experience Lead Name Role Phone Gladis Moura DO Primary Care Provider [phone] Encounter Details Date Type Department Care Team (Late st Contact Info) Description 03/28/2011 Documentation [facility] [address] [place] [address] Family Medicine, Physician [address] [place], [place] [phone] Social History Tobacco Use Types Packs/Day Years [...] on filedocumented in this encounter Care Teams User Experience Lead Relationship Specialty Start Date End Date Gladis Moura DO 150 [place] [address] PCP - General 09/23/16 05/15/22 documented as of this encounter
--- OUTSIDE RECORDS SUMMARY | 2024-12-18 15:31 | XMS_ITS | Encounter Summary ---
Author Organization [facility] Address [address] [place] [address] Phone Care Team Providers Care Mobile Home Servicer Name Role Phone Gladis Moura DO Primary Care Provider [phone] Encounter Details Date Type Department Care Team (Late st Contact Info) Description 01/10/2011 Documentation [facility] [address] [place] [address] Family Medicine, Physician [address] [place], [place] [phone] Social History Tobacco Use Types Packs/Day Years [...] on filedocumented in this encounter Care Teams Mobile Home Servicer Relationship Specialty Start Date End Date Gladis Moura DO 150 [place] [address] PCP - General 09/23/16 05/15/22 documented as of this encounter
--- OUTSIDE RECORDS SUMMARY | 2024-12-18 15:31 | XMS_ITS | Encounter Summary ---
Author Organization [facility] Address [address] [place] [address] Phone Care Team Providers Care Summer Law Associate Name Role Phone Gladis Moura DO Primary Care Provider [phone] Encounter Details Date Type Department Care Team (Late st Contact Info) Description 08/20/2010 Documentation [facility] [address] [place] [address] Family Medicine, Physician [address] [place] [address] Social History Tobacco Use Types [...] on filedocumented in this encounter Care Teams Summer Law Associate Relationship Specialty Start Date End Date Gladis Moura DO 150 [place] [address] PCP - General 09/23/16 05/15/22 documented as of this encounter
--- OUTSIDE RECORDS SUMMARY | 2024-12-18 15:31 | XMS_ITS | Encounter Summary ---
Author Organization [facility] Address [address] [place] [address] Phone Care Team Providers Care Stringing Machine Tender Name Role Phone Gladis Moura DO Primary Care Provider [phone] Encounter Details Date Type Department Care Team (Late st Contact Info) Description 05/25/2011 Documentation [facility] [address] [place] [address] Family Medicine, Physician [address] [place] [address] Social History Tobacco Use Types [...] on filedocumented in this encounter Care Teams Stringing Machine Tender Relationship Specialty Start Date End Date Gladis Moura DO 150 [place] [address] PCP - General 09/23/16 05/15/22 documented as of this encounter
--- OUTSIDE RECORDS SUMMARY | 2024-12-18 15:31 | XMS_ITS | Encounter Summary ---
Author Organization [facility] Address [address] [place] [address] Phone Care Team Providers Care Refinery Operator Name Role Phone Gladis Moura DO Primary Care Provider [phone] Encounter Details Date Type Department Care Team (Late st Contact Info) Description 07/14/2016 Documentation [facility] [place] [address] [place] [address] Family Medicine, Physician [address] [place], [place] [phone] Social History Tobacco Use Types Packs/Day Years [...] on filedocumented in this encounter Care Teams Refinery Operator Relationship Specialty Start Date End Date Gladis Moura DO [address] [place] [address] PCP - General 09/23/16 05/15/22 documented as of this encounter
--- OUTSIDE RECORDS SUMMARY | 2024-12-18 15:31 | XMS_ITS | Encounter Summary ---
Author Organization [facility] Address [address] [place] [address] Phone Care Team Providers Care Rose Grading Supervisor Name Role Phone Gladis Moura DO Primary Care Provider [phone] Encounter Details Date Type Department Care Team (Late st Contact Info) Description 10/07/2013 Documentation [facility] [address] [place] [address] Family Medicine, Physician [address] [place], [place] [phone] Social History Tobacco Use Types Packs/Day Years [...] on filedocumented in this encounter Care Teams Rose Grading Supervisor Relationship Specialty Start Date End Date Gladis Moura DO 150 [facility] [place] [address] PCP - General 09/23/16 05/15/22 documented as of this encounter
--- OUTSIDE RECORDS SUMMARY | 2024-12-18 15:31 | XMS_ITS | Encounter Summary ---
Author Organization [facility] Address [address] [place] [address] Phone Care Team Providers Care Chemical Operations And Training Name Role Phone Gladis Moura DO Primary Care Provider [phone] Encounter Details Date Type Department Care Team (Late st Contact Info) Description 09/29/2016 Conversion Encounter [facility] [address] [place] [address] Social History Tobacco Use Types Packs/Day Years [...] on filedocumented in this encounter Care Teams Chemical Operations And Training Relationship Specialty Start Date End Date Gladis Moura DO [address] [place] [address] PCP - General 09/23/16 05/15/22 documented as of this encounter
--- OUTSIDE RECORDS SUMMARY | 2024-12-18 15:31 | XMS_ITS | Encounter Summary ---
Author Organization [facility] Address [address] [place] [address] Phone Care Team Providers Care Physician Underwriter Name Role Phone Gladis Moura DO Primary Care Provider [phone] Encounter Details Date Type Department Care Team (Late st Contact Info) Description 08/20/2013 Documentation [facility] Family [facility] [address] [place] [address] Family Medicine, Physician [address] [place], [place] [phone] Social History Tobacco Use Types Packs/Day Years [...] on filedocumented in this encounter Care Teams Physician Underwriter Relationship Specialty Start Date End Date Gladis Moura DO 150 [facility] [place] [address] PCP - General 09/23/16 05/15/22 documented as of this encounter
--- OUTSIDE RECORDS SUMMARY | 2024-12-18 15:31 | XMS_ITS | Clinical Summary ---
Author Organization [facility] Address [address] [place] [address] Phone Care Team Providers Care Gunstock Spray Unit Adjuster Name Role Phone Unavailable Primary Care Provider [...] of *Thrombophilia, No family history of *Sudden /[place] under 55, Family history of Lymphoma, No [...]
--- OUTSIDE RECORDS SUMMARY | 2024-12-18 15:31 | XMS_ITS | Encounter Summary ---
Author Organization [facility] Address [address] [place] [address] Phone Care Team Providers Care Asbestos Surveyor Name Role Phone Gladis Moura DO Primary Care Provider [phone] Encounter Details Date Type Department Care Team (Late st Contact Info) Description 03/17/2011 Documentation EM Family Medicine [address] [place] [address] Family Medicine, Physician [address] [place], [place] [phone] Social History Tobacco Use Types Packs/Day Years [...] filedocumented in this encounter Care Teams Asbestos Surveyor Relationship Specialty Start Date End Date Gladis Moura DO 150 [facility] [place] [address] PCP - General 09/23/16 05/15/22 documented as of this encounter
--- OUTSIDE RECORDS SUMMARY | 2024-12-18 15:31 | XMS_ITS | Encounter Summary ---
Author Organization [facility] Address [address] [place] [address] Phone Care Team Providers Care Biological Sciences Instructor Name Role Phone Gladis Moura DO Primary Care Provider [phone] Encounter Details Date Type Department Care Team (Late st Contact Info) Description 02/22/2010 Documentation EM Family Medicine [address] [place] [address] Family Medicine, Physician [address] [place] [address] Social History Tobacco Use Types [...] on filedocumented in this encounter Care Teams Biological Sciences Instructor Relationship Specialty Start Date End Date Gladis Moura DO 150 [facility] [place] [address] PCP - General 09/23/16 05/15/22 documented as of this encounter
--- OUTSIDE RECORDS SUMMARY | 2024-12-18 15:31 | XMS_ITS | Encounter Summary ---
Author Organization [facility] Address [address] [place] [address] Phone Care Team Providers Care Enrollment Eligibility Representative Name Role Phone Gladis Moura DO Primary Care Provider [phone] Encounter Details Date Type Department Care Team (Late st Contact Info) Description 06/05/2014 Documentation EM Family Medicine [address] [place] [address] Family Medicine, Physician [address] [place], [place] [phone] Social History Tobacco Use Types Packs/Day Years [...] on filedocumented in this encounter Care Teams Enrollment Eligibility Representative Relationship Specialty Start Date End Date Gladis Moura DO 150 [place] [address] PCP - General 09/23/16 05/15/22 documented as of this encounter
--- OUTSIDE RECORDS SUMMARY | 2024-12-18 15:31 | XMS_ITS | Encounter Summary ---
Author Organization [facility] Address [address] [place] [address] Phone Care Team Providers Care Electronic Tech Name Role Phone Gladis Moura DO Primary Care Provider [phone] Encounter Details Date Type Department Care Team (Late st Contact Info) Description 02/23/2016 Documentation [facility] Family Medicine [address] [place] [address] Family Medicine, Physician [address] [place], [place] [phone] Social History Tobacco Use Types Packs/Day Years [...] on filedocumented in this encounter Care Teams Electronic Tech Relationship Specialty Start Date End Date Gladis Moura DO 150 [facility] [place] [address] PCP - General 09/23/16 05/15/22 documented as of this encounter
== END 2024-12-18 13:24 | disposition home or self-care (01) ==
LOC: HO.HSMS 12:51
PROVIDERS: PCP Physician Assistant; Visit Provider Nurse Practitioner Family
DX: G43.909 Migraine, unspecified, not intractable, without status migrainosus (principal); G43.109 Migraine with aura, not intractable, without status migrainosus
CPT/HCPCS: 99213

== ENCOUNTER → 2024-12-18 12:50 | Outpatient (BNVA) | payer OTHER, SELFPAY | PROVIDERS: PCP Physician Assistant; Visit Provider Nurse Practitioner Family | DX: G43.109 Migraine with aura, not intractable, without status migrainosus (principal) | CPT/HCPCS: 99212 ==

== ENCOUNTER 2024-12-19 08:48 | Outpatient (REF) | payer OTHER, SELFPAY ==
--- OUTSIDE RECORDS SUMMARY | 2024-12-19 09:26 | XMS_ITS | Encounter Summary ---
Author Organization [facility] Address [address] [place] [address] Phone Care Team Providers Care Java Tech Name Role Phone Gladis Moura DO Primary Care Provider [phone] Encounter Details Date Type Department Care Team (Late st Contact Info) Description 01/10/2011 Documentation EM Family Medicine [address] [place] [address] Family Medicine, Physician [address] [place], [place] [phone] Social History Tobacco Use Types Packs/Day Years [...] on filedocumented in this encounter Care Teams Java Tech Relationship Specialty Start Date End Date Gladis Moura DO 150 [facility] [place] [address] PCP - General 09/23/16 05/15/22 documented as of this encounter
--- OUTSIDE RECORDS SUMMARY | 2024-12-19 09:27 | XMS_ITS | Encounter Summary ---
Author Organization [facility] Address [address] [place] [address] Phone Care Team Providers Care Dean Of Women Name Role Phone Gladis Moura DO Primary Care Provider [phone] Encounter Details Date Type Department Care Team (Late st Contact Info) Description 09/29/2016 Conversion Encounter [facility] [address] [place] [address] Social History Tobacco Use Types Packs/Day Years [...] on filedocumented in this encounter Care Teams Dean Of Women Relationship Specialty Start Date End Date Gladis Moura DO 150 [place] [address] PCP - General 09/23/16 05/15/22 documented as of this encounter
--- OUTSIDE RECORDS SUMMARY | 2024-12-19 09:27 | XMS_ITS | Encounter Summary ---
Author Organization [facility] Address [address] [place] [address] Phone Care Team Providers Care Orthotist/Prosthetist Name Role Phone Gladis Moura DO Primary Care Provider Encounter Details Date Type Department Care Team (Late st Contact Info) Description 03/17/2011 Documentation EM Family Medicine [address] [place] [address] Family Medicine, Physician [address] [place], [place] [phone] Social History Tobacco Use Types Packs/Day Years [...] on filedocumented in this encounter Care Teams Orthotist/Prosthetist Relationship Specialty Start Date End Date Gladis Moura DO 150 [facility] [place] [address] PCP - General 09/23/16 05/15/22 documented as of this encounter
--- OUTSIDE RECORDS SUMMARY | 2024-12-19 09:27 | XMS_ITS | Encounter Summary ---
Author Organization [facility] Address [address] [place] [address] Phone Care Team Providers Care City Planner Name Role Phone Gladis Moura DO Primary Care Provider [phone] Encounter Details Date Type Department Care Team (Late st Contact Info) Description 01/03/2013 Documentation EM Family Medicine [address] [place] [address] Family Medicine, Physician [address] [place], [place] [phone] Social History Tobacco Use Types Packs/Day Years [...] on filedocumented in this encounter Care Teams City Planner Relationship Specialty Start Date End Date Gladis Moura DO 150 [facility] [place] [address] PCP - General 09/23/16 05/15/22 documented as of this encounter
--- OUTSIDE RECORDS SUMMARY | 2024-12-19 09:27 | XMS_ITS | Clinical Summary ---
Author Organization [facility] Address [address] [place] [address] Phone Care Team Providers Care Heel Slugger Name Role Phone Unavailable Primary Care Provider [...] of *Thrombophilia, No family history of *Sudden /[place] under 55, Family history of Lymphoma, No [...]
--- OUTSIDE RECORDS SUMMARY | 2024-12-19 09:27 | XMS_ITS | Encounter Summary ---
Author Organization [facility] Address [address] [place] [address] Phone Care Team Providers Care Glass Blower Helper Name Role Phone Gladis Moura DO Primary Care Provider [phone] Encounter Details Date Type Department Care Team (Late st Contact Info) Description 06/20/2013 Documentation EM Family Medicine [address] [place] [address] Family Medicine, Physician [address] [place], [place] [phone] Social History Tobacco Use Types Packs/Day Years [...] on filedocumented in this encounter Care Teams Glass Blower Helper Relationship Specialty Start Date End Date Gladis Moura DO 150 [facility] [place] [place] [address] PCP - General 09/23/16 05/15/22 documented as of this encounter
--- OUTSIDE RECORDS SUMMARY | 2024-12-19 09:27 | XMS_ITS | Encounter Summary ---
Author Organization [facility] Address [address] [place] [address] Phone Care Team Providers Care Strike Plate Attacher Name Role Phone Gladis Moura DO Primary Care Provider [phone] Encounter Details Date Type Department Care Team (Late st Contact Info) Description 06/05/2014 Documentation EM Family Medicine [address] [place] [address] Family Medicine, Physician [address] [place], [place] [phone] Social History Tobacco Use Types Packs/Day Years [...] on filedocumented in this encounter Care Teams Strike Plate Attacher Relationship Specialty Start Date End Date Gladis Moura DO 150 [facility] [place] [address] PCP - General 09/23/16 05/15/22 documented as of this encounter
--- OUTSIDE RECORDS SUMMARY | 2024-12-19 09:27 | XMS_ITS | Encounter Summary ---
Author Organization [facility] Address [address] [place] [address] Phone Care Team Providers Care Inside Contractor Sales Name Role Phone Gladis Moura DO Primary Care Provider [phone] Encounter Details Date Type Department Care Team (Late st Contact Info) Description 03/28/2013 Documentation [facility] [place] [address] [place] [address] Family Medicine, Physician [address] [place], [place] [phone] Social History Tobacco Use Types Packs/Day Years [...] on filedocumented in this encounter Care Teams Inside Contractor Sales Relationship Specialty Start Date End Date Gladis Moura DO 150 [place] [place] [address] PCP - General 09/23/16 05/15/22 documented as of this encounter
--- OUTSIDE RECORDS SUMMARY | 2024-12-19 09:27 | XMS_ITS | Encounter Summary ---
Author Organization [facility] Address [address] [place] [address] Phone Care Team Providers Care Major Assembly Inspector Name Role Phone Gladis Moura DO Primary Care Provider [phone] Encounter Details Date Type Department Care Team (Late st Contact Info) Description 07/14/2016 Documentation [facility] [address] [place] [address] Family Medicine, Physician [address] [place], [place] [phone] Social History Tobacco Use Types Packs/Day Years [...] on filedocumented in this encounter Care Teams Major Assembly Inspector Relationship Specialty Start Date End Date Gladis Moura DO [address] [facility] [place] [address] PCP - General 09/23/16 05/15/22 documented as of this encounter
--- OUTSIDE RECORDS SUMMARY | 2024-12-19 09:27 | XMS_ITS | Encounter Summary ---
Author Organization [facility] Address [address] [place] [address] Phone Care Team Providers Care Control Tower Operator Name Role Phone Gladis Moura DO Primary Care Provider [phone] Encounter Details Date Type Department Care Team (Late st Contact Info) Description 08/20/2010 Documentation EM Family Medicine [address] [place] [address] Family Medicine, Physician [address] [place] [address] Social History Tobacco Use Types [...] on filedocumented in this encounter Care Teams Control Tower Operator Relationship Specialty Start Date End Date Gladis Moura DO 150 [facility] [place] [address] PCP - General 09/23/16 05/15/22 documented as of this encounter
--- OUTSIDE RECORDS SUMMARY | 2024-12-19 09:27 | XMS_ITS | Encounter Summary ---
Author Organization [facility] Address [address] [place] [address] Phone Care Team Providers Care Blocker And Polisher Name Role Phone Gladis Moura DO Primary Care Provider [phone] Encounter Details Date Type Department Care Team (Late st Contact Info) Description 03/28/2011 Documentation EM Family Medicine [address] [place] [address] Family Medicine, Physician [address] [place], [place] [phone] Social History Tobacco Use Types Packs/Day Years [...] on filedocumented in this encounter Care Teams Blocker And Polisher Relationship Specialty Start Date End Date Gladis Moura DO 150 [facility] [place] [address] PCP - General 09/23/16 05/15/22 documented as of this encounter
--- OUTSIDE RECORDS SUMMARY | 2024-12-19 09:27 | XMS_ITS | Encounter Summary ---
Author Organization [facility] Address [address] [place] [address] Phone Care Team Providers Care Consumer Relations Complaint Clerk Name Role Phone Gladis Moura DO Primary Care Provider [phone] Encounter Details Date Type Department Care Team (Late st Contact Info) Description 08/30/2013 Documentation EM Family Medicine [address] [place] [address] Family Medicine, Physician [address] [place], [place] [phone] Social History Tobacco Use Types Packs/Day Years [...] on filedocumented in this encounter Care Teams Consumer Relations Complaint Clerk Relationship Specialty Start Date End Date Gladis Moura DO 150 [facility] [place] [address] PCP - General 09/23/16 05/15/22 documented as of this encounter
--- OUTSIDE RECORDS SUMMARY | 2024-12-19 09:27 | XMS_ITS | Encounter Summary ---
Author Organization [facility] Address [address] [place] [address] Phone Care Team Providers Care Sash Finisher Name Role Phone Gladis Moura DO Primary Care Provider [phone] Encounter Details Date Type Department Care Team (Late st Contact Info) Description 07/02/2013 Documentation EM Family Medicine [address] [place] [address] Family Medicine, Physician [address] [place], [place] [phone] Social History Tobacco Use Types Packs/Day Years [...] on filedocumented in this encounter Care Teams Sash Finisher Relationship Specialty Start Date End Date Gladis Moura DO 150 [facility] [place] [address] PCP - General 09/23/16 05/15/22 documented as of this encounter
--- OUTSIDE RECORDS SUMMARY | 2024-12-19 09:27 | XMS_ITS | Encounter Summary ---
Author Organization [facility] Address [address] [place] [address] Phone Care Team Providers Care Child Day Care Teacher Name Role Phone Gladis Moura DO Primary Care Provider [phone] Encounter Details Date Type Department Care Team (Late st Contact Info) Description 05/25/2011 Documentation EM Family Medicine [address] [place] [address] Family Medicine, Physician [address] [place] [address] Social History Tobacco Use Types [...] on filedocumented in this encounter Care Teams Child Day Care Teacher Relationship Specialty Start Date End Date Gladis Moura DO 150 [facility] [place] [address] PCP - General 09/23/16 05/15/22 documented as of this encounter
--- OUTSIDE RECORDS SUMMARY | 2024-12-19 09:27 | XMS_ITS | Encounter Summary ---
Author Organization [facility] Address [address] [place] [address] Phone Care Team Providers Care Systems Spec Name Role Phone Gladis Moura DO Primary Care Provider [phone] Encounter Details Date Type Department Care Team (Late st Contact Info) Description 04/08/2011 Documentation EM Family Medicine [address] [place] [address] Family Medicine, Physician [address] [place], [place] [phone] Social History Tobacco Use Types Packs/Day Years [...] on filedocumented in this encounter Care Teams Systems Spec Relationship Specialty Start Date End Date Gladis Moura DO 150 [facility] [place] [address] PCP - General 09/23/16 05/15/22 documented as of this encounter
--- OUTSIDE RECORDS SUMMARY | 2024-12-19 09:27 | XMS_ITS | Encounter Summary ---
Author Organization [facility] Address [address] [place] [address] Phone Care Team Providers Care Press Setup Operator Name Role Phone Gladis Moura DO Primary Care Provider [phone] Encounter Details Date Type Department Care Team (Late st Contact Info) Description 02/22/2010 Documentation EM Family Medicine [address] [place] [address] Family Medicine, Physician [address] [place] [address] Social History Tobacco Use Types [...] on filedocumented in this encounter Care Teams Press Setup Operator Relationship Specialty Start Date End Date Gladis Moura DO 150 [facility] [place] [address] PCP - General 09/23/16 05/15/22 documented as of this encounter
--- OUTSIDE RECORDS SUMMARY | 2024-12-19 09:27 | XMS_ITS | Encounter Summary ---
Author Organization [facility] Address [address] [place] [address] Phone Care Team Providers Care Claims Customer Service Representative Name Role Phone Gladis Moura DO Primary Care Provider Encounter Details Date Type Department Care Team (Late st Contact Info) Description 10/31/2011 Documentation [facility] [place] [facility] [address] [place] [address] Family Medicine, Physician [address] [place], [place] [phone] Social History Tobacco Use Types Packs/Day Years [...] on filedocumented in this encounter Care Teams Claims Customer Service Representative Relationship Specialty Start Date End Date Gladis Moura DO 150 [facility] [place] [address] PCP - General 09/23/16 05/15/22 documented as of this encounter
--- OUTSIDE RECORDS SUMMARY | 2024-12-19 09:27 | XMS_ITS | Encounter Summary ---
Author Organization [facility] Address [address] [place] [address] Phone Care Team Providers Care Corporate Analyst Name Role Phone Gladis Moura DO Primary Care Provider [phone] Encounter Details Date Type Department Care Team (Late st Contact Info) Description 02/23/2016 Documentation [facility] [place] Family Medicine [address] [place] [address] Family Medicine, Physician [address] [place], [place] [phone] Social History Tobacco Use Types Packs/Day Years [...] on filedocumented in this encounter Care Teams Corporate Analyst Relationship Specialty Start Date End Date Gladis Moura DO 150 [facility] [place] [address] PCP - General 09/23/16 05/15/22 documented as of this encounter
--- OUTSIDE RECORDS SUMMARY | 2024-12-19 09:27 | XMS_ITS | Encounter Summary ---
Author Organization [facility] Address [address] [place] [address] Phone Care Team Providers Care Hop Worker Name Role Phone Gladis Moura DO Primary Care Provider [phone] Encounter Details Date Type Department Care Team (Late st Contact Info) Description 08/20/2013 Documentation EM Family Medicine [address] [place] [address] Family Medicine, Physician [address] [place], [place] [phone] Social History Tobacco Use Types Packs/Day Years [...] on filedocumented in this encounter Care Teams Hop Worker Relationship Specialty Start Date End Date Gladis Moura DO 150 [place] [address] PCP - General 09/23/16 05/15/22 documented as of this encounter
--- OUTSIDE RECORDS SUMMARY | 2024-12-19 09:27 | XMS_ITS | Encounter Summary ---
Author Organization [facility] Address [address] [place] [address] Phone Care Team Providers Care Hot Metal Mixer Operator Name Role Phone Gladis Moura DO Primary Care Provider [phone] Encounter Details Date Type Department Care Team (Late st Contact Info) Description 10/07/2013 Documentation EM Family Medicine [address] [place] [address] Family Medicine, Physician [address] [place], [place] [phone] Social History Tobacco Use Types Packs/Day Years [...] on filedocumented in this encounter Care Teams Hot Metal Mixer Operator Relationship Specialty Start Date End Date Gladis Moura DO 150 [place] [address] PCP - General 09/23/16 05/15/22 documented as of this encounter
--- OUTSIDE RECORDS SUMMARY | 2024-12-19 09:27 | XMS_ITS | Encounter Summary ---
Author Organization [facility] Address [address] [place] [address] Phone Care Team Providers Care Cancer Genetic Counselor Name Role Phone Gladis Moura DO Primary Care Provider [phone] Encounter Details Date Type Department Care Team (Late st Contact Info) Description 01/04/2011 Documentation EM Family Medicine [address] [place] [address] Family Medicine, Physician [address] [place], [place] [phone] Social History Tobacco Use Types Packs/Day Years [...] on filedocumented in this encounter Care Teams Cancer Genetic Counselor Relationship Specialty Start Date End Date Gldais Moura DO 150 [facility] [place] [address] PCP - General 09/23/16 05/15/22 documented as of this encounter
--- OUTSIDE RECORDS SUMMARY | 2024-12-19 09:28 | XMS_ITS | Encounter Summary ---
Author Organization [facility] Address [address] [place] [address] Phone Care Team Providers Care Brass Plater Name Role Phone Gladis Moura DO Primary Care Provider [phone] Encounter Details Date Type Department Care Team (Late st Contact Info) Description 03/17/2011 Documentation EM Family Medicine [address] [place] [address] Family Medicine, Physician [address] [place], [place] [phone] Social History Tobacco Use Types Packs/Day Years [...] on filedocumented in this encounter Care Teams Brass Plater Relationship Specialty Start Date End Date Gladis Moura DO 150 [facility] [place] [address] PCP - General 09/23/16 05/15/22 documented as of this encounter
--- NOTE | 2024-12-19 10:30 | EMG_ITS ---
Chief complaint:? R20.0 paresthesia of skin - Bilateral hand numbness? Reason for referral: Evaluate for Carpal Tunnel Syndrome Referred by:? JEFFERY Hernandez Procedure done:? Bilateral upper extremity NCS/EMG [place] 81382, x2 extremities Bilateral median and ulnar motor studies were performed. Bilateral median and ulnar mixed, radial sensory, and median and lateral antecubital brachial sensory studies were performed. Paraspinal muscles were tested with a needle. Findings: No significant abnormality noted. Impression: This is an unremarkable study with no evidence of entrapment neuropathy or a proximal lesion. MTDD
== END 2024-12-19 08:49 | disposition home or self-care (01) ==
LOC: HO.NEURO 08:48
PROVIDERS: PCP Physician Assistant; Visit Provider Physician Assistant
DX: R20.2 Paresthesia of skin (principal)
CPT/HCPCS: 95886; 95913

== ENCOUNTER → 2024-12-19 10:30 | Outpatient (BNV) | payer OTHER, SELFPAY | PROVIDERS: PCP Physician Assistant; Visit Provider Psychiatry & Neurology Neurology | DX: R20.2 Paresthesia of skin (principal) | CPT/HCPCS: 95886; 95913 ==

== ENCOUNTER 2025-01-01 15:38 | Outpatient (REF) | payer OTHER, SELFPAY ==
[2025-01-01 15:51] LABS: MANUAL DIFF FLAG NO
[2025-01-01 16:44] LABS: Hematocrit 42.6 % (37.0-47.0); Hemoglobin 14.5 g/dl (12.0-16.0); Imm Gran Abs Auto 0.01 X10*3/uL (0.00-0.03); Imm Gran Pct Auto 0.2 % (0.0-0.4); Lymphocytes Absolute Auto 1.5 X10*3/uL (1.2-4.9); Mean Corpuscular HGB Conc 34.0 g/dl (31.0-35.0); Mean Corpuscular Hemoglobin 29.2 pg (27.0-33.0); Mean Corpuscular Volume 85.7 fL (80.0-98.0); NRBC Abs Auto 0.000 X10*3/uL (0.0-0.012); NRBC Pct Auto 0.0 /100WBC (0.0-0.2); Platelet Count 128 X10*3/uL (160-400); Red Blood Count 4.97 X10*6/uL (4.20-5.50); White Blood Count 6.2 X10*3/uL (4.8-10.8)
[2025-01-01 17:11] LABS: Alanine Aminotransferase 34 U/L (0-31); Albumin Level 4.3 g/dL (3.5-5.0); Alkaline Phosphatase 60 U/L (39-117); Anion Gap 10 (12-20); Aspartate Amino Transferase 22 U/L (5-31); Blood Urea Nitrogen 15 mg/dL (9-16); Calcium 8.8 mg/dL (8.4-10.2); Carbon Dioxide 26 mmol/L (22-29); Chloride 109 mmol/L (96-108); Estimated Glomerular Filt Rate > 60; Potassium 4.5 mmol/L (3.3-5.1); Sodium 140 mmol/L (135-145); Total Protein 7.0 g/dL (6.5-8.0)
--- OUTSIDE RECORDS SUMMARY | 2025-01-02 04:14 | XMS_ITS | Encounter Summary ---
Author Organization [facility] Address [address] [place] [address] Phone Care Team Providers Care Plant Utilities Engineer Name Role Phone Gldais Moura DO Primary Care Provider [phone] Encounter Details Date Type Department Care Team (Late st Contact Info) Description 01/03/2013 Documentation [facility] Family Medicine [address] [place] [address] Family Medicine, Physician [address] [place], [place] [phone] Social History Tobacco Use Types Packs/Day Years [...] on filedocumented in this encounter Care Teams Plant Utilities Engineer Relationship Specialty Start Date End Date Gladis Moura DO 150 [facility] [place] [address] PCP - General 09/23/16 05/15/22 documented as of this encounter
--- OUTSIDE RECORDS SUMMARY | 2025-01-02 04:14 | XMS_ITS | Encounter Summary ---
Author Organization [facility] Address [address] [place] [address] Phone Care Team Providers Care Training Director Name Role Phone Gladis Moura DO Primary Care Provider Encounter Details Date Type Department Care Team (Late st Contact Info) Description 03/17/2011 Documentation EM Family Medicine [address] [place] [address] Family Medicine, Physician [address] [place], [place] [phone] Social History Tobacco Use Types Packs/Day Years [...] on filedocumented in this encounter Care Teams Training Director Relationship Specialty Start Date End Date Gladis Moura DO 150 [facility] [place] [address] PCP - General 09/23/16 05/15/22 documented as of this encounter
--- OUTSIDE RECORDS SUMMARY | 2025-01-02 04:14 | XMS_ITS | Encounter Summary ---
Author Organization [facility] Address [address] [place] [address] Phone Care Team Providers Care Loan Processing Supervisor Name Role Phone Gladis Moura DO Primary Care Provider [phone] Encounter Details Date Type Department Care Team (Late st Contact Info) Description 02/22/2010 Documentation EM Family Medicine [address] [place] [address] Family Medicine, Physician [address] [place] [address] Social History Tobacco Use Types [...] on filedocumented in this encounter Care Teams Loan Processing Supervisor Relationship Specialty Start Date End Date Gladis Moura DO 150 [facility] [place] [address] PCP - General 09/23/16 05/15/22 documented as of this encounter
--- OUTSIDE RECORDS SUMMARY | 2025-01-02 04:14 | XMS_ITS | Encounter Summary ---
Author Organization [facility] Address [address] [place] [address] Phone Care Team Providers Care Screening Technician Name Role Phone Gladis Moura DO Primary Care Provider [phone] Encounter Details Date Type Department Care Team (Late st Contact Info) Description 07/14/2016 Documentation [facility] [place] Family Medicine [address] [place] [address] Family Medicine, Physician [address] [place], [place] [phone] Social History Tobacco Use Types Packs/Day Years [...] on filedocumented in this encounter Care Teams Screening Technician Relationship Specialty Start Date End Date Gladis Moura DO 150 [facility] [place] [address] PCP - General 09/23/16 05/15/22 documented as of this encounter
--- OUTSIDE RECORDS SUMMARY | 2025-01-02 04:14 | XMS_ITS | Encounter Summary ---
Author Organization [facility] Address [address] [place] [address] Phone Care Team Providers Care Traffic Clerk Name Role Phone Gladis Moura DO Primary Care Provider [phone] Encounter Details Date Type Department Care Team (Late st Contact Info) Description 07/02/2013 Documentation EM Family Medicine [address] [place] [address] Family Medicine, Physician [address] [place], [place] [phone] Social History Tobacco Use Types Packs/Day Years [...] on filedocumented in this encounter Care Teams Traffic Clerk Relationship Specialty Start Date End Date Gladis Moura DO 150 [place] [address] PCP - General 09/23/16 05/15/22 documented as of this encounter
--- OUTSIDE RECORDS SUMMARY | 2025-01-02 04:14 | XMS_ITS | Encounter Summary ---
Author Organization [facility] Address [address] [place] [address] Phone Care Team Providers Care Desolderer Name Role Phone Gladis Moura DO Primary Care Provider [phone] Encounter Details Date Type Department Care Team (Late st Contact Info) Description 08/20/2013 Documentation EM Family Medicine [address] [place] [address] Family Medicine, Physician [address] [place], [place] [phone] Social History Tobacco Use Types Packs/Day Years [...] on filedocumented in this encounter Care Teams Desolderer Relationship Specialty Start Date End Date Gladis Moura DO 150 [facility] [place] [address] PCP - General 09/23/16 05/15/22 documented as of this encounter
--- OUTSIDE RECORDS SUMMARY | 2025-01-02 04:14 | XMS_ITS | Encounter Summary ---
Author Organization [facility] Address [address] [place] [address] Phone Care Team Providers Care Field Care Manager Name Role Phone Gladis Moura DO Primary Care Provider [phone] Encounter Details Date Type Department Care Team (Late st Contact Info) Description 10/31/2011 Documentation [facility] [place] [address] [place] [address] Family Medicine, Physician [address] [place], [place] [phone] Social History Tobacco Use Types Packs/Day Years [...] on filedocumented in this encounter Care Teams Field Care Manager Relationship Specialty Start Date End Date Gladis Moura DO 150 [facility] [place] [address] PCP - General 09/23/16 05/15/22 documented as of this encounter
--- OUTSIDE RECORDS SUMMARY | 2025-01-02 04:14 | XMS_ITS | Encounter Summary ---
Author Organization [facility] Address [address] [place] [address] Phone Care Team Providers Care Manager Sales Training Name Role Phone Gladis Moura DO Primary Care Provider [phone] Encounter Details Date Type Department Care Team (Late st Contact Info) Description 06/05/2014 Documentation EM Family Medicine [address] [place] [address] Family Medicine, Physician [address] [place], [place] [phone] Social History Tobacco Use Types Packs/Day Years [...] on filedocumented in this encounter Care Teams Manager Sales Training Relationship Specialty Start Date End Date Gladis Moura DO 150 [place] [address] PCP - General 09/23/16 05/15/22 documented as of this encounter
--- OUTSIDE RECORDS SUMMARY | 2025-01-02 04:14 | XMS_ITS | Encounter Summary ---
Author Organization [facility] Address [address] [place] [address] Phone Care Team Providers Care Curb Attendant Name Role Phone Gladis Moura DO Primary Care Provider [phone] Encounter Details Date Type Department Care Team (Late st Contact Info) Description 05/25/2011 Documentation EM Family Medicine [address] [place] [address] Family Medicine, Physician [address] [place] [address] Social History Tobacco Use Types [...] on filedocumented in this encounter Care Teams Curb Attendant Relationship Specialty Start Date End Date Gladis Moura DO [address] [place] [address] PCP - General 09/23/16 05/15/22 documented as of this encounter
--- OUTSIDE RECORDS SUMMARY | 2025-01-02 04:14 | XMS_ITS | Encounter Summary ---
Author Organization [facility] Address [address] [place] [address] Phone Care Team Providers Care Mallet Cutter Name Role Phone Gladis Moura DO Primary Care Provider [phone] Encounter Details Date Type Department Care Team (Late st Contact Info) Description 01/10/2011 Documentation EM Family Medicine [address] [place] [address] Family Medicine, Physician [address] [place], [place] [phone] Social History Tobacco Use Types Packs/Day Years [...] on filedocumented in this encounter Care Teams Mallet Cutter Relationship Specialty Start Date End Date Gladis Moura DO 150 [facility] [place] [address] PCP - General 09/23/16 05/15/22 documented as of this encounter
--- OUTSIDE RECORDS SUMMARY | 2025-01-02 04:14 | XMS_ITS | Encounter Summary ---
Author Organization [facility] Address [address] [place] [address] Phone Care Team Providers Care Xerox Machine Operator Name Role Phone Gladis Moura DO Primary Care Provider [phone] Encounter Details Date Type Department Care Team (Late st Contact Info) Description 03/28/2011 Documentation EM Family Medicine [address] [place] [address] Family Medicine, Physician [address] [place], [place] [phone] Social History Tobacco Use Types Packs/Day Years [...] on filedocumented in this encounter Care Teams Xerox Machine Operator Relationship Specialty Start Date End Date Gladis Moura DO 150 [place] [address] PCP - General 09/23/16 05/15/22 documented as of this encounter
--- OUTSIDE RECORDS SUMMARY | 2025-01-02 04:14 | XMS_ITS | Encounter Summary ---
Author Organization [facility] Address [address] [place] [address] Phone Care Team Providers Care Rotary Adjuster Name Role Phone Gladis Moura DO Primary Care Provider [phone] Encounter Details Date Type Department Care Team (Late st Contact Info) Description 03/28/2013 Documentation [facility] [place] [address] [place] [address] Family Medicine, Physician [address] [place], [place] [phone] Social History Tobacco Use Types Packs/Day Years [...] filedocumented in this encounter Care Teams Rotary Adjuster Relationship Specialty Start Date End Date Gladis Moura DO 150 [facility] [place] [address] PCP - General 09/23/16 05/15/22 documented as of this encounter
--- OUTSIDE RECORDS SUMMARY | 2025-01-02 04:14 | XMS_ITS | Encounter Summary ---
Author Organization [facility] Address [address] [place] [address] Phone Care Team Providers Care Clinical Product Specialist Name Role Phone Gladis Moura DO Primary Care Provider [phone] Encounter Details Date Type Department Care Team (Late st Contact Info) Description 08/20/2010 Documentation EM Family Medicine [address] [place] [address] Family Medicine, Physician [address] [place] [address] Social History Tobacco Use Types [...] on filedocumented in this encounter Care Teams Clinical Product Specialist Relationship Specialty Start Date End Date Gladis Moura DO 150 [facility] [place] [address] PCP - General 09/23/16 05/15/22 documented as of this encounter
--- OUTSIDE RECORDS SUMMARY | 2025-01-02 04:14 | XMS_ITS | Encounter Summary ---
Author Organization [facility] Address [address] [place] [address] Phone Care Team Providers Care Police Or Patrol Park Officer Name Role Phone Gladis Moura DO Primary Care Provider Encounter Details Date Type Department Care Team (Late st Contact Info) Description 08/30/2013 Documentation EM Family Medicine [address] [place] [address] Family Medicine, Physician [address] [place], [place] [phone] Social History Tobacco Use Types Packs/Day Years [...] on filedocumented in this encounter Care Teams Police Or Patrol Park Officer Relationship Specialty Start Date End Date Gladis Moura DO 150 [facility] [place] [address] PCP - General 09/23/16 05/15/22 documented as of this encounter
--- OUTSIDE RECORDS SUMMARY | 2025-01-02 04:14 | XMS_ITS | Encounter Summary ---
Author Organization [facility] Address [address] [place] [address] Phone Care Team Providers Care Patternmaker Hand Name Role Phone Gladis Moura DO Primary Care Provider [phone] Encounter Details Date Type Department Care Team (Late st Contact Info) Description 03/17/2011 Documentation EM Family Medicine [address] [place] [address] Family Medicine, Physician [address] [place], [place] [phone] Social History Tobacco Use Types Packs/Day Years [...] on filedocumented in this encounter Care Teams Patternmaker Hand Relationship Specialty Start Date End Date Gladis Moura DO 150 [place] [address] PCP - General 09/23/16 05/15/22 documented as of this encounter
--- OUTSIDE RECORDS SUMMARY | 2025-01-02 04:14 | XMS_ITS | Encounter Summary ---
Author Organization [facility] Address [address] [place] [address] Phone Care Team Providers Care Environmental Journalist Name Role Phone Gladis Moura DO Primary Care Provider [phone] Encounter Details Date Type Department Care Team (Late st Contact Info) Description 06/20/2013 Documentation EM Family Medicine [address] [place] [address] Family Medicine, Physician [address] [place], [place] [phone] Social History Tobacco Use Types Packs/Day Years [...] on filedocumented in this encounter Care Teams Environmental Journalist Relationship Specialty Start Date End Date Gladis Moura DO 150 [facility] [place] [address] PCP - General 09/23/16 05/15/22 documented as of this encounter
--- OUTSIDE RECORDS SUMMARY | 2025-01-02 04:14 | XMS_ITS | Encounter Summary ---
Author Organization [facility] Address [address] [place] [address] Phone Care Team Providers Care Dental Specialist Name Role Phone Gladis Moura DO Primary Care Provider [phone] Encounter Details Date Type Department Care Team (Late st Contact Info) Description 09/29/2016 Conversion Encounter [facility] [address] [place] [address] Social History Tobacco Use Types Packs/Day Years [...] on filedocumented in this encounter Care Teams Dental Specialist Relationship Specialty Start Date End Date Gladis Moura DO 150 [place] [address] PCP - General 09/23/16 05/15/22 documented as of this encounter
--- OUTSIDE RECORDS SUMMARY | 2025-01-02 04:14 | XMS_ITS | Encounter Summary ---
Author Organization [facility] Address [address] [place] [address] Phone Care Team Providers Care [employer] Maintenance Worker Name Role Phone Gladis Moura DO Primary Care Provider [phone] Encounter Details Date Type Department Care Team (Late st Contact Info) Description 01/04/2011 Documentation EM Family Medicine [address] [place] [address] Family Medicine, Physician [address] [place], [place] [phone] Social History Tobacco Use Types Packs/Day Years [...] on filedocumented in this encounter Care Teams [employer] Maintenance Worker Relationship Specialty Start Date End Date Gladis Moura DO 150 [facility] [place] [address] PCP - General 09/23/16 05/15/22 documented as of this encounter
--- OUTSIDE RECORDS SUMMARY | 2025-01-02 04:14 | XMS_ITS | Encounter Summary ---
Author Organization [facility] Address [address] [place] [address] Phone Care Team Providers Care Director Of Coding Name Role Phone Gladis Moura DO Primary Care Provider [phone] Encounter Details Date Type Department Care Team (Late st Contact Info) Description 02/23/2016 Documentation [facility] [place] [address] [place] [address] Family Medicine, Physician [address] [place], [place] [phone] Social History Tobacco Use Types Packs/Day Years [...] filedocumented in this encounter Care Teams Director Of Coding Relationship Specialty Start Date End Date Gladis Moura DO 150 [facility] [place] [address] PCP - General 09/23/16 05/15/22 documented as of this encounter
--- OUTSIDE RECORDS SUMMARY | 2025-01-02 04:14 | XMS_ITS | Encounter Summary ---
Author Organization [facility] Address [address] [place] [address] Phone Care Team Providers Care Qa Software Test Engineer Name Role Phone Gladis Moura DO Primary Care Provider [phone] Encounter Details Date Type Department Care Team (Late st Contact Info) Description 04/08/2011 Documentation EM Family Medicine [address] [place] [address] Family Medicine, Physician [address] [place], [place] [phone] Social History Tobacco Use Types Packs/Day Years [...] on filedocumented in this encounter Care Teams Qa Software Test Engineer Relationship Specialty Start Date End Date Gladis Moura DO 150 [place] [address] PCP - General 09/23/16 05/15/22 documented as of this encounter
--- OUTSIDE RECORDS SUMMARY | 2025-01-02 04:14 | XMS_ITS | Clinical Summary ---
Author Organization [facility] Address [address] [place] [address] Phone Care Team Providers Care Occupational Therapist'S Assistant Name Role Phone Unavailable Primary Care Provider [...] of *Thrombophilia, No family history of *Sudden /[place] under 55, Family history of Lymphoma, No [...]
--- OUTSIDE RECORDS SUMMARY | 2025-01-02 04:14 | XMS_ITS | Encounter Summary ---
Author Organization [facility] Address [address] [place] [address] Phone Care Team Providers Care Pony Worker Name Role Phone Gladis Moura DO Primary Care Provider [phone] Encounter Details Date Type Department Care Team (Late st Contact Info) Description 10/07/2013 Documentation [facility] [place] [address] [place] [address] Family Medicine, Physician [address] [place], [place] [phone] Social History Tobacco Use Types Packs/Day Years [...] on filedocumented in this encounter Care Teams Pony Worker Relationship Specialty Start Date End Date Gladis Moura DO 150 [facility] [place] [address] PCP - General 09/23/16 05/15/22 documented as of this encounter
== END 2025-01-01 15:39 | disposition home or self-care (01) ==
LOC: HO.LAB 15:38
PROVIDERS: PCP Physician Assistant; Visit Provider Student in an Organized Health Care Education/Training Program
DX: Z79.899 Other long term (current) drug therapy (principal)
CPT/HCPCS: 36415; 80053; 85025; 85652; 86140

== ENCOUNTER 2025-01-28 13:34 | Emergency (ER) | payer OTHER, SELFPAY ==
--- NOTE | ~2025-01-28 | XR_ITS ---
EXAMINATION: XR CHEST CLINICAL INFORMATION: Chest pain COMPARISON: X-ray 07/06/2022 TECHNIQUE: Frontal view of the chest was obtained. FINDINGS: The cardiomediastinal silhouette is within normal limits. The lungs are well expanded. There is no focal consolidation, edema, or effusion. No pneumothorax. No acute osseous abnormality. XR/XR chest 1V IMPRESSION: No evidence of acute pulmonary process. Electronically signed by: Remington Martínez MD 01/28/2025 04:26 PM EST
--- NOTE | 2025-01-28 13:37 | ECG_ITS ---
Test Reason : chest pain Blood Pressure : */* mmHG Vent. Rate : 71 BPM Atrial Rate : 71 BPM P-R Int : 124 ms QRS Dur : 82 ms QT Int : 360 ms P-R-T Axes : 32 72 39 degrees QTcB Int : 391 ms Poor data quality, interpretation may be adversely affected Normal sinus rhythm with sinus arrhythmia Normal ECG When compared with ECG of 17-Sep-2022 16:40, T wave inversion no longer evident in Inferior leads Referred By: Generic ED Physician Electronically Signed By: Myron Vanegas
[2025-01-28 13:41] VITALS: BP 132/76; PULSE 100; O2SAT 100
[2025-01-28 16:05] VITALS: BP 153/90; PULSE 61; RESP 18; TEMP 36.6; O2SAT 99; BMI 27.6
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
[2025-01-28 17:02] LABS: Hemoglobin 14.7 g/dl (12.0-16.0); Imm Gran Abs Auto 0.03 X10*3/uL (0.00-0.03); Imm Gran Pct Auto 0.3 % (0.0-0.4); MANUAL DIFF FLAG SCAN; NRBC Abs Auto 0.000 X10*3/uL (0.0-0.012); NRBC Pct Auto 0.0 /100WBC (0.0-0.2); SCAN SMEAR FLAG 1
[2025-01-28 17:04] LABS: Hematocrit 43.6 % (37.0-47.0); Lymphocytes Absolute Auto 1.6 X10*3/uL (1.2-4.9); Mean Corpuscular HGB Conc 33.7 g/dl (31.0-35.0); Mean Corpuscular Hemoglobin 29.2 pg (27.0-33.0); Mean Corpuscular Volume 86.7 fL (80.0-98.0); PLT CLUMP 1; Red Blood Count 5.03 X10*6/uL (4.20-5.50)
[2025-01-28 17:07] LABS: PLT ABN DIST 1; White Blood Count 8.9 X10*3/uL (4.8-10.8)
[2025-01-28 17:08] LABS: Alanine Aminotransferase 55 U/L (0-31); Albumin Level 4.3 g/dL (3.5-5.0); Alkaline Phosphatase 70 U/L (39-117); Anion Gap 11 (12-20); Aspartate Amino Transferase 22 U/L (5-31); Blood Urea Nitrogen 15 mg/dL (9-16); Calcium 9.1 mg/dL (8.4-10.2); Carbon Dioxide 27 mmol/L (22-29); Chloride 110 mmol/L (96-108); Creatinine Clr Calc Pharmacy 71.2; Estimated Glomerular Filt Rate > 60; Potassium 4.5 mmol/L (3.3-5.1); Sodium 143 mmol/L (135-145); Total Protein 7.1 g/dL (6.5-8.0)
[2025-01-28 17:12] LABS: INTERNATIONAL NORM RATIO 1.0 (0.9-1.1); Prothrombin Time 11.7 SEC (11.2-13.5)
[2025-01-28 17:14] LABS: Partial Thromboplastin Time 26.1 SEC (26.7-34.1)
[2025-01-28 17:16] LABS: NT Pro B Type Natriuretic Pept 38.0 pg/mL (<300)
[2025-01-28 17:17] LABS: Troponin-I High Sensitivity < 2.7 ng/L (<3.5-17.0)
[2025-01-28 17:30] LABS: Resp Syncy Virus RNA Qual PCR NEGATIVE (Negative); SARS COV2 PCR INHOUSE NEGATIVE (Negative)
[2025-01-28 17:38] LABS: Platelet Count 160 X10*3/uL (160-400)
[2025-01-28 18:37] LABS: D Dimer High Sensitivity < 150 NG/ML
--- OUTSIDE RECORDS SUMMARY | 2025-01-28 20:36 | XMS_ITS | Encounter Summary ---
Author Organization [facility] Address [address] [place] [address] Phone Care Team Providers Care Optometric Tech Name Role Phone Gladis Moura DO Primary Care Provider [phone] Encounter Details Date Type Department Care Team (Late st Contact Info) Description 01/04/2011 Documentation EM Family Medicine [address] [place] [address] Family Medicine, Physician [address] [place], [place] [phone] Social History Tobacco Use Types Packs/Day Years [...] on filedocumented in this encounter Care Teams Optometric Tech Relationship Specialty Start Date End Date Gladis Moura DO 150 [place] [address] PCP - General 09/23/16 05/15/22 documented as of this encounter
--- OUTSIDE RECORDS SUMMARY | 2025-01-28 20:36 | XMS_ITS | Encounter Summary ---
Author Organization [facility] Address [address] [place] [address] Phone Care Team Providers Care Regulatory Affairs Manager Name Role Phone Gladis Moura DO Primary Care Provider [phone] Encounter Details Date Type Department Care Team (Late st Contact Info) Description 06/20/2013 Documentation EM Family Medicine [address] [place] [address] Family Medicine, Physician [address] [place], [place] [phone] Social History Tobacco Use Types Packs/Day Years [...] on filedocumented in this encounter Care Teams Regulatory Affairs Manager Relationship Specialty Start Date End Date Gladis Moura DO 150 [facility] [place] [address] PCP - General 09/23/16 05/15/22 documented as of this encounter
--- OUTSIDE RECORDS SUMMARY | 2025-01-28 20:36 | XMS_ITS | Encounter Summary ---
Author Organization [facility] Address [address] [place] [address] Phone Care Team Providers Care Can Cleaner Name Role Phone Gladis Moura DO Primary Care Provider [phone] Encounter Details Date Type Department Care Team (Late st Contact Info) Description 03/17/2011 Documentation EM Family Medicine [address] [place] [address] Family Medicine, Physician [address] [place], [place] [phone] Social History Tobacco Use Types Packs/Day Years [...] on filedocumented in this encounter Care Teams Can Cleaner Relationship Specialty Start Date End Date Gladis Moura DO 150 [facility] [place] [address] PCP - General 09/23/16 05/15/22 documented as of this encounter
--- OUTSIDE RECORDS SUMMARY | 2025-01-28 20:36 | XMS_ITS | Encounter Summary ---
Author Organization [facility] Address [address] [place] [address] Phone Care Team Providers Care Produce Manager Name Role Phone Gladis Moura DO Primary Care Provider [phone] Encounter Details Date Type Department Care Team (Late st Contact Info) Description 03/17/2011 Documentation EM Family Medicine [address] [place] [address] Family Medicine, Physician [address] [place], [place] [phone] Social History Tobacco Use Types Packs/Day Years [...] on filedocumented in this encounter Care Teams Produce Manager Relationship Specialty Start Date End Date Gladis Moura DO 150 [facility] [place] [address] PCP - General 09/23/16 05/15/22 documented as of this encounter
--- OUTSIDE RECORDS SUMMARY | 2025-01-28 20:36 | XMS_ITS | Encounter Summary ---
Author Organization [facility] Address [address] [place] [address] Phone Care Team Providers Care Feather Edger Name Role Phone Gladis Moura DO Primary Care Provider [phone] Encounter Details Date Type Department Care Team (Late st Contact Info) Description 02/23/[address] [facility] [place] Family Medicine [address] [place] [address] Family Medicine, Physician [address] [place], [place] [phone] Social History Tobacco Use Types Packs/Day Years [...] on filedocumented in this encounter Care Teams Feather Edger Relationship Specialty Start Date End Date Gladis Moura DO 150 [facility] [place] [address] PCP - General 09/23/16 05/15/22 documented as of this encounter
--- OUTSIDE RECORDS SUMMARY | 2025-01-28 20:36 | XMS_ITS | Clinical Summary ---
Author Organization [facility] Address [address] [place] [address] Phone Care Team Providers Care Stripping Cutter And Winder Name Role Phone Unavailable Primary Care Provider [...] of *Thrombophilia, No family history of *Sudden /AL under 55, Family history of Lymphoma, No [...]
--- OUTSIDE RECORDS SUMMARY | 2025-01-28 20:36 | XMS_ITS | Encounter Summary ---
Author Organization [facility] Address [address] [place] [address] Phone Care Team Providers Care Fiberglass Boat Builder Name Role Phone Gladis Moura DO Primary Care Provider [phone] Encounter Details Date Type Department Care Team (Late st Contact Info) Description 03/28/2013 Documentation [facility] Family Medicine [address] [place] [address] Family Medicine, Physician [address] [place], [place] [phone] Social History Tobacco Use Types Packs/Day Years [...] on filedocumented in this encounter Care Teams Fiberglass Boat Builder Relationship Specialty Start Date End Date Gladis Moura DO 150 [facility] [place] [address] PCP - General 09/23/16 05/15/22 documented as of this encounter
--- OUTSIDE RECORDS SUMMARY | 2025-01-28 20:36 | XMS_ITS | Encounter Summary ---
Author Organization [facility] Address [address] [place] [address] Phone Care Team Providers Care Gastroenterology Physician Name Role Phone Gladis Moura DO Primary Care Provider [phone] Encounter Details Date Type Department Care Team (Late st Contact Info) Description 09/29/2016 Conversion Encounter [facility] [address] [place] [address] Social History Tobacco Use Types Packs/Day Years [...] on filedocumented in this encounter Care Teams Gastroenterology Physician Relationship Specialty Start Date End Date Gladis Moura DO 150 [place] [address] PCP - General 09/23/16 05/15/22 documented as of this encounter
--- OUTSIDE RECORDS SUMMARY | 2025-01-28 20:36 | XMS_ITS | Encounter Summary ---
Author Organization [facility] Address [address] [place] [address] Phone Care Team Providers Care Binding Cementer French Cord Name Role Phone Gladis Moura DO Primary Care Provider [phone] Encounter Details Date Type Department Care Team (Late st Contact Info) Description 10/31/2011 Documentation [facility] [place] [place] Family Medicine [address] [place] [address] Family Medicine, Physician [address] [place], [place] [phone] Social History Tobacco Use Types Packs/Day Years [...] on filedocumented in this encounter Care Teams Binding Cementer French Cord Relationship Specialty Start Date End Date Gladis Moura DO 150 [facility] [place] [address] PCP - General 09/23/16 05/15/22 documented as of this encounter
--- OUTSIDE RECORDS SUMMARY | 2025-01-28 20:36 | XMS_ITS | Encounter Summary ---
Author Organization [facility] Address [address] [place] [address] Phone Care Team Providers Care Leather Coverer Name Role Phone Gladis Moura DO Primary Care Provider [phone] Encounter Details Date Type Department Care Team (Late st Contact Info) Description 05/25/2011 Documentation EM Family Medicine [address] [place] [address] Family Medicine, Physician [address] [place] [address] Social History Tobacco Use Types [...] on filedocumented in this encounter Care Teams Leather Coverer Relationship Specialty Start Date End Date Gladis Moura DO 150 [facility] [place] [address] PCP - General 09/23/16 05/15/22 documented as of this encounter
--- OUTSIDE RECORDS SUMMARY | 2025-01-28 20:36 | XMS_ITS | Encounter Summary ---
Author Organization [facility] Address [address] [place] [address] Phone Care Team Providers Care Pad Cutter Name Role Phone Gladis Moura DO Primary Care Provider [phone] Encounter Details Date Type Department Care Team (Late st Contact Info) Description 04/08/2011 Documentation EM Family Medicine [address] [place] [address] Family Medicine, Physician [address] [place], [place] [phone] Social History Tobacco Use Types Packs/Day Years [...] on filedocumented in this encounter Care Teams Pad Cutter Relationship Specialty Start Date End Date Gladis Moura DO [address] [facility] [place] [address] PCP - General 09/23/16 05/15/22 documented as of this encounter
--- OUTSIDE RECORDS SUMMARY | 2025-01-28 20:36 | XMS_ITS | Encounter Summary ---
Author Organization [facility] Address [address] [place] [address] Phone Care Team Providers Care Asbestos Worker Name Role Phone Gladis Moura DO Primary Care Provider [phone] Encounter Details Date Type Department Care Team (Late st Contact Info) Description 07/14/2016 Documentation [facility] [place] Family Medicine [address] [place] [address] Family Medicine, Physician [address] [place], [place] [phone] Social History Tobacco Use Types Packs/Day Years [...] in this encounter Care Teams Asbestos Worker Relationship Specialty Start Date End Date Gladis Moura DO 150 [place] [address] PCP - General 09/23/16 05/15/22 documented as of this encounter
--- OUTSIDE RECORDS SUMMARY | 2025-01-28 20:36 | XMS_ITS | Encounter Summary ---
Author Organization [facility] Address [address] [place] [address] Phone Care Team Providers Care Non Destructive Testing Supervisor Name Role Phone Gladis Moura DO Primary Care Provider [phone] Encounter Details Date Type Department Care Team (Late st Contact Info) Description 10/07/2013 Documentation [facility] [place] Family Medicine [address] [place] [address] Family Medicine, Physician [address] [place], [place] [phone] Social History Tobacco Use Types Packs/Day Years [...] on filedocumented in this encounter Care Teams Non Destructive Testing Supervisor Relationship Specialty Start Date End Date Gladis Moura DO 150 [facility] [place] [address] PCP - General 09/23/16 05/15/22 documented as of this encounter
--- OUTSIDE RECORDS SUMMARY | 2025-01-28 20:36 | XMS_ITS | Encounter Summary ---
Author Organization [facility] Address [address] [place] [address] Phone Care Team Providers Care Healthcare Administration Internship Name Role Phone Gladsi Moura DO Primary Care Provider [phone] Encounter Details Date Type Department Care Team (Late st Contact Info) Description 03/28/2011 Documentation [facility] [place] [address] [place] [address] Family Medicine, Physician [address] [place], [place] [phone] Social History Tobacco Use Types Packs/Day Years [...] on filedocumented in this encounter Care Teams Healthcare Administration Internship Relationship Specialty Start Date End Date Gladis Moura DO 150 [facility] [place] [address] PCP - General 09/23/16 05/15/22 documented as of this encounter
--- OUTSIDE RECORDS SUMMARY | 2025-01-28 20:36 | XMS_ITS | Encounter Summary ---
Author Organization [facility] Address [address] [place] [address] Phone Care Team Providers Care Skull Chopper Name Role Phone Gladis Moura DO Primary Care Provider [phone] Encounter Details Date Type Department Care Team (Late st Contact Info) Description 01/10/2011 Documentation EM Family Medicine [address] [place] [address] Family Medicine, Physician [address] [place], [place] [phone] Social History Tobacco Use Types Packs/Day Years [...] on filedocumented in this encounter Care Teams Skull Chopper Relationship Specialty Start Date End Date Gladis Moura DO 150 [facility] [place] [address] PCP - General 09/23/16 05/15/22 documented as of this encounter
--- OUTSIDE RECORDS SUMMARY | 2025-01-28 20:36 | XMS_ITS | Encounter Summary ---
Author Organization [facility] Address [address] [place] [address] Phone Care Team Providers Care Rock Crushing Machine Operator Name Role Phone Gladis Moura DO Primary Care Provider [phone] Encounter Details Date Type Department Care Team (Late st Contact Info) Description 01/03/2013 Documentation EM Family Medicine [address] [place] [address] Family Medicine, Physician [address] [place], [place] [phone] Social History Tobacco Use Types Packs/Day Years [...] on filedocumented in this encounter Care Teams Rock Crushing Machine Operator Relationship Specialty Start Date End Date Gladis Moura DO [address] [facility] [place] [address] PCP - General 09/23/16 05/15/22 documented as of this encounter
--- OUTSIDE RECORDS SUMMARY | 2025-01-28 20:36 | XMS_ITS | Encounter Summary ---
Author Organization [facility] Address [address] [place] [address] Phone Care Team Providers Care Adoption Counselor Name Role Phone Gladis Moura DO Primary Care Provider [phone] Encounter Details Date Type Department Care Team (Late st Contact Info) Description 08/20/2010 Documentation EM Family Medicine [address] [place] [address] Family Medicine, Physician [address] [place] [address] Social History Tobacco Use Types [...] on filedocumented in this encounter Care Teams Adoption Counselor Relationship Specialty Start Date End Date Gladis Moura DO 150 [facility] [place] [address] PCP - General 09/23/16 05/15/22 documented as of this encounter
--- OUTSIDE RECORDS SUMMARY | 2025-01-28 20:36 | XMS_ITS | Encounter Summary ---
Author Organization [facility] Address [address] [place] [address] Phone Care Team Providers Care Residential Youth Counselor Name Role Phone Gladis Moura DO Primary Care Provider [phone] Encounter Details Date Type Department Care Team (Late st Contact Info) Description 07/02/2013 Documentation EM Family Medicine [address] [place] [address] Family Medicine, Physician [address] [place], [place] [phone] Social History Tobacco Use Types Packs/Day Years [...] on filedocumented in this encounter Care Teams Residential Youth Counselor Relationship Specialty Start Date End Date Gladis Moura DO 150 [place] [address] PCP - General 09/23/16 05/15/22 documented as of this encounter
--- OUTSIDE RECORDS SUMMARY | 2025-01-28 20:36 | XMS_ITS | Encounter Summary ---
Author Organization [facility] Address [address] [place] [address] Phone Care Team Providers Care Rougher Merchant Mill Name Role Phone Gladis Moura DO Primary Care Provider [phone] Encounter Details Date Type Department Care Team (Late st Contact Info) Description 02/22/2010 Documentation EM Family Medicine [address] [place] [address] Family Medicine, Physician [address] [place] [address] Social History Tobacco Use Types [...] on filedocumented in this encounter Care Teams Rougher Merchant Mill Relationship Specialty Start Date End Date Gladis Moura DO 150 [facility] [address] PCP - General 09/23/16 05/15/22 documented as of this encounter
--- OUTSIDE RECORDS SUMMARY | 2025-01-28 20:36 | XMS_ITS | Encounter Summary ---
Author Organization [facility] Address [address] [place] [address] Phone Care Team Providers Care Hadoop Consultant Name Role Phone Gladis Moura DO Primary Care Provider [phone] Encounter Details Date Type Department Care Team (Late st Contact Info) Description 06/05/2014 Documentation EM Family Medicine [address] [place] [address] Family Medicine, Physician [address] [place], [place] [id number] Social History Tobacco Use Types Packs/Day Years [...] on filedocumented in this encounter Care Teams Hadoop Consultant Relationship Specialty Start Date End Date Gladis Moura DO [address] [facility] [place] [address] PCP - General 09/23/16 05/15/22 documented as of this encounter
--- OUTSIDE RECORDS SUMMARY | 2025-01-28 20:36 | XMS_ITS | Encounter Summary ---
Author Organization [facility] Address [address] [place] [place] [address] Phone Care Team Providers Care Gasoline Truck Operator Name Role Phone Gladis Moura DO Primary Care Provider [phone] Encounter Details Date Type Department Care Team (Late st Contact Info) Description 08/30/2013 Documentation EM Family Medicine [address] [place] [address] Family Medicine, Physician [address] [place], [place] [id number] Social History Tobacco Use Types Packs/Day Years [...] on filedocumented in this encounter Care Teams Gasoline Truck Operator Relationship Specialty Start Date End Date Gladis Moura DO 150 [facility] [address] PCP - General 09/23/16 05/15/22 documented as of this encounter
--- OUTSIDE RECORDS SUMMARY | 2025-01-28 20:36 | XMS_ITS | Encounter Summary ---
Author Organization [facility] Address [address] [place] [address] Phone Care Team Providers Care Radiologic Electronic Specialist Name Role Phone Gladis Moura DO Primary Care Provider [phone] Encounter Details Date Type Department Care Team (Late st Contact Info) Description 08/20/2013 Documentation EM Family Medicine [address] [place] [address] Family Medicine, Physician [address] [place], [place] [phone] Social History Tobacco Use Types Packs/Day Years [...] on filedocumented in this encounter Care Teams Radiologic Electronic Specialist Relationship Specialty Start Date End Date Gladis Moura DO 150 [facility] [place] [address] PCP - General 09/23/16 05/15/22 documented as of this encounter
== END 2025-01-28 20:14 | disposition left against medical advice (07) ==
PROVIDERS: Physician Assistant; Emergency Provider Emergency Medicine
DX: R07.9 Chest pain, unspecified (principal); Z03.818 Encounter for observation for suspected exposure to other biological agents ruled out; Z53.29 Procedure and treatment not carried out because of patient's decision for other reasons
CPT/HCPCS: 36415; 71045; 80053; 83880; 84484; 85025; 85379; 85610; 85730; 87637; 93005; 99283

== ENCOUNTER → 2025-01-28 13:37 | Outpatient (BNV) | payer OTHER, SELFPAY | PROVIDERS: Visit Provider Internal Medicine Cardiovascular Disease | DX: R07.9 Chest pain, unspecified (principal) | CPT/HCPCS: 93010 ==

== ENCOUNTER 2025-01-30 21:15 | Emergency (ER) | payer OTHER, SELFPAY ==
--- NOTE | ~2025-01-30 | XR_ITS ---
CLINICAL HISTORY: pain 3 views lumbar spine Comparison: None provided Findings: Normal alignment. No acute fractures or dislocation. Soft tissues are within normal limits. IMPRESSION: No acute findings. This document has been electronically signed by: Michael Flynn MD on 01/30/2025 22:21:45
[2025-01-30 21:19] VITALS: BP 126/73; PULSE 107; RESP 20; TEMP 37.9; O2SAT 100; BMI 28.1
[2025-01-30 21:46] LABS: MANUAL DIFF FLAG NO
[2025-01-30 21:47] LABS: Hematocrit 42.5 % (37.0-47.0); Hemoglobin 14.6 g/dl (12.0-16.0); Imm Gran Abs Auto 0.02 X10*3/uL (0.00-0.03); Imm Gran Pct Auto 0.2 % (0.0-0.4); Lymphocytes Absolute Auto 0.5 X10*3/uL (1.2-4.9); Mean Corpuscular HGB Conc 34.4 g/dl (31.0-35.0); Mean Corpuscular Hemoglobin 29.8 pg (27.0-33.0); Mean Corpuscular Volume 86.7 fL (80.0-98.0); NRBC Abs Auto 0.000 X10*3/uL (0.0-0.012); NRBC Pct Auto 0.0 /100WBC (0.0-0.2); Platelet Count 139 X10*3/uL (160-400); Red Blood Count 4.90 X10*6/uL (4.20-5.50); White Blood Count 8.1 X10*3/uL (4.8-10.8)
[2025-01-30 22:00] LABS: Alanine Aminotransferase 39 U/L (0-31); Albumin Level 4.3 g/dL (3.5-5.0); Alkaline Phosphatase 71 U/L (39-117); Anion Gap 11 (12-20); Aspartate Amino Transferase 23 U/L (5-31); Blood Urea Nitrogen 16 mg/dL (9-16); Calcium 8.9 mg/dL (8.4-10.2); Carbon Dioxide 26 mmol/L (22-29); Chloride 108 mmol/L (96-108); Creatinine Clr Calc Pharmacy 63.6; Estimated Glomerular Filt Rate 58; Potassium 4.3 mmol/L (3.3-5.1); Sodium 141 mmol/L (135-145); Total Protein 7.0 g/dL (6.5-8.0)
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
[2025-01-31 00:40] VITALS: BP 118/63; PULSE 97; RESP 19; TEMP 36.8; O2SAT 99
[2025-01-31 00:56] LABS: Appearance Urine Clear; Glucose Urine UA Negative (Negative); PH 5.5 (5.0-9.0); Specific Gravity - Urine >= 1.030 (1.005-1.025); UMIC TRIGGER UACC YES
[2025-01-31 01:05] LABS: UACC Culture Trigger YES
[2025-01-31] MEDS: Lidocaine 4 % Patch ADH..PATCH 1 PATCH TRANSDERMA (01:05)
[2025-01-31 01:32] LABS: Resp Syncy Virus RNA Qual PCR NEGATIVE (Negative); SARS COV2 PCR INHOUSE NEGATIVE (Negative)
--- OUTSIDE RECORDS SUMMARY | 2025-01-31 01:46 | XMS_ITS | Encounter Summary ---
Author Organization [facility] Address [address] [place] [address] Phone Care Team Providers Care Dog Daycare Provider Name Role Phone Gladis Moura DO Primary Care Provider [phone] Encounter Details Date Type Department Care Team (Late st Contact Info) Description 08/20/2013 Documentation EM Family Medicine [address] [place] [address] Family Medicine, Physician [address] [place], [place] [id number] Social History Tobacco Use Types Packs/Day Years [...] on filedocumented in this encounter Care Teams Dog Daycare Provider Relationship Specialty Start Date End Date Gladis Moura DO [address] [facility] [place] [address] PCP - General 09/23/16 05/15/22 documented as of this encounter
--- OUTSIDE RECORDS SUMMARY | 2025-01-31 01:46 | XMS_ITS | Encounter Summary ---
Author Organization [facility] Address [address] [place] [address] Phone Care Team Providers Care Experimental Machinist Name Role Phone Gladis Moura DO Primary Care Provider [phone] Encounter Details Date Type Department Care Team (Late st Contact Info) Description 01/04/2011 Documentation EM Family Medicine [address] [place] [address] Family Medicine, Physician [address] [place] [address] Social History Tobacco Use Types [...] on filedocumented in this encounter Care Teams Experimental Machinist Relationship Specialty Start Date End Date Gladis Moura DO 150 [place] [address] PCP - General 09/23/16 05/15/22 documented as of this encounter
--- OUTSIDE RECORDS SUMMARY | 2025-01-31 01:46 | XMS_ITS | Encounter Summary ---
Author Organization [facility] Address [address] [place] [address] Phone Care Team Providers Care Clipper And Turner Name Role Phone Gladis Moura DO Primary Care Provider [phone] Encounter Details Date Type Department Care Team (Late st Contact Info) Description 02/22/2010 Documentation EM Family Medicine [address] [place] [address] Family Medicine, Physician [address] [place] [address] Social History Tobacco Use Types [...] on filedocumented in this encounter Care Teams Clipper And Turner Relationship Specialty Start Date End Date Galdis Moura DO 150 [place] [address] PCP - General 09/23/16 05/15/22 documented as of this encounter
--- OUTSIDE RECORDS SUMMARY | 2025-01-31 01:46 | XMS_ITS | Encounter Summary ---
Author Organization [facility] Address [address] [place] [address] Phone Care Team Providers Care Large Animal Veterinarian Name Role Phone Gladis Moura DO Primary Care Provider [phone] Encounter Details Date Type Department Care Team (Late st Contact Info) Description 07/02/2013 Documentation EM Family Medicine [address] [place] [address] Family Medicine, Physician [address] [place], [place] [phone] Social History Tobacco Use Types Packs/Day Years [...] on filedocumented in this encounter Care Teams Large Animal Veterinarian Relationship Specialty Start Date End Date Gladis Moura DO 150 [facility] [place] [address] PCP - General 09/23/16 05/15/22 documented as of this encounter
--- OUTSIDE RECORDS SUMMARY | 2025-01-31 01:46 | XMS_ITS | Encounter Summary ---
Author Organization [facility] Address [address] [place] [address] Phone Care Team Providers Care Sealer Aircraft Name Role Phone Gladis Moura DO Primary Care Provider [phone] Encounter Details Date Type Department Care Team (Late st Contact Info) Description 08/20/2010 Documentation [facility] [address] [place] [address] Family Medicine, Physician [address] [place] [address] Social History Tobacco Use Types [...] on filedocumented in this encounter Care Teams Sealer Aircraft Relationship Specialty Start Date End Date Gladis Moura DO 150 [place] [address] PCP - General 09/23/16 05/15/22 documented as of this encounter
--- OUTSIDE RECORDS SUMMARY | 2025-01-31 01:46 | XMS_ITS | Encounter Summary ---
Author Organization [facility] Address [address] [place] [address] Phone Care Team Providers Care Blade Sharpener Name Role Phone Gladis Moura DO Primary Care Provider [phone] Encounter Details Date Type Department Care Team (Late st Contact Info) Description 06/20/2013 Documentation EM Family Medicine [address] [place] [address] Family Medicine, Physician [address] [place], [place] [phone] Social History Tobacco Use Types Packs/Day Years [...] on filedocumented in this encounter Care Teams Blade Sharpener Relationship Specialty Start Date End Date Gladis Moura DO 150 [facility] [place] [address] PCP - General 09/23/16 05/15/22 documented as of this encounter
--- OUTSIDE RECORDS SUMMARY | 2025-01-31 01:46 | XMS_ITS | Encounter Summary ---
Author Organization [facility] Address [address] [place] [address] Phone Care Team Providers Care Tube Operator Name Role Phone Gladis Moura DO Primary Care Provider [phone] Encounter Details Date Type Department Care Team (Late st Contact Info) Description 08/30/2013 Documentation EM Family Medicine [address] [place] [address] Family Medicine, Physician [address] [place], [place] [phone] Social History Tobacco Use Types Packs/Day Years [...] on filedocumented in this encounter Care Teams Tube Operator Relationship Specialty Start Date End Date Gladis Moura DO 150 [facility] [place] [address] PCP - General 09/23/16 05/15/22 documented as of this encounter
--- OUTSIDE RECORDS SUMMARY | 2025-01-31 01:46 | XMS_ITS | Encounter Summary ---
Author Organization [facility] Address [address] [place] [place] [address] Phone Care Team Providers Care Shearing Machine Operator Name Role Phone Gladis Moura DO Primary Care Provider [phone] Encounter Details Date Type Department Care Team (Late st Contact Info) Description 01/10/2011 Documentation EM Family Medicine [address] [place] [address] Family Medicine, Physician [address] [place], [place] [phone] Social History Tobacco Use Types Packs/Day Years [...] on filedocumented in this encounter Care Teams Shearing Machine Operator Relationship Specialty Start Date End Date Gladis Moura DO 150 [facility] [place] [address] PCP - General 09/23/16 05/15/22 documented as of this encounter
--- OUTSIDE RECORDS SUMMARY | 2025-01-31 01:46 | XMS_ITS | Encounter Summary ---
Author Organization [facility] Address [address] [place] [address] Phone Care Team Providers Care Oil Tester Name Role Phone Gladis Moura DO Primary Care Provider [phone] Encounter Details Date Type Department Care Team (Late st Contact Info) Description 09/29/2016 Conversion Encounter [facility] [place] [address] [place] [address] Social History Tobacco Use Types Packs/Day Years [...] on filedocumented in this encounter Care Teams Oil Tester Relationship Specialty Start Date End Date Gladis Moura DO 150 [place] [address] PCP - General 09/23/16 05/15/22 documented as of this encounter
--- OUTSIDE RECORDS SUMMARY | 2025-01-31 01:46 | XMS_ITS | Clinical Summary ---
Author Organization [facility] Address [address] [place] [address] Phone Care Team Providers Care Client Support Consultant Name Role Phone Unavailable Primary Care Provider [...] of *Thrombophilia, No family history of *Sudden /HI under 55, Family history of Lymphoma, No [...]
--- OUTSIDE RECORDS SUMMARY | 2025-01-31 01:47 | XMS_ITS | Encounter Summary ---
Author Organization [facility] Address [address] [place] [address] Phone Care Team Providers Care Extractions Technician Name Role Phone Gladis Moura DO Primary Care Provider [phone] Encounter Details Date Type Department Care Team (Late st Contact Info) Description 03/17/2011 Documentation EM Family Medicine [address] [place] [address] Family Medicine, Physician [address] [place], [place] [phone] Social History Tobacco Use Types Packs/Day Years [...] on filedocumented in this encounter Care Teams Extractions Technician Relationship Specialty Start Date End Date Gladis Moura DO 150 [facility] [place] [address] PCP - General 09/23/16 05/15/22 documented as of this encounter
--- OUTSIDE RECORDS SUMMARY | 2025-01-31 01:47 | XMS_ITS | Encounter Summary ---
Author Organization [facility] Address [address] [place] [address] Phone Care Team Providers Care Marketing Communications Associate Name Role Phone Gladis Moura DO Primary Care Provider [phone] Encounter Details Date Type Department Care Team (Late st Contact Info) Description 10/31/2011 Documentation [facility] [place] [address] [place] [address] Family Medicine, Physician [address] [place], [place] [phone] Social History Tobacco Use Types Packs/Day Years [...] on filedocumented in this encounter Care Teams Marketing Communications Associate Relationship Specialty Start Date End Date Gladis Moura DO 150 [facility] [place] [address] PCP - General 09/23/16 05/15/22 documented as of this encounter
--- OUTSIDE RECORDS SUMMARY | 2025-01-31 01:47 | XMS_ITS | Encounter Summary ---
Author Organization [facility] Address [address] [place] [address] Phone Care Team Providers Care Commercial Airline Pilot Name Role Phone Gladis Moura DO Primary Care Provider [phone] Encounter Details Date Type Department Care Team (Late st Contact Info) Description 03/28/2013 Documentation [facility] [place] [address] [place] [address] Family Medicine, Physician [address] [place], [place] [phone] Social History Tobacco Use Types Packs/Day Years [...] on filedocumented in this encounter Care Teams Commercial Airline Pilot Relationship Specialty Start Date End Date Gladis Moura DO 150 [facility] [place] [address] PCP - General 09/23/16 05/15/22 documented as of this encounter
--- OUTSIDE RECORDS SUMMARY | 2025-01-31 01:47 | XMS_ITS | Encounter Summary ---
Author Organization [facility] Address [address] [place] [address] Phone Care Team Providers Care Paper Reeler Name Role Phone Gladis Moura DO Primary Care Provider [phone] Encounter Details Date Type Department Care Team (Late st Contact Info) Description 02/23/2016 Documentation [facility] [place] Family Medicine [address] [place] [address] Family Medicine, Physician [address] [place], [place] [phone] Social History Tobacco Use Types Packs/Day Years [...] on filedocumented in this encounter Care Teams Paper Reeler Relationship Specialty Start Date End Date Gladis Moura DO 150 [place] [address] PCP - General 09/23/16 05/15/22 documented as of this encounter
--- OUTSIDE RECORDS SUMMARY | 2025-01-31 01:47 | XMS_ITS | Encounter Summary ---
Author Organization [facility] Address [address] [place] [address] Phone Care Team Providers Care Dry Clipper Tender Name Role Phone Gladis Moura DO Primary Care Provider [phone] Encounter Details Date Type Department Care Team (Late st Contact Info) Description 10/07/2013 Documentation EM Family Medicine [address] [place] [address] Family Medicine, Physician [address] [place], [place] [phone] Social History Tobacco Use Types Packs/Day Years [...] filedocumented in this encounter Care Teams Dry Clipper Tender Relationship Specialty Start Date End Date Gladis Moura DO 150 [place] [address] PCP - General 09/23/16 05/15/22 documented as of this encounter
--- OUTSIDE RECORDS SUMMARY | 2025-01-31 01:47 | XMS_ITS | Encounter Summary ---
Author Organization [facility] Address [address] [place] [address] Phone Care Team Providers Care Sas Sql Developer Name Role Phone Gladis Moura DO Primary Care Provider [phone] Encounter Details Date Type Department Care Team (Late st Contact Info) Description 05/25/2011 Documentation EM Family Medicine [address] [place] [address] Family Medicine, Physician [address] [place] [address] Social History Tobacco Use Types [...] on filedocumented in this encounter Care Teams Sas Sql Developer Relationship Specialty Start Date End Date Gladis Moura DO 150 [facility] [place] [address] PCP - General 09/23/16 05/15/22 documented as of this encounter
--- OUTSIDE RECORDS SUMMARY | 2025-01-31 01:47 | XMS_ITS | Encounter Summary ---
Author Organization [facility] Address [address] [place] [address] Phone Care Team Providers Care Dressed Poultry Grader Name Role Phone Gladis Moura DO Primary Care Provider [phone] Encounter Details Date Type Department Care Team (Late st Contact Info) Description 07/14/2016 Documentation [facility] [place] [address] [place] [address] Family Medicine, Physician [address] [place], [place] [phone] Social History Tobacco Use Types Packs/Day Years [...] on filedocumented in this encounter Care Teams Dressed Poultry Grader Relationship Specialty Start Date End Date Gladis Moura DO 150 [facility] [place] [address] PCP - General 09/23/16 05/15/22 documented as of this encounter
--- OUTSIDE RECORDS SUMMARY | 2025-01-31 01:47 | XMS_ITS | Encounter Summary ---
Author Organization [facility] Address [address] [place] [address] Phone Care Team Providers Care Wrapping Machine Tender Name Role Phone Gladis Moura DO Primary Care Provider [phone] Encounter Details Date Type Department Care Team (Late st Contact Info) Description 03/28/2011 Documentation EM Family Medicine [address] [place] [address] Family Medicine, Physician [address] [place], [place] [phone] Social History Tobacco Use Types Packs/Day Years [...] on filedocumented in this encounter Care Teams Wrapping Machine Tender Relationship Specialty Start Date End Date Gladis Moura DO 150 [facility] [place] [address] PCP - General 09/23/16 05/15/22 documented as of this encounter
--- OUTSIDE RECORDS SUMMARY | 2025-01-31 01:47 | XMS_ITS | Encounter Summary ---
Author Organization [facility] Address [address] [place] [address] Phone Care Team Providers Care Supervisor Acoustical Tile Carpenters Name Role Phone Gladis Moura DO Primary Care Provider [phone] Encounter Details Date Type Department Care Team (Late st Contact Info) Description 06/05/2014 Documentation EM Family Medicine [address] [place] [address] Family Medicine, Physician [address] [place], [place] [phone] Social History Tobacco Use Types Packs/Day Years [...] on filedocumented in this encounter Care Teams Supervisor Acoustical Tile Carpenters Relationship Specialty Start Date End Date Gladis Moura DO 150 [facility] [place] [address] PCP - General 09/23/16 05/15/22 documented as of this encounter
--- OUTSIDE RECORDS SUMMARY | 2025-01-31 01:47 | XMS_ITS | Encounter Summary ---
Author Organization [facility] Address [address] [place] [address] Phone Care Team Providers Care Dynamometer Tester Engine Name Role Phone Gladis Moura DO Primary Care Provider [phone] Encounter Details Date Type Department Care Team (Late st Contact Info) Description 01/03/2013 Documentation EM Family Medicine [address] [place] [address] Family Medicine, Physician [address] [place], [place] [phone] Social History Tobacco Use Types Packs/Day Years [...] on filedocumented in this encounter Care Teams Dynamometer Tester Engine Relationship Specialty Start Date End Date Gladis Moura DO 150 [facility] [place] [address] PCP - General 09/23/16 05/15/22 documented as of this encounter
--- OUTSIDE RECORDS SUMMARY | 2025-01-31 01:47 | XMS_ITS | Encounter Summary ---
Author Organization [facility] Address [address] [place] [address] Phone Care Team Providers Care Hospice Educator Name Role Phone Gladis Moura DO Primary Care Provider [phone] Encounter Details Date Type Department Care Team (Late st Contact Info) Description 04/08/2011 Documentation EM Family Medicine [address] [place] [address] Family Medicine, Physician [address] [place], [place] [phone] Social History Tobacco Use Types Packs/Day Years [...] on filedocumented in this encounter Care Teams Hospice Educator Relationship Specialty Start Date End Date Gladis Moura DO 150 [facility] [place] [address] PCP - General 09/23/16 05/15/22 documented as of this encounter
--- OUTSIDE RECORDS SUMMARY | 2025-01-31 01:47 | XMS_ITS | Encounter Summary ---
Author Organization [facility] Address [address] [place] [address] Phone Care Team Providers Care Human Capital Analyst Name Role Phone Gladis Moura DO Primary Care Provider [phone] Encounter Details Date Type Department Care Team (Late st Contact Info) Description 03/17/2011 Documentation EM Family Medicine [address] [place] [address] Family Medicine, Physician [address] [place], [place] [phone] Social History Tobacco Use Types Packs/Day Years [...] on filedocumented in this encounter Care Teams Human Capital Analyst Relationship Specialty Start Date End Date Gladis Moura DO 150 [facility] [place] [address] PCP - General 09/23/16 05/15/22 documented as of this encounter
[2025-01-31 02:28] VITALS: BP 118/63; PULSE 97; RESP 19; TEMP 36.8; O2SAT 99
== END 2025-01-31 02:25 | disposition home or self-care (01) ==
PROVIDERS: Physician Assistant; Emergency Provider Emergency Medicine; PCP Physician Assistant
DX: J10.1 Influenza due to other identified influenza virus with other respiratory manifestations (principal); M54.16 Radiculopathy, lumbar region; M79.10 Myalgia, unspecified site; G43.909 Migraine, unspecified, not intractable, without status migrainosus; I42.9 Cardiomyopathy, unspecified; D69.3 Immune thrombocytopenic purpura; F41.9 Anxiety disorder, unspecified; D72.829 Elevated white blood cell count, unspecified
CPT/HCPCS: 36415; 72100; 80053; 81001; 81003; 85025; 87086; 87637; 96372; 99284; J1885

== ENCOUNTER → 2025-01-30 21:55 | Outpatient (BNV) | payer OTHER, SELFPAY | PROVIDERS: Visit Provider Radiology Diagnostic Radiology | DX: M54.50 Low back pain, unspecified (principal) | CPT/HCPCS: 72100 ==